=== PATIENT | female | born 1960 | race Caucasian/White ===

== ENCOUNTER → 2016-11-02 | Outpatient (CLI) | payer OTHER ==
--- NOTE | 2016-11-02 13:19 | Diagnostic Imaging Report ---
PROCEDURE: US Carotid Duplex Bilateral. TECHNIQUE: Multiple real-time grayscale images were obtained over the carotid arteries in various projections bilaterally. Additional duplex Doppler and color Doppler images were also obtained. INDICATION: Chest pain. FINDINGS: Grayscale images demonstrate calcified plaque along the carotid bifurcation bilaterally. Color-flow demonstrates patency of the common, internal, and external carotid arteries on both sides. There is antegrade flow demonstrated in the vertebral arteries on both sides. The peak systolic velocities in the right ICA are: 76, 99, and 104 cm/s from proximal to distal and on the left are: 72, 90, and 108 cm/s. The ICA/CCA ratios are up to 1.4 on the right and up to 1.7 on the left. IMPRESSION: Bilateral atherosclerotic plaque in the carotid bifurcation bilaterally with the estimated underlying stenosis in the range of 0-40% bilaterally. Dictated by: Dictated on workstation # [id number]
--- NOTE | 2016-11-04 08:26 | ECHOCARDIOGRAPHY REPORT ---
DATE OF SERVICE: 11/02/2016 A 2-D ECHOCARDIOGRAM REPORT MEASUREMENT: LVID end diastolic 3.4, IVS thickness 1.1, LVPW thickness 1.0, left atrial diameter 2.3, ejection fraction 60%. FINDINGS: 1. Technical quality is good. 2. The left ventricle is normal in size with mild hypertrophy noted at the base of the septum giving the septum a sigmoid shape. Systolic function appeared to be normal, estimated ejection fraction 60%. Diastolic dysfunction is suggested by Doppler. 3. The left atrium is normal in size. No clots or thrombus were seen within the left atrium. 4. The right atrium and right ventricle are normal in size. No clots or thrombus were seen within the right side. 5. Mitral valve is normal in morphology with mild mitral regurgitation noted by color Doppler flow. Doppler across the mitral valve showed equalization of E and A, which is suggestive of diastolic dysfunction. 6. Aortic valve leaflets were not well visualized. There is no significant aortic valve stenosis or regurgitation seen. 7. Tricuspid valve is normal in morphology with mild tricuspid regurgitation noted by color Doppler flow. Doppler across the tricuspid valve estimated pulmonary artery pressure of 29+ right atrial pressure. 8. Pulmonic valve is functioning normally. 9. No pericardial effusion. CONCLUSION: 1. Normal left ventricular size and systolic function, mild hypertrophy noted at the base of the septum giving the septum a sigmoid shape. Estimated ejection fraction 60%. Diastolic dysfunction is suggested by Doppler. 2. Mild mitral and tricuspid regurgitation. 3. Estimated pulmonary artery pressure of 35 mmHg. Job ID: [id number] DocumentID: [id number] Dictated Date: 11/02/2016 15:50:56 Meat Grader Date: 11/03/2016 06:51:25 Dictated By: MARITZA LARSEN MD
== END ==
LOC: RAD 10:43
PROVIDERS: ATTEND Internal Medicine Cardiovascular Disease
DX: R07.89 Other chest pain (principal)
CPT/HCPCS: 93880

== ENCOUNTER → 2016-12-21 | Outpatient (CLI) | payer OTHER ==
[~2016-12-21] MED LIST: CATHETER FLUSH 10 ML SYR IV PRN; REGADENOSON 0.4 MG/5 ML SYR (LEXISCAN) IV ONE
[2016-12-21 13:20] VITALS: BP 136/78
--- NOTE | 2016-12-21 17:16 | STRESS TEST ---
PROCEDURE PHYSICIAN: MARITZA LARSEN DATE OF PROCEDURE: 12/21/2016 LEXISCAN MYOVIEW STRESS TEST REPORT: BASELINE HEART RATE: 97 BASELINE BLOOD PRESSURE: 136/78 BASELINE EKG: Sinus rhythm with right bundle-branch block. IN SUMMARY: The patient received 10.08 mCi of technetium 99 Myoview and the resting images were obtained. Then the patient received 0.4 mg of Lexiscan followed by 31.4 mCi of technetium 99 Myoview. Throughout the test, there were no EKG changes. The resting and stress images were reviewed and compared in the short axis, horizontal long axis, and vertical long axis views. Review of the images showed good radiotracer uptake with no significant ischemia or infarction. SSS is 3, SDS 2, TID value 1.16. On the gated images, the left ventricle appeared to be normal size with normal contractility. Calculated ejection fraction 58%. IN CONCLUSION: 1. The patient tolerated Lexiscan well. 2. No significant ischemia or infarction on SPECT images. 3. Normal left ventricular size with normal contractility. Calculated ejection fraction of 58%. 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
== END ==
LOC: CARD 12:04
PROVIDERS: ATTEND Internal Medicine Cardiovascular Disease
DX: R07.89 Other chest pain (principal)
CPT/HCPCS: 78452; 93017

== ENCOUNTER → 2017-01-19 | Outpatient (CLI) | payer OTHER ==
--- NOTE | 2017-01-19 17:29 | Diagnostic Imaging Report ---
PROCEDURE: CT chest without contrast. TECHNIQUE: Multiple contiguous axial images were obtained through the chest without the use of intravenous contrast. INDICATION: Chest pain. FINDINGS: There is no significant consolidation, mass, or suspicious nodule seen. The heart size is normal. No pericardial or pleural effusion. No mediastinal mass. No significantly enlarged lymph nodes in the mediastinum or luis seen. Sternotomy wires are seen in place with osseous bridging in the mid sternum seen. Post-CABG changes are noted. The thoracic aorta is normal in caliber. Sections in the upper abdomen demonstrate a 1.7 cm left adrenal hypodense nodule. Its low density is suggestive of a lipid-rich adrenal adenoma. Mild degenerative changes in the thoracic spine seen. IMPRESSION: Post-CABG changes are seen. 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 Dictated by: Dictated on workstation # [id number]
== END ==
LOC: RAD 14:48
PROVIDERS: ATTEND Physician Assistant
DX: I25.10 Atherosclerotic heart disease of native coronary artery without angina pectoris (principal); R07.89 Other chest pain; I65.23 Occlusion and stenosis of bilateral carotid arteries; E78.2 Mixed hyperlipidemia; Z83.3 Family history of diabetes mellitus; Z82.49 Family history of ischemic heart disease and other diseases of the circulatory system
CPT/HCPCS: 71250

== ENCOUNTER → 2019-05-22 | Outpatient (CLI) | payer MEDICAID, OTHER ==
[~2019-05-22] MED LIST changes: -CATHETER FLUSH 10 ML SYR IV PRN; +GADOBUTROL 7.5 MMOL/7.5 ML (GADAVIST) VIAL IV ONE; -REGADENOSON 0.4 MG/5 ML SYR (LEXISCAN) IV ONE
[2019-05-22 09:19] LABS: BUN/CREATININE RATIO 12; CREATININE SERUM 0.74 MG/DL (0.60-1.30); GFR ESTIMATED > 60
--- NOTE | 2019-05-22 10:31 | Diagnostic Imaging Report ---
PROCEDURE: MR angiography neck with contrast. TECHNIQUE: Contrast-enhanced MR angiography of the neck was performed. Source data was reformatted into rotating MIP projection. INDICATION: Transient ischemic attack. COMPARISON: None FINDINGS: The MRA angiogram of the neck demonstrates patent origins of the great vessels arising from a 3 vessel aortic arch. The origins of the vertebral arteries appear widely patent. The vertebral arteries are codominant. No caliber change is demonstrated within the cervical carotids or vertebral arteries to suggest stenosis or dissection. Atherosclerotic plaque is noted in the bilateral carotid bulbs and proximal internal carotid arteries without flow-limiting stenosis. IMPRESSION: 1.Unremarkable MR angiogram of the neck. There is no evidence of significant stenosis or findings to suggest dissection. Dictated by: Dictated on workstation # [id number]
--- NOTE | 2019-05-22 10:33 | Diagnostic Imaging Report ---
PROCEDURE: MR angiography of the brain without the use of contrast. TECHNIQUE: 3D [id number] non contrast enhanced MR angiography of the head was performed. A source data was reformatted into rotating MIP projections. INDICATION: Transient ischemic attack. COMPARISON: None FINDINGS: The intracranial circulation appears intact. There is appropriate flow-related enhancement within the intracranial segments of the internal carotid arteries. The terminus is unremarkable. Appropriate flow related enhancement demonstrated within the middle cerebral artery branches. The anterior cerebral arteries and anterior communicating artery are unremarkable. Within the posterior circulation, the intracranial vertebral arteries are unremarkable. The basilar artery appears normal. There are patent bilateral posterior inferior cerebral arteries. Superior cerebellar and posterior cerebral arteries are patent. There is no evidence of intracranial aneurysm formation or MR angiographic findings to suggest a vascular malformation. IMPRESSION: Unremarkable MR angiogram of the head. There is no evidence of vessel occlusion or stenosis. There are no findings to suggest aneurysm or vascular malformation. Dictated by: Dictated on workstation # [id number]
== END ==
LOC: RAD 08:27
PROVIDERS: ATTEND Family Medicine
DX: G45.9 Transient cerebral ischemic attack, unspecified (principal); R53.1 Weakness
CPT/HCPCS: 36415; 70544; 70548; 82565; 84520

== ENCOUNTER 2021-01-26 09:28 | Inpatient (IN) | payer MEDICAID ==
[~2021-01-26] VITALS: Ht 152.4 cm; Wt 90.1 kg
[2021-01-26] MEDS ORDERED: BISACODYL 10 MG SUPP (DULCOLAX) PR PRN (11:30)
[2021-01-26] MEDS ORDERED: LACTULOSE SYRUP 10GM/15ML (ENULOSE) 30ML UDC PO PRN (11:30)
[2021-01-26] MEDS ORDERED: diphenhydrAMINE 25 MG TAB (BENADRYL) PO PRN (11:30)
[2021-01-26] MEDS ORDERED: CALCIUM CARBONATE 500 MG (TUMS) TAB.CHEW PO PRN ×2 (11:30→21:15)
[2021-01-26] MEDS ORDERED: NALOXONE 0.4 MG/ML 1 ML (NARCAN) VIAL IV PRN (11:30)
[2021-01-26] MEDS ORDERED: DOCUSATE SODIUM 100 MG (COLACE) CAP PO PRN (11:30)
[2021-01-26] MEDS ORDERED: FLEET ENEMA ADULT 1 EA BTL PR PRN (11:30)
[2021-01-26] MEDS ORDERED: guaiFENesin/CODEINE (ROBITUSSIN AC) 10ML UDC PO PRN (11:30)
[2021-01-26] MEDS ORDERED: ONDANSETRON 4 MG (ZOFRAN) ORAL DISSOLVE TAB PO PRN (11:30)
[2021-01-26] MEDS ORDERED: LOPERAMIDE 2 MG (IMODIUM) TABLET PO PRN (11:30)
--- NOTE | 2021-01-26 18:39 | Progress Note ---
Progress Note Shireen Park is a 60 y.o. female with PMH of CAD, [place] x 2 s/p CABG, T2DM, and COPD who presented to as a type 2 trauma transfer for right femur and humerus fracture from possible syncopal fall. She was transferred to based on decreased hemoglobin associated with her injuries, and was admitted to the SICU based on hyponatremia on admission labs. She was transferred out to the medical surgical unit on 01/15. Taken returned to OR on 01/15 for R femur ORIF and again on 01/20 for closed reduction of right proximal humerus fracture. During her hospital stay she struggled with hyponatremia. She is being treated with a free restriction and medication management. Physical therapy was initiated and patient was restarted on diabetic diet and any indicated home medications. They received oral pain medicine that was titrated to patient's needs. Labs were routinely followed and electrolytes were replaced as indicated. Prior to discharge patient was cleared by physical therapy, had adequate pain control, and had return of bowel function. Appropriate follow-up was scheduled. Active Problems * (Principal) Other fracture of right femur, initial encounter for closed fracture ([facility]) ABLA (acute blood loss anemia) Morbid obesity ([facility]) Hyponatremia Closed comminuted fracture of right humerus Syncope and collapse Impaired mobility and activities of daily living Acute traumatic pain Sleep disorder CAD (coronary artery disease) HTN (hypertension) COPD (chronic obstructive pulmonary disease) ([facility]) At risk for constipation DM (diabetes mellitus) ([facility]) Closed fracture of distal end of right femur ([facility]) Principal Problem: Other fracture of right femur, initial encounter for closed fracture ([facility]) Active Problems: ABLA (acute blood loss anemia) Morbid obesity ([facility]) Hyponatremia Closed comminuted fracture of right humerus Syncope and collapse Impaired mobility and activities of daily living Acute traumatic pain Sleep disorder CAD (coronary artery disease) HTN (hypertension) COPD (chronic obstructive pulmonary disease) ([facility]) At risk for constipation DM (diabetes mellitus) ([facility]) Closed fracture of distal end of right femur ([facility]) START taking these medications Details acetaminophen (TYLENOL) 325 mg tablet Take two tablets by mouth every 6 hours as needed for Pain. Refills: 0 PRESCRIPTION TYPE: No Print amLODIPine (NORVASC) 10 mg tablet Take one tablet by mouth daily. Qty: 90 tablet, Refills: 0 PRESCRIPTION TYPE: No Print calcium carbonate (TUMS) 500 mg (200 mg elemental calcium) chewable tablet Chew one tablet by mouth every 6 hours as needed. Refills: 0 PRESCRIPTION TYPE: No Print enoxaparin (LOVENOX) 40 mg injection syringe Inject 0.4 mL under the skin daily for 21 days. Qty: 21 each, Refills: 0 PRESCRIPTION TYPE: No Print melatonin 3 mg tab Take one tablet by mouth at bedtime daily. PRESCRIPTION TYPE: No Print methocarbamoL (ROBAXIN) 750 mg tablet Take one tablet by mouth four times daily for 21 days. Qty: 84 tablet, Refills: 0 PRESCRIPTION TYPE: No Print milk of magnesia (CONC) 2,400 mg/10 mL oral suspension Take 10 mL by mouth daily as needed for Heartburn. Qty: 360 mL PRESCRIPTION TYPE: No Print oxyCODONE (ROXICODONE) 5 mg tablet one tablet to three tablets by Per NG tube route every 3 hours as needed Qty: 30 tablet, Refills: 0 PRESCRIPTION TYPE: Print polyethylene glycol 3350 (MIRALAX) 17 g packet Take one packet by mouth daily. Qty: 12 each, Refills: 0 PRESCRIPTION TYPE: No Print senna/docusate (SENOKOT-S) 8.6/50 mg tablet Take two tablets by mouth twice daily. Qty: 90 tablet PRESCRIPTION TYPE: No Print sodium chloride 1 gram tablet Take one tablet by mouth daily. Qty: 30 tablet, Refills: 0 PRESCRIPTION TYPE: No Print CONTINUE these medications which have NOT CHANGED Details atorvastatin (LIPITOR) 80 mg tablet Take 1 tablet by mouth daily. PRESCRIPTION TYPE: Historical Med budesonide-formoterol HFA (SYMBICORT) 160-4.5 mcg/actuation inhalation Inhale 2 puffs by mouth into the lungs twice daily. PRESCRIPTION TYPE: Historical Med clopiDOGrel (PLAVIX) 75 mg tablet Take 1 tablet by mouth daily. PRESCRIPTION TYPE: Historical Med fludrocortisone (FLORINEF) 0.1 mg tablet Take 1 tablet by mouth three times daily. PRESCRIPTION TYPE: Historical Med gabapentin (NEURONTIN) 400 mg capsule Take 1 capsule by mouth three times daily. PRESCRIPTION TYPE: Historical Med insulin lispro(+) (HUMALOG) 100 unit/mL injection Inject 10 Units under the skin twice daily. PRESCRIPTION TYPE: Historical Med JANUVIA 100 mg tablet Take 1 tablet by mouth daily. PRESCRIPTION TYPE: Historical Med LEVEMIR U-100 INSULIN 100 unit/mL vial Inject 30 Units under the skin at bedtime daily. PRESCRIPTION TYPE: Historical Med metFORMIN-XR (GLUCOPHAGE XR) 500 mg extended release tablet Take 1 tablet by mouth twice daily. PRESCRIPTION TYPE: Historical Med The following medications were removed from your list. This list includes medications discontinued this stay and those removed from your prior med list in our system lisinopriL (ZESTRIL) 20 mg tablet No future appointments. ALCIDES RUIZ DO Jan 26, 2021 18:39
[2021-01-26 20:00] VITALS: BP 163/73
[2021-01-26] MEDS ORDERED: ACETAMINOPHEN 325 MG TABLET PO PRN (21:15)
[2021-01-26] MEDS ORDERED: METHOCARBAMOL 750 MG (ROBAXIN) TAB PO PRN (21:15)
[2021-01-26] MEDS: inSUlin ASPART (NovoLOG) 1 UNIT/0.01 ML (CHARGE PER UNIT) SC SCH (22:33)
[2021-01-26] MEDS ORDERED: inSUlin ASPART (NovoLOG) 1 UNIT/0.01 ML (CHARGE PER UNIT) ONE (23:00)
[2021-01-27] MEDS: DOCUSATE SODIUM 100 MG (COLACE) CAP PO SCH ×3 (00:11→21:20)
[2021-01-27] MEDS: polyethylene glycoL POWDER 17 GM (MIRALAX) PACK PO SCH ×3 (00:11→21:32)
[2021-01-27] MEDS: SENNA W/DOCUSATE (SENOKOT S) TABLET PO SCH ×3 (00:11→21:32)
[2021-01-27] MEDS: inSUlin ASPART (NovoLOG) 1 UNIT/0.01 ML (CHARGE PER UNIT) SC SCH ×6 (06:10→21:15)
--- NOTE | 2021-01-27 06:13 | PM&R Post Admission Assessment ---
PM&R HP Date of Visit: Jan 27, 2021 Time of Visit: 10:00 History of Present Illness Chief complaint: Right distal femur fracture with right humerus fracture HPI: This is a 60yoWF who presents from following a right distal femur fracture with right humerus fracture requiring surgery due to multiple fractures extending into the rest of the bone. Apparently she underwent a reconstruction surgery and is now in need of aggressive PT in order to return to independent living. At this current time, Pt reports pain but manageable with pain medication and no significant issues are currently acute. discharge summary Shireen Park is a 60 y.o. female with PMH of CAD, [place] x 2 s/p CABG, T2DM, and COPD who presented to as a type 2 trauma transfer for right femur and humerus fracture from possible syncopal fall. She was transferred to based on decreased hemoglobin associated with her injuries, and was admitted to the SICU based on hyponatremia on admission labs. She was transferred out to the medical surgical unit on 01/15. Taken returned to OR on 01/15 for R femur ORIF and again on 01/20 for closed reduction of right proximal humerus fracture. During her hospital stay she struggled with hyponatremia. She is being treated with a free restriction and medication management. Physical therapy was initiated and nima kapoor was restarted on diabetic diet and any indicated home medications. They received oral pain medicine that was titrated to patient's needs. Labs were routinely followed and electrolytes were replaced as indicated. Prior to discharge patient was cleared by physical therapy, had adequate pain control, and had return of bowel function. Appropriate follow-up was scheduled. Past Njdfjev-Epprpo-Dxagak Hx Past Med/Social Hx: Reviewed Nursing Past Med/Soc Hx, Reviewed and Corrections made Patient Social History Marrital Status: (42 years) Employed/Student: unemployed Alcohol Use: Denies Use Smoking Status: Current Everyday Smoker Past Medical History Surgeries: Orthopedic Respiratory: COPD, Sleep Apnea Cardiac: High Cholesterol, Hypertension Gastrointestinal: Gastroesophageal Reflux Musculoskeletal: Arthritis, Chronic Back Pain Endocrine: Diabetes, Insulin dep PM&R Allergy/Meds/Data Review Allergies Coded Allergies: venlafaxine (Verified Allergy, Unknown, 01/26/21) Current Medications Current Medications Reviewed Laboratory Data Laboratory Tests 01/26/21 22:21: Glucometer 190H 01/27/21 05:26: Glucometer 84 Review of Systems Constitutional: see HPI, malaise, weakness EENTM: no symptoms reported Respiratory: no symptoms reported Cardiovascular: no symptoms reported Gastrointestinal: constipation Genitourinary: no symptoms reported Musculoskeletal: joint pain, muscle stiffness, muscle weakness Skin: no symptoms reported Psychiatric/Neurological: Depressed All Other Systems Reviewed Negative Unless Noted: Yes Physical Exam Physical Exam Vital Signs Vital Signs - First Documented 01/26/21 01/26/21 20:00 21:10 Temp 36.8 Pulse 93 Resp 20 B/P (MAP) 163/73 (103) Pulse Ox 95 O2 Delivery Ambu Bag Capillary Refill : Height, Weight, BMI Height: '" Weight: lbs. oz. kg; 40.90 BMI Method: General Appearance: No Apparent Distress, WD/WN, Chronically ill Eyes: Bilateral Eye Normal Inspection, Bilateral Eye PERRL HEENT: PERRL/EOMI, Normal ENT Inspection, Pharynx Normal Neck: Full Range of Motion, Normal Inspection, Non Tender, Supple, Carotid Bruit Respiratory: Chest Non Tender, Lungs Clear, Normal Breath Sounds, No Accessory Muscle Use, No Respiratory Distress Cardiovascular: Regular Rate, Rhythm, No Edema, No Gallop, No JVD, No Murmur, Normal Peripheral Pulses Gastrointestinal: Normal Bowel Sounds, No Organomegaly, No Pulsatile Mass, Non Tender, Soft Back: Normal Inspection, No CVA Tenderness, No Vertebral Tenderness Extremity: Normal Capillary Refill, Normal Inspection, Normal Range of Motion (Except right arm and right leg), Non Tender, No Calf Tenderness, No Pedal Edema Neurologic/Psychiatric: Alert, Oriented x3, No Motor/Sensory Deficits, 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 II- XII Norm as Tested, Abnormal Gait, Depressed Affect, Motor Weakness (Right arm right leg) Skin: Normal Color, Warm/Dry Lymphatic: No Adenopathy PM&R Medical Assessment & Plan REHAB/MEDICAL ASSESSMENT AND PLAN: REHAB IMPAIRMENT GROUP: Right hip fracture right humerus fracture ETIOLOGIC DIAGNOSIS: Right hip fracture right humerus fracture The comorbidities that impact the patients function and/or functional outcome by: Obesity, right distal femur fracture, right humerus fracture, current smoker, COPD REHAB PLAN: The patient is being admitted to our comprehensive inpatient rehabilitation facility and can tolerate the intensity of service consisting of at least: 180 minutes of therapy a day, 5 out of 7 days a week Rehab treatment will consist of: PT and OT will focus on regaining enough function to recover independent living ability The patient/family has a good understanding of our discharge process and will benefit from an interdisciplinary inpatient rehabilitation program. The patient has potential to make improvement and is in need of at least two of the following multidisciplinary therapies including but not limited to physical, occupational, speech, and prosthetics and orthotics. Additionally the patient will need services from respiratory, nutritional services, wound care, psychology, etc. (Customize this to each patient). Given the patients complex condition and risk of further medical complications, rehabilitation services cannot be safely or effectively provided at a lower level of care such as a halfway facility. BARRIERS TO DISCHARGE: Obesity with right sided limb restriction ESTIMATED LOS: 14 days DISPOSITION: Home RELEVANT CHANGES SINCE PREADMISSION SCREENING: I have compared the patients medical and functional status at the time of the preadmission screening and there are: No changes PROGNOSIS: Good REHABILITATION GOALS: 1. PT and OT will focus on regaining ability to ambulate with assistive devices with weightbearing restrictions in addition to increasing ADLs in order to return to independent living All the above goals were reviewed with the patient and he/she is in agreement. By signing this document, I acknowledge that I have personally performed a full physical examination on this patient within 24 hours of admission to this inpatient rehabilitation facility and have determined the patient to be able to tolerate the above course of treatment at an intensive level for a reasonable period of time. I will be completing a detailed individualized Plan of Care for this patient by day #4 of the patients stay based upon the Preadmission Screen, the Post-Admission Evaluation, and the therapy evaluations. Admission Dx/Comorbidities: (1) Femur fracture ICD Codes: S72.90XA - Unspecified fracture of unspecified femur, initial encounter for closed fracture Assessment/Plan Assessment and Plan Assess & Plan/Chief Complaint Assessment: Distal fracture of right femur Closed comminuted fracture of right humerus ABLA (acute blood loss anemia) Morbid obesity ([facility]) Hyponatremia Syncope and collapse Impaired mobility and activities of daily living Acute traumatic pain Sleep disorder CAD (coronary artery disease HTN (hypertension) COPD (chronic obstructive pulmonary disease) ([facility]) At risk for constipation DM (diabetes mellitus) ([facility]) Plan: Aggressive therapy Pain control Supportive care ALCIDES RUIZ DO Jan 27, 2021 06:13
[2021-01-27 06:37] LABS: BASOPHILS % (AUTO) 0 % (0-10); EOSINOPHILS # (AUTO) 0.5 10^3/uL (0.0-0.3); EOSINOPHILS % (AUTO) 5 % (0-10); HEMATOCRIT 28 % (35-52); HEMOGLOBIN 8.5 g/dL (11.5-16.0); LYMPHOCYTES # (AUTO) 1.2 10^3/uL (1.0-4.0); LYMPHOCYTES % (AUTO) 11 % (12-44); MEAN CORPUSCULAR HEMOGLOBIN 23 pg (25-34); MEAN CORPUSCULAR HGB CONC 30 g/dL (32-36); MEAN CORPUSCULAR VOLUME 78 fL (80-99); MEAN PLATELET VOLUME 9.5 fL (9.0-12.2); MONOCYTES # (AUTO) 1.1 10^3/uL (0.0-1.0); MONOCYTES % (AUTO) 11 % (0-12); NEUTROPHILS # (AUTO) 7.5 10^3/uL (1.8-7.8); NEUTROPHILS % (AUTO) 72 % (42-75); PLATELET COUNT 566 10^3/uL (130-400); WHITE BLOOD COUNT 10.4 10^3/uL (4.3-11.0)
[2021-01-27 06:52] LABS: ALBUMIN 2.6 GM/DL (3.2-4.5); POTASSIUM 3.6 MMOL/L (3.6-5.0)
[2021-01-27 06:53] LABS: CALCIUM 8.6 MG/DL (8.5-10.1)
[2021-01-27 06:54] LABS: TOTAL PROTEIN 5.7 GM/DL (6.4-8.2)
[2021-01-27 06:56] LABS: BILIRUBIN,TOTAL 0.5 MG/DL (0.1-1.0)
[2021-01-27 06:58] LABS: CREATININE SERUM 0.73 MG/DL (0.60-1.30)
[2021-01-27] MEDS ORDERED: inSUlin ASPART (NovoLOG) 1 UNIT/0.01 ML (CHARGE PER UNIT) SC SCH (07:00)
[2021-01-27 07:41] VITALS: BP 169/72
[2021-01-27] MEDS: CLOPIDOGREL 75 MG (PLAVIX) TABLET PO SCH (08:38)
[2021-01-27] MEDS: GABAPENTIN 400 MG (NEURONTIN) CAP PO SCH ×3 (08:38→21:21)
[2021-01-27] MEDS: FLUDROCORTISONE 0.1 MG (FLORINEF) TAB PO SCH ×3 (08:38→21:21)
[2021-01-27] MEDS: metFORMIN XR 500 MG (GLUCOPHAGE XR) TAB PO SCH ×2 (08:38→21:21)
[2021-01-27] MEDS: amLODIPine 10 MG (NORVASC) TAB PO SCH (08:38)
[2021-01-27] MEDS: ENOXAPARIN 40 MG/0.4 ML (LOVENOX) SYR SC SCH ×2 (08:40→18:04)
[2021-01-27] MEDS ORDERED: SODIUM CHLORIDE 1 GM TABLET PO SCH (09:00)
--- NOTE | 2021-01-27 09:50 | Occupational Therapy Eval ---
OT Evaluation-General/PLF Medical Diagnosis Admission Date Jan 26, 2021 at 21:10 Medical Diagnosis: Right femur fx, right humerus fx Onset Date: Jan 15, 2021 Therapy Diagnosis Therapy Diagnosis: Decreased ADL skills, Decreased mobility Precautions Precautions/Isolations: Fall Prevention, Standard Precautions, Pressure Ulcer Weight Bear Status Pt. is NWB right UE, TTWB right LE Referral Physician: Dr. Horton Referral Reason: Activity Tolerance, Self Care, Evaluation/Treatment, Strengthening/ROM Medical History Pertinent Medical History: CABG, CAD, COPD, DM Additional Medical History ME Current History Pt. fell at home, sustaining right UE/LE femur and humerus fx. Pt. underwent ORIF humerus on 01-15-21, and closed reduction femur 01-20-21. Reviewed History: Yes Social History Home: Single Level Current Living Status: Spouse (Pt's son and daughter in law also live with them.) Entry Into Home: [facility] ADL-Prior Level of Function SCALE: Activities may be completed with or without assistive devices. 9-Twzpkvtnld-xzvgrfo completes the activity by him/herself with no assistance from a helper. 5-Set-up or Clean-up Assistance-helper sets up or cleans up; patient completes activity. [place] assists only prior to or following the activity. 4-Supervision or Touching Assistance-helper provides verbal cues and/or touching/steadying and/or contact guard assistance as patient completes activity. Assistance may be provided throughout the activity or intermittently. 3-Partial/Moderate Assistance-helper does LESS THAN HALF the effort. [place] lifts, holds or supports trunk or limbs, but provides less than half the effort. 2-Substantial/Maximal Assistance-helper does MORE THAN HALF the effort. [place] lifts or holds trunk or limbs and provides more than half the effort. 9-Gthrsiqdn-eanqas does ALL the effort. Patient does none of the effort to complete the activity. Or, the assistance of 2 or more helpers is required for the patient to complete the activity. If activity was not attempted, code reason: 7-Patient Refused. 9-Not Applicable-not attempted and the patient did not perform the activity before the current illness, exacerbation or injury. 10-Not Attempted due to Environmental Limitations-(lack of equipment, weather restraints, etc.). 88-Not Attempted due to Medical Conditions or Safety Concerns. ADL PLOF Comments Pt. states that she was taking care of her spouse who has cancer, but that her son and daughter in law can physically take care of him when she can't. The cook and clean and live with them. Pt. uses a walker or cane, and does not drive. She doesn't work. She is typically independent with her personal daily needs. Self Care: Independent Functional Cognition: Independent DME/Equipment: Bath Chair, Tub/Shower DME/Equipment Comments Pt. has walker, cane, wheelchair. Drive Self: No OT Current Status Subjective Pt. reports 9/10 pain in right UE/LE. Nursing gives pain medication. Appearance Pt. in bed. Motivated to get up. Mental Status/Objective Patient Orientation: Person, Place, Time, Situation Current Hand Dominance: Right Upper Extremity ROM Left- WFL Right- Not tested. Sling on but removed to rest in bed. ADL-Treatment Eating (QC): 4 (Set up and SBA at times with left UE.) Oral Hygiene (QC): 88 Shower/Bathe Self (QC): 1 (Max assist x 2 in bed due to need of positioning and rolling. ) Upper Body Dressing (QC): 2 (Max assist for removal of arm sling and donning of gown put on as shirt.) Lower Body Dressing (QC): 88 On/Off Footwear (QC): 2 Toileting Hygiene (QC): 1 (Pt. became incontinent of bowel in bed. Dependent assist of 2 to roll and cleanse carla area.) Other Treatments Pt. motivated. Requires heavy max assistance to transfer supine-sit. Pt. demonstrates poor sitting balance and core strength. Mod assist to maintain sitting balance EOB. Sat approximately 10 minutes, and transferred sit-supine with max x 2. Dependent assist x 2 for positioning and max x 2 for cleansing all parts, rolling in bed, and proper positioning in bed. OT provided gentle head cleanse with shampoo cap. Brushed knots out. Removed sling from right UE and positioned to comfort level on pillow. LE elevated for comfort. All needs met. Education OT Patient Education: Correct positioning, Exercise program, Modified ADL techniques, Progress toward Goal/Update tx plan, Purpose of tx/functional activities, Reviewed precautions, Rehab process, Transfer techniques Teaching Recipient: Patient Teaching Methods: Demonstration, Discussion Response to Teaching: Verbalize Understanding, Return Demonstration OT Short Term Goals Short Term Goals Time Frame: Feb 10, 2021 Eatin Oral hygiene: 4 Toileting hygiene: 3 Shower/bathe self: 3 Upper body dressin Lower body dressin Putting on/taking off footwear: 3 OT Mcfp Goals Mcfp Goals Time Frame: Feb 24, 2021 Eating (QC): 6 Oral Hygiene (QC): 6 Toileting Hygiene (QC): 6 Shower/Bathe Self (QC): 4 Upper Body Dressing (QC): 5 Lower Body Dressing (QC): 5 On/Off Footwear (QC): 5 Additional Goals: 1-Demonstrate ADL Tasks, 2-Verbalize Understanding, 3-ImproveStrength/Brian 1=Demonstrate adherence to instructed precautions during ADL tasks. 2=Patient will verbalize/demonstrate understanding of assistive devices/modifications for ADL. 3=Patient will improve strength/tolerance for activity to enable patient to perform ADL's. OT Education/Plan Problem List/Assessment Assessment: Decreased Activ Tolerance, Decreased UE Strength, Dependent Transfers, Impaired Bed Mobility, Impaired Funct Balance, Impaired I ADL's, Impaired Self-Care Skills, Restricted Funct UE ROM Discharge Recommendations Plan/Recommendations: Continue POC Therapy Discharge Recommendati: Post Acute OT Treatment Plan/Plan of Care Treatment,Training & Education: Yes Patient would benefit from OT for education, treatment and training to promote independence in ADL's, mobility, safety and/or upper extremity function for ADL's. Plan of Care: ADL Retraining, Functional Mobility, UE Funct Exercise/Act Treatment Duration: Feb 24, 2021 Frequency: At least 5 of 7 days/Wk (IRF) Estimated Hrs Per Day: 1.5 hours per day Agreement: Yes Rehab Potential: Good Time/GCodes Start Time: 08:15 Stop Time: 09:30 Total Time Billed (hr/min): 75 Billed Treatment Time 1, EVH x 15minutes, ADL x 60minutes TAL THOMAS OT Jan 27, 2021 09:50
--- NOTE | 2021-01-27 10:30 | ST Cognitive Linguistic Eval ---
Speech Evaluation-General Medical Diagnosis Right femur fx, right humerus fx Onset Date: Jan 15, 2021 Therapy Diagnosis Therapy Diagnosis: Cognitive-communication Precautions Precautions/Isolations: Fall Prevention, Standard Precautions Referral Referring Physician: Dr. Horton Medical History Pertinent Medical History: CABG, CAD, COPD, DM Reviewed History: Yes Social History Current Living Status: Spouse (Pt's son and daughter in law also live with them.) Speech PLF-Current Status Prior Level of Function Patient lives in her own home with her , son and daughter in law. Patient was independent for most of her daily needs. Subjective Patient was cooperative with the cognitive assessment. Language Eval: Auditory Comprehends Simple Yes/No Ques: Functional Indent/Objects Multiple Rivera: Functional Ident/Pics in Multiple Rivera: Functional Follows 1-Step Commands: Functional Follows Complex Directions: Functional Follows General Conversations: Functional Language Eval: Verbal Language Completes Spontaneous Greeting: Functional Produces Auto, Serial Info: Functional Imitates Simple Words/Phrases: Functional Word Finding: Functional Requests Basic Needs: Functional States Basic Personal Info: Functional Expresses Complex Ideas: Functional Objective Cognitive Domain Attention: WNL Memory: WNL Problem Solving: Functional Executive Functions: WNL Visuospatial Skills: WNL Composite Severity Rating: WNL Clock Drawing Severity Rating: WNL Objective Formal/Standardized Tests [facility] Mental Status ([facility]) Results 27/30, within normal range of function Oral Motor/Speech Production Within Normal Limits Impression Patient is a 60 y/o female who was admitted to the ARU s/p fall with broken leg and arm. Patient was given the SLUMS at bedside with a score of 27/30 obtained. The patient's score is within normal range of function and does not indicate further need for ST services. Speech Patient Assess Expression of Ideas/Wants: Expression (4) Understanding Verbal Content: Understands (4) Brief Interview-Mental Status: Yes Repetition of Three Words: Three (3) Temporal Orientation: Year: Correct (3) Temporal Orientation: Month: Accurate within 5 days(2) Temporal Orientation: Day: Correct (1) Recall : Wear to say "Sock": Yes, no cue required (2) Recall : Color: Yes, no cue required (2) Recall : Bed: Yes, no cue required (2) Memory/Recall Ability: Current season, Location of own room, That he or she is in a hsp/hsp unit Speech-Plan Patient/Family Goals Patient/Family Goals: Patient plans on returning to her home where she lives with her , son and daughter in law. Treatment Plan Speech Therapy Treatment Plan: Discontinue ST Treatment Duration: Jan 27, 2021 Frequency: 1 time per week Estimated Hrs Per Day: .5 hour per day Rehab Potential: Good Barriers to Learning: None identified at this time Pt/Family Agrees to Plan: Yes Safety Risks/Education Teaching Recipient: Patient, Significant Other Teaching Methods: Discussion Response to Teaching: Verbalize Understanding Education Topics Provided: Safety within her room, communication of wants/needs Time Speech Therapy Time In: 10:00 Speech Therapy Time Out: 10:30 Total Billed Time: 30 Billed Treatment Time 1, KATE KENDRICK [address] ST Jan 27, 2021 10:30
--- NOTE | 2021-01-27 11:34 | Physical Therapy Evaluation ---
PT Evaluation-General Medical Diagnosis Admission Date Jan 26, 2021 at 21:10 Medical Diagnosis: Right femur fx, right humerus fx Onset Date: Jan 15, 2021 Therapy Diagnosis Therapy Diagnosis: impaired mobility, strength, endurance Precautions Precautions/Isolations: Fall Prevention, Standard Precautions Weight Bear Status Right Lower Extremity: Right Touch Toe Bearing RUE NWB, recevied instructions to not use a noam lift after evaluation and tx have already been done Referral Physician: Nini Horton DO Reason for Referral: Evaluation/Treatment Medical History Pertinent Medical History: CABG, CAD, COPD, DM Reviewed History: Yes Social History Home: Single Level Current Living Status: Spouse (Pt's son and daughter in law also live with them.) Entry Into Home: Ramp Prior Prior Level of Function SCALE: Activities may be completed with or without assistive devices. 3-Bpfoctetqd-pvosswm completes the activity by him/herself with no assistance from a helper. 5-Set-up or Clean-up Assistance-helper sets up or cleans up; patient completes activity. [place] assists only prior to or following the activity. 4-Supervision or Touching Assistance-helper provides verbal cues and/or touching/steadying and/or contact guard assistance as patient completes activity. Assistance may be provided throughout the activity or intermittently. 3-Partial/Moderate Assistance-helper does LESS THAN HALF the effort. [place] lifts, holds or supports trunk or limbs, but provides less than half the effort. 2-Substantial/Maximal Assistance-helper does MORE THAN HALF the effort. [place] lifts or holds trunk or limbs and provides more than half the effort. 1-Evkqxvjjn-ziggxz does ALL the effort. Patient does none of the effort to complete the activity. Or, the assistance of 2 or more helpers is required for the patient to complete the activity. If activity was not attempted, code reason: 7-Patient Refused. 9-Not Applicable-not attempted and the patient did not perform the activity before the current illness, exacerbation or injury. 10-Not Attempted due to Environmental Limitations-(lack of equipment, weather restraints, etc.). 88-Not Attempted due to Medical Conditions or Safety Concerns. Bed Mobility: 6 Transfers (B,C,W/C): 6 Gait: 6 Stairs: 6 Indoor Mobility (Ambulation): Independent Stairs: Independent PT Evaluation-Current Subjective Patient in bed pre tx, agrees to PT, has 7/10 pain in right arm and right leg. Pt/Family Goals to be independent at home Objective Patient Orientation: Person, Place, Situation ROM/Strength ROM Lower Extremities LLE WNL, RLE not tested Strength Lower Extremities LLE (hip flexion 3/5, knee flexion 4/5, knee extension 4/5, dorsiflexion 4/5), RLE (hip flexion 3/5, knee extension 3/5, knee flexion 3/5, dorsiflexion 3/5) no pressure put on RLE for MMT Sensory Hearing: Functional Hand Dominance: Right Sensation Right Lower Extremit: Intact Sensation Left Lower Extremity: Intact Transfers Roll Left & Right (QC): 1 Sit to Lying (QC): 1 Lying to Sitting/Side of Bed(Q: 1 Sit to Stand (QC): 1 Chair/Nst-ty-Qicbc Xfer(QC): 1 Toilet Transfer (QC): 1 Car Transfer (QC): 1 Patient performs bed mobility with dependence, supine <-> sit dependent, she cannot stand at this time, dependent with transfers and car transfer. Patient used a noam to transfer to recliner, received an order to not use a noam later after patient had already been seen. Gait Does the Patient Walk?: No and Walking Goal NOT indicated Walk 10 feet (QC): 88 Walk 50 ft with 2 Turns(QC): 88 Walk 150 ft (QC): 88 Walking 10ft/uneven surface-QC: 88 Wheelchair Training Does the Pt Use a Wheelchair?: Yes Wheel 50 ft with 2 turns (QC): 1 Wheel 150 ft (QC): 1 Type of Wheelchair: Manual Stairs 1 Step (curb) (QC): 88 4 Steps (QC): 88 12 Steps (QC): 88 Balance Sitting Static: Poor Sitting Dynamic: Poor Standing Static: Poor Standing Dynamic: Poor Picking up an Object (QC): 88 Treatment BLE seated exercises x20 (AP, hip abd/add, LAQ, hip flexion), also performed QS and GS x20 in recliner with legs elevated. Assessment/Needs Patient has impaired mobility, strength, endurance. Patient in recliner post tx with nurse call, phone, tray, all needs met. Patient is dependent for mobility. Rehab Potential: Poor PT Short Term Goals Short Term Goals Time Frame: Feb 03, 2021 Roll Left & Right: 2 Sit to lyin Lying to sitting on side of be: 2 Sit to stand: 2 Chair/dhh-rl-vnqxl transfer: 2 PT Oakes Machine Operator Goals Oakes Machine Operator Goals PT Custodial Goals Time Frame: Feb 17, 2021 Roll Left & Right (QC): 3 Sit to Lying (QC): 3 Lying-Sitting on Side/Bed(QC): 3 Sit to Stand (QC): 3 Chair/Wgn-qd-Jbpxy Xfer(QC): 3 Toilet Transfer (QC): 3 Car Transfer (QC): 3 Does the Patient Walk: No and Walking Goal NOT indicated Walk 10 feet (QC): 88 Walk 50ft with 2 Turns (QC): 88 Walk 150 ft (QC): 88 Walking 10ft on Uneven Surface: 88 1 Step (curb) (QC): 88 4 Steps (QC): 88 12 Steps (QC): 88 Picking up an Object (QC): 88 Wheel 50 feet with 2 turns (QC: 5 Wheel 150 feet: 5 PT Plan Problem List Problem List: Activity Tolerance, Functional Strength, Safety, Balance, Gait, Transfer, Bed Mobility, ROM Treatment/Plan Treatment Plan: Continue Plan of Care Treatment Plan: Bed Mobility, Education, Functional Activity Brian, Functional Strength, Group Therapy, Gait, Safety, Therapeutic Exercise, Transfers Treatment Duration: Feb 17, 2021 Frequency: At least 5 of 7 days/Wk (IRF) Patient and/or Family Agrees t: Yes Safety Risks/Education Patient Education: Transfer Techniques, Reviewed Precautions, Correct Positioning, Safety Issues Teaching Recipient: Patient Teaching Methods: Demonstration, Discussion Response to Teaching: Reinforcement Needed Discharge Recommendations Plan Patient will perform bed mobility and transfer training, balance and endurance training, functional strengthening, and education, to improve functional mobi lity and independence at home. Therapy Discharge Recommendati: 24 Hour Supervision Time/GCodes Time In: 1030 Time Out: 1130 Total Billed Treatment Time: 60 Total Billed Treatment 1 visit EVM 30' EX 15' FA 15' PIETRO BHANDARI PT Jan 27, 2021 11:34
--- NOTE | 2021-01-27 12:22 | Individualized Plan of Care ---
Individualized Plan of Care Rehab Nursing IPOC Order Admission Date Jan 26, 2021 at 21:10 Current Orders Orders Admission Order(Inpt,Obs,Sdc) (01/26/21 11:20) Vital Signs: Per Unit Policy ( ,16,00 (01/26/21 11:20) Abdirahman Sauceda (01/26/21 11:20) Sequential Compression Device .admit (01/26/21 11:20) Consulting Marine Engineer-Inpt Rehab Con (01/26/21 11:20) Rehab Nursing Orders-Ipoc (01/26/21 11:20) Physical Therapy Rehab Orders (01/26/21 11:20) Occupational Therapy Rehab Ord (01/26/21 11:20) Speech Therapy Rehab Orders (01/26/21 11:20) Cbc With Automated Diff (01/27/21 06:00) Comprehensive Metabolic Panel (01/27/21 06:00) Precautions (Aru) (01/26/21 11:20) Rehab-Intensity Of Therapy (01/26/21 11:20) Initiate Admission Nursing Pro .admission (01/26/21 11:20) Alprazolam Tablet (Xanax Tablet) (01/26/21 11:30) Calcium Carbonate Chew Tablet (Antacid C (01/26/21 11:30) Diphenhydramine Tablet (Benadryl Tablet) (01/26/21 11:30) Docusate Sodium Capsule (Colace Capsule) (01/26/21 21:00) Docusate Sodium Capsule (Colace Capsule) (01/26/21 11:30) Bisacodyl Suppository (Dulcolax Supposit (01/26/21 11:30) Lactulose Oral Solution (Enulose Oral So (01/26/21 11:30) Na Phos/Na Biphos Enema (Fleet Enema Suleiman (01/26/21 11:30) Guaifenesin/Codeine Syrup (Robitussin Ac (01/26/21 11:30) Loperamide Tablet (Imodium Tablet) (01/26/21 11:30) Melatonin Tablet (Melatonin Tablet) (01/26/21 11:30) Polyethylene Glycol Powder Pkt (Miralax (01/26/21 21:00) Ondansetron Oral Dissolve Tab (Zofran (01/26/21 11:30) Senna S Tablet (Senokot S Tablet) (01/26/21 21:00) Therapeutic Activity Goals: .PRN (01/26/21 11:20) Nursing Communication (Order) (01/26/21 ) Naloxone Injection (Narcan Injection) (01/26/21 11:30) Initiate Admission Nursing Pro .admission (01/26/21 11:20) Amlodipine Tablet (Norvasc Tablet) (01/27/21 09:00) Calcium Carbonate Chew Tablet (Antacid C (01/26/21 21:15) Acetaminophen Tablet/Caplet (Tylenol T (01/26/21 21:15) Methocarbamol Tablet (Robaxin Tablet) (01/26/21 21:15) Oxycodone Immediate Rel Tablet (Oxyir Ta (01/26/21 21:15) Sodium Chloride Tablet (Sodium Chloride (01/27/21 09:00) Atorvastatin Tablet (Lipitor Tablet) (01/27/21 21:00) Clopidogrel Tablet (Plavix Tablet) (01/27/21 09:00) Fludrocortisone Tablet (Florinef Tablet) (01/27/21 09:00) Gabapentin Capsule/Tablet (Neurontin Cap (01/27/21 09:00) Insulin Determir (Per Unit) (Levemir (Pe (01/27/21 09:00) Accucheck Achs ACHS (01/26/21 21:01) Insulin Aspart (Novolog) (Novolog (Charg (01/27/21 06:00) Metformin Xr Tablet (Glucophage Xr Table (01/27/21 09:00) Insulin Aspart (Novolog) (Novolog (Charg (01/27/21 07:00) Oxycodone Immediate Rel Tablet (Oxyir Ta (01/26/21 21:26) Fluticasone/Salmeterol 113-14 (Airduo Re (01/27/21 08:00) Insulin Determir (Per Unit) (Levemir (Pe (01/26/21 22:58) Insulin Aspart (Novolog) (Novolog (Charg (01/26/21 23:00) Heart Healthy (01/27/21 Breakfast) Enoxaparin Injection (Lovenox Injection) (01/27/21 07:03) Insulin Determir (Per Unit) (Levemir (Pe (01/27/21 21:00) Nursing Communication (Order) (01/27/21 10:55) Nursing Communication (Order) (01/27/21 10:57) Patient Visit (01/27/21 ) Speech Sound Lang Comp (01/27/21 ) Treat. Speech/Lang/Voice (01/27/21 ) Insulin Aspart (Novolog) (Novolog (Charg (01/27/21 12:00) Insulin Determir (Per Unit) (Levemir (Pe (01/27/21 21:00) Patient Visit (01/27/21 ) Pt Eval Moderate Complexity (01/27/21 ) Functional Activities, Ea 15 (01/27/21 ) Exercise Therap, Ea 15 Min (01/27/21 ) Patient Visit (01/27/21 ) Functional Activities, Ea 15 (01/27/21 ) Rehab Nursing Orders: Ongoing Assess. of Cognitive Status, Ongoing Assess. of F unction Status, Bladder Management, Bladder Scan, Bladder Training, Bowel Management, Bowel Training, Disease Management & Educaiton, DVT Prophylaxis, Fall Prevention, Fluid/Electrolyte/Nutrition Mgmt, Infection Prevention, Medication Management & Education, Management of Risks & Complications, Nutrition Management, Pain Management, Patient/Family Support, Safety Management, Swallow Precautions Intensity of Therapy to be met Patient to be seen: Min.3h per day/5 of 7d PT IPOC Problem List: Activity Tolerance, Functional Strength, Safety, Balance, Gait, Transfer, Bed Mobility, ROM Treatment Plan: Continue Plan of Care Bed Mobility, Education, Functional Activity Brian, Functional Strength, Group Therapy, Gait, Safety, Therapeutic Exercise, Transfers Treatment Duration: Feb 17, 2021 Frequency: At least 5 of 7 days/Wk (IRF) Estimated Hrs Per Day: .25 hour per day OT IPOC Problems: Decreased Activ Tolerance, Decreased UE Strength, Dependent Transfers, Impaired Bed Mobility, Impaired Funct Balance, Impaired I ADL's, Impaired Self-Care Skills, Restricted Funct UE ROM OT Treatment, Training and Edu: Yes Plan of Care: ADL Retraining, Functional Mobility, UE Funct Exercise/Act Treatment Duration: Feb 24, 2021 Frequency: At least 5 of 7 days/Wk (IRF) Estimated Hrs Per Day: 1.[address] IPOC Speech Therapy Treatment Plan: Discontinue ST Treatment Duration: Jan 27, 2021 Frequency: 1 time per week Estimated Hrs Per Day: .5 hour per day Consulting Marine Engineer/Case Mgmt Consulting Marine Engineer/Case Managemen: Discharge Planning Dietitian/Accounts Receivable Processor Dietitian/Accounts Receivable Processor to monitor nutritional status and make changes and/or recommendations as needed and work with speech pathology on dietary upgrades as the occur. Physician IPOC Medical Issues being managed closely and that require the 24 hour availability of a physician: Recent stroke with severe comorbidities including sleep apnea and COPD will require close monitoring for any decompensation or recurrent in extension of stroke Medical Issues: Bowel/Bladder Function, DVT Prophylaxis, Falls Precautions, Fluid/Electrolyte/Nutrition Balance, Infection Protection, Pain Management Brief Synthesis of Preadmission Screen, Post-Admission Evaluation, and Therapy Evaluations: PT and OT will focus on regaining function with the use of assistive devices and increasing independent ADLs with intensive therapy Medical Prognosis: Good Anticipated Length of Stay: 14 days ALCIDES RUIZ DO Jan 27, 2021 12:22
--- NOTE | 2021-01-27 12:44 | Progress Note ---
SULEIMAN NOVOA MED STUDENT 01/27/21 1244: Progress Note This is Shireen is a 60 yo female in the rehab unit on day 2 of her hospital stay recovering from ORIF of the right distal femur. She has a PMH of CAD, MA x 2 s/p CABG, T2DM, and COPD. Pt was sitting up in bed watching TV when I entered the room. She was calm, cooperative and engaged during questioning. Pt complained of right shoulder pain in the location of a previous surgery that she put at a 7/10 on the pain scale. She stated that she just finished with PT/OT before entering the room. She was concerned with caring for her who has cancer and stated that she really needed to get home to him. She had bilateral LE pitting edema. She denied nausea, vomiting, SOB, chest pain, appetite, or issues using the restroom. NINI RUIZ DO 01/28/21 0519: Supervisory-Addendum Brief Verification & Attestation Participated in pt care: history, MDM, physical Personally performed: exam, history, MDM, supervision of care Care discussed with: Medical Student Procedures: n/a Results interpretation: Verified all documentation Verification and Attestation of Medical Student E/M Service A medical student performed and documented this service in my presence. I reviewed and verified all information documented by the medical student and made modifications to such information, when appropriate. I personally performed the physical exam and medical decision making. Nini Ruiz, Jan 28, 2021,05:19 SULEIMAN NOVOA MED STUDENT Jan 27, 2021 12:44 NINI RUIZ DO Jan 28, 2021 05:19
[2021-01-27] MEDS: RT--FLUTICASONE/SALMETEROL 113-14 (AIRDUO RespiCLICK) IH SCH ×2 (13:41→20:08)
--- NOTE | 2021-01-27 15:13 | Physical Therapy Daily Note ---
PT Daily Note-Current Subjective Patient asleep in the chair upon PT arrival, agreeable to treatment and transfer back to the bed. Patient currently rates pain at 0/10 at rest sans movement. Mental Status Attachments: Other-See Comments Transfers SCALE: Activities may be completed with or without assistive devices. 7-Ownexyoudk-yccdkwk completes the activity by him/herself with no assistance from a helper. 5-Set-up or Clean-up Assistance-helper sets up or cleans up; patient completes activity. [place] assists only prior to or following the activity. 4-Supervision or Touching Assistance-helper provides verbal cues and/or touching/steadying and/or contact guard assistance as patient completes activity. Assistance may be provided throughout the activity or intermittently. 3-Partial/Moderate Assistance-helper does LESS THAN HALF the effort. [place] lifts, holds or supports trunk or limbs, but provides less than half the effort. 2-Substantial/Maximal Assistance-helper does MORE THAN HALF the effort. [place] lifts or holds trunk or limbs and provides more than half the effort. 9-Esqjvgyvu-axrcvm does ALL the effort. Patient does none of the effort to compl ete the activity. Or, the assistance of 2 or more helpers is required for the patient to complete the activity. If activity was not attempted, code reason: 7-Patient Refused. 9-Not Applicable-not attempted and the patient did not perform the activity before the current illness, exacerbation or injury. 10-Not Attempted due to Environmental Limitations-(lack of equipment, weather restraints, etc.). 88-Not Attempted due to Medical Conditions or Safety Concerns. Roll Left & Right (QC): 1 Sit to Lying (QC): 1 Lying to Sitting/Side of Bed(Q: 1 Sit to Stand (QC): 1 Chair/Qyr-cf-Dmzfq Xfer(QC): 1 Weight Bearing Right Lower Extremity: Right Touch Toe Bearing RUE NWB, recevied instructions to not use a noam lift after evaluation and tx have already been done Gait Training Does the Patient Walk?: No and Walking Goal IS indicated Patient unable to ambulate at this time due to pain, strength deficit and TTWB right LE. Patient is able to tolerate SPT to the chair with max/total A. Wheelchair Training Does the Pt Use a Wheelchair?: No Treatments Patient was educated on and performed SPT to the chair with max/total A and verbal cues for performance and safety. Patient attempts to use her right UE, however with frequent verbal cues was able to perform transfer with Left UE only. Patient demonstrates fair overall tolerance to performing SPT with TTWB on right LE. Assessment Current Status: Fair Progress Patient sleeping in chair upon PT arrival, agreeable to treatment and requests to return to bed. Patient tolerated treatment well and demonstrates minimal improvement in tolerance to activity and ability to initiate mobility and tr ansfers. Patient able to tolerate sitting at Edge of bed x 1-2 minutes with CGA, however tolerance to pain limited overall balance and endurance. Patient requires total A for sit to supine, however was able to use her left LE to slide up in the bed with the HOB declined. Patient in bed post treatment with all needs met, nursing notified, call light in reach. PT Short Term Goals Short Term Goals Time Frame: Feb 03, 2021 Roll Left & Right: 2 Sit to lyin Lying to sitting on side of be: 2 Sit to stand: 2 Chair/mwo-xa-azxst transfer: 2 PT Detention Goals Detention Goals PT Detention Goals Time Frame: Feb 17, 2021 Roll Left & Right (QC): 3 Sit to Lying (QC): 3 Lying-Sitting on Side/Bed(QC): 3 Sit to Stand (QC): 3 Chair/Xeg-dv-Xdjuz Xfer(QC): 3 Toilet Transfer (QC): 3 Car Transfer (QC): 3 Does the Patient Walk: No and Walking Goal NOT indicated Walk 10 feet (QC): 88 Walk 50ft with 2 Turns (QC): 88 Walk 150 ft (QC): 88 Walking 10ft on Uneven Surface: 88 1 Step (curb) (QC): 88 4 Steps (QC): 88 12 Steps (QC): 88 Picking up an Object (QC): 88 Wheel 50 feet with 2 turns (QC: 5 Wheel 150 feet: 5 PT Plan Treatment/Plan Treatment Plan: Continue Plan of Care Treatment Plan: Bed Mobility, Education, Functional Activity Brian, Functional Strength, Group Therapy, Gait, Safety, Therapeutic Exercise, Transfers Treatment Duration: Feb 17, 2021 Frequency: At least 5 of 7 days/Wk (IRF) Patient and/or Family Agrees t: Yes Safety Risks/Education Patient Education: Transfer Techniques, Reviewed Precautions, Safety Issues Teaching Recipient: Patient Teaching Methods: Demonstration, Discussion Response to Teaching: Verbalize Understanding Time/GCodes Time In: 1440 Time Out: 1455 Total Billed Treatment Time: 15 Total Billed Treatment Visit, Functional activity DIALLO VALLES PT Jan 27, 2021 15:12
[2021-01-27 20:00] VITALS: BP 146/67
[2021-01-28] MEDS: inSUlin ASPART (NovoLOG) 1 UNIT/0.01 ML (CHARGE PER UNIT) SC SCH ×7 (05:43→20:56)
[2021-01-28] MEDS: ENOXAPARIN 40 MG/0.4 ML (LOVENOX) SYR SC SCH ×2 (06:38→18:43)
[2021-01-28] MEDS: RT--FLUTICASONE/SALMETEROL 113-14 (AIRDUO RespiCLICK) IH SCH ×2 (07:18→17:48)
[2021-01-28 07:38] VITALS: BP 169/75
[2021-01-28] MEDS: GABAPENTIN 400 MG (NEURONTIN) CAP PO SCH ×3 (07:49→20:54)
[2021-01-28] MEDS: amLODIPine 10 MG (NORVASC) TAB PO SCH (07:49)
[2021-01-28] MEDS: CLOPIDOGREL 75 MG (PLAVIX) TABLET PO SCH (07:50)
[2021-01-28] MEDS: FLUDROCORTISONE 0.1 MG (FLORINEF) TAB PO SCH ×3 (07:50→20:54)
[2021-01-28] MEDS: metFORMIN XR 500 MG (GLUCOPHAGE XR) TAB PO SCH ×2 (07:50→20:55)
[2021-01-28] MEDS: DOCUSATE SODIUM 100 MG (COLACE) CAP PO SCH ×2 (09:00→20:56)
--- NOTE | 2021-01-28 09:00 | Physical Therapy Daily Note ---
PT Daily Note-Current Subjective Patient in bed pre tx, agrees to PT, voices no complaints of pain at rest. Will be co-treating with OT due to poor patient mobility, strength, endurance, severe pain with activity, complicated weight bearing status on right arm and leg, coordinate UE and LE during activity, safety and reduce risk of falls. Patient takes out her own purewick and it has feces on it, patient needs to be cleaned. Appearance Patient in therapy gym post tx to continue to work with OT. Mental Status Patient Orientation: Person, Place, Situation Transfers SCALE: Activities may be completed with or without assistive devices. 6-Vmtzabluwm-ehjfhsp completes the activity by him/herself with no assistance from a helper. 5-Set-up or Clean-up Assistance-helper sets up or cleans up; patient completes activity. [place] assists only prior to or following the activity. 4-Supervision or Touching Assistance-helper provides verbal cues and/or touching/steadying and/or contact guard assistance as patient completes activity. Assistance may be provided throughout the activity or intermittently. 3-Partial/Moderate Assistance-helper does LESS THAN HALF the effort. [place] lifts, holds or supports trunk or limbs, but provides less than half the effort. 2-Substantial/Maximal Assistance-helper does MORE THAN HALF the effort. [place] lifts or holds trunk or limbs and provides more than half the effort. 4-Fajujdilu-ckdnxe does ALL the effort. Patient does none of the effort to complete the activity. Or, the assistance of 2 or more helpers is required for the patient to complete the activity. If activity was not attempted, code reason: 7-Patient Refused. 9-Not Applicable-not attempted and the patient did not perform the activity before the current illness, exacerbation or injury. 10-Not Attempted due to Environmental Limitations-(lack of equipment, weather restraints, etc.). 88-Not Attempted due to Medical Conditions or Safety Concerns. Roll Left & Right (QC): 2 Lying to Sitting/Side of Bed(Q: 1 Sit to Stand (QC): 1 Chair/Tef-ju-Gxrjp Xfer(QC): 1 Patient is rolled from side to side a couple of times for cleaning from BM, she can assist a little but is still max assist. Needs assist of 2 for supine to sit and performs a dependent stand pivot transfer to . Weight Bearing Right Lower Extremity: Right Touch Toe Bearing RUE NWB, recevied instructions to not use a noam lift after evaluation and tx have already been done Wheelchair Training Does the Pt Use a Wheelchair?: Yes Wheel 50 ft with 2 turns (QC): 3 Type of Wheelchair: Manual Patient propels manual WC 50' with min assist using her left foot and arm Exercises Patient stood twice in the parallel bars with assist of 2 for about 30 seconds each time. She was not able to keep weight off of her right leg very well. Standing to strengthen her left arm and leg may not be possible to do because of this. Treatments PT performed bed mobility, rolling, transfers, standing, WC mobility, OT performed cleaning from BM, ADL's, UE positioning and safety during activity. Assessment Current Status: Poor Progress Patient's pain in right leg was 10/10 at the end of PT PT Short Term Goals Short Term Goals Time Frame: Feb 03, 2021 Roll Left & Right: 2 Sit to lyin Lying to sitting on side of be: 2 Sit to stand: 2 Chair/yrf-io-bjzfe transfer: 2 PT Correction Goals Correction Goals PT Correction Goals Time Frame: Feb 17, 2021 Roll Left & Right (QC): 3 Sit to Lying (QC): 3 Lying-Sitting on Side/Bed(QC): 3 Sit to Stand (QC): 3 Chair/Spx-it-Oxpzd Xfer(QC): 3 Toilet Transfer (QC): 3 Car Transfer (QC): 3 Does the Patient Walk: No and Walking Goal NOT indicated Walk 10 feet (QC): 88 Walk 50ft with 2 Turns (QC): 88 Walk 150 ft (QC): 88 Walking 10ft on Uneven Surface: 88 1 Step (curb) (QC): 88 4 Steps (QC): 88 12 Steps (QC): 88 Picking up an Object (QC): 88 Wheel 50 feet with 2 turns (QC: 5 Wheel 150 feet: 5 PT Plan Problem List Problem List: Activity Tolerance, Functional Strength, Safety, Balance, Gait, Transfer, Bed Mobility, ROM Treatment/Plan Treatment Plan: Continue Plan of Care Treatment Plan: Bed Mobility, Education, Functional Activity Brian, Functional Strength, Group Therapy, Gait, Safety, Therapeutic Exercise, Transfers Treatment Duration: Feb 17, 2021 Frequency: At least 5 of 7 days/Wk (IRF) Estimated Hrs Per Day: .25 hour per day Patient and/or Family Agrees t: Yes Safety Risks/Education Patient Education: Transfer Techniques, Reviewed Precautions, Correct Positioning, W/C Management, Safety Issues Teaching Recipient: Patient Teaching Methods: Demonstration, Discussion Response to Teaching: Reinforcement Needed Time/GCodes Time In: 08 Time Out: 899 Total Billed Treatment Time: 60 Total Billed Treatment 1 visit FA 60' co-treated from [id number] PIETRO BHANDARI PT Jan 28, 2021 09:00
[2021-01-28] MEDS: SENNA W/DOCUSATE (SENOKOT S) TABLET PO SCH ×2 (09:01→20:56)
[2021-01-28] MEDS: polyethylene glycoL POWDER 17 GM (MIRALAX) PACK PO SCH ×2 (09:01→20:56)
--- NOTE | 2021-01-28 12:13 | Occupational Ther Daily Note ---
OT Current Status-Daily Note Subjective Pt. reports 9/10 pain in right UE/LE. Nursing gives pain medication. Appearance Pt. in bed. Agrees to treatment. Mental Status/Objective Patient Orientation: Person, Place, Time, Situation ADL-Treatment Therapy Code Descriptions/Definitions Functional [place] Measure: 0=Not Assessed/NA 4=Minimal Assistance 1=Total Assistance 5=Supervision or Setup 2=Maximal Assistance 6=Modified [place] 3=Moderate Assistance 7=Complete IndependenceSCALE: Activities may be completed with or without assistive devices. 0-Pqllsmkxmd-ydffvaz completes the activity by him/herself with no assistance from a helper. 5-Set-up or Clean-up Assistance-helper sets up or cleans up; patient completes activity. [place] assists only prior to or following the activity. 4-Supervision or Touching Assistance-helper provides verbal cues and/or touching/steadying and/or contact guard assistance as patient completes activi ty. Assistance may be provided throughout the activity or intermittently. 3-Partial/Moderate Assistance-helper does LESS THAN HALF the effort. [place] lifts, holds or supports trunk or limbs, but provides less than half the effort. 2-Substantial/Maximal Assistance-helper does MORE THAN HALF the effort. [place] lifts or holds trunk or limbs and provides more than half the effort. 7-Jixxxnckc-jidrsa does ALL the effort. Patient does none of the effort to complete the activity. Or, the assistance of 2 or more helpers is required for the patient to complete the activity. If activity was not attempted, code reason: 7-Patient Refused. 9-Not Applicable-not attempted and the patient did not perform the activity before the current illness, exacerbation or injury. 10-Not Attempted due to Environmental Limitations-(lack of equipment, weather restraints, etc.). 88-Not Attempted due to Medical Conditions or Safety Concerns. On/Off Footwear: 1 Toileting Hygiene (QC): 1 Other Treatment Pt. seen for partial co-treatment by OT/PT due to need of skilled assistance x 2 for poor strength/endurance and ADL skills/transfers. Pt. had soiled self in bed and had BM when therapy entered room. Pt. unaware that she was incontinent. PT worked on facilitated of pt. being able to roll. Pt. required max x 2 to roll in bed, and OT cleansed rear carla area. Pt. transferred supine-sit with max x 2. Transferred squat pivot to wheelchair with emphasis to not put weight through right LE. Transferred with one therapist in front with max support, and another in back with max support. Worked on wheelchair mobility in hallway with min assist needed. Once in therapy gym, pt. stood x 2 in parallel bars with max x 2. Therapy placed mat under right foot to encourage pt. to not place weight, (pt. TTWB.). At second transfer, pt. did place some weight and began to report pain. Pt. was sat down immediately. PT left session, and pt. agreed to work on left UE strengthening. Tolerated arm bike at min resistance with multiple rest breaks. Transferred back to bed with max x 2. Pt. positioned. Therapy reported to nursing and to medical student to let know regarding LE, if pain persists. All needs met at this time. Education OT Patient Education: Correct positioning, Exercise program, Modified ADL techniques, Progress toward Goal/Update tx plan, Purpose of tx/functional activities, Reviewed precautions, Rehab process, Transfer techniques Teaching Recipient: Patient Teaching Methods: Demonstration, Discussion Response to Teaching: Verbalize Understanding, Return Demonstration OT Short Term Goals Short Term Goals Time Frame: Feb 10, 2021 Eatin Oral hygiene: 4 Toileting hygiene: 3 Shower/bathe self: 3 Upper body dressin Lower body dressin Putting on/taking off footwear: 3 OT Golf Course Mechanic Goals Golf Course Mechanic Goals Time Frame: Feb 24, 2021 Eating (QC): 6 Oral Hygiene (QC): 6 Toileting Hygiene (QC): 6 Shower/Bathe Self (QC): 4 Upper Body Dressing (QC): 5 Lower Body Dressing (QC): 5 On/Off Footwear (QC): 5 Additional Goals: 1-Demonstrate ADL Tasks, 2-Verbalize Understanding, 3-ImproveStrength/Brian 1=Demonstrate adherence to instructed precautions during ADL tasks. 2=Patient will verbalize/demonstrate understanding of assistive devices/modifications for ADL. 3=Patient will improve strength/tolerance for activity to enable patient to perform ADL's. OT Education/Plan Problem List/Assessment Assessment: Decreased Activ Tolerance, Decreased UE Strength, Dependent Transfers, Impaired Bed Mobility, Impaired Funct Balance, Impaired I ADL's, Impaired Self-Care Skills, Restricted Funct UE ROM Discharge Recommendations Plan/Recommendations: Continue POC Therapy Discharge Recommendati: Post Acute OT Treatment Plan/Plan of Care Treatment,Training & Education: Yes Patient would benefit from OT for education, treatment and training to promote independence in ADL's, mobility, safety and/or upper extremity function for ADL's. Plan of Care: ADL Retraining, Functional Mobility, UE Funct Exercise/Act Treatment Duration: Feb 24, 2021 Frequency: At least 5 of 7 days/Wk (IRF) Estimated Hrs Per Day: 1.5 hours per day Agreement: Yes Rehab Potential: Fair Time/GCodes Start Time: 08:15 Stop Time: 09:45 Total Time Billed (hr/min): 90 Billed Treatment Time 1, ADL x 30minutes, FA x 45minutes, Ex x 15minutes [id number] Co-treatment with PT. Please see above note for designated roles. TAL THOMAS OT Jan 28, 2021 12:13
--- NOTE | 2021-01-28 12:22 | PM&R Progress Note ---
Subjective HPI/CC On Admission Date Seen by Provider: Jan 28, 2021 Time Seen by Provider: 12:30 Subjective/Events-last exam 01/28/2021: Pt doing pretty well but had a pop in her right leg when she barely had weight bearing to it X-rays ordered Purewick maintained Check meds and labs Bowels are moving Review of Systems Musculoskeletal: leg pain Objective Exam Vital Signs Vital Signs Date Time Temp Pulse Resp B/P (MAP) Pulse Ox O2 Delivery O2 Flow Rate FiO2 01/28/21 20:58 95 Room Air 01/28/21 20:00 36.8 96 18 155/67 (96) Capillary Refill : General Appearance: No Apparent Distress, WD/WN, Chronically ill HEENT: PERRL/EOMI, Normal ENT Inspection, Pharynx Normal Neck: Full Range of Motion, Normal Inspection, Non Tender, Supple, Carotid Bruit Respiratory: Chest Non Tender, Lungs Clear, Normal Breath Sounds, No Accessory Muscle Use, No Respiratory Distress Cardiovascular: Regular Rate, Rhythm, No Edema, No Gallop, No JVD, No Murmur, Normal Peripheral Pulses Gastrointestinal: Normal Bowel Sounds, No Organomegaly, No Pulsatile Mass, Non Tender, Soft Back: Normal Inspection, No CVA Tenderness, No Vertebral Tenderness Extremity: Normal Capillary Refill, Normal Inspection, Normal Range of Motion (Except right arm and right leg), Non Tender, No Calf Tenderness, No Pedal Edema Neurologic/Psychiatric: Alert, Oriented x3, No Motor/Sensory Deficits, flat spring assembler II- XII Norm as Tested, Abnormal Gait, Depressed Affect, Motor Weakness (Right arm right leg) Skin: Normal Color, Warm/Dry Lymphatic: No Adenopathy Results/Procedures Lab Patient resulted labs reviewed. FIM Transfers Therapy Code Descriptions/Definitions Functional [place] Measure: 0=Not Assessed/NA 4=Minimal Assistance 1=Total Assistance 5=Supervision or Setup 2=Maximal Assistance 6=Modified [place] 3=Moderate Assistance 7=Complete IndependenceSCALE: Activities may be completed with or without assistive devices. 3-Exitctgycw-vsczyuy completes the activity by him/herself with no assistance from a helper. 5-Set-up or Clean-up Assistance-helper sets up or cleans up; patient completes activity. [place] assists only prior to or following the activity. 4-Supervision or Touching Assistance-helper provides verbal cues and/or touching/steadying and/or contact guard assistance as patient completes activity. Assistance may be provided throughout the activity or intermittently. 3-Partial/Moderate Assistance-helper does LESS THAN HALF the effort. [place] lifts, holds or supports trunk or limbs, but provides less than half the effort. 2-Substantial/Maximal Assistance-helper does MORE THAN HALF the effort. [place] lifts or holds trunk or limbs and provides more than half the effort. 7-Ngplutnel-ksdkub does ALL the effort. Patient does none of the effort to complete the activity. Or, the assistance of 2 or more helpers is required for the patient to complete the activity. If activity was not attempted, code reason: 7-Patient Refused. 9-Not Applicable-not attempted and the patient did not perform the activity before the current illness, exacerbation or injury. 10-Not Attempted due to Environmental Limitations-(lack of equipment, weather restraints, etc.). 88-Not Attempted due to Medical Conditions or Safety Concerns. Roll Left to Right (QC): 2 Sit to Lying (QC): 1 Sit to Stand (QC): 1 Chair/Hsz-bp-Wdmha Xfer(QC): 1 Car Transfer (QC): 1 Gait Training Does the Patient Walk?: No and Walking Goal IS indicated Walk 10 feet (QC): 88 Walk 50 ft with 2 Turns(QC): 88 Walk 150 ft (QC): 88 Walking 10ft/uneven surface-QC: 88 Wheelchair Training Does the Pt Use a Wheelchair?: Yes Wheel 50 ft with 2 turns (QC): 3 Wheel 150 ft (QC): 1 Type of Wheelchair: Manual Stair Training 1 Step (curb) (QC): 88 4 Steps (QC): 88 12 Steps (QC): 88 Balance Picking up an Object (QC): 88 ADL-Treatment Eating (QC): 4 (Set up and SBA at times with left UE.) Oral Hygiene (QC): 88 Shower/Bathe Self (QC): 1 (Max assist x 2 in bed due to need of positioning and rolling. ) Upper Body Dressing (QC): 2 (Max assist for removal of arm sling and donning of gown put on as shirt.) Lower Body Dressing (QC): 88 On/Off Footwear (QC): 1 Toileting Hygiene (QC): 1 Assessment/Plan Assessment and Plan Assess & Plan/Chief Complaint Assessment: Distal fracture of right femur Closed comminuted fracture of right humerus ABLA (acute blood loss anemia) Morbid obesity (HCC) Hyponatremia Syncope and collapse Impaired mobility and activities of daily living Acute traumatic pain Sleep disorder CAD (coronary artery disease HTN (hypertension) COPD (chronic obstructive pulmonary disease) ([facility]) At risk for constipation DM (diabetes mellitus) ([facility]) Plan: Aggressive therapy Pain control Supportive care 01/28/2021: Supportive care to continue Check x-ray of leg Continue nonweightbearing status (1) Femur fracture ALCIDES RUIZ DO Jan 28, 2021 12:22
--- NOTE | 2021-01-28 13:07 | Progress Note ---
SULEIMAN NOVOA MED STUDENT 01/28/21 1307: Progress Note This is Shireen is a 60 yo female in the rehab unit on day 3 of her stay in the hospital recovering from ORIF of the right distal femur. She has a PMH of CAD, [place] x 2 s/p CABG, T2DM, and COPD. Pt was laying in bed speaking with PT when I entered the room. She was calm, cooperative and engaged during questioning but in obvious pain. Pt complained of right leg pain after PT 30 minutes prior. She stated that she was unable to keep weight off of the right leg and after leaning on it for a second heard a pop and has since had extreme pain at a 9/10 on the pain scale. The nurse and PT were in the room and confirmed this. She was getting pain medication during the exam. Nurse requested x-ray of the right leg. She has bilateral LE pitting edema. She denied nausea, vomiting, SOB, chest pain, or change in appetite. Pt stated that she has 3 BMs this AM. NINI RUIZ DO 01/29/21 0535: Supervisory-Addendum Brief Verification & Attestation Participated in pt care: history, MDM, physical Personally performed: exam, history, MDM, supervision of care Care discussed with: Medical Student Procedures: n/a Results interpretation: Verified all documentation Verification and Attestation of Medical Student E/M Service A medical student performed and documented this service in my presence. I reviewed and verified all information documented by the medical student and made modifications to such information, when appropriate. I personally performed the physical exam and medical decision making. Nini Ruiz, Jan 29, 2021,05:35 SULEIMAN NOVOA MED STUDENT Jan 28, 2021 13:07 NINI RUIZ DO Jan 29, 2021 05:35
--- NOTE | 2021-01-28 13:32 | Physical Therapy Daily Note ---
PT Daily Note-Current Subjective Patient in bed pre tx, agrees to PT, has 9/10 pain in right leg. Appearance Patient in bed post tx with nurse call, phone, tray, all needs met. Mental Status Patient Orientation: Person, Place, Situation Transfers SCALE: Activities may be completed with or without assistive devices. 8-Ojadfppetv-kjshdtb completes the activity by him/herself with no assistance from a helper. 5-Set-up or Clean-up Assistance-helper sets up or cleans up; patient completes activity. [place] assists only prior to or following the activity. 4-Supervision or Touching Assistance-helper provides verbal cues and/or touching/steadying and/or contact guard assistance as patient completes activity. Assistance may be provided throughout the activity or intermittently. 3-Partial/Moderate Assistance-helper does LESS THAN HALF the effort. [place] lifts, holds or supports trunk or limbs, but provides less than half the effort. 2-Substantial/Maximal Assistance-helper does MORE THAN HALF the effort. [place] lifts or holds trunk or limbs and provides more than half the effort. 1-Aaljjnrja-ehfoty does ALL the effort. Patient does none of the effort to complete the activity. Or, the assistance of 2 or more helpers is required for the patient to complete the activity. If activity was not attempted, code reason: 7-Patient Refused. 9-Not Applicable-not attempted and the patient did not perform the activity before the current illness, exacerbation or injury. 10-Not Attempted due to Environmental Limitations-(lack of equipment, weather restraints, etc.). 88-Not Attempted due to Medical Conditions or Safety Concerns. Roll Left & Right (QC): 2 During tx radiology came in to take xrays of her right leg. Assisted them with positioning and rolling, patient participated with cues for positioning, used it as a way to work on bed mobility. Weight Bearing Right Lower Extremity: Right Touch Toe Bearing RUE NWB, recevied instructions to not use a noam lift after evaluation and tx have already been done Exercises Supine Ex: Ankle pumps, Quad Set, Glut sets, Heel Slides (LLE only), Short Arc Quads (LLE only), Straight leg raise (LLE only), Hip abd/add (LLE only) Treatments bed mobility and LE strengthening Assessment Current Status: Poor Progress severe pain PT Short Term Goals Short Term Goals Time Frame: Feb 03, 2021 Roll Left & Right: 2 Sit to lyin Lying to sitting on side of be: 2 Sit to stand: 2 Chair/alc-bh-zelct transfer: 2 PT Molecular Pathologist Goals Long-Term Goals PT Long-Term Goals Time Frame: Feb 17, 2021 Roll Left & Right (QC): 3 Sit to Lying (QC): 3 Lying-Sitting on Side/Bed(QC): 3 Sit to Stand (QC): 3 Chair/Clg-yj-Odpzh Xfer(QC): 3 Toilet Transfer (QC): 3 Car Transfer (QC): 3 Does the Patient Walk: No and Walking Goal NOT indicated Walk 10 feet (QC): 88 Walk 50ft with 2 Turns (QC): 88 Walk 150 ft (QC): 88 Walking 10ft on Uneven Surface: 88 1 Step (curb) (QC): 88 4 Steps (QC): 88 12 Steps (QC): 88 Picking up an Object (QC): 88 Wheel 50 feet with 2 turns (QC: 5 Wheel 150 feet: 5 PT Plan Problem List Problem List: Activity Tolerance, Functional Strength, Safety, Balance, Gait, Transfer, Bed Mobility, ROM Treatment/Plan Treatment Plan: Continue Plan of Care Treatment Plan: Bed Mobility, Education, Functional Activity Brian, Functional Strength, Group Therapy, Gait, Safety, Therapeutic Exercise, Transfers Treatment Duration: Feb 17, 2021 Frequency: At least 5 of 7 days/Wk (IRF) Estimated Hrs Per Day: .25 hour per day Patient and/or Family Agrees t: Yes Safety Risks/Education Patient Education: Correct Positioning, Safety Issues Teaching Recipient: Patient Teaching Methods: Demonstration, Discussion Response to Teaching: Reinforcement Needed Time/GCodes Time In: 1300 Time Out: 1330 Total Billed Treatment Time: 30 Total Billed Treatment 1 visit EX 15' FA 15' PIETRO BHANDARI PT Jan 28, 2021 13:32
--- NOTE | 2021-01-28 14:04 | Diagnostic Imaging Report ---
HISTORY: History of fracture in the right femur. [place] a pop during therapy. Pain to the right hip TECHNIQUE: Two views of the right hip. COMPARISON: None. FINDINGS: No acute fracture or dislocation is seen in the right hip. There are mild degenerative changes in the right hip joint. An intramedullary sylvia is noted in the proximal femoral shaft. There is mild soft tissue edema about the right thigh. IMPRESSION: 1. Intramedullary sylvia in the right femur with mild degenerative change in the right hip, but no acute fracture is seen. Dictated by: Dictated on workstation # [id number]
--- NOTE | 2021-01-28 14:11 | Diagnostic Imaging Report ---
HISTORY: [place] a pop in the right leg during therapy. History of right femur fracture COMPARISON: None TECHNIQUE: 2 views of the right femur FINDINGS: There is a comminuted intra-articular fracture of the distal right femur, transfixed with an intramedullary sylvia and a lateral plate with multiple screws. Alignment appears adequate, although no comparison is available. No hardware loosening or hardware fracture is seen. There is diffuse soft tissue edema about the thigh. IMPRESSION: 1. Internal fixation of the comminuted right femur fracture with no hardware complication seen. Dictated by: Dictated on workstation # [id number]
[2021-01-28 20:00] VITALS: BP 155/67
[2021-01-29] MEDS: inSUlin ASPART (NovoLOG) 1 UNIT/0.01 ML (CHARGE PER UNIT) SC SCH ×7 (06:00→21:10)
[2021-01-29] MEDS: ENOXAPARIN 40 MG/0.4 ML (LOVENOX) SYR SC SCH ×2 (06:28→18:14)
[2021-01-29] MEDS: RT--FLUTICASONE/SALMETEROL 113-14 (AIRDUO RespiCLICK) IH SCH ×2 (06:56→20:35)
[2021-01-29 07:19] VITALS: BP 169/60
[2021-01-29] MEDS: GABAPENTIN 400 MG (NEURONTIN) CAP PO SCH ×3 (08:06→21:11)
[2021-01-29] MEDS: CLOPIDOGREL 75 MG (PLAVIX) TABLET PO SCH (08:06)
[2021-01-29] MEDS: DOCUSATE SODIUM 100 MG (COLACE) CAP PO SCH ×2 (08:06→21:00)
[2021-01-29] MEDS: amLODIPine 10 MG (NORVASC) TAB PO SCH (08:06)
[2021-01-29] MEDS: metFORMIN XR 500 MG (GLUCOPHAGE XR) TAB PO SCH ×2 (08:06→21:11)
[2021-01-29] MEDS: polyethylene glycoL POWDER 17 GM (MIRALAX) PACK PO SCH ×2 (08:07→21:10)
[2021-01-29] MEDS: SENNA W/DOCUSATE (SENOKOT S) TABLET PO SCH ×2 (08:07→21:10)
[2021-01-29] MEDS: FLUDROCORTISONE 0.1 MG (FLORINEF) TAB PO SCH ×3 (08:07→21:11)
--- NOTE | 2021-01-29 10:17 | Physical Therapy Daily Note ---
PT Daily Note-Current Subjective Patient in bed pre tx, agrees to PT, voices no complaints of pain at rest but has pain in right leg and arm with activity or movement. Will be co-treating with OT due to poor patient mobility, strength, endurance, severe pain with activity, complicated weight bearing status, coordinate UE and LE with activity, safety and reduce risk of falls. Appearance Patient in bed post tx with nurse call, phone, tray, all needs met. Mental Status Patient Orientation: Person, Place, Situation Transfers SCALE: Activities may be completed with or without assistive devices. 6-Hbasdirhvd-gvrduke completes the activity by him/herself with no assistance from a helper. 5-Set-up or Clean-up Assistance-helper sets up or cleans up; patient completes activity. [place] assists only prior to or following the activity. 4-Supervision or Touching Assistance-helper provides verbal cues and/or touching/steadying and/or contact guard assistance as patient completes activity. Assistance may be provided throughout the activity or intermittently. 3-Partial/Moderate Assistance-helper does LESS THAN HALF the effort. [place] lifts, holds or supports trunk or limbs, but provides less than half the effort. 2-Substantial/Maximal Assistance-helper does MORE THAN HALF the effort. [place] lifts or holds trunk or limbs and provides more than half the effort. 5-[place]-p[place] does ALL the effort. Patient does none of the effort to complete the activity. Or, the assistance of 2 or more helpers is required for the patient to complete the activity. If activity was not attempted, code reason: 7-Patient Refused. 9-Not Applicable-not attempted and the patient did not perform the activity before the current illness, exacerbation or injury. 10-Not Attempted due to Environmental Limitations-(lack of equipment, weather restraints, etc.). 88-Not Attempted due to Medical Conditions or Safety Concerns. Roll Left & Right (QC): 3 Sit to Lying (QC): 2 Lying to Sitting/Side of Bed(Q: 2 Sit to Stand (QC): 2 Chair/Whb-zs-Oxesd Xfer(QC): 2 After sitting on the side of the bed a small step is placed under her let foot to help with transfer because she is very short and has a hard time reaching the floor with her feet even when the bed is all the way down and this also allows her right leg to dangle during the transfer to keep weight off of it. Same going back to bed. Patient is transferred to shower chair and taken into showe r. Weight Bearing Right Lower Extremity: Right Touch Toe Bearing RUE NWB Treatments PT worked on bed mobility and transfers, positioning and safety during shower and dressing, OT worked on shower, dressing, UE positioning and safety during activity. Assessment Current Status: Fair Progress improved supine to sit and transfer but still max assist. PT Short Term Goals Short Term Goals Time Frame: Feb 03, 2021 Roll Left & Right: 2 Sit to lyin Lying to sitting on side of be: 2 Sit to stand: 2 Chair/ydb-er-hpgrm transfer: 2 PT Scientist Propagator Goals Intermediate Goals PT Intermediate Goals Time Frame: Feb 17, 2021 Roll Left & Right (QC): 3 Sit to Lying (QC): 3 Lying-Sitting on Side/Bed(QC): 3 Sit to Stand (QC): 3 Chair/Tdg-bp-Fniei Xfer(QC): 3 Toilet Transfer (QC): 3 Car Transfer (QC): 3 Does the Patient Walk: No and Walking Goal NOT indicated Walk 10 feet (QC): 88 Walk 50ft with 2 Turns (QC): 88 Walk 150 ft (QC): 88 Walking 10ft on Uneven Surface: 88 1 Step (curb) (QC): 88 4 Steps (QC): 88 12 Steps (QC): 88 Picking up an Object (QC): 88 Wheel 50 feet with 2 turns (QC: 5 Wheel 150 feet: 5 PT Plan Problem List Problem List: Activity Tolerance, Functional Strength, Safety, Balance, Gait, Transfer, Bed Mobility, ROM Treatment/Plan Treatment Plan: Continue Plan of Care Treatment Plan: Bed Mobility, Education, Functional Activity Brian, Functional Strength, Group Therapy, Gait, Safety, Therapeutic Exercise, Transfers Treatment Duration: Feb 17, 2021 Frequency: At least 5 of 7 days/Wk (IRF) Estimated Hrs Per Day: .25 hour per day Patient and/or Family Agrees t: Yes Safety Risks/Education Patient Education: Transfer Techniques, Reviewed Precautions, Correct Positioning, Safety Issues Teaching Recipient: Patient Teaching Methods: Demonstration, Discussion Response to Teaching: Reinforcement Needed Time/GCodes Time In: 0900 Time Out: 1000 Total Billed Treatment Time: 60 Total Billed Treatment 1 visit FA 60' co-treated with OT for 60' PIETRO BHANDARI PT Jan 29, 2021 10:17
--- NOTE | 2021-01-29 10:33 | Occupational Ther Daily Note ---
OT Current Status-Daily Note Subjective No pain reported. Pt. does state that she is tired during treatment. Mental Status/Objective Patient Orientation: Person, Place ADL-Treatment Therapy Code Descriptions/Definitions Functional [place] Measure: 0=Not Assessed/NA 4=Minimal Assistance 1=Total Assistance 5=Supervision or Setup 2=Maximal Assistance 6=Modified [place] 3=Moderate Assistance 7=Complete IndependenceSCALE: Activities may be completed with or without assistive devices. 3-Ysimezqrpk-hxubxqr completes the activity by him/herself with no assistance from a helper. 5-Set-up or Clean-up Assistance-helper sets up or cleans up; patient completes activity. [place] assists only prior to or following the activity. 4-Supervision or Touching Assistance-helper provides verbal cues and/or touching/steadying and/or contact guard assistance as patient completes activity. Assistance may be provided throughout the activity or intermittently. 3-Partial/Moderate Assistance-helper does LESS THAN HALF the effort. [place] lifts, holds or supports trunk or limbs, but provides less than half the effort. 2-Substantial/Maximal Assistance-helper does MORE THAN HALF the effort. [place] lifts or holds trunk or limbs and provides more than half the effort. 0-Sosvtmyfp-twehmk does ALL the effort. Patient does none of the effort to complete the activity. Or, the assistance of 2 or more helpers is required for the patient to complete the activity. If activity was not attempted, code reason: 7-Patient Refused. 9-Not Applicable-not attempted and the patient did not perform the activity before the current illness, exacerbation or injury. 10-Not Attempted due to Environmental Limitations-(lack of equipment, weather restraints, etc.). 88-Not Attempted due to Medical Conditions or Safety Concerns. Shower/Bathe Self (QC): 3 (Mod assist overall to shower. Pt. washes UE to best of her ability, front carla area, and upper thighs. OT washes feet and left UE, rear carla area in shower.) Upper Body Dressing (QC): 88 (No street clothing available. Pt. encouraged again to have family bring in.) Lower Body Dressing (QC): 88 On/Off Footwear: 2 Toileting Hygiene (QC): 1 Other Treatment Pt. seen this date for partial co-treatment with PT due to need of skilled assessment x 2 for decreased endurance, mobility, strength, and ADL skills. PT focuses on transfers, bed mobility, and LE assessment. OT focuses on UE mobility/positioning and ADL skills training. Pt. requires encouragement to participate, as she is on phone call. Transfers supine-sit with max x 2. Max x 2 to scoot to EOB. Therapy addressed right LE prior to transfer and removed MARILEE wrap after chart review. Noted that bandages underneath covered in Op-site and are water proof. Pt. transferred squat pivot to shower chair. PT stood in front to facilitate lean forward and OT in back to manuever hips around. Limbs guided/positioned during transfer to shower. Pt. assisted in shower and encouraged to do as much for self as possible. She states that the shower feels really nice, as it has been awhile. Pt. assisted to dry off and don fresh gown, slipper sock. Transferred back to bed with max x 2. Sit-supine with min x 2. PT left treatment and OT worked on right UE retrograde massage from fingers to elbow, as well as provided gentle PROM to elbow in flexion. Pt. encouraged to complete therapy sponge squeezes on her own and movement of right UE from elbow down. Pt. positioned to comfort level. All needs met. Education OT Patient Education: Correct positioning, Exercise program, Modified ADL techniques, Progress toward Goal/Update tx plan, Purpose of tx/functional activities, Reviewed precautions, Rehab process, Transfer techniques Teaching Recipient: Patient Teaching Methods: Demonstration, Discussion Response to Teaching: Verbalize Understanding, Return Demonstration OT Short Term Goals Short Term Goals Time Frame: Feb 10, 2021 Eatin Oral hygiene: 4 Toileting hygiene: 3 Shower/bathe self: 3 Upper body dressin Lower body dressin Putting on/taking off footwear: 3 OT Residential Goals Residential Goals Time Frame: Feb 24, 2021 Eating (QC): 6 Oral Hygiene (QC): 6 Toileting Hygiene (QC): 6 Shower/Bathe Self (QC): 4 Upper Body Dressing (QC): 5 Lower Body Dressing (QC): 5 On/Off Footwear (QC): 5 Additional Goals: 1-Demonstrate ADL Tasks, 2-Verbalize Understanding, 3-ImproveStrength/Brian 1=Demonstrate adherence to instructed precautions during ADL tasks. 2=Patient will verbalize/demonstrate understanding of assistive devices/modifications for ADL. 3=Patient will improve strength/tolerance for activity to enable patient to perform ADL's. OT Education/Plan Problem List/Assessment Assessment: Decreased Activ Tolerance, Decreased UE Strength, Dependent Transfers, Impaired Bed Mobility, Impaired Funct Balance, Impaired I ADL's, Impaired Self-Care Skills, Restricted Funct UE ROM Discharge Recommendations Plan/Recommendations: Continue POC Therapy Discharge Recommendati: Post Acute OT Treatment Plan/Plan of Care Treatment,Training & Education: Yes Patient would benefit from OT for education, treatment and training to promote independence in ADL's, mobility, safety and/or upper extremity function for ADL's. Plan of Care: ADL Retraining, Functional Mobility, UE Funct Exercise/Act Treatment Duration: Feb 24, 2021 Frequency: At least 5 of 7 days/Wk (IRF) Estimated Hrs Per Day: 1.5 hours per day Agreement: Yes Rehab Potential: Fair Time/GCodes Start Time: 09:00 Stop Time: 10:30 Total Time Billed (hr/min): 90 Billed Treatment Time 1, ADL x 60minutes, Ex x 30minutes TAL THOMAS OT Jan 29, 2021 10:33
--- NOTE | 2021-01-29 12:11 | Physical Therapy Daily Note ---
PT Daily Note-Current Subjective Patient in bed pre tx, agrees to PT, has no complaints of pain at rest. Appearance Patient in bed post tx with nurse call, phone, tray, all needs met. Mental Status Patient Orientation: Person, Place, Situation Attachments: [place] Catheter Transfers SCALE: Activities may be completed with or without assistive devices. 9-Mmemudpwmo-ywnwbmy completes the activity by him/herself with no assistance from a helper. 5-Set-up or Clean-up Assistance-helper sets up or cleans up; patient completes activity. [place] assists only prior to or following the activity. 4-Supervision or Touching Assistance-helper provides verbal cues and/or touching/steadying and/or contact guard assistance as patient completes activity. Assistance may be provided throughout the activity or intermittently. 3-Partial/Moderate Assistance-helper does LESS THAN HALF the effort. [place] lifts, holds or supports trunk or limbs, but provides less than half the effort. 2-Substantial/Maximal Assistance-helper does MORE THAN HALF the effort. [place] lifts or holds trunk or limbs and provides more than half the effort. 1-Cyccjuark-wrkdvr does ALL the effort. Patient does none of the effort to complete the activity. Or, the assistance of 2 or more helpers is required for the patient to complete the activity. If activity was not attempted, code reason: 7-Patient Refused. 9-Not Applicable-not attempted and the patient did not perform the activity before the current illness, exacerbation or injury. 10-Not Attempted due to Environmental Limitations-(lack of equipment, weather restraints, etc.). 88-Not Attempted due to Medical Conditions or Safety Concerns. Weight Bearing Right Lower Extremity: Right Touch Toe Bearing RUE NWB Exercises Supine Ex: Ankle pumps, Quad Set, Glut sets, Heel Slides (LLE only), Short Arc Quads (LLE only), Straight leg raise (LLE only), Hip abd/add (LLE only) manual right gastroc stretching Treatments LE strengthening Assessment Current Status: Fair Progress Patient needs many rest breaks due to fatigue and pain PT Short Term Goals Short Term Goals Time Frame: Feb 03, 2021 Roll Left & Right: 2 Sit to lyin Lying to sitting on side of be: 2 Sit to stand: 2 Chair/onh-jl-xqasb transfer: 2 PT Long-Term Goals Long-Term Goals PT Long-Term Goals Time Frame: Feb 17, 2021 Roll Left & Right (QC): 3 Sit to Lying (QC): 3 Lying-Sitting on Side/Bed(QC): 3 Sit to Stand (QC): 3 Chair/Npz-ux-Ulmgw Xfer(QC): 3 Toilet Transfer (QC): 3 Car Transfer (QC): 3 Does the Patient Walk: No and Walking Goal NOT indicated Walk 10 feet (QC): 88 Walk 50ft with 2 Turns (QC): 88 Walk 150 ft (QC): 88 Walking 10ft on Uneven Surface: 88 1 Step (curb) (QC): 88 4 Steps (QC): 88 12 Steps (QC): 88 Picking up an Object (QC): 88 Wheel 50 feet with 2 turns (QC: 5 Wheel 150 feet: 5 PT Plan Problem List Problem List: Activity Tolerance, Functional Strength, Safety, Balance, Gait, Transfer, Bed Mobility, ROM Treatment/Plan Treatment Plan: Continue Plan of Care Treatment Plan: Bed Mobility, Education, Functional Activity Brian, Functional Strength, Group Therapy, Gait, Safety, Therapeutic Exercise, Transfers Treatment Duration: Feb 17, 2021 Frequency: At least 5 of 7 days/Wk (IRF) Estimated Hrs Per Day: .25 hour per day Patient and/or Family Agrees t: Yes Safety Risks/Education Patient Education: Correct Positioning, Safety Issues Teaching Recipient: Patient Teaching Methods: Demonstration, Discussion Response to Teaching: Reinforcement Needed Time/GCodes Time In: 1115 Time Out: 1145 Total Billed Treatment Time: 30 Total Billed Treatment 1 visit EX 15' PIETRO BHANDARI PT Jan 29, 2021 12:11
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
--- NOTE | 2021-01-29 12:32 | PM&R Progress Note ---
Subjective HPI/CC On Admission Date Seen by Provider: Jan 29, 2021 Time Seen by Provider: 12:00 Subjective/Events-last exam 01/29/2021: Pt doing pretty well Denies any significant new issues Participating in therapy Checked meds and labs Denies any pain 01/28/2021: Pt doing pretty well but had a pop in her right leg when she barely had weight bearing to it X-rays ordered Purewick maintained Check meds and labs Bowels are moving Review of Systems General: Fatigue Pulmonary: Dyspnea Musculoskeletal: leg pain Objective Exam Vital Signs Vital Signs Date Time Temp Pulse Resp B/P (MAP) Pulse Ox O2 Delivery O2 Flow Rate FiO2 01/29/21 20:35 97 Room Air 01/29/21 19:49 36.4 93 18 139/80 (99) Capillary Refill : General Appearance: No Apparent Distress, WD/WN, Chronically ill HEENT: PERRL/EOMI, Normal ENT Inspection, Pharynx Normal Neck: Full Range of Motion, Normal Inspection, Non Tender, Supple, Carotid Bruit Respiratory: Chest Non Tender, Lungs Clear, Normal Breath Sounds, No Accessory Muscle Use, No Respiratory Distress Cardiovascular: Regular Rate, Rhythm, No Edema, No Gallop, No JVD, No Murmur, Normal Peripheral Pulses Gastrointestinal: Normal Bowel Sounds, No Organomegaly, No Pulsatile Mass, Non Tender, Soft Back: Normal Inspection, No CVA Tenderness, No Vertebral Tenderness Extremity: Normal Capillary Refill, Normal Inspection, Normal Range of Motion (Except right arm and right leg), Non Tender, No Calf Tenderness, No Pedal Edema Neurologic/Psychiatric: Alert, Oriented x3, No Motor/Sensory Deficits, mesh 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 FIM Transfers Therapy Code Descriptions/Definitions Functional [place] Measure: 0=Not Assessed/NA 4=Minimal Assistance 1=Total Assistance 5=Supervision or Setup 2=Maximal Assistance 6=Modified [place] 3=Moderate Assistance 7=Complete IndependenceSCALE: Activities may be completed with or without assistive devices. 2-Bihugormiq-zkfsyny completes the activity by him/herself with no assistance from a helper. 5-Set-up or Clean-up Assistance-helper sets up or cleans up; patient completes activity. [place] assists only prior to or following the activity. 4-Supervision or Touching Assistance-helper provides verbal cues and/or touching/steadying and/or contact guard assistance as patient completes activity. Assistance may be provided throughout the activity or intermittently. 3-Partial/Moderate Assistance-helper does LESS THAN HALF the effort. [place] lifts, holds or supports trunk or limbs, but provides less than half the effort. 2-Substantial/Maximal Assistance-helper does MORE THAN HALF the effort. [place] lifts or holds trunk or limbs and provides more than half the effort. 1-Jgxbancbc-jmqwxn does ALL the effort. Patient does none of the effort to complete the activity. Or, the assistance of 2 or more helpers is required for the patient to complete the activity. If activity was not attempted, code reason: 7-Patient Refused. 9-Not Applicable-not attempted and the patient did not perform the activity before the current illness, exacerbation or injury. 10-Not Attempted due to Environmental Limitations-(lack of equipment, weather restraints, etc.). 88-Not Attempted due to Medical Conditions or Safety Concerns. Roll Left to Right (QC): 3 Sit to Lying (QC): 2 Sit to Stand (QC): 2 Chair/Ncp-zr-Gypcn Xfer(QC): 2 Car Transfer (QC): 1 Gait Training Does the Patient Walk?: No and Walking Goal IS indicated Walk 10 feet (QC): 88 Walk 50 ft with 2 Turns(QC): 88 Walk 150 ft (QC): 88 Walking 10ft/uneven surface-QC: 88 Wheelchair Training Does the Pt Use a Wheelchair?: Yes Wheel 50 ft with 2 turns (QC): 3 Wheel 150 ft (QC): 1 Type of Wheelchair: Manual Stair Training 1 Step (curb) (QC): 88 4 Steps (QC): 88 12 Steps (QC): 88 Balance Picking up an Object (QC): 88 ADL-Treatment Eating (QC): 4 (Set up and SBA at times with left UE.) Oral Hygiene (QC): 88 Shower/Bathe Self (QC): 3 (Mod assist overall to shower. Pt. washes UE to best of her ability, front carla area, and upper thighs. OT washes feet and left UE, rear carla area in shower.) Upper Body Dressing (QC): 88 (No street clothing available. Pt. encouraged again to have family bring in.) Lower Body Dressing (QC): 88 On/Off Footwear (QC): 2 Toileting Hygiene (QC): 1 Assessment/Plan Assessment and Plan Assess & Plan/Chief Complaint Assessment: Distal fracture of right femur Closed comminuted fracture of right humerus ABLA (acute blood loss anemia) Morbid obesity ([facility]) Hyponatremia Syncope and collapse Impaired mobility and activities of daily living Acute traumatic pain Sleep disorder CAD (coronary artery disease HTN (hypertension) COPD (chronic obstructive pulmonary disease) ([facility]) At risk for constipation DM (diabetes mellitus) ([facility]) Plan: Aggressive therapy Pain control Supportive care 01/28/2021: Supportive care to continue Check x-ray of leg Continue nonweightbearing status 01/29/2021: Supportive care Monitor bowel function Pain control (1) Femur fracture ALCIDES RUIZ DO Jan 29, 2021 12:32
[2021-01-29 19:49] VITALS: BP 139/80
[2021-01-30] MEDS: inSUlin ASPART (NovoLOG) 1 UNIT/0.01 ML (CHARGE PER UNIT) SC SCH ×7 (06:30→21:16)
[2021-01-30 07:03] VITALS: BP 144/66
[2021-01-30] MEDS: RT--FLUTICASONE/SALMETEROL 113-14 (AIRDUO RespiCLICK) IH SCH ×2 (07:09→20:32)
[2021-01-30] MEDS: ENOXAPARIN 40 MG/0.4 ML (LOVENOX) SYR SC SCH ×2 (07:16→18:05)
[2021-01-30] MEDS: CLOPIDOGREL 75 MG (PLAVIX) TABLET PO SCH (07:42)
[2021-01-30] MEDS: GABAPENTIN 400 MG (NEURONTIN) CAP PO SCH ×3 (07:42→21:33)
[2021-01-30] MEDS: amLODIPine 10 MG (NORVASC) TAB PO SCH (07:42)
[2021-01-30] MEDS: metFORMIN XR 500 MG (GLUCOPHAGE XR) TAB PO SCH ×2 (07:42→21:33)
[2021-01-30] MEDS: DOCUSATE SODIUM 100 MG (COLACE) CAP PO SCH ×2 (07:42→21:30)
[2021-01-30] MEDS: SENNA W/DOCUSATE (SENOKOT S) TABLET PO SCH ×2 (07:43→21:30)
[2021-01-30] MEDS: FLUDROCORTISONE 0.1 MG (FLORINEF) TAB PO SCH ×3 (07:43→21:33)
[2021-01-30] MEDS: polyethylene glycoL POWDER 17 GM (MIRALAX) PACK PO SCH ×2 (07:43→21:30)
--- NOTE | 2021-01-30 09:27 | Physical Therapy Daily Note ---
PT Daily Note-Current Subjective Patient in bed pre tx, agrees to PT, agrees to PT, has 9/10 pain in right leg and arm, will be co-treating with OT due to poor patient mobility, strength, endurance, severe pain with activity, complexity due to weight bearing status, coordinate UE and LE during activity, safety and reduce risk of falls. Appearance Patient in bed post tx with nurse call, phone, tray, all needs met. Mental Status Patient Orientation: Person, Place, Situation Transfers SCALE: Activities may be completed with or without assistive devices. 9-Wwgvnrnkre-vdblams completes the activity by him/herself with no assistance from a helper. 5-Set-up or Clean-up Assistance-helper sets up or cleans up; patient completes activity. [place] assists only prior to or following the activity. 4-Supervision or Touching Assistance-helper provides verbal cues and/or touching/steadying and/or contact guard assistance as patient completes activity. Assistance may be provided throughout the activity or intermittently. 3-Partial/Moderate Assistance-helper does LESS THAN HALF the effort. [place] lifts, holds or supports trunk or limbs, but provides less than half the effort. 2-Substantial/Maximal Assistance-helper does MORE THAN HALF the effort. [place] lifts or holds trunk or limbs and provides more than half the effort. 7-Rupkadeuu-jlqscg does ALL the effort. Patient does none of the effort to complete the activity. Or, the assistance of 2 or more helpers is required for the patient to complete the activity. If activity was not attempted, code reason: 7-Patient Refused. 9-Not Applicable-not attempted and the patient did not perform the activity before the current illness, exacerbation or injury. 10-Not Attempted due to Environmental Limitations-(lack of equipment, weather restraints, etc.). 88-Not Attempted due to Medical Conditions or Safety Concerns. Roll Left & Right (QC): 2 Sit to Lying (QC): 1 Lying to Sitting/Side of Bed(Q: 1 Sit to Stand (QC): 1 Chair/Kyg-tl-Qgahb Xfer(QC): 1 Patient has been incontinent of bowel in bed, has to roll several times for cleaning. Then supine to sit with assist of 2 and stand pivot transfer with assist of 2 to WC. Used a small step under left leg for transfer so right leg can dangle (patient cannot keep weight off right leg otherwise) Weight Bearing Right Lower Extremity: Right Touch Toe Bearing RUE NWB Wheelchair Training Does the Pt Use a Wheelchair?: Yes Wheel 50 ft with 2 turns (QC): 3 Wheel 150 ft (QC): 3 Type of Wheelchair: Manual 150'x2 Exercises Seated Therapy Exercises: Ankle pumps, Long arc quads Seated Reps: 20 seated trunk exercises flex/ext x10 Treatments PT performed bed mobility and transfers, WC mobility, exercises, OT performed UE exercises, UE positioning and safety during activity, assist with transfers and cleaning. Assessment Current Status: Poor Progress no progress with mobility PT Short Term Goals Short Term Goals Time Frame: Feb 03, 2021 Roll Left & Right: 2 Sit to lyin Lying to sitting on side of be: 2 Sit to stand: 2 Chair/jdn-bt-bwokp transfer: 2 PT Usp Goals Licensed Retail Supervisor Goals PT Usp Goals Time Frame: Feb 17, 2021 Roll Left & Right (QC): 3 Sit to Lying (QC): 3 Lying-Sitting on Side/Bed(QC): 3 Sit to Stand (QC): 3 Chair/Loi-zc-Zylhb Xfer(QC): 3 Toilet Transfer (QC): 3 Car Transfer (QC): 3 Does the Patient Walk: No and Walking Goal NOT indicated Walk 10 feet (QC): 88 Walk 50ft with 2 Turns (QC): 88 Walk 150 ft (QC): 88 Walking 10ft on Uneven Surface: 88 1 Step (curb) (QC): 88 4 Steps (QC): 88 12 Steps (QC): 88 Picking up an Object (QC): 88 Wheel 50 feet with 2 turns (QC: 5 Wheel 150 feet: 5 PT Plan Problem List Problem List: Activity Tolerance, Functional Strength, Safety, Balance, Gait, Transfer, Bed Mobility, ROM Treatment/Plan Treatment Plan: Continue Plan of Care Treatment Plan: Bed Mobility, Education, Functional Activity Brian, Functional Strength, Group Therapy, Gait, Safety, Therapeutic Exercise, Transfers Treatment Duration: Feb 17, 2021 Frequency: At least 5 of 7 days/Wk (IRF) Estimated Hrs Per Day: .25 hour per day Patient and/or Family Agrees t: Yes Safety Risks/Education Patient Education: Transfer Techniques, Reviewed Precautions, Correct Positioning, W/C Management, Safety Issues Teaching Recipient: Patient Teaching Methods: Demonstration, Discussion Response to Teaching: Reinforcement Needed Time/GCodes Time In: 0800 Time Out: 929 Total Billed Treatment Time: 90 Total Billed Treatment 1 visit EX 15' FA 75' co-treated for 90 min PIETRO BHANDARI PT Jan 30, 2021 09:27
--- NOTE | 2021-01-30 09:50 | Occupational Ther Daily Note ---
OT Current Status-Daily Note Subjective Pt. reports pain in right UE/LE but does not report pain level. Pt. has had pain medication. Mental Status/Objective Patient Orientation: Person, Place, Time, Situation ADL-Treatment Therapy Code Descriptions/Definitions Functional [place] Measure: 0=Not Assessed/NA 4=Minimal Assistance 1=Total Assistance 5=Supervision or Setup 2=Maximal Assistance 6=Modified [place] 3=Moderate Assistance 7=Complete IndependenceSCALE: Activities may be completed with or without assistive devices. 1-Visixuxiuc-slknydk completes the activity by him/herself with no assistance from a helper. 5-Set-up or Clean-up Assistance-helper sets up or cleans up; patient completes activity. [place] assists only prior to or following the activity. 4-Supervision or Touching Assistance-helper provides verbal cues and/or touching/steadying and/or contact guard assistance as patient completes activity. Assistance may be provided throughout the activity or intermittently. 3-Partial/Moderate Assistance-helper does LESS THAN HALF the effort. [place] lifts, holds or supports trunk or limbs, but provides less than half the effort. 2-Substantial/Maximal Assistance-helper does MORE THAN HALF the effort. [place] lifts or holds trunk or limbs and provides more than half the effort. 5-Wwoeoibpr-fjduke does ALL the effort. Patient does none of the effort to complete the activity. Or, the assistance of 2 or more helpers is required for the patient to complete the activity. If activity was not attempted, code reason: 7-Patient Refused. 9-Not Applicable-not attempted and the patient did not perform the activity before the current illness, exacerbation or injury. 10-Not Attempted due to Environmental Limitations-(lack of equipment, weather restraints, etc.). 88-Not Attempted due to Medical Conditions or Safety Concerns. On/Off Footwear: 1 Toileting Hygiene (QC): 1 Toilet Transfer (QC): 1 (Bedpan) Other Treatment Pt. seen this date for co-treatment by OT/PT due to need of skilled clinicians x 2. Pt. demonstrates poor endurance, overall weakness, decreased ADL skills, and decreased mobility. PT focused on mobility, transfers, LE movement and strength while OT assessed UE movement/strength, ADL skills, and endurance. Pt. in bed. Agreeable to work with therapy. Therapy began to transfer pt. but noted that she had been incontinent of bowel. Pt. unaware that she was. Pt. required max x 2 for rolling, side to side in bed, and dependent assistance to cleanse carla area after incontinence. Began to start transfer again and pt. states that she feels the need to urinate. Pt. has had Carla wick in, and so OT assures her this is good sign that she can feel the urge. Pt. able to hold while OT gets bed michaels. Pt. rolls again max assist and bed michaels is placed. Pt. unable to go, and so she transfers, supine-sit max x 2, and then squat pivot to wheelchair max x 2. Therapy encourages pt. to practice wheelchair mobility with left UE/LE. Pt. has difficulty reaching floor with left foot. Encouraged to have family bring in shoe. Pt. requires several rest breaks. Becomes incontinent of urine in hallway. Pt. again unaware of this. Pt. admits to OT that she was incontinent of bowel and bladder previous to her injury, as she had said she was not before. Will let physician know. Pt. taken to therapy gym. Removed arm sling and pt. completed AROM with right UE in elbow flexion, wrist extension, and finger flexion, x 10 reps each, x 2 sets. PT completed intermittent exercises with LE. Both disciplines also worked on core strengthening with education for scooting to EOB, trunk flexion/extension, and posture exercises. Pt. taken back to bed. Transferred with max x2. All needs met. Education OT Patient Education: Correct positioning, Exercise program, Modified ADL techniques, Progress toward Goal/Update tx plan, Purpose of tx/functional activities, Reviewed precautions, Rehab process, Transfer techniques Teaching Recipient: Patient Teaching Methods: Demonstration, Discussion Response to Teaching: Verbalize Understanding, Return Demonstration OT Short Term Goals Short Term Goals Time Frame: Feb 10, 2021 Eatin Oral hygiene: 4 Toileting hygiene: 3 Shower/bathe self: 3 Upper body dressin Lower body dressin Putting on/taking off footwear: 3 OT Prison Goals Prison Goals Time Frame: Feb 24, 2021 Eating (QC): 6 Oral Hygiene (QC): 6 Toileting Hygiene (QC): 6 Shower/Bathe Self (QC): 4 Upper Body Dressing (QC): 5 Lower Body Dressing (QC): 5 On/Off Footwear (QC): 5 Additional Goals: 1-Demonstrate ADL Tasks, 2-Verbalize Understanding, 3- ImproveStrength/Brian 1=Demonstrate adherence to instructed precautions during ADL tasks. 2=Patient will verbalize/demonstrate understanding of assistive devices/modifications for ADL. 3=Patient will improve strength/tolerance for activity to enable patient to perform ADL's. OT Education/Plan Problem List/Assessment Assessment: Decreased Activ Tolerance, Decreased UE Strength, Dependent Transfers, Impaired Bed Mobility, Impaired Funct Balance, Impaired I ADL's, Impaired Self-Care Skills, Restricted Funct UE ROM Discharge Recommendations Plan/Recommendations: Continue POC Therapy Discharge Recommendati: Post Acute OT Treatment Plan/Plan of Care Treatment,Training & Education: Yes Patient would benefit from OT for education, treatment and training to promote independence in ADL's, mobility, safety and/or upper extremity function for ADL 's. Plan of Care: ADL Retraining, Functional Mobility, UE Funct Exercise/Act Treatment Duration: Feb 24, 2021 Frequency: At least 5 of 7 days/Wk (IRF) Estimated Hrs Per Day: 1.5 hours per day Agreement: Yes Rehab Potential: Fair Time/GCodes Start Time: 08:00 Stop Time: 09:30 Total Time Billed (hr/min): 90 Billed Treatment Time 1, ADL x 30minutes, FA x 30minutes, Ex x 30minutes TAL THOMAS OT Jan 30, 2021 09:50
--- NOTE | 2021-01-30 10:52 | PM&R Progress Note ---
Subjective HPI/CC On Admission Date Seen by Provider: Jan 30, 2021 Time Seen by Provider: 11:00 Subjective/Events-last exam 01/30/2021: Patient doing pretty well today Pain is well controlled Using pure wick Bowels moved yesterday Working out with therapy 01/29/2021: Pt doing pretty well Denies any significant new issues Participating in therapy Checked meds and labs Denies any pain 01/28/2021: Pt doing pretty well but had a pop in her right leg when she barely had weight bearing to it X-rays ordered Purewick maintained Check meds and labs Bowels are moving Review of Systems General: Fatigue, Malaise Musculoskeletal: leg pain Objective Exam Vital Signs Vital Signs Date Time Temp Pulse Resp B/P (MAP) Pulse Ox O2 Delivery O2 Flow Rate FiO2 01/30/21 09:00 Room Air 01/30/21 07:09 95 01/30/21 07:03 36.6 89 20 144/66 (92) Capillary Refill : General Appearance: No Apparent Distress, WD/WN, Chronically ill HEENT: PERRL/EOMI, Normal ENT Inspection, Pharynx Normal Neck: Full Range of Motion, Normal Inspection, Non Tender, Supple, Carotid Bruit Respiratory: Chest Non Tender, Lungs Clear, Normal Breath Sounds, No Accessory Muscle Use, No Respiratory Distress Cardiovascular: Regular Rate, Rhythm, No Edema, No Gallop, No JVD, No Murmur, Normal Peripheral Pulses Gastrointestinal: Normal Bowel Sounds, No Organomegaly, No Pulsatile Mass, Non Tender, Soft Back: Normal Inspection, No CVA Tenderness, No Vertebral Tenderness Extremity: Normal Capillary Refill, Normal Inspection, Normal Range of Motion (Except right arm and right leg), Non Tender, No Calf Tenderness, No Pedal Edema Neurologic/Psychiatric: Alert, Oriented x3, No Motor/Sensory Deficits, 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 FIM Transfers Therapy Code Descriptions/Definitions Functional [place] Measure: 0=Not Assessed/NA 4=Minimal Assistance 1=Total Assistance 5=Supervision or Setup 2=Maximal Assistance 6=Modified [place] 3=Moderate Assistance 7=Complete IndependenceSCALE: Activities may be completed with or without assistive devices. 1-Putopstymh-rjcgbgy completes the activity by him/herself with no assistance from a helper. 5-Set-up or Clean-up Assistance-helper sets up or cleans up; patient completes activity. [place] assists only prior to or following the activity. 4-Supervision or Touching Assistance-helper provides verbal cues and/or touching/steadying and/or contact guard assistance as patient completes activity. Assistance may be provided throughout the activity or intermittently. 3-Partial/Moderate Assistance-helper does LESS THAN HALF the effort. [place] lifts, holds or supports trunk or limbs, but provides less than half the effort. 2-Substantial/Maximal Assistance-helper does MORE THAN HALF the effort. [place] lifts or holds trunk or limbs and provides more than half the effort. 8-Diibugmep-mfvitd does ALL the effort. Patient does none of the effort to complete the activity. Or, the assistance of 2 or more helpers is required for the patient to complete the activity. If activity was not attempted, code reason: 7-Patient Refused. 9-Not Applicable-not attempted and the patient did not perform the activity before the current illness, exacerbation or injury. 10-Not Attempted due to Environmental Limitations-(lack of equipment, weather restraints, etc.). 88-Not Attempted due to Medical Conditions or Safety Concerns. Roll Left to Right (QC): 2 Sit to Lying (QC): 1 Sit to Stand (QC): 1 Chair/Ndn-hq-Ofire Xfer(QC): 1 Car Transfer (QC): 1 Gait Training Does the Patient Walk?: No and Walking Goal IS indicated Walk 10 feet (QC): 88 Walk 50 ft with 2 Turns(QC): 88 Walk 150 ft (QC): 88 Walking 10ft/uneven surface-QC: 88 Wheelchair Training Does the Pt Use a Wheelchair?: Yes Wheel 50 ft with 2 turns (QC): 3 Wheel 150 ft (QC): 3 Type of Wheelchair: Manual Stair Training 1 Step (curb) (QC): 88 4 Steps (QC): 88 12 Steps (QC): 88 Balance Picking up an Object (QC): 88 ADL-Treatment Eating (QC): 4 (Set up and SBA at times with left UE.) Oral Hygiene (QC): 88 Shower/Bathe Self (QC): 3 (Mod assist overall to shower. Pt. washes UE to best of her ability, front carla area, and upper thighs. OT washes feet and left UE, rear carla area in shower.) Upper Body Dressing (QC): 88 (No street clothing available. Pt. encouraged again to have family bring in.) Lower Body Dressing (QC): 88 On/Off Footwear (QC): 1 Toileting Hygiene (QC): 1 Toilet Transfer (QC): 1 (Bedpan) Assessment/Plan Assessment and Plan Assess & Plan/Chief Complaint Assessment: Distal fracture of right femur Closed comminuted fracture of right humerus ABLA (acute blood loss anemia) Morbid obesity ([facility]) Hyponatremia Syncope and collapse Impaired mobility and activities of daily living Acute traumatic pain Sleep disorder CAD (coronary artery disease HTN (hypertension) COPD (chronic obstructive pulmonary disease) ([facility]) At risk for constipation DM (diabetes mellitus) ([facility]) Plan: Aggressive therapy Pain control Supportive care 01/28/2021: Supportive care to continue Check x-ray of leg Continue nonweightbearing status 01/29/2021: Supportive care Monitor bowel function Pain control 01/30/2021: Supportive care Pain control Bowel regimen (1) Femur fracture ALCIDES RUIZ DO Jan 30, 2021 10:52
[2021-01-30 20:00] VITALS: BP 137/62
--- NOTE | 2021-01-31 06:37 | PM&R Progress Note ---
Subjective HPI/CC On Admission Date Seen by Provider: Jan 31, 2021 Time Seen by Provider: 12:30 Subjective/Events-last exam 01/31/2021: Patient doing really well today Pain is well controlled Change pure wick a couple of times Glucose 220 this morning Bowels moved today 01/30/2021: Patient doing pretty well today Pain is well controlled Using pure wick Bowels moved yesterday Working out with therapy 01/29/2021: Pt doing pretty well Denies any significant new issues Participating in therapy Checked meds and labs Denies any pain 01/28/2021: Pt doing pretty well but had a pop in her right leg when she barely had weight bearing to it X-rays ordered Purewick maintained Check meds and labs Bowels are moving Review of Systems General: Fatigue, Malaise Musculoskeletal: arm pain, leg pain Objective Exam Vital Signs Vital Signs Date Time Temp Pulse Resp B/P (MAP) Pulse Ox O2 Delivery O2 Flow Rate FiO2 01/31/21 20:24 97 Room Air 01/31/21 20:00 37.1 91 20 148/68 (94) Capillary Refill : General Appearance: No Apparent Distress, WD/WN, Chronically ill HEENT: PERRL/EOMI, Normal ENT Inspection, Pharynx Normal Neck: Full Range of Motion, Normal Inspection, Non Tender, Supple, Carotid Bruit Respiratory: Chest Non Tender, Lungs Clear, Normal Breath Sounds, No Accessory Muscle Use, No Respiratory Distress Cardiovascular: Regular Rate, Rhythm, No Edema, No Gallop, No JVD, No Murmur, Normal Peripheral Pulses Gastrointestinal: Normal Bowel Sounds, No Organomegaly, No Pulsatile Mass, Non Tender, Soft Back: Normal Inspection, No CVA Tenderness, No Vertebral Tenderness Extremity: Normal Capillary Refill, Normal Inspection, Normal Range of Motion (Except right arm and right leg), Non Tender, No Calf Tenderness, No Pedal Edema Neurologic/Psychiatric: Alert, Oriented x3, No Motor/Sensory Deficits, pricing lead II- XII Norm as Tested, Abnormal Gait, Depressed Affect, Motor Weakness (Right arm right leg) Skin: Normal Color, Warm/Dry Lymphatic: No Adenopathy Results/Procedures Lab Patient resulted labs reviewed. FIM Transfers Therapy Code Descriptions/Definitions Functional [place] Measure: 0=Not Assessed/NA 4=Minimal Assistance 1=Total Assistance 5=Supervision or Setup 2=Maximal Assistance 6=Modified [place] 3=Moderate Assistance 7=Complete IndependenceSCALE: Activities may be completed with or without assistive devices. 4-Lgdyaycnad-kpgsamg completes the activity by him/herself with no assistance from a helper. 5-Set-up or Clean-up Assistance-helper sets up or cleans up; patient completes activity. [place] assists only prior to or following the activity. 4-Supervision or Touching Assistance-helper provides verbal cues and/or touching/steadying and/or contact guard assistance as patient completes activity. Assistance may be provided throughout the activity or intermittently. 3-Partial/Moderate Assistance-helper does LESS THAN HALF the effort. [place] lifts, holds or supports trunk or limbs, but provides less than half the effort. 2-Substantial/Maximal Assistance-helper does MORE THAN HALF the effort. [place] lifts or holds trunk or limbs and provides more than half the effort. 8-Gmrmlgrnf-jdokhc does ALL the effort. Patient does none of the effort to complete the activity. Or, the assistance of 2 or more helpers is required for the patient to complete the activity. If activity was not attempted, code reason: 7-Patient Refused. 9-Not Applicable-not attempted and the patient did not perform the activity before the current illness, exacerbation or injury. 10-Not Attempted due to Environmental Limitations-(lack of equipment, weather restraints, etc.). 88-Not Attempted due to Medical Conditions or Safety Concerns. Roll Left to Right (QC): 2 Sit to Lying (QC): 1 Sit to Stand (QC): 1 Chair/Gol-gg-Zxwov Xfer(QC): 1 Car Transfer (QC): 1 Gait Training Does the Patient Walk?: No and Walking Goal IS indicated Walk 10 feet (QC): 88 Walk 50 ft with 2 Turns(QC): 88 Walk 150 ft (QC): 88 Walking 10ft/uneven surface-QC: 88 Wheelchair Training Does the Pt Use a Wheelchair?: Yes Wheel 50 ft with 2 turns (QC): 3 Wheel 150 ft (QC): 3 Type of Wheelchair: Manual Stair Training 1 Step (curb) (QC): 88 4 Steps (QC): 88 12 Steps (QC): 88 Balance Picking up an Object (QC): 88 ADL-Treatment Eating (QC): 4 (Set up and SBA at times with left UE.) Oral Hygiene (QC): 88 Shower/Bathe Self (QC): 3 (Mod assist overall to shower. Pt. washes UE to best of her ability, front carla area, and upper thighs. OT washes feet and left UE, rear carla area in shower.) Upper Body Dressing (QC): 88 (No street clothing available. Pt. encouraged again to have family bring in.) Lower Body Dressing (QC): 88 On/Off Footwear (QC): 1 Toileting Hygiene (QC): 1 Toilet Transfer (QC): 1 (Bedpan) Assessment/Plan Assessment and Plan Assess & Plan/Chief Complaint Assessment: Distal fracture of right femur Closed comminuted fracture of right humerus ABLA (acute blood loss anemia) Morbid obesity (HCC) Hyponatremia Syncope and collapse Impaired mobility and activities of daily living Acute traumatic pain Sleep disorder CAD (coronary artery disease HTN (hypertension) COPD (chronic obstructive pulmonary disease) (HCC) At risk for constipation DM (diabetes mellitus) ([facility]) Plan: Aggressive therapy Pain control Supportive care 01/28/2021: Supportive care to continue Check x-ray of leg Continue nonweightbearing status 01/29/2021: Supportive care Monitor bowel function Pain control 01/30/2021: Supportive care Pain control Bowel regimen 01/31/2021: Aggressive therapy Supportive care (1) Femur fracture ALCIDES RUIZ DO Jan 31, 2021 06:37
[2021-01-31] MEDS: inSUlin ASPART (NovoLOG) 1 UNIT/0.01 ML (CHARGE PER UNIT) SC SCH ×7 (06:38→21:25)
[2021-01-31] MEDS: RT--FLUTICASONE/SALMETEROL 113-14 (AIRDUO RespiCLICK) IH SCH ×2 (06:45→20:24)
[2021-01-31] MEDS: ENOXAPARIN 40 MG/0.4 ML (LOVENOX) SYR SC SCH ×2 (07:18→18:13)
[2021-01-31 09:00] VITALS: BP 152/68
[2021-01-31] MEDS: GABAPENTIN 400 MG (NEURONTIN) CAP PO SCH ×3 (09:30→21:25)
[2021-01-31] MEDS: metFORMIN XR 500 MG (GLUCOPHAGE XR) TAB PO SCH ×2 (09:30→21:25)
[2021-01-31] MEDS: amLODIPine 10 MG (NORVASC) TAB PO SCH (09:30)
[2021-01-31] MEDS: FLUDROCORTISONE 0.1 MG (FLORINEF) TAB PO SCH ×3 (09:30→21:25)
[2021-01-31] MEDS: CLOPIDOGREL 75 MG (PLAVIX) TABLET PO SCH (09:30)
[2021-01-31] MEDS: SENNA W/DOCUSATE (SENOKOT S) TABLET PO SCH ×2 (09:50→21:25)
[2021-01-31] MEDS: DOCUSATE SODIUM 100 MG (COLACE) CAP PO SCH ×2 (09:50→21:25)
[2021-01-31] MEDS: polyethylene glycoL POWDER 17 GM (MIRALAX) PACK PO SCH ×2 (09:50→21:25)
[2021-01-31 18:46] VITALS: BP 122/64
[2021-01-31 20:00] VITALS: BP 148/68
[2021-01-31] MEDS: ALPRAZolam 0.25 MG (XANAX) TAB PO PRN (21:25)
[2021-02-01] MEDS: inSUlin ASPART (NovoLOG) 1 UNIT/0.01 ML (CHARGE PER UNIT) SC SCH ×7 (05:39→20:37)
[2021-02-01 06:39] LABS: BASOPHILS # (AUTO) 0.1 10^3/uL (0.0-0.1); BASOPHILS % (AUTO) 1 % (0-10); EOSINOPHILS # (AUTO) 0.7 10^3/uL (0.0-0.3); EOSINOPHILS % (AUTO) 10 % (0-10); HEMATOCRIT 27 % (35-52); HEMOGLOBIN 8.2 g/dL (11.5-16.0); LYMPHOCYTES # (AUTO) 1.1 10^3/uL (1.0-4.0); LYMPHOCYTES % (AUTO) 16 % (12-44); MEAN CORPUSCULAR HEMOGLOBIN 24 pg (25-34); MEAN CORPUSCULAR HGB CONC 30 g/dL (32-36); MEAN CORPUSCULAR VOLUME 78 fL (80-99); MEAN PLATELET VOLUME 9.6 fL (9.0-12.2); MONOCYTES # (AUTO) 0.8 10^3/uL (0.0-1.0); MONOCYTES % (AUTO) 12 % (0-12); NEUTROPHILS # (AUTO) 4.2 10^3/uL (1.8-7.8); NEUTROPHILS % (AUTO) 61 % (42-75); PLATELET COUNT 502 10^3/uL (130-400); WHITE BLOOD COUNT 6.9 10^3/uL (4.3-11.0)
[2021-02-01 06:57] LABS: ALBUMIN 2.6 GM/DL (3.2-4.5); BILIRUBIN,TOTAL 0.4 MG/DL (0.1-1.0); CALCIUM 8.6 MG/DL (8.5-10.1); CREATININE SERUM 0.81 MG/DL (0.60-1.30); POTASSIUM 4.1 MMOL/L (3.6-5.0); TOTAL PROTEIN 5.6 GM/DL (6.4-8.2)
[2021-02-01] MEDS: ENOXAPARIN 40 MG/0.4 ML (LOVENOX) SYR SC SCH ×2 (07:01→18:21)
[2021-02-01 07:29] VITALS: BP 161/72
[2021-02-01] MEDS: amLODIPine 10 MG (NORVASC) TAB PO SCH (08:07)
[2021-02-01] MEDS: CLOPIDOGREL 75 MG (PLAVIX) TABLET PO SCH (08:07)
[2021-02-01] MEDS: GABAPENTIN 400 MG (NEURONTIN) CAP PO SCH ×3 (08:07→20:35)
[2021-02-01] MEDS: metFORMIN XR 500 MG (GLUCOPHAGE XR) TAB PO SCH ×2 (08:07→20:35)
[2021-02-01] MEDS: FLUDROCORTISONE 0.1 MG (FLORINEF) TAB PO SCH ×3 (08:07→20:36)
[2021-02-01] MEDS: polyethylene glycoL POWDER 17 GM (MIRALAX) PACK PO SCH ×2 (09:00→20:40)
[2021-02-01] MEDS: DOCUSATE SODIUM 100 MG (COLACE) CAP PO SCH ×2 (09:00→20:40)
[2021-02-01] MEDS: SENNA W/DOCUSATE (SENOKOT S) TABLET PO SCH ×2 (09:00→20:41)
[2021-02-01] MEDS: RT--FLUTICASONE/SALMETEROL 113-14 (AIRDUO RespiCLICK) IH SCH ×2 (09:04→18:43)
--- NOTE | 2021-02-01 09:49 | PM&R Progress Note ---
Subjective HPI/CC On Admission Date Seen by Provider: Feb 01, 2021 Time Seen by Provider: 10:00 Subjective/Events-last exam 02/01/2021: Pt doing pretty well Complaining of right shoulder pain due to surgery Holding laxatives due to loose stools Hgb 8.2 Purewick maintained Unable to do sit to stand may need noam 01/31/2021: Patient doing really well today Pain is well controlled Change pure wick a couple of times Glucose 220 this morning Bowels moved today 01/30/2021: Patient doing pretty well today Pain is well controlled Using pure wick Bowels moved yesterday Working out with therapy 01/29/2021: Pt doing pretty well Denies any significant new issues Participating in therapy Checked meds and labs Denies any pain 01/28/2021: Pt doing pretty well but had a pop in her right leg when she barely had weight bearing to it X-rays ordered Purewick maintained Check meds and labs Bowels are moving Review of Systems General: Fatigue, Malaise Musculoskeletal: arm pain, leg pain Objective Exam Vital Signs Vital Signs Date Time Temp Pulse Resp B/P (MAP) Pulse Ox O2 Delivery O2 Flow Rate FiO2 02/01/21 20:40 98 Room Air 02/01/21 20:00 36.4 85 16 152/72 (98) Capillary Refill : General Appearance: No Apparent Distress, WD/WN, Chronically ill HEENT: PERRL/EOMI, Normal ENT Inspection, Pharynx Normal Neck: Full Range of Motion, Normal Inspection, Non Tender, Supple, Carotid Bruit Respiratory: Chest Non Tender, Lungs Clear, Normal Breath Sounds, No Accessory Muscle Use, No Respiratory Distress Cardiovascular: Regular Rate, Rhythm, No Edema, No Gallop, No JVD, No Murmur, Normal Peripheral Pulses Gastrointestinal: Normal Bowel Sounds, No Organomegaly, No Pulsatile Mass, Non Tender, Soft Back: Normal Inspection, No CVA Tenderness, No Vertebral Tenderness Extremity: Normal Capillary Refill, Normal Inspection, Normal Range of Motion (Except right arm and right leg), Non Tender, No Calf Tenderness, No Pedal Edema Neurologic/Psychiatric: Alert, Oriented x3, No Motor/Sensory Deficits, tent finisher II- XII Norm as Tested, Abnormal Gait, Depressed Affect, Motor Weakness (Right arm right leg) Skin: Normal Color, Warm/Dry Lymphatic: No Adenopathy Results/Procedures Lab Laboratory Tests 02/01/21 06:28 Patient resulted labs reviewed. FIM Transfers Therapy Code Descriptions/Definitions Functional [place] Measure: 0=Not Assessed/NA 4=Minimal Assistance 1=Total Assistance 5=Supervision or Setup 2=Maximal Assistance 6=Modified [place] 3=Moderate Assistance 7=Complete IndependenceSCALE: Activities may be completed with or without assistive devices. 7-Mbdafeilwo-rjlgnfk completes the activity by him/herself with no assistance from a helper. 5-Set-up or Clean-up Assistance-helper sets up or cleans up; patient completes activity. [place] assists only prior to or following the activity. 4-Supervision or Touching Assistance-helper provides verbal cues and/or touch ing/steadying and/or contact guard assistance as patient completes activity. Assistance may be provided throughout the activity or intermittently. 3-Partial/Moderate Assistance-helper does LESS THAN HALF the effort. [place] lifts, holds or supports trunk or limbs, but provides less than half the effort. 2-Substantial/Maximal Assistance-helper does MORE THAN HALF the effort. [place] lifts or holds trunk or limbs and provides more than half the effort. 3-Enqxrulob-pzuwgw does ALL the effort. Patient does none of the effort to complete the activity. Or, the assistance of 2 or more helpers is required for the patient to complete the activity. If activity was not attempted, code reason: 7-Patient Refused. 9-Not Applicable-not attempted and the patient did not perform the activity bef ore the current illness, exacerbation or injury. 10-Not Attempted due to Environmental Limitations-(lack of equipment, weather restraints, etc.). 88-Not Attempted due to Medical Conditions or Safety Concerns. Roll Left to Right (QC): 2 Sit to Lying (QC): 1 Sit to Stand (QC): 1 Chair/Czh-td-Wsaaa Xfer(QC): 1 Car Transfer (QC): 1 Gait Training Does the Patient Walk?: No and Walking Goal IS indicated Walk 10 feet (QC): 88 Walk 50 ft with 2 Turns(QC): 88 Walk 150 ft (QC): 88 Walking 10ft/uneven surface-QC: 88 Wheelchair Training Does the Pt Use a Wheelchair?: Yes Wheel 50 ft with 2 turns (QC): 3 Wheel 150 ft (QC): 3 Type of Wheelchair: Manual Stair Training 1 Step (curb) (QC): 88 4 Steps (QC): 88 12 Steps (QC): 88 Balance Picking up an Object (QC): 88 ADL-Treatment Eating (QC): 4 (Set up and SBA at times with left UE.) Oral Hygiene (QC): 88 Shower/Bathe Self (QC): 3 (Mod assist overall to shower. Pt. washes UE to best of her ability, front carla area, and upper thighs. OT washes feet and left UE, rear carla area in shower.) Upper Body Dressing (QC): 88 (No street clothing available. Pt. encouraged again to have family bring in.) Lower Body Dressing (QC): 88 On/Off Footwear (QC): 1 Toileting Hygiene (QC): 1 Toilet Transfer (QC): 1 (Bedpan) Assessment/Plan Assessment and Plan Assess & Plan/Chief Complaint Assessment: Distal fracture of right femur Closed comminuted fracture of right humerus ABLA (acute blood loss anemia) Morbid obesity ([facility]) Hyponatremia Syncope and collapse Impaired mobility and activities of daily living Acute traumatic pain Sleep disorder CAD (coronary artery disease HTN (hypertension) COPD (chronic obstructive pulmonary disease) ([facility]) At risk for constipation DM (diabetes mellitus) ([facility]) Plan: Aggressive therapy Pain control Supportive care 01/28/2021: Supportive care to continue Check x-ray of leg Continue nonweightbearing status 01/29/2021: Supportive care Monitor bowel function Pain control 01/30/2021: Supportive care Pain control Bowel regimen 01/31/2021: Aggressive therapy Supportive care 02/01/2021: Pain control Pure wick Monitor glucose (1) Femur fracture ALCIDES RUIZ DO Feb 01, 2021 09:49
--- NOTE | 2021-02-01 09:59 | Physical Therapy Daily Note ---
PT Daily Note-Current Subjective Patient in bed pre tx, agrees to PT, has unrated but patient states severe pain in right shoulder this morning. Will be co-treating with OT due to poor patient mobility, strength, endurance, complicated weight bearing status, coordinate UE and LE during activity, safety and reduce risk of falls. Appearance Patient in WC poist tx, will continue with OT for a bit. Mental Status Patient Orientation: Person, Place, Situation Transfers SCALE: Activities may be completed with or without assistive devices. 5-Urxddkagpo-alhhnfz completes the activity by him/herself with no assistance from a helper. 5-Set-up or Clean-up Assistance-helper sets up or cleans up; patient completes activity. [place] assists only prior to or following the activity. 4-Supervision or Touching Assistance-helper provides verbal cues and/or touching/steadying and/or contact guard assistance as patient completes activity. Assistance may be provided throughout the activity or intermittently. 3-Partial/Moderate Assistance-helper does LESS THAN HALF the effort. [place] lifts, holds or supports trunk or limbs, but provides less than half the effort. 2-Substantial/Maximal Assistance-helper does MORE THAN HALF the effort. [place] lifts or holds trunk or limbs and provides more than half the effort. 0-Jzeiwklxq-vyxqua does ALL the effort. Patient does none of the effort to complete the activity. Or, the assistance of 2 or more helpers is required for the patient to complete the activity. If activity was not attempted, code reason: 7-Patient Refused. 9-Not Applicable-not attempted and the patient did not perform the activity before the current illness, exacerbation or injury. 10-Not Attempted due to Environmental Limitations-(lack of equipment, weather restraints, etc.). 88-Not Attempted due to Medical Conditions or Safety Concerns. Roll Left & Right (QC): 1 Lying to Sitting/Side of Bed(Q: 1 Sit to Stand (QC): 1 Chair/Ugr-tw-Pleai Xfer(QC): 1 Patient has soiled the bed, needs to roll from side to side to clean and change sheets and get brief on. Patient requires assist of 2 for rolling and supine to sit. She has increased pain and isn't able to help much with sit to stand and transfer to . Weight Bearing Right Lower Extremity: Right Touch Toe Bearing RUE NWB Wheelchair Training Does the Pt Use a Wheelchair?: Yes Wheel 50 ft with 2 turns (QC): 3 Wheel 150 ft (QC): 3 Type of Wheelchair: Manual mod assist, 150'x2 Exercises patient rolled up the the parallel bar and used left leg and arm to practice beginning to stand , she was not able to get her back side off of the WC, she did this x30 Treatments PT worked on bed mobility and transfers, WC mobility, standing prep, OT worked on cleaning, dressing, UE positioning and safety during activity Assessment Current Status: Poor Progress no change in mobility, increased pain PT Short Term Goals Short Term Goals Time Frame: Feb 03, 2021 Roll Left & Right: 2 Sit to lyin Lying to sitting on side of be: 2 Sit to stand: 2 Chair/bds-ke-aqgew transfer: 2 PT Human Relations Teacher Goals Human Relations Teacher Goals PT [facility] Goals Time Frame: Feb 17, 2021 Roll Left & Right (QC): 3 Sit to Lying (QC): 3 Lying-Sitting on Side/Bed(QC): 3 Sit to Stand (QC): 3 Chair/Bel-ny-Ykmyv Xfer(QC): 3 Toilet Transfer (QC): 3 Car Transfer (QC): 3 Does the Patient Walk: No and Walking Goal NOT indicated Walk 10 feet (QC): 88 Walk 50ft with 2 Turns (QC): 88 Walk 150 ft (QC): 88 Walking 10ft on Uneven Surface: 88 1 Step (curb) (QC): 88 4 Steps (QC): 88 12 Steps (QC): 88 Picking up an Object (QC): 88 Wheel 50 feet with 2 turns (QC: 5 Wheel 150 feet: 5 PT Plan Problem List Problem List: Activity Tolerance, Functional Strength, Safety, Balance, Gait, Transfer, Bed Mobility, ROM Treatment/Plan Treatment Plan: Continue Plan of Care Treatment Plan: Bed Mobility, Education, Functional Activity Brian, Functional Strength, Group Therapy, Gait, Safety, Therapeutic Exercise, Transfers Treatment Duration: Feb 17, 2021 Frequency: At least 5 of 7 days/Wk (IRF) Estimated Hrs Per Day: .25 hour per day Patient and/or Family Agrees t: Yes Safety Risks/Education Patient Education: Transfer Techniques, Reviewed Precautions, Correct Positioning, W/C Management, Safety Issues Teaching Recipient: Patient Teaching Methods: Demonstration, Discussion Response to Teaching: Reinforcement Needed Time/GCodes Time In: 0900 Time Out: 1000 Total Billed Treatment Time: 60 Total Billed Treatment 1 visit FA 60' co-treated for 60' PIETRO BHANDARI PT Feb 01, 2021 09:59
--- NOTE | 2021-02-01 11:20 | Occupational Ther Daily Note ---
OT Current Status-Daily Note Subjective Pt. report pain in right UE with movement. Pt. has had pain medication. Mental Status/Objective Patient Orientation: Person, Place ADL-Treatment Therapy Code Descriptions/Definitions Functional [place] Measure: 0=Not Assessed/NA 4=Minimal Assistance 1=Total Assistance 5=Supervision or Setup 2=Maximal Assistance 6=Modified [place] 3=Moderate Assistance 7=Complete IndependenceSCALE: Activities may be completed with or without assistive devices. 1-Dsxfpldibq-lmfsguf completes the activity by him/herself with no assistance from a helper. 5-Set-up or Clean-up Assistance-helper sets up or cleans up; patient completes activity. [place] assists only prior to or following the activity. 4-Supervision or Touching Assistance-helper provides verbal cues and/or touching/steadying and/or contact guard assistance as patient completes activity. Assistance may be provided throughout the activity or intermittently. 3-Partial/Moderate Assistance-helper does LESS THAN HALF the effort. [place] lifts, holds or supports trunk or limbs, but provides less than half the effort. 2-Substantial/Maximal Assistance-helper does MORE THAN HALF the effort. [place] lifts or holds trunk or limbs and provides more than half the effort. 7-Oseuierop-tjzrqp does ALL the effort. Patient does none of the effort to com plete the activity. Or, the assistance of 2 or more helpers is required for the patient to complete the activity. If activity was not attempted, code reason: 7-Patient Refused. 9-Not Applicable-not attempted and the patient did not perform the activity before the current illness, exacerbation or injury. 10-Not Attempted due to Environmental Limitations-(lack of equipment, weather restraints, etc.). 88-Not Attempted due to Medical Conditions or Safety Concerns. Oral Hygiene (QC): 5 (Set up seated at sink in wheelchair.) Shower/Bathe Self (QC): 7 (Pt. declines showering stating that she does not feel like it.) Upper Body Dressing (QC): 2 (Max assist to don over head dress.) On/Off Footwear: 2 (Max assist to don diabetic shoe and slipper sock.) Toileting Hygiene (QC): 2 (Pt. incontinent of urine in bed. Soaked through sheets. Pt. would like therapy to cleanse self but mentions she will have to as sist at home. OT encourages pt. to assist here. Pt. does attempt to cleanse carla area at bed level with wipe. Requires max assist x 2 to roll, and remove soiled linens, don brief.) Other Treatment Pt. in bed. Seen for partial co-treatment with PT/OT due to need of skilled assessment x 2 for low endurance and weakness. Pt. declines showering stating that she doesn't "feel like it." Pt. encouraged to transfer supine-sit. Noted she is incontinent. OT engaged pt. to cleanse self and PT assisted with rolling. Pt. transferred supine-sit with max x 2. Scooted EOB with max x 2. OT facilitated posture and balance sitting while PT focused on weight bearing status through right LE and further scooting. Transferred to chair with max x 2 . Worked on wheelchair mobility with min/mod assistance. Pt. requires cues to do for self and continue tasks. Went to therapy gym and worked on attempted pull up at bar with left UE and left LE. Assessed hand control and made sure pt. not putting weight through right LE. Pt. unable to clear seat. PT left session and OT took pt. to room. Pt. brushed teeth at sink with set up and cues using left UE. OT brushed hair and put into ponytail. Encouraged pt. to do for self. She states that her daughter in law will do this for her. OT removed sling and worked on gentle PROM to elbow, wrist, fingers. Pt. able to complete these as well. Attempted [place] but pt. has difficulty due to her positioning in wheelchair. Pt. would like to stay up in wheelchair. Nursing notified. Therapy will assist back when ready. Education OT Patient Education: Correct positioning, Exercise program, Modified ADL techniques, Progress toward Goal/Update tx plan, Purpose of tx/functional activi ties, Reviewed precautions, Rehab process, Transfer techniques Teaching Recipient: Patient Teaching Methods: Demonstration, Discussion Response to Teaching: Verbalize Understanding, Return Demonstration OT Short Term Goals Short Term Goals Time Frame: Feb 10, 2021 Eatin Oral hygiene: 4 Toileting hygiene: 3 Shower/bathe self: 3 Upper body dressin Lower body dressin Putting on/taking off footwear: 3 OT Senior Living Goals Steel Estimator Goals Time Frame: Feb 24, 2021 Eating (QC): 6 Oral Hygiene (QC): 6 Toileting Hygiene (QC): 6 Shower/Bathe Self (QC): 4 Upper Body Dressing (QC): 5 Lower Body Dressing (QC): 5 On/Off Footwear (QC): 5 Additional Goals: 1-Demonstrate ADL Tasks, 2-Verbalize Understanding, 3- ImproveStrength/Brian 1=Demonstrate adherence to instructed precautions during ADL tasks. 2=Patient will verbalize/demonstrate understanding of assistive devices/modifications for ADL. 3=Patient will improve strength/tolerance for activity to enable patient to perform ADL's. OT Education/Plan Problem List/Assessment Assessment: Decreased Activ Tolerance, Decreased UE Strength, Dependent Transfers, Impaired Bed Mobility, Impaired Coordination, Impaired Funct Balance, Impaired I ADL's, Impaired Self-Care Skills, Restricted Funct UE ROM Discharge Recommendations Plan/Recommendations: Continue POC Therapy Discharge Recommendati: Post Acute OT Treatment Plan/Plan of Care Treatment,Training & Education: Yes Patient would benefit from OT for education, treatment and training to promote independence in ADL's, mobility, safety and/or upper extremity function for ADL's. Plan of Care: ADL Retraining, Functional Mobility, UE Funct Exercise/Act Treatment Duration: Feb 24, 2021 Frequency: At least 5 of 7 days/Wk (IRF) Estimated Hrs Per Day: 1.5 hours per day Agreement: Yes Rehab Potential: Fair Time/GCodes Start Time: 09:00 Stop Time: 10:30 Total Time Billed (hr/min): 90 Billed Treatment Time [id number] 1, ADL x 15minutes, FA x 45minutes- Co-treatment with PT [id number] Ex x 15minutes, ADL x 15minutes TAL THOMAS OT Feb 01, 2021 11:20
--- NOTE | 2021-02-01 11:25 | Progress Note ---
[address] 02/01/21 1125: Progress Note 60yo WF with PMH of CAD, PR x 2 s/p CABG, T2DM, and COPD on 5th day in rehab unit recovering from possible syncopal fall causing ORIF of right distal femur and right humerus. Pt now complains of right shoulder pain radiating down her arm and R LE pain only when moved. Pt also reports excessive diarrhea and requests to be off laxatives. Denies any chest pain, fever, nausea, vomiting, or SOB. Bilateral LE edema more on L. Continued PT/OT. Estimated rehab time remainin weeks due to poor PT progress being barely able to get up and continued shoulder pain. NINI RUIZ DO 02/02/21 0557: Supervisory-Addendum Brief Verification & Attestation Participated in pt care: history, MDM, physical Personally performed: exam, history, MDM, supervision of care Care discussed with: Medical Student Procedures: n/a Results interpretation: Verified all documentation Verification and Attestation of Medical Student E/M Service A medical student performed and documented this service in my presence. I reviewed and verified all information documented by the medical student and made modifications to such information, when appropriate. I personally performed the physical exam and medical decision making. Nini Ruiz Feb 02, 2021,05:[address] Feb 01, 2021 11:25 NINI RUIZ DO Feb 02, 2021 05:57
--- NOTE | 2021-02-01 13:23 | Physical Therapy Daily Note ---
PT Daily Note-Current Subjective Patient in WC at bedside pre tx, agrees to PT, voices no complaints of pain. Patient has a large puddle of urine under her WC, her gown and brief are completely soaked. She has a purewick but apparently it is not working very well. PT tech assists with cleaning. Appearance Patient in bed post tx with nurse call, phone, tray, all needs met. Mental Status Patient Orientation: Person, Place, Situation Transfers SCALE: Activities may be completed with or without assistive devices. 3-Ojgrqaixzm-ohhosja completes the activity by him/herself with no assistance from a helper. 5-Set-up or Clean-up Assistance-helper sets up or cleans up; patient completes activity. [place] assists only prior to or following the activity. 4-Supervision or Touching Assistance-helper provides verbal cues and/or touching/steadying and/or contact guard assistance as patient completes activity. Assistance may be provided throughout the activity or intermittently. 3-Partial/Moderate Assistance-helper does LESS THAN HALF the effort. [place] lifts, holds or supports trunk or limbs, but provides less than half the effort. 2-Substantial/Maximal Assistance-helper does MORE THAN HALF the effort. [place] lifts or holds trunk or limbs and provides more than half the effort. 9-Sxqqpcwql-zjrdwd does ALL the effort. Patient does none of the effort to complete the activity. Or, the assistance of 2 or more helpers is required for the patient to complete the activity. If activity was not attempted, code reason: 7-Patient Refused. 9-Not Applicable-not attempted and the patient did not perform the activity before the current illness, exacerbation or injury. 10-Not Attempted due to Environmental Limitations-(lack of equipment, weather restraints, etc.). 88-Not Attempted due to Medical Conditions or Safety Concerns. Roll Left & Right (QC): 2 Sit to Lying (QC): 1 Sit to Stand (QC): 1 Chair/Bsi-vu-Fzjjo Xfer(QC): 1 Stand pivot transfer from to bed then undress and put on hospital gown, then 2 person assist to lay down, patient rolls from side to side with max assist for cleaning and changing pad. The stand pivot transfer is performed with a small step under patient's left foot so right foot can dangle during the transfer and no weight is put on right leg. Weight Bearing Right Lower Extremity: Right Touch Toe Bearing RUE NWB Exercises Supine Ex: Ankle pumps, Quad Set, Glut sets Supine Reps: 20 Treatments bed mobility and transfers, LE strengthening Assessment Current Status: Poor Progress patient seems to be completely incontinent PT Short Term Goals Short Term Goals Time Frame: Feb 03, 2021 Roll Left & Right: 2 Sit to lyin Lying to sitting on side of be: 2 Sit to stand: 2 Chair/tzm-bn-ailpo transfer: 2 PT Fpc Goals Fpc Goals PT Fpc Goals Time Frame: Feb 17, 2021 Roll Left & Right (QC): 3 Sit to Lying (QC): 3 Lying-Sitting on Side/Bed(QC): 3 Sit to Stand (QC): 3 Chair/Xlb-le-Wmmal Xfer(QC): 3 Toilet Transfer (QC): 3 Car Transfer (QC): 3 Does the Patient Walk: No and Walking Goal NOT indicated Walk 10 feet (QC): 88 Walk 50ft with 2 Turns (QC): 88 Walk 150 ft (QC): 88 Walking 10ft on Uneven Surface: 88 1 Step (curb) (QC): 88 4 Steps (QC): 88 12 Steps (QC): 88 Picking up an Object (QC): 88 Wheel 50 feet with 2 turns (QC: 5 Wheel 150 feet: 5 PT Plan Problem List Problem List: Activity Tolerance, Functional Strength, Safety, Balance, Gait, Transfer, Bed Mobility, ROM Treatment/Plan Treatment Plan: Continue Plan of Care Treatment Plan: Bed Mobility, Education, Functional Activity Brian, Functional Strength, Group Therapy, Gait, Safety, Therapeutic Exercise, Transfers Treatment Duration: Feb 17, 2021 Frequency: At least 5 of 7 days/Wk (IRF) Estimated Hrs Per Day: .25 hour per day Patient and/or Family Agrees t: Yes Safety Risks/Education Patient Education: Correct Positioning, Safety Issues Teaching Recipient: Patient Teaching Methods: Demonstration, Discussion Response to Teaching: Reinforcement Needed Time/GCodes Time In: 1300 Time Out: 1330 Total Billed Treatment Time: 30 Total Billed Treatment 1 visit EX 10' FA 20' PIETRO BHANDARI PT Feb 01, 2021 13:23
[2021-02-01 20:00] VITALS: BP 152/72
[2021-02-02] MEDS: inSUlin ASPART (NovoLOG) 1 UNIT/0.01 ML (CHARGE PER UNIT) SC SCH ×7 (05:56→20:46)
[2021-02-02] MEDS: ENOXAPARIN 40 MG/0.4 ML (LOVENOX) SYR SC SCH ×2 (06:32→18:56)
[2021-02-02] MEDS: RT--FLUTICASONE/SALMETEROL 113-14 (AIRDUO RespiCLICK) IH SCH ×2 (07:12→20:53)
[2021-02-02 08:00] VITALS: BP 171/74
[2021-02-02] MEDS: amLODIPine 10 MG (NORVASC) TAB PO SCH (08:06)
[2021-02-02] MEDS: metFORMIN XR 500 MG (GLUCOPHAGE XR) TAB PO SCH ×2 (08:06→20:43)
[2021-02-02] MEDS: GABAPENTIN 400 MG (NEURONTIN) CAP PO SCH ×3 (08:06→20:43)
[2021-02-02] MEDS: FLUDROCORTISONE 0.1 MG (FLORINEF) TAB PO SCH ×3 (08:06→20:43)
[2021-02-02] MEDS: CLOPIDOGREL 75 MG (PLAVIX) TABLET PO SCH (08:06)
[2021-02-02] MEDS: SENNA W/DOCUSATE (SENOKOT S) TABLET PO SCH ×2 (09:42→20:46)
[2021-02-02] MEDS: DOCUSATE SODIUM 100 MG (COLACE) CAP PO SCH ×2 (09:42→20:46)
[2021-02-02] MEDS: polyethylene glycoL POWDER 17 GM (MIRALAX) PACK PO SCH ×2 (09:42→20:46)
--- NOTE | 2021-02-02 09:53 | PM&R Progress Note ---
Subjective HPI/CC On Admission Date Seen by Provider: Feb 02, 2021 Time Seen by Provider: 10:00 Subjective/Events-last exam 02/02/2021: Pt doing really well Glucose is 114 Will need a Cheri lift residential placement likely will be required Right shoulder pain noted She is thirsty all the time Pure-wic maintained 02/01/2021: Pt doing pretty well Complaining of right shoulder pain due to surgery Holding laxatives due to loose stools Hgb 8.2 Purewick maintained Unable to do sit to stand may need cheri 01/31/2021: Patient doing really well today Pain is well controlled Change pure wick a couple of times Glucose 220 this morning Bowels moved today 01/30/2021: Patient doing pretty well today Pain is well controlled Using pure wick Bowels moved yesterday Working out with therapy 01/29/2021: Pt doing pretty well Denies any significant new issues Participating in therapy Checked meds and labs Denies any pain 01/28/2021: Pt doing pretty well but had a pop in her right leg when she barely had weight bearing to it X-rays ordered Purewick maintained Check meds and labs Bowels are moving Review of Systems General: Fatigue Musculoskeletal: arm pain, leg pain Objective Exam Vital Signs Vital Signs Date Time Temp Pulse Resp B/P (MAP) Pulse Ox O2 Delivery O2 Flow Rate FiO2 02/02/21 20:48 97 Room Air 02/02/21 20:00 37.0 95 20 135/78 (97) Capillary Refill : General Appearance: No Apparent Distress, WD/WN, Chronically ill HEENT: PERRL/EOMI, Normal ENT Inspection, Pharynx Normal Neck: Full Range of Motion, Normal Inspection, Non Tender, Supple, Carotid Bruit Respiratory: Chest Non Tender, Lungs Clear, Normal Breath Sounds, No Accessory Muscle Use, No Respiratory Distress Cardiovascular: Regular Rate, Rhythm, No Edema, No Gallop, No JVD, No Murmur, Normal Peripheral Pulses Gastrointestinal: Normal Bowel Sounds, No Organomegaly, No Pulsatile Mass, Non Tender, Soft Back: Normal Inspection, No CVA Tenderness, No Vertebral Tenderness Extremity: Normal Capillary Refill, Normal Inspection, Normal Range of Motion (Except right arm and right leg), Non Tender, No Calf Tenderness, No Pedal Edema Neurologic/Psychiatric: Alert, Oriented x3, No Motor/Sensory Deficits, 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 FIM Transfers Therapy Code Descriptions/Definitions Functional [place] Measure: 0=Not Assessed/NA 4=Minimal Assistance 1=Total Assistance 5=Supervision or Setup 2=Maximal Assistance 6=Modified [place] 3=Moderate Assistance 7=Complete IndependenceSCALE: Activities may be completed with or without assistive devices. 9-Dhrbtxseyi-flemdql completes the activity by him/herself with no assistance from a helper. 5-Set-up or Clean-up Assistance-helper sets up or cleans up; patient completes activity. [place] assists only prior to or following the activity. 4-Supervision or Touching Assistance-helper provides verbal cues and/or touching/steadying and/or contact guard assistance as patient completes activity. Assistance may be provided throughout the activity or intermittently. 3-Partial/Moderate Assistance-helper does LESS THAN HALF the effort. [place] lifts, holds or supports trunk or limbs, but provides less than half the effort. 2-Substantial/Maximal Assistance-helper does MORE THAN HALF the effort. [place] lifts or holds trunk or limbs and provides more than half the effort. 1-Rtqftqkqk-jxbzyt does ALL the effort. Patient does none of the effort to complete the activity. Or, the assistance of 2 or more helpers is required for the patient to complete the activity. If activity was not attempted, code reason: 7-Patient Refused. 9-Not Applicable-not attempted and the patient did not perform the activity before the current illness, exacerbation or injury. 10-Not Attempted due to Environmental Limitations-(lack of equipment, weather restraints, etc.). 88-Not Attempted due to Medical Conditions or Safety Concerns. Roll Left to Right (QC): 2 Sit to Lying (QC): 1 Sit to Stand (QC): 1 Chair/Dlf-wm-Rjqgv Xfer(QC): 1 Car Transfer (QC): 1 Gait Training Does the Patient Walk?: No and Walking Goal IS indicated Walk 10 feet (QC): 88 Walk 50 ft with 2 Turns(QC): 88 Walk 150 ft (QC): 88 Walking 10ft/uneven surface-QC: 88 Wheelchair Training Does the Pt Use a Wheelchair?: Yes Wheel 50 ft with 2 turns (QC): 3 Wheel 150 ft (QC): 3 Type of Wheelchair: Manual Stair Training 1 Step (curb) (QC): 88 4 Steps (QC): 88 12 Steps (QC): 88 Balance Picking up an Object (QC): 88 ADL-Treatment Eating (QC): 4 (Set up and SBA at times with left UE.) Oral Hygiene (QC): 5 (Set up seated at sink in wheelchair.) Shower/Bathe Self (QC): 7 (Pt. declines showering stating that she does not feel like it.) Upper Body Dressing (QC): 2 (Max assist to don over head dress.) Lower Body Dressing (QC): 88 On/Off Footwear (QC): 2 (Max assist to don diabetic shoe and slipper sock.) Toileting Hygiene (QC): 2 (Pt. incontinent of urine in bed. Soaked through sheets. Pt. would like therapy to cleanse self but mentions she will have to assist at home. OT encourages pt. to assist here. Pt. does attempt to cleanse carla area at bed level with wipe. Requires max assist x 2 to roll, and remove soiled linens, don brief.) Toilet Transfer (QC): 1 (Bedpan) Assessment/Plan Assessment and Plan Assess & Plan/Chief Complaint Assessment: Distal fracture of right femur Closed comminuted fracture of right humerus ABLA (acute blood loss anemia) Morbid obesity ([facility]) Hyponatremia Syncope and collapse Impaired mobility and activities of daily living Acute traumatic pain Sleep disorder CAD (coronary artery disease HTN (hypertension) COPD (chronic obstructive pulmonary disease) ([facility]) At risk for constipation DM (diabetes mellitus) ([facility]) Plan: Aggressive therapy Pain control Supportive care 01/28/2021: Supportive care to continue Check x-ray of leg Continue nonweightbearing status 01/29/2021: Supportive care Monitor bowel function Pain control 01/30/2021: Supportive care Pain control Bowel regimen 01/31/2021: Aggressive therapy Supportive care 02/01/2021: Pain control Pure wick Monitor glucose 02/02/2021: Supportive care Needs mcc due to complete dependence (1) Femur fracture ALCIDES RUIZ DO Feb 02, 2021 09:53
--- NOTE | 2021-02-02 10:05 | Physical Therapy Daily Note ---
PT Daily Note-Current Subjective Pt laying Supine in bed on bed michaels upon arrival. Pt agrees to PT/OT co-treat. Mental Status Patient Orientation: Person, Place Transfers SCALE: Activities may be completed with or without assistive devices. 7-Afvjxoshfz-hqlycxw completes the activity by him/herself with no assistance from a helper. 5-Set-up or Clean-up Assistance-helper sets up or cleans up; patient completes activity. [place] assists only prior to or following the activity. 4-Supervision or Touching Assistance-helper provides verbal cues and/or touching/steadying and/or contact guard assistance as patient completes activity. Assistance may be provided throughout the activity or intermittently. 3-Partial/Moderate Assistance-helper does LESS THAN HALF the effort. [place]iku lif ts, holds or supports trunk or limbs, but provides less than half the effort. 2-Substantial/Maximal Assistance-helper does MORE THAN HALF the effort. [place] lifts or holds trunk or limbs and provides more than half the effort. 8-Hrvzkftho-jozgnq does ALL the effort. Patient does none of the effort to complete the activity. Or, the assistance of 2 or more helpers is required for the patient to complete the activity. If activity was not attempted, code reason: 7-Patient Refused. 9-Not Applicable-not attempted and the patient did not perform the activity before the current illness, exacerbation or injury. 10-Not Attempted due to Environmental Limitations-(lack of equipment, weather restraints, etc.). 88-Not Attempted due to Medical Conditions or Safety Concerns. Sit to Lying (QC): 2 Lying to Sitting/Side of Bed(Q: 2 Sit to Stand (QC): 2 Toilet Transfer (QC): 2 Weight Bearing Right Lower Extremity: Right Touch Toe Bearing RUE NWB Exercises Supine Ex: Ankle pumps, Quad Set, Glut sets, Heel Slides, Hip abd/add (L side only) Supine Reps: 15 Treatments 900-1000: Pt. seen for co-treatment with PT/OT due to need of skilled assistance x 2 for low endurance/mobility/ADL skills. PT focused on transfers, mobility, LE assessment and positioning while OT focused on UE positioning and ADL skills. Max x 2 for supine-sit. Pt. has difficulty balancing self on EOB. Pt. states, that she is having increased difficulty today. Max x 2 to transfer to shower chair. Pt able to do more for self in shower this date with encouragement to do so. Pt. often holds her affected arm and sits, without initiating the task. After shower, pt. reporting that her right knee was throbbing from sitting in chair. Does not report pain level but will let nursing know. Transferred back to bed with max x 2. Careful not to allow affected leg to touch floor, as she is unable to keep weight off of it. Pt. positioned to comfort level with all needs met. [id number]: Pt completes Supine Ex in bed with instruction from [employer]. Pt resting at end of tx, all needs met & call light in hand. Assessment Current Status: Fair Progress Pt needs encouragement to try for self and be more self-reliant. Pt fatigues easily. PT Short Term Goals Short Term Goals Time Frame: Feb 03, 2021 Roll Left & Right: 2 Sit to lyin Lying to sitting on side of be: 2 Sit to stand: 2 Chair/rkp-cw-teknx transfer: 2 PT New Account Interviewer Goals Prison Goals PT Prison Goals Time Frame: Feb 17, 2021 Roll Left & Right (QC): 3 Sit to Lying (QC): 3 Lying-Sitting on Side/Bed(QC): 3 Sit to Stand (QC): 3 Chair/Alf-qq-Kpgmm Xfer(QC): 3 Toilet Transfer (QC): 3 Car Transfer (QC): 3 Does the Patient Walk: No and Walking Goal NOT indicated Walk 10 feet (QC): 88 Walk 50ft with 2 Turns (QC): 88 Walk 150 ft (QC): 88 Walking 10ft on Uneven Surface: 88 1 Step (curb) (QC): 88 4 Steps (QC): 88 12 Steps (QC): 88 Picking up an Object (QC): 88 Wheel 50 feet with 2 turns (QC: 5 Wheel 150 feet: 5 PT Plan Problem List Problem List: Activity Tolerance, Functional Strength, Safety, Balance, Transfer, Bed Mobility Treatment/Plan Treatment Plan: Continue Plan of Care Treatment Plan: Bed Mobility, Education, Functional Activity Brian, Functional Strength, Group Therapy, Gait, Safety, Therapeutic Exercise, Transfers Treatment Duration: Feb 17, 2021 Frequency: At least 5 of 7 days/Wk (IRF) Estimated Hrs Per Day: .25 hour per day Patient and/or Family Agrees t: Yes Safety Risks/Education Patient Education: Transfer Techniques, Correct Positioning, Safety Issues Teaching Recipient: Patient Teaching Methods: Discussion Response to Teaching: Verbalize Understanding Time/GCodes Time In: 900 Time Out: 1000 Total Billed Treatment Time: 60 Total Billed Treatment Co-treat w/OT for 60m (900-1000) 1, FA x4 (60m) [id number]: 1, EX x2 (30m) EHSAN STEINER [employer] Feb 02, 2021 10:05
--- NOTE | 2021-02-02 10:31 | Occupational Ther Daily Note ---
OT Current Status-Daily Note Subjective Pt. reports pain in right knee after sitting in shower chair for period of time. Does not state pain number. Pt. is put back to bed. Mental Status/Objective Patient Orientation: Person, Place ADL-Treatment Therapy Code Descriptions/Definitions Functional [place] Measure: 0=Not Assessed/NA 4=Minimal Assistance 1=Total Assistance 5=Supervision or Setup 2=Maximal Assistance 6=Modified [place] 3=Moderate Assistance 7=Complete IndependenceSCALE: Activities may be completed with or without assistive devices. 8-Awgfnwxnxo-rfalmaa completes the activity by him/herself with no assistance from a helper. 5-Set-up or Clean-up Assistance-helper sets up or cleans up; patient completes activity. [place] assists only prior to or following the activity. 4-Supervision or Touching Assistance-helper provides verbal cues and/or touching/steadying and/or contact guard assistance as patient completes activity. Assistance may be provided throughout the activity or intermittently. 3-Partial/Moderate Assistance-helper does LESS THAN HALF the effort. [place] lifts, holds or supports trunk or limbs, but provides less than half the effort. 2-Substantial/Maximal Assistance-helper does MORE THAN HALF the effort. [place] lifts or holds trunk or limbs and provides more than half the effort. 1-Vqnxneuev-cxrjwa does ALL the effort. Patient does none of the effort to complete the activity. Or, the assistance of 2 or more helpers is required for the patient to complete the activity. If activity was not attempted, code reason: 7-Patient Refused. 9-Not Applicable-not attempted and the patient did not perform the activity before the current illness, exacerbation or injury. 10-Not Attempted due to Environmental Limitations-(lack of equipment, weather restraints, etc.). 88-Not Attempted due to Medical Conditions or Safety Concerns. Shower/Bathe Self (QC): 3 (Mod assist in shower chair. Pt. encouraged to do more for self this date.) On/Off Footwear: 2 Toileting Hygiene (QC): 1 (Pt. using Purewick at beginning of treatment. This was removed and then pt. stated that she needed to urinate. Pt. able to hold until bedpan placed. Max assist to place, max x 2 to remove. Max assist to cleanse. pt. had BM on shower chair over toilet, with max assist to cleanse.) Toilet Transfer (QC): 1 (Pt. on shower chair, and shower chair rolled over toilet.) Other Treatment Pt. seen for co-treatment with PT/OT due to need of skilled assistance x 2 for low endurance/mobility/ADL skills. PT focused on transfers, mobility, LE assessment and positioning while OT focused on UE positioning and ADL skills. Max x 2 for supine-sit. Pt. has difficulty balancing self on EOB. Pt. states, that she is having increased difficulty today. Max x 2 to transfer to shower chair. Pt able to do more for self in shower this date with encouragement to do so. Pt. often holds her affected arm and sits, without initiating the task. After shower, pt. reporting that her right knee was throbbing from sitting in chair. Does not report pain level but will let nursing know. Transferred back to bed with max x 2. Careful not to allow affected leg to touch floor, as she is unable to keep weight off of it. Pt. positioned to comfort level with all needs met. OT educated pt. that she would like pt to attempt not using Purewick today, as to get bladder stronger. Pt. tells OT that someone needs to "come as soon as I tell them then." OT educates her that we will try, but again, it is about her bladder becoming stronger to hold her urine if she wants to not be incontinent later. Pt. agrees and this is reported to nursing. All needs met. Education OT Patient Education: Correct positioning, Modified ADL techniques, Progress rosaline montano Goal/Update tx plan, Purpose of tx/functional activities, Reviewed precautions, Rehab process, Transfer techniques Teaching Recipient: Patient Teaching Methods: Demonstration, Discussion Response to Teaching: Verbalize Understanding, Return Demonstration, Reinforcement Needed OT Short Term Goals Short Term Goals Time Frame: Feb 10, 2021 Eatin Oral hygiene: 4 Toileting hygiene: 3 Shower/bathe self: 3 Upper body dressin Lower body dressin Putting on/taking off footwear: 3 OT Jail Goals Jail Goals Time Frame: Feb 24, 2021 Eating (QC): 6 Oral Hygiene (QC): 6 Toileting Hygiene (QC): 6 Shower/Bathe Self (QC): 4 Upper Body Dressing (QC): 5 Lower Body Dressing (QC): 5 On/Off Footwear (QC): 5 Additional Goals: 1-Demonstrate ADL Tasks, 2-Verbalize Understanding, 3- ImproveStrength/Brian 1=Demonstrate adherence to instructed precautions during ADL tasks. 2=Patient will verbalize/demonstrate understanding of assistive devices/modifications for ADL. 3=Patient will improve strength/tolerance for activity to enable patient to perform ADL's. OT Education/Plan Problem List/Assessment Assessment: Decreased Activ Tolerance, Decreased UE Strength, Dependent Transfers, Impaired Bed Mobility, Impaired Funct Balance, Impaired I ADL's, Impaired Self-Care Skills, Restricted Funct UE ROM Discharge Recommendations Plan/Recommendations: Continue POC Therapy Discharge Recommendati: 24 Hour Supervision, Post Acute OT Treatment Plan/Plan of Care Treatment,Training & Education: Yes Patient would benefit from OT for education, treatment and training to promote independence in ADL's, mobility, safety and/or upper extremity function for ADL's. Plan of Care: ADL Retraining, Functional Mobility, UE Funct Exercise/Act Treatment Duration: Feb 24, 2021 Frequency: At least 5 of 7 days/Wk (IRF) Estimated Hrs Per Day: 1.5 hours per day Agreement: Yes Rehab Potential: Fair Time/GCodes Start Time: 08:30 Stop Time: 10:00 Total Time Billed (hr/min): 90 Billed Treatment Time 1, ADL x 90minutes [id number]- co-treatment with PT- Please see above notes for designated roles. TAL THOMAS OT Feb 02, 2021 10:31
[2021-02-02 20:00] VITALS: BP 135/78
[2021-02-03] MEDS: inSUlin ASPART (NovoLOG) 1 UNIT/0.01 ML (CHARGE PER UNIT) SC SCH ×7 (06:00→20:34)
[2021-02-03] MEDS: ENOXAPARIN 40 MG/0.4 ML (LOVENOX) SYR SC SCH ×2 (06:09→17:56)
[2021-02-03] MEDS: RT--FLUTICASONE/SALMETEROL 113-14 (AIRDUO RespiCLICK) IH SCH ×2 (07:46→20:19)
[2021-02-03] MEDS: CLOPIDOGREL 75 MG (PLAVIX) TABLET PO SCH (07:50)
[2021-02-03] MEDS: amLODIPine 10 MG (NORVASC) TAB PO SCH (07:50)
[2021-02-03] MEDS: metFORMIN XR 500 MG (GLUCOPHAGE XR) TAB PO SCH ×2 (07:50→20:56)
[2021-02-03] MEDS: GABAPENTIN 400 MG (NEURONTIN) CAP PO SCH ×3 (07:50→20:56)
[2021-02-03] MEDS: FLUDROCORTISONE 0.1 MG (FLORINEF) TAB PO SCH ×3 (07:50→20:55)
[2021-02-03] MEDS: polyethylene glycoL POWDER 17 GM (MIRALAX) PACK PO SCH ×2 (07:52→20:34)
[2021-02-03] MEDS: DOCUSATE SODIUM 100 MG (COLACE) CAP PO SCH ×2 (07:52→20:20)
[2021-02-03] MEDS: SENNA W/DOCUSATE (SENOKOT S) TABLET PO SCH ×2 (07:52→20:21)
[2021-02-03 08:00] VITALS: BP 145/66
--- NOTE | 2021-02-03 09:24 | Physical Therapy Daily Note ---
PT Daily Note-Current Subjective Patient in bed pre tx, agrees to PT, has no complaints of pain at rest. Appearance Patient in WC post tx with nurse call, phone, tray, family in room. Mental Status Patient Orientation: Person, Place, Situation Transfers SCALE: Activities may be completed with or without assistive devices. 2-Ujymypmktd-bbxqqgw completes the activity by him/herself with no assistance from a helper. 5-Set-up or Clean-up Assistance-helper sets up or cleans up; patient completes activity. [place] assists only prior to or following the activity. 4-Supervision or Touching Assistance-helper provides verbal cues and/or touch ing/steadying and/or contact guard assistance as patient completes activity. Assistance may be provided throughout the activity or intermittently. 3-Partial/Moderate Assistance-helper does LESS THAN HALF the effort. [place] lifts, holds or supports trunk or limbs, but provides less than half the effort. 2-Substantial/Maximal Assistance-helper does MORE THAN HALF the effort. [place] lifts or holds trunk or limbs and provides more than half the effort. 3-Ragssaife-skxxgw does ALL the effort. Patient does none of the effort to complete the activity. Or, the assistance of 2 or more helpers is required for the patient to complete the activity. If activity was not attempted, code reason: 7-Patient Refused. 9-Not Applicable-not attempted and the patient did not perform the activity before the current illness, exacerbation or injury. 10-Not Attempted due to Environmental Limitations-(lack of equipment, weather restraints, etc.). 88-Not Attempted due to Medical Conditions or Safety Concerns. Roll Left & Right (QC): 2 Lying to Sitting/Side of Bed(Q: 2 Sit to Stand (QC): 1 Chair/Bcl-mk-Wrhgd Xfer(QC): 1 Improved supine to sit, max assist instead of dependent with 2 assist. Patient was able to assist a little with sit to stand and transfer but still assist of 2. Used small step under left foot for transfer so right foot can dangle with no weight bearing. Weight Bearing Right Lower Extremity: Right Touch Toe Bearing RUE NWB Wheelchair Training Does the Pt Use a Wheelchair?: Yes Wheel 50 ft with 2 turns (QC): 3 Wheel 150 ft (QC): 3 Type of Wheelchair: Manual 800', practiced turning, pushing forward, ramps, sidewalks. Patient is able to use her left arm and leg. Mod assist. Treatments bed mobility and transfers, WC mobility training Assessment Current Status: Fair Progress patient fatigues easily, needs frequent rest breaks PT Short Term Goals Short Term Goals Time Frame: Feb 03, 2021 Roll Left & Right: 2 Sit to lyin Lying to sitting on side of be: 2 Sit to stand: 2 Chair/ion-nu-hhwgx transfer: 2 PT Correction Goals Tubing Machine Tender Goals PT Correction Goals Time Frame: Feb 17, 2021 Roll Left & Right (QC): 3 Sit to Lying (QC): 3 Lying-Sitting on Side/Bed(QC): 3 Sit to Stand (QC): 3 Chair/Pcb-gx-Qntax Xfer(QC): 3 Toilet Transfer (QC): 3 Car Transfer (QC): 3 Does the Patient Walk: No and Walking Goal NOT indicated Walk 10 feet (QC): 88 Walk 50ft with 2 Turns (QC): 88 Walk 150 ft (QC): 88 Walking 10ft on Uneven Surface: 88 1 Step (curb) (QC): 88 4 Steps (QC): 88 12 Steps (QC): 88 Picking up an Object (QC): 88 Wheel 50 feet with 2 turns (QC: 5 Wheel 150 feet: 5 PT Plan Problem List Problem List: Activity Tolerance, Functional Strength, Safety, Balance, Gait, Transfer, Bed Mobility, ROM Treatment/Plan Treatment Plan: Continue Plan of Care Treatment Plan: Bed Mobility, Education, Functional Activity Brian, Functional Strength, Group Therapy, Gait, Safety, Therapeutic Exercise, Transfers Treatment Duration: Feb 17, 2021 Frequency: At least 5 of 7 days/Wk (IRF) Estimated Hrs Per Day: .25 hour per day Patient and/or Family Agrees t: Yes Safety Risks/Education Patient Education: Transfer Techniques, Reviewed Precautions, Correct Positioning, W/C Management, Safety Issues Teaching Recipient: Patient Teaching Methods: Demonstration, Discussion Response to Teaching: Reinforcement Needed Time/GCodes Time In: 829 Time Out: 929 Total Billed Treatment Time: 60 Total Billed Treatment 1 visit FA 60' PIETRO BHANDARI PT Feb 03, 2021 09:24
--- NOTE | 2021-02-03 11:52 | Physical Therapy Daily Note ---
PT Daily Note-Current Subjective Patient in bed pre tx, agrees to PT, has unrated pain in right leg Appearance Patient in bed post tx with nurse call, phone, tray, all needs met, pillow under right leg to promote a decrease in swelling. Mental Status Patient Orientation: Person, Place, Situation Transfers SCALE: Activities may be completed with or without assistive devices. 7-Duikotobhy-enyberi completes the activity by him/herself with no assistance from a helper. 5-Set-up or Clean-up Assistance-helper sets up or cleans up; patient completes activity. [place] assists only prior to or following the activity. 4-Supervision or Touching Assistance-helper provides verbal cues and/or touching/steadying and/or contact guard assistance as patient completes activity . Assistance may be provided throughout the activity or intermittently. 3-Partial/Moderate Assistance-helper does LESS THAN HALF the effort. [place] lifts, holds or supports trunk or limbs, but provides less than half the effort. 2-Substantial/Maximal Assistance-helper does MORE THAN HALF the effort. [place] lifts or holds trunk or limbs and provides more than half the effort. 5-Kucpnlkvg-imkfoo does ALL the effort. Patient does none of the effort to complete the activity. Or, the assistance of 2 or more helpers is required for the patient to complete the activity. If activity was not attempted, code reason: 7-Patient Refused. 9-Not Applicable-not attempted and the patient did not perform the activity before the current illness, exacerbation or injury. 10-Not Attempted due to Environmental Limitations-(lack of equipment, weather restraints, etc.). 88-Not Attempted due to Medical Conditions or Safety Concerns. Weight Bearing Right Lower Extremity: Right Touch Toe Bearing RUE NWB Exercises Supine Ex: Ankle pumps, Quad Set, Glut sets, Heel Slides (LLE only), Short Arc Quads (LLE only), Straight leg raise (AAROM on the right side), Hip abd/add (AAROM on the right side) Treatments LE strengthening and ROM Assessment Current Status: Fair Progress slightly improved AROM on the RLE, patient afraid of moving right leg due to pain PT Short Term Goals Short Term Goals Time Frame: Feb 03, 2021 Roll Left & Right: 2 Sit to lyin Lying to sitting on side of be: 2 Sit to stand: 2 Chair/imc-mx-bhtzp transfer: 2 PT Overcoiler Goals Halfway Goals PT Overcoiler Goals Time Frame: Feb 17, 2021 Roll Left & Right (QC): 3 Sit to Lying (QC): 3 Lying-Sitting on Side/Bed(QC): 3 Sit to Stand (QC): 3 Chair/Yvh-oj-Ursuj Xfer(QC): 3 Toilet Transfer (QC): 3 Car Transfer (QC): 3 Does the Patient Walk: No and Walking Goal NOT indicated Walk 10 feet (QC): 88 Walk 50ft with 2 Turns (QC): 88 Walk 150 ft (QC): 88 Walking 10ft on Uneven Surface: 88 1 Step (curb) (QC): 88 4 Steps (QC): 88 12 Steps (QC): 88 Picking up an Object (QC): 88 Wheel 50 feet with 2 turns (QC: 5 Wheel 150 feet: 5 PT Plan Problem List Problem List: Activity Tolerance, Functional Strength, Safety, Balance, Gait, Transfer, Bed Mobility, ROM Treatment/Plan Treatment Plan: Continue Plan of Care Treatment Plan: Bed Mobility, Education, Functional Activity Brian, Functional Strength, Group Therapy, Gait, Safety, Therapeutic Exercise, Transfers Treatment Duration: Feb 17, 2021 Frequency: At least 5 of 7 days/Wk (IRF) Estimated Hrs Per Day: .25 hour per day Patient and/or Family Agrees t: Yes Safety Risks/Education Patient Education: Correct Positioning, Safety Issues Teaching Recipient: Patient Teaching Methods: Demonstration, Discussion Response to Teaching: Reinforcement Needed Time/GCodes Time In: 1130 Time Out: 1200 Total Billed Treatment Time: 30 Total Billed Treatment 1 visit EX 30' PIETRO BHANDARI PT Feb 03, 2021 11:51
--- NOTE | 2021-02-03 12:14 | Occupational Ther Daily Note ---
OT Current Status-Daily Note Subjective Pt. reports pain in UE, 02/26. Nursing administers pain medication. Appearance Pt. in bed. She has had PT earlier in a.m. Agrees to bed level OT only. Mental Status/Objective Patient Orientation: Person, Place ADL-Treatment Therapy Code Descriptions/Definitions Functional [place] Measure: 0=Not Assessed/NA 4=Minimal Assistance 1=Total Assistance 5=Supervision or Setup 2=Maximal Assistance 6=Modified [place] 3=Moderate Assistance 7=Complete IndependenceSCALE: Activities may be completed with or without assistive devices. 4-Lapuieocgu-jeckhvc completes the activity by him/herself with no assistance from a helper. 5-Set-up or Clean-up Assistance-helper sets up or cleans up; patient completes activity. [place] assists only prior to or following the activity. 4-Supervision or Touching Assistance-helper provides verbal cues and/or touching/steadying and/or contact guard assistance as patient completes activity. Assistance may be provided throughout the activity or intermittently. 3-Partial/Moderate Assistance-helper does LESS THAN HALF the effort. [place] lifts, holds or supports trunk or limbs, but provides less than half the effort. 2-Substantial/Maximal Assistance-helper does MORE THAN HALF the effort. [place] lifts or holds trunk or limbs and provides more than half the effort. 6-Omneyofzp-cqfvwl does ALL the effort. Patient does none of the effort to complete the activity. Or, the assistance of 2 or more helpers is required for the patient to complete the activity. If activity was not attempted, code reason: 7-Patient Refused. 9-Not Applicable-not attempted and the patient did not perform the activity before the current illness, exacerbation or injury. 10-Not Attempted due to Environmental Limitations-(lack of equipment, weather restraints, etc.). 88-Not Attempted due to Medical Conditions or Safety Concerns. Oral Hygiene (QC): 5 (Set up to brush teeth at bed level.) On/Off Footwear: 1 (OT encouraged pt. to bring left LE up to her to attempt doffing slipper sock with left hand. Pt. does not attempt moving and states that she can't do this.) Toileting Hygiene (QC): 1 (Pt. on bedpan when OT enters room. Max x 2 to roll in bed. Dependent x 2 for carla cleanse after BM.) Other Treatment Pt. states that she was just up with PT and that she is tired and in pain. Nursing to give pt. pain medication. She declines further OOB activity at this time. Pt. bed put into chair position. Bedside table placed in front and pt. b rushed teeth after set up. Pillow removed and pt. encouraged to lean forward, working on trunk control/strength, and to brush her own hair with left UE. Pt. did do this and OT placed back in ponytail. OT completed gentle PROM to right UE at elbow level. Pt. tolerates and completes AAROM as well. Pt. also completes hand squeezes with red therapy sponge. Pt. encouraged to attempt doffing left sock by bringing foot up to her, and she is unable to do so by bending her unaffected leg. She is unsure why this is. She states that she had no difficulty prior. Pt. continues to be encouraged to increase overall strength and independence with daily tasks by participating more and doing more for self. All needs met and pt. reports being comfortable in bed position. Education OT Patient Education: Correct positioning, Exercise program, Modified ADL techn iques, Progress toward Goal/Update tx plan, Purpose of tx/functional activities, Reviewed precautions, Rehab process, Transfer techniques Teaching Recipient: Patient Teaching Methods: Demonstration, Discussion Response to Teaching: Verbalize Understanding, Return Demonstration, Reinforcement Needed OT Short Term Goals Short Term Goals Time Frame: Feb 10, 2021 Eatin Oral hygiene: 4 Toileting hygiene: 3 Shower/bathe self: 3 Upper body dressin Lower body dressin Putting on/taking off footwear: 3 OT Paperboard Machine Operator Goals Detention Goals Time Frame: Feb 24, 2021 Eating (QC): 6 Oral Hygiene (QC): 6 Toileting Hygiene (QC): 6 Shower/Bathe Self (QC): 4 Upper Body Dressing (QC): 5 Lower Body Dressing (QC): 5 On/Off Footwear (QC): 5 Additional Goals: 1-Demonstrate ADL Tasks, 2-Verbalize Understanding, 3- ImproveStrength/Brian 1=Demonstrate adherence to instructed precautions during ADL tasks. 2=Patient will verbalize/demonstrate understanding of assistive devices/modifications for ADL. 3=Patient will improve strength/tolerance for activity to enable patient to perform ADL's. OT Education/Plan Problem List/Assessment Assessment: Decreased Activ Tolerance, Decreased UE Strength, Dependent Transfers, Impaired Bed Mobility, Impaired I ADL's, Impaired Self-Care Skills, Restricted Funct UE ROM Discharge Recommendations Plan/Recommendations: Continue POC Therapy Discharge Recommendati: 24 Hour Supervision, Post Acute OT Treatment Plan/Plan of Care Treatment,Training & Education: Yes Patient would benefit from OT for education, treatment and training to promote independence in ADL's, mobility, safety and/or upper extremity function for ADL's. Plan of Care: ADL Retraining, Functional Mobility, UE Funct Exercise/Act Treatment Duration: Feb 24, 2021 Frequency: At least 5 of 7 days/Wk (IRF) Estimated Hrs Per Day: 1.5 hours per day Agreement: Yes Rehab Potential: Fair Time/GCodes Start Time: 10:00 Stop Time: 11:00 Total Time Billed (hr/min): 60 Billed Treatment Time 1, ADL x 30minutes, Ex x 15minutes, FA x 15minutes TAL THOMAS OT Feb 03, 2021 12:14
--- NOTE | 2021-02-03 13:44 | Occupational Ther Daily Note ---
OT Current Status-Daily Note Subjective No pain reported. Mental Status/Objective Patient Orientation: Person, Place, Time, Situation ADL-Treatment Therapy Code Descriptions/Definitions Functional [place] Measure: 0=Not Assessed/NA 4=Minimal Assistance 1=Total Assistance 5=Supervision or Setup 2=Maximal Assistance 6=Modified [place] 3=Moderate Assistance 7=Complete IndependenceSCALE: Activities may be completed with or without assistive devices. 5-Csmrepcdhc-yxgipwe completes the activity by him/herself with no assistance from a helper. 5-Set-up or Clean-up Assistance-helper sets up or cleans up; patient completes activity. [place] assists only prior to or following the activity. 4-Supervision or Touching Assistance-helper provides verbal cues and/or touching/steadying and/or contact guard assistance as patient completes activity. Assistance may be provided throughout the activity or intermittently. 3-Partial/Moderate Assistance-helper does LESS THAN HALF the effort. [place] lifts, holds or supports trunk or limbs, but provides less than half the effort. 2-Substantial/Maximal Assistance-helper does MORE THAN HALF the effort. [place] lifts or holds trunk or limbs and provides more than half the effort. 0-Cierzpoxh-htfquk does ALL the effort. Patient does none of the effort to complete the activity. Or, the assistance of 2 or more helpers is required for the patient to complete the activity. If activity was not attempted, code reason: 7-Patient Refused. 9-Not Applicable-not attempted and the patient did not perform the activity before the current illness, exacerbation or injury. 10-Not Attempted due to Environmental Limitations-(lack of equipment, weather restraints, etc.). 88-Not Attempted due to Medical Conditions or Safety Concerns. Eating (QC): 5 Toileting Hygiene (QC): 1 Other Treatment Pt. had just been incontinent of urine. Nursing cleansed pt. and then OT and nursing worked on pt. rolling in bed to place clean pad underneath. Max x 2 for roll and pad placement. Lunch tray came. Pt. HOB elevated for better eating. Pt. requests for OT to open packages but OT encourages pt. to see what she can do to facilitate more independent feeding. Pt. is able to hold sour cream, butter, and other items in right hand and open with left, no difficulty. She is able to place appropriate condiments where they go, and feed self. Pt's only difficulty was fully getting potato skin off. OT assisted with this. Pt. and OT talked about incontinence issues while pt. ate. Pt. verbalizes again that she is unsure why she is incontinent of bowel and bladder. OT encourages her to follow up with her PCP when she is discharged. She verbalizes understanding. All needs met at bed level. Education OT Patient Education: Correct positioning, Exercise program, Modified ADL techniques, Progress toward Goal/Update tx plan, Purpose of tx/functional activities, Reviewed precautions, Rehab process Teaching Recipient: Patient Teaching Methods: Demonstration, Discussion Response to Teaching: Verbalize Understanding, Return Demonstration, Reinforcement Needed OT Short Term Goals Short Term Goals Time Frame: Feb 10, 2021 Eatin Oral hygiene: 4 Toileting hygiene: 3 Shower/bathe self: 3 Upper body dressin Lower body dressin Putting on/taking off footwear: 3 OT Food Preparer Goals Food Preparer Goals Time Frame: Feb 24, 2021 Eating (QC): 6 Oral Hygiene (QC): 6 Toileting Hygiene (QC): 6 Shower/Bathe Self (QC): 4 Upper Body Dressing (QC): 5 Lower Body Dressing (QC): 5 On/Off Footwear (QC): 5 Additional Goals: 1-Demonstrate ADL Tasks, 2-Verbalize Understanding, 3- ImproveStrength/Brian 1=Demonstrate adherence to instructed precautions during ADL tasks. 2=Patient will verbalize/demonstrate understanding of assistive devices/modifications for ADL. 3=Patient will improve strength/tolerance for activity to enable patient to perform ADL's. OT Education/Plan Problem List/Assessment Assessment: Decreased Activ Tolerance, Decreased UE Strength, Dependent Transfers, Impaired Bed Mobility, Impaired Funct Balance, Impaired I ADL's, Impaired Self-Care Skills, Restricted Funct UE ROM Discharge Recommendations Plan/Recommendations: Continue POC Therapy Discharge Recommendati: 24 Hour Supervision, Post Acute OT Treatment Plan/Plan of Care Treatment,Training & Education: Yes Patient would benefit from OT for education, treatment and training to promote independence in ADL's, mobility, safety and/or upper extremity function for ADL's. Plan of Care: ADL Retraining, Functional Mobility, UE Funct Exercise/Act Treatment Duration: Feb 24, 2021 Frequency: At least 5 of 7 days/Wk (IRF) Estimated Hrs Per Day: 1.5 hours per day Agreement: Yes Rehab Potential: Fair Time/GCodes Start Time: 12:30 Stop Time: 13:00 Total Time Billed (hr/min): 30 Billed Treatment Time 1, ADL x 2 TAL THOMAS OT Feb 03, 2021 13:44
[2021-02-03] MEDS ORDERED: GABA-490 PO (15:07)
[2021-02-03] MEDS ORDERED: SITA100T12 PO (15:07)
[2021-02-03] MEDS ORDERED: VENL150C98 PO (15:07)
[2021-02-03] MEDS ORDERED: INSU100I48 SC (15:07)
[2021-02-03] MEDS ORDERED: LISI20TA26 PO (15:07)
[2021-02-03] MEDS ORDERED: BUDE10.26 INH (15:07)
[2021-02-03] MEDS ORDERED: CLOP75TA28 PO (15:07)
[2021-02-03] MEDS ORDERED: ATOR80TA76 PO (15:07)
[2021-02-03] MEDS ORDERED: METF-865 PO (15:07)
[2021-02-03] MEDS ORDERED: FLDR.1T PO (15:07)
[2021-02-03] MEDS ORDERED: INSU100V5 SC (15:07)
[2021-02-03] MEDS ORDERED: RT-ALBUINH IH (15:07)
[2021-02-03 20:08] VITALS: BP 144/87
[2021-02-03] MEDS: ALPRAZolam 0.25 MG (XANAX) TAB PO PRN (20:55)
[2021-02-03] MEDS: MELATONIN 3 MG TABLET PO PRN (20:55)
--- NOTE | 2021-02-03 21:14 | PM&R Progress Note ---
Subjective HPI/CC On Admission Date Seen by Provider: Feb 03, 2021 Time Seen by Provider: 10:00 Subjective/Events-last exam 02/03/2021: Patient doing pretty well Ice to right shoulder is helping Lower extremity edema nonpitting type Blood sugar is good at 123 155 Pain management successful Bowels are moving pretty well We will need to go to a detention Cheri lift cannot be used due to risk of too much pressure on the hardware in her leg 02/02/2021: Pt doing really well Glucose is 114 Will need a Cheri lift [facility] placement likely will be required Right shoulder pain noted She is thirsty all the time Pure-wic maintained 02/01/2021: Pt doing pretty well Complaining of right shoulder pain due to surgery Holding laxatives due to loose stools Hgb 8.2 Purewick maintained Unable to do sit to stand may need cheri 01/31/2021: Patient doing really well today Pain is well controlled Change pure wick a couple of times Glucose 220 this morning Bowels moved today 01/30/2021: Patient doing pretty well today Pain is well controlled Using pure wick Bowels moved yesterday Working out with therapy 01/29/2021: Pt doing pretty well Denies any significant new issues Participating in therapy Checked meds and labs Denies any pain 01/28/2021: Pt doing pretty well but had a pop in her right leg when she barely had weight bearing to it X-rays ordered Purewick maintained Check meds and labs Bowels are moving Review of Systems General: Fatigue Musculoskeletal: arm pain, leg pain Objective Exam Vital Signs Vital Signs Date Time Temp Pulse Resp B/P (MAP) Pulse Ox O2 Delivery O2 Flow Rate FiO2 02/03/21 21:00 Room Air 02/03/21 20:19 95 02/03/21 20:08 36.4 86 20 144/87 (106) Capillary Refill : General Appearance: No Apparent Distress, WD/WN, Chronically ill HEENT: PERRL/EOMI, Normal ENT Inspection, Pharynx Normal Neck: Full Range of Motion, Normal Inspection, Non Tender, Supple, Carotid Bruit Respiratory: Chest Non Tender, Lungs Clear, Normal Breath Sounds, No Accessory Muscle Use, No Respiratory Distress Cardiovascular: Regular Rate, Rhythm, No Edema, No Gallop, No JVD, No Murmur, Normal Peripheral Pulses Gastrointestinal: Normal Bowel Sounds, No Organomegaly, No Pulsatile Mass, Non Tender, Soft Back: Normal Inspection, No CVA Tenderness, No Vertebral Tenderness Extremity: Normal Capillary Refill, Normal Inspection, Normal Range of Motion (Except right arm and right leg), Non Tender, No Calf Tenderness, No Pedal Edema Neurologic/Psychiatric: Alert, Oriented x3, No Motor/Sensory Deficits, 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 FIM Transfers Therapy Code Descriptions/Definitions Functional [place] Measure: 0=Not Assessed/NA 4=Minimal Assistance 1=Total Assistance 5=Supervision or Setup 2=Maximal Assistance 6=Modified [place] 3=Moderate Assistance 7=Complete IndependenceSCALE: Activities may be completed with or without assistive devices. 0-Xgggydvjsv-gkcduhx completes the activity by him/herself with no assistance from a helper. 5-Set-up or Clean-up Assistance-helper sets up or cleans up; patient completes activity. [place] assists only prior to or following the activity. 4-Supervision or Touching Assistance-helper provides verbal cues and/or touching/steadying and/or contact guard assistance as patient completes activity. Assistance may be provided throughout the activity or intermittently. 3-Partial/Moderate Assistance-helper does LESS THAN HALF the effort. [place] lifts, holds or supports trunk or limbs, but provides less than half the effort. 2-Substantial/Maximal Assistance-helper does MORE THAN HALF the effort. [place] lifts or holds trunk or limbs and provides more than half the effort. 6-Nemmtkmop-txmbkj does ALL the effort. Patient does none of the effort to complete the activity. Or, the assistance of 2 or more helpers is required for the patient to complete the activity. If activity was not attempted, code reason: 7-Patient Refused. 9-Not Applicable-not attempted and the patient did not perform the activity before the current illness, exacerbation or injury. 10-Not Attempted due to Environmental Limitations-(lack of equipment, weather restraints, etc.). 88-Not Attempted due to Medical Conditions or Safety Concerns. Roll Left to Right (QC): 2 Sit to Lying (QC): 2 Sit to Stand (QC): 1 Chair/You-pg-Tvqki Xfer(QC): 1 Car Transfer (QC): 1 Gait Training Does the Patient Walk?: No and Walking Goal IS indicated Walk 10 feet (QC): 88 Walk 50 ft with 2 Turns(QC): 88 Walk 150 ft (QC): 88 Walking 10ft/uneven surface-QC: 88 Wheelchair Training Does the Pt Use a Wheelchair?: Yes Wheel 50 ft with 2 turns (QC): 3 Wheel 150 ft (QC): 3 Type of Wheelchair: Manual Stair Training 1 Step (curb) (QC): 88 4 Steps (QC): 88 12 Steps (QC): 88 Balance Picking up an Object (QC): 88 ADL-Treatment Eating (QC): 5 Oral Hygiene (QC): 5 (Set up to brush teeth at bed level.) Shower/Bathe Self (QC): 3 (Mod assist in shower chair. Pt. encouraged to do more for self this date.) Upper Body Dressing (QC): 2 (Max assist to don over head dress.) Lower Body Dressing (QC): 88 On/Off Footwear (QC): 1 (OT encouraged pt. to bring left LE up to her to attempt doffing slipper sock with left hand. Pt. does not attempt moving and states that she can't do this.) Toileting Hygiene (QC): 1 Toilet Transfer (QC): 1 (Pt. on shower chair, and shower chair rolled over toilet.) Assessment/Plan Assessment and Plan Assess & Plan/Chief Complaint Assessment: Distal fracture of right femur Closed comminuted fracture of right humerus ABLA (acute blood loss anemia) Morbid obesity ([facility]) Hyponatremia Syncope and collapse Impaired mobility and activities of daily living Acute traumatic pain Sleep disorder CAD (coronary artery disease HTN (hypertension) COPD (chronic obstructive pulmonary disease) ([facility]) At risk for constipation DM (diabetes mellitus) ([facility]) Plan: Aggressive therapy Pain control Supportive care 01/28/2021: Supportive care to continue Check x-ray of leg Continue nonweightbearing status 01/29/2021: Supportive care Monitor bowel function Pain control 01/30/2021: Supportive care Pain control Bowel regimen 01/31/2021: Aggressive therapy Supportive care 02/01/2021: Pain control Pure wick Monitor glucose 02/02/2021: Supportive care Needs detention due to complete dependence 02/03/2021: Supportive care Needs detention Ice to shoulder Pain management (1) Femur fracture ALCIDES RUIZ DO Feb 03, 2021 21:14
[2021-02-04] MEDS: inSUlin ASPART (NovoLOG) 1 UNIT/0.01 ML (CHARGE PER UNIT) SC SCH ×7 (05:49→21:08)
[2021-02-04] MEDS: ENOXAPARIN 40 MG/0.4 ML (LOVENOX) SYR SC SCH ×2 (06:23→17:52)
[2021-02-04] MEDS: polyethylene glycoL POWDER 17 GM (MIRALAX) PACK PO SCH ×2 (07:51→21:04)
[2021-02-04] MEDS: CLOPIDOGREL 75 MG (PLAVIX) TABLET PO SCH (07:51)
[2021-02-04] MEDS: SENNA W/DOCUSATE (SENOKOT S) TABLET PO SCH ×2 (07:51→21:04)
[2021-02-04] MEDS: GABAPENTIN 400 MG (NEURONTIN) CAP PO SCH ×3 (07:51→21:01)
[2021-02-04] MEDS: metFORMIN XR 500 MG (GLUCOPHAGE XR) TAB PO SCH ×2 (07:51→21:01)
[2021-02-04] MEDS: FLUDROCORTISONE 0.1 MG (FLORINEF) TAB PO SCH ×3 (07:51→21:01)
[2021-02-04] MEDS: amLODIPine 10 MG (NORVASC) TAB PO SCH (07:51)
[2021-02-04] MEDS: DOCUSATE SODIUM 100 MG (COLACE) CAP PO SCH ×2 (07:52→21:03)
[2021-02-04 08:00] VITALS: BP 152/66
[2021-02-04] MEDS: RT--FLUTICASONE/SALMETEROL 113-14 (AIRDUO RespiCLICK) IH SCH ×2 (08:08→21:57)
--- NOTE | 2021-02-04 10:41 | PM&R Progress Note ---
Subjective HPI/CC On Admission Date Seen by Provider: Feb 04, 2021 Time Seen by Provider: 10:45 Subjective/Events-last exam 02/04/2021: Pt doing pretty well Bowels are moving Pain is pretty well controlled Denies any other significant new problems No falls Moving around a little bit better Needs mcc for slow recovery 02/03/2021: Patient doing pretty well Ice to right shoulder is helping Lower extremity edema nonpitting type Blood sugar is good at 123 155 Pain management successful Bowels are moving pretty well We will need to go to a mcc Cheri lift cannot be used due to risk of too much pressure on the hardware in her leg 02/02/2021: Pt doing really well Glucose is 114 Will need a Cheri lift [facility] placement likely will be required Right shoulder pain noted She is thirsty all the time Pure-wic maintained 02/01/2021: Pt doing pretty well Complaining of right shoulder pain due to surgery Holding laxatives due to loose stools Hgb 8.2 Purewick maintained Unable to do sit to stand may need cheri 01/31/2021: Patient doing really well today Pain is well controlled Change pure wick a couple of times Glucose 220 this morning Bowels moved today 01/30/2021: Patient doing pretty well today Pain is well controlled Using pure wick Bowels moved yesterday Working out with therapy 01/29/2021: Pt doing pretty well Denies any significant new issues Participating in therapy Checked meds and labs Denies any pain 01/28/2021: Pt doing pretty well but had a pop in her right leg when she barely had weight bearing to it X-rays ordered Purewick maintained Check meds and labs Bowels are moving Review of Systems General: Fatigue, Malaise Musculoskeletal: arm pain, leg pain Neurological: Weakness Objective Exam Vital Signs Vital Signs Date Time Temp Pulse Resp B/P (MAP) Pulse Ox O2 Delivery O2 Flow Rate FiO2 02/04/21 10:04 Room Air 02/04/21 08:09 96 02/04/21 08:00 36.6 86 18 152/66 (94) Capillary Refill : General Appearance: No Apparent Distress, WD/WN, Chronically ill HEENT: PERRL/EOMI, Normal ENT Inspection, Pharynx Normal Neck: Full Range of Motion, Normal Inspection, Non Tender, Supple, Carotid Bruit Respiratory: Chest Non Tender, Lungs Clear, Normal Breath Sounds, No Accessory Muscle Use, No Respiratory Distress Cardiovascular: Regular Rate, Rhythm, No Edema, No Gallop, No JVD, No Murmur, Normal Peripheral Pulses Gastrointestinal: Normal Bowel Sounds, No Organomegaly, No Pulsatile Mass, Non Tender, Soft Back: Normal Inspection, No CVA Tenderness, No Vertebral Tenderness Extremity: Normal Capillary Refill, Normal Inspection, Normal Range of Motion (Except right arm and right leg), Non Tender, No Calf Tenderness, No Pedal Edema Neurologic/Psychiatric: Alert, Oriented x3, No Motor/Sensory Deficits, 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 FIM Transfers Therapy Code Descriptions/Definitions Functional [place] Measure: 0=Not Assessed/NA 4=Minimal Assistance 1=Total Assistance 5=Supervision or Setup 2=Maximal Assistance 6=Modified [place] 3=Moderate Assistance 7=Complete IndependenceSCALE: Activities may be completed with or without assistive devices. 8-Tzcusrjiig-hujdxau completes the activity by him/herself with no assistance from a helper. 5-Set-up or Clean-up Assistance-helper sets up or cleans up; patient completes activity. [place] assists only prior to or following the activity. 4-Supervision or Touching Assistance-helper provides verbal cues and/or touching/steadying and/or contact guard assistance as patient completes activity. Assistance may be provided throughout the activity or intermittently. 3-Partial/Moderate Assistance-helper does LESS THAN HALF the effort. [place] lifts, holds or supports trunk or limbs, but provides less than half the effort. 2-Substantial/Maximal Assistance-helper does MORE THAN HALF the effort. [place] lifts or holds trunk or limbs and provides more than half the effort. 8-Kszjxyzfg-tpgwfd does ALL the effort. Patient does none of the effort to complete the activity. Or, the assistance of 2 or more helpers is required for the patient to complete the activity. If activity was not attempted, code reason: 7-Patient Refused. 9-Not Applicable-not attempted and the patient did not perform the activity before the current illness, exacerbation or injury. 10-Not Attempted due to Environmental Limitations-(lack of equipment, weather restraints, etc.). 88-Not Attempted due to Medical Conditions or Safety Concerns. Roll Left to Right (QC): 2 Sit to Lying (QC): 2 Sit to Stand (QC): 1 Chair/Rur-vz-Iyezr Xfer(QC): 1 Car Transfer (QC): 1 Gait Training Does the Patient Walk?: No and Walking Goal IS indicated Walk 10 feet (QC): 88 Walk 50 ft with 2 Turns(QC): 88 Walk 150 ft (QC): 88 Walking 10ft/uneven surface-QC: 88 Wheelchair Training Does the Pt Use a Wheelchair?: Yes Wheel 50 ft with 2 turns (QC): 3 Wheel 150 ft (QC): 3 Type of Wheelchair: Manual Stair Training 1 Step (curb) (QC): 88 4 Steps (QC): 88 12 Steps (QC): 88 Balance Picking up an Object (QC): 88 ADL-Treatment Eating (QC): 5 Oral Hygiene (QC): 5 (Set up to brush teeth at bed level.) Shower/Bathe Self (QC): 3 (Mod assist in shower chair. Pt. encouraged to do more for self this date.) Upper Body Dressing (QC): 2 (Max assist to don over head dress.) Lower Body Dressing (QC): 88 On/Off Footwear (QC): 1 (OT encouraged pt. to bring left LE up to her to attempt doffing slipper sock with left hand. Pt. does not attempt moving and states that she can't do this.) Toileting Hygiene (QC): 1 Toilet Transfer (QC): 1 (Pt. on shower chair, and shower chair rolled over toilet.) Assessment/Plan Assessment and Plan Assess & Plan/Chief Complaint Assessment: Distal fracture of right femur Closed comminuted fracture of right humerus ABLA (acute blood loss anemia) Morbid obesity ([facility]) Hyponatremia Syncope and collapse Impaired mobility and activities of daily living Acute traumatic pain Sleep disorder CAD (coronary artery disease HTN (hypertension) COPD (chronic obstructive pulmonary disease) ([facility]) At risk for constipation DM (diabetes mellitus) ([facility]) Plan: Aggressive therapy Pain control Supportive care 01/28/2021: Supportive care to continue Check x-ray of leg Continue nonweightbearing status 01/29/2021: Supportive care Monitor bowel function Pain control 01/30/2021: Supportive care Pain control Bowel regimen 01/31/2021: Aggressive therapy Supportive care 02/01/2021: Pain control Pure wick Monitor glucose 02/02/2021: Supportive care Needs mcc due to complete dependence 02/03/2021: Supportive care Needs mcc Ice to shoulder Pain management 02/04/2021: Pain control Improve transfers Monitor closely (1) Femur fracture ALCIDES RUIZ DO Feb 04, 2021 10:41
--- NOTE | 2021-02-04 11:00 | Physical Therapy Daily Note ---
PT Daily Note-Current Subjective Patient in bed pre tx, agrees to PT, has 8/10 pain in right shoulder, will be co-treating with OT due to poor patient mobility, strength, endurance, severe pain with activity, coordinate UE and LE with activity, safety and reduce risk of falls. Appearance Patient in bed post tx with nurse call, phone, tray, all needs met, on bedpan. Mental Status Patient Orientation: Person, Place, Situation Transfers SCALE: Activities may be completed with or without assistive devices. 4-Akjvnsholc-czvmgbu completes the activity by him/herself with no assistance from a helper. 5-Set-up or Clean-up Assistance-helper sets up or cleans up; patient completes activity. [place] assists only prior to or following the activity. 4-Supervision or Touching Assistance-helper provides verbal cues and/or touching/steadying and/or contact guard assistance as patient completes activ ity. Assistance may be provided throughout the activity or intermittently. 3-Partial/Moderate Assistance-helper does LESS THAN HALF the effort. [place] lifts, holds or supports trunk or limbs, but provides less than half the effort. 2-Substantial/Maximal Assistance-helper does MORE THAN HALF the effort. [place] lifts or holds trunk or limbs and provides more than half the effort. 8-Ohpggivma-iqdbgt does ALL the effort. Patient does none of the effort to complete the activity. Or, the assistance of 2 or more helpers is required for the patient to complete the activity. If activity was not attempted, code reason: 7-Patient Refused. 9-Not Applicable-not attempted and the patient did not perform the activity before the current illness, exacerbation or injury. 10-Not Attempted due to Environmental Limitations-(lack of equipment, weather restraints, etc.). 88-Not Attempted due to Medical Conditions or Safety Concerns. Roll Left & Right (QC): 2 Sit to Lying (QC): 1 Lying to Sitting/Side of Bed(Q: 1 Sit to Stand (QC): 1 Chair/Lzl-bu-Hrwck Xfer(QC): 1 Patient has soiled the bed and needs to be cleaned and gown changed. Patient rolls from side to side with max assist for cleaning and changing pad and dressing. Supine to sit with assist of 2, dependent stand pivot transfer with small step under left foot in order to leg right foot dangle. This is done because patient cannot keep weight off of right leg during a regular stand pivot transfer. Weight Bearing Right Lower Extremity: Right Touch Toe Bearing RUE NWB Wheelchair Training Does the Pt Use a Wheelchair?: Yes Wheel 50 ft with 2 turns (QC): 3 Wheel 150 ft (QC): 3 Type of Wheelchair: Manual Mod assist 500', patient practiced ramps, sidewalks, level surfaces. Patient can use her left arm and leg to propel. Treatments PT performed bed mobility and transfers, WC mobility, rolling, OT performed cleaning, dressing, UE positioning and safety during activity, assisted with transfers Assessment Current Status: Poor Progress no change in mobility PT Short Term Goals Short Term Goals Time Frame: Feb 03, 2021 Roll Left & Right: 2 Sit to lyin Lying to sitting on side of be: 2 Sit to stand: 2 Chair/ksc-mt-dolbh transfer: 2 PT Correction Goals Correction Goals PT Correction Goals Time Frame: Feb 17, 2021 Roll Left & Right (QC): 3 Sit to Lying (QC): 3 Lying-Sitting on Side/Bed(QC): 3 Sit to Stand (QC): 3 Chair/Vug-qi-Jrdiv Xfer(QC): 3 Toilet Transfer (QC): 3 Car Transfer (QC): 3 Does the Patient Walk: No and Walking Goal NOT indicated Walk 10 feet (QC): 88 Walk 50ft with 2 Turns (QC): 88 Walk 150 ft (QC): 88 Walking 10ft on Uneven Surface: 88 1 Step (curb) (QC): 88 4 Steps (QC): 88 12 Steps (QC): 88 Picking up an Object (QC): 88 Wheel 50 feet with 2 turns (QC: 5 Wheel 150 feet: 5 PT Plan Problem List Problem List: Activity Tolerance, Functional Strength, Safety, Balance, Gait, Transfer, Bed Mobility, ROM Treatment/Plan Treatment Plan: Continue Plan of Care Treatment Plan: Bed Mobility, Education, Functional Activity Brian, Functional Strength, Group Therapy, Gait, Safety, Therapeutic Exercise, Transfers Treatment Duration: Feb 17, 2021 Frequency: At least 5 of 7 days/Wk (IRF) Estimated Hrs Per Day: .25 hour per day Patient and/or Family Agrees t: Yes Safety Risks/Education Patient Education: Transfer Techniques, Reviewed Precautions, Correct Positioning, W/C Management, Safety Issues Teaching Recipient: Patient Teaching Methods: Demonstration, Discussion Response to Teaching: Reinforcement Needed Time/GCodes Time In: 1000 Time Out: 1100 Total Billed Treatment Time: 30 Total Billed Treatment 1 visit FA 60' co-treated for 60' PIETRO BHANDARI PT Feb 04, 2021 11:00
--- NOTE | 2021-02-04 13:25 | Physical Therapy Daily Note ---
PT Daily Note-Current Subjective Patient in bed pre tx, agrees to PT, has unrated pain in right leg. Appearance Patient in bed post tx with nurse call, phone, tray, all needs met. Mental Status Patient Orientation: Person, Place, Situation Transfers SCALE: Activities may be completed with or without assistive devices. 9-Tkcmmazigl-yukqrep completes the activity by him/herself with no assistance from a helper. 5-Set-up or Clean-up Assistance-helper sets up or cleans up; patient completes activity. [place] assists only prior to or following the activity. 4-Supervision or Touching Assistance-helper provides verbal cues and/or touching/steadying and/or contact guard assistance as patient completes activity. Assistance may be provided throughout the activity or intermittently. 3-Partial/Moderate Assistance-helper does LESS THAN HALF the effort. [place] lifts, holds or supports trunk or limbs, but provides less than half the effort. 2-Substantial/Maximal Assistance-helper does MORE THAN HALF the effort. [place] lifts or holds trunk or limbs and provides more than half the effort. 3-Zndvpisdx-fkjiea does ALL the effort. Patient does none of the effort to complete the activity. Or, the assistance of 2 or more helpers is required for the patient to complete the activity. If activity was not attempted, code reason: 7-Patient Refused. 9-Not Applicable-not attempted and the patient did not perform the activity before the current illness, exacerbation or injury. 10-Not Attempted due to Environmental Limitations-(lack of equipment, weather restraints, etc.). 88-Not Attempted due to Medical Conditions or Safety Concerns. Weight Bearing Right Lower Extremity: Right Touch Toe Bearing RUE NWB Exercises Supine Ex: Ankle pumps, Quad Set, Glut sets, Heel Slides, Short Arc Quads (LLE only), Straight leg raise (AAROM on the right side), Hip abd/add (AAROM on the right side) Treatments LE strengthening Assessment Current Status: Fair Progress slightly improved AROM on the right LE PT Short Term Goals Short Term Goals Time Frame: Feb 03, 2021 Roll Left & Right: 2 Sit to lyin Lying to sitting on side of be: 2 Sit to stand: 2 Chair/bxm-ad-zthod transfer: 2 PT Supply Aide Goals Supply Aide Goals PT Shelter Goals Time Frame: Feb 17, 2021 Roll Left & Right (QC): 3 Sit to Lying (QC): 3 Lying-Sitting on Side/Bed(QC): 3 Sit to Stand (QC): 3 Chair/Asn-jg-Hjusb Xfer(QC): 3 Toilet Transfer (QC): 3 Car Transfer (QC): 3 Does the Patient Walk: No and Walking Goal NOT indicated Walk 10 feet (QC): 88 Walk 50ft with 2 Turns (QC): 88 Walk 150 ft (QC): 88 Walking 10ft on Uneven Surface: 88 1 Step (curb) (QC): 88 4 Steps (QC): 88 12 Steps (QC): 88 Picking up an Object (QC): 88 Wheel 50 feet with 2 turns (QC: 5 Wheel 150 feet: 5 PT Plan Problem List Problem List: Activity Tolerance, Functional Strength, Safety, Balance, Gait, Transfer, Bed Mobility, ROM Treatment/Plan Treatment Plan: Continue Plan of Care Treatment Plan: Bed Mobility, Education, Functional Activity Brian, Functional Strength, Group Therapy, Gait, Safety, Therapeutic Exercise, Transfers Treatment Duration: Feb 17, 2021 Frequency: At least 5 of 7 days/Wk (IRF) Estimated Hrs Per Day: .25 hour per day Patient and/or Family Agrees t: Yes Safety Risks/Education Patient Education: Correct Positioning, Safety Issues Teaching Recipient: Patient Teaching Methods: Demonstration, Discussion Response to Teaching: Reinforcement Needed Time/GCodes Time In: 1300 Time Out: 1330 Total Billed Treatment Time: 30 Total Billed Treatment 1 visit EX 30' PIETRO BHANDARI PT Feb 04, 2021 13:25
--- NOTE | 2021-02-04 15:40 | Occupational Ther Daily Note ---
OT Current Status-Daily Note Subjective Pt. reports pain in right UE/LE with movement. Does not report pain number. Pt. has had pain pill. Mental Status/Objective Patient Orientation: Person, Place ADL-Treatment Therapy Code Descriptions/Definitions Functional [place] Measure: 0=Not Assessed/NA 4=Minimal Assistance 1=Total Assistance 5=Supervision or Setup 2=Maximal Assistance 6=Modified [place] 3=Moderate Assistance 7=Complete IndependenceSCALE: Activities may be completed with or without assistive devices. 6-Jplrzcjenf-xyglhms completes the activity by him/herself with no assistance from a helper. 5-Set-up or Clean-up Assistance-helper sets up or cleans up; patient completes activity. [place] assists only prior to or following the activity. 4-Supervision or Touching Assistance-helper provides verbal cues and/or mamta juliette/steadying and/or contact guard assistance as patient completes activity. Assistance may be provided throughout the activity or intermittently. 3-Partial/Moderate Assistance-helper does LESS THAN HALF the effort. [place] lifts, holds or supports trunk or limbs, but provides less than half the effort. 2-Substantial/Maximal Assistance-helper does MORE THAN HALF the effort. [place] lifts or holds trunk or limbs and provides more than half the effort. 7-Aushwkfee-mjkric does ALL the effort. Patient does none of the effort to complete the activity. Or, the assistance of 2 or more helpers is required for the patient to complete the activity. If activity was not attempted, code reason: 7-Patient Refused. 9-Not Applicable-not attempted and the patient did not perform the activity before the current illness, exacerbation or injury. 10-Not Attempted due to Environmental Limitations-(lack of equipment, weather restraints, etc.). 88-Not Attempted due to Medical Conditions or Safety Concerns. On/Off Footwear: 2 Toileting Hygiene (QC): 1 Toilet Transfer (QC): 1 (Max x 2 to roll side to side to place bedpan.) Other Treatment Pt. seen this date for co-treatment with PT/OT due to need of skilled assistance x 2. Pt. requires 2 therapists due to poor endurance, increased fatigue, and max level of assistance x 2 for transfers. Pt. in bed upon entering room. Pt. incontinent of bowel and bladder. Required max x2 to roll side to side and for carla care. PT facilitated and encouraged pt to assist herself to roll, and OT facilitated carla cleanse. Transferred supine-sit with max x 2. OT donned slipper sock and shoe. Encouraged pt. to assist herself to don her own arm sling. She is unable to assist but is able to position her right UE with left. Transferred squat pivot to wheelchair with max x 2, with step under non-affected leg to heighten pt., so that she does not put weight through affected LE. Pt. self propelled wheelchair throughout hospital with assistance to push. Went outside for fresh air and to lift spirit. Practiced going around grounds and over wooden bridge area/ramp. Pt. fearful to assist herself. Sat outside and rested before coming back in. Practiced self propelling again inside hospital, with assistance from therapy staff. Went to room and transferred back to bed with max x 2, with same set up as before. All needs met and pt. positioned to comfort level. Education OT Patient Education: Correct positioning, Exercise program, Modified ADL techniques, Progress toward Goal/Update tx plan, Purpose of tx/functional activities, Reviewed precautions, Rehab process, Transfer techniques, W/C management Teaching Recipient: Patient Teaching Methods: Demonstration, Discussion Response to Teaching: Verbalize Understanding, Return Demonstration OT Short Term Goals Short Term Goals Time Frame: Feb 10, 2021 Eatin Oral hygiene: 4 Toileting hygiene: 3 Shower/bathe self: 3 Upper body dressin Lower body dressin Putting on/taking off footwear: 3 OT Mcc Goals Master Scheduler Goals Time Frame: Feb 24, 2021 Eating (QC): 6 Oral Hygiene (QC): 6 Toileting Hygiene (QC): 6 Shower/Bathe Self (QC): 4 Upper Body Dressing (QC): 5 Lower Body Dressing (QC): 5 On/Off Footwear (QC): 5 Additional Goals: 1-Demonstrate ADL Tasks, 2-Verbalize Understanding, 3- ImproveStrength/Brian 1=Demonstrate adherence to instructed precautions during ADL tasks. 2=Patient will verbalize/demonstrate understanding of assistive devices/modifications for ADL. 3=Patient will improve strength/tolerance for activity to enable patient to perform ADL's. OT Education/Plan Problem List/Assessment Assessment: Decreased Activ Tolerance, Decreased UE Strength, Dependent Transfers, Impaired Bed Mobility, Impaired Funct Balance, Impaired I ADL's, Impaired Self-Care Skills, Restricted Funct UE ROM Discharge Recommendations Plan/Recommendations: Continue POC Therapy Discharge Recommendati: 24 Hour Supervision, Post Acute OT Treatment Plan/Plan of Care Treatment,Training & Education: Yes Patient would benefit from OT for education, treatment and training to promote independence in ADL's, mobility, safety and/or upper extremity function for ADL's. Plan of Care: ADL Retraining, Functional Mobility, UE Funct Exercise/Act Treatment Duration: Feb 24, 2021 Frequency: At least 5 of 7 days/Wk (IRF) Estimated Hrs Per Day: 1.5 hours per day Agreement: Yes Rehab Potential: Fair Time/GCodes Start Time: 10:00 Stop Time: 11:00 Total Time Billed (hr/min): 60 Billed Treatment Time 1, ADL x 15minutes, FA x 45minutes TAL THOMAS OT Feb 04, 2021 15:40
--- NOTE | 2021-02-04 15:49 | Occupational Ther Daily Note ---
OT Current Status-Daily Note Subjective No pain reported. Mental Status/Objective Patient Orientation: Person, Place ADL-Treatment Therapy Code Descriptions/Definitions Functional [place] Measure: 0=Not Assessed/NA 4=Minimal Assistance 1=Total Assistance 5=Supervision or Setup 2=Maximal Assistance 6=Modified [place] 3=Moderate Assistance 7=Complete IndependenceSCALE: Activities may be completed with or without assistive devices. 5-Fqldbqkplj-bqvyffy completes the activity by him/herself with no assistance from a helper. 5-Set-up or Clean-up Assistance-helper sets up or cleans up; patient completes activity. [place] assists only prior to or following the activity. 4-Supervision or Touching Assistance-helper provides verbal cues and/or touching/steadying and/or contact guard assistance as patient completes activity. Assistance may be provided throughout the activity or intermittently. 3-Partial/Moderate Assistance-helper does LESS THAN HALF the effort. [place] lifts, holds or supports trunk or limbs, but provides less than half the effort. 2-Substantial/Maximal Assistance-helper does MORE THAN HALF the effort. [place] lifts or holds trunk or limbs and provides more than half the effort. 2-Cwhlpaxau-gjsbjz does ALL the effort. Patient does none of the effort to complete the activity. Or, the assistance of 2 or more helpers is required for the patient to complete the activity. If activity was not attempted, code reason: 7-Patient Refused. 9-Not Applicable-not attempted and the patient did not perform the activity before the current illness, exacerbation or injury. 10-Not Attempted due to Environmental Limitations-(lack of equipment, weather restraints, etc.). 88-Not Attempted due to Medical Conditions or Safety Concerns. Other Treatment Pt. in bed. Had just completed PT earlier. Declines OOB activity. Requests to use bed michaels. Max x 2 to roll in bed to place bed michaels. Pt. able to urinate and then required max x 2 for removal/carla cleanse. Pt. completed UE exercises with 2 lb. dumbbell, x 4 exercises x 15 reps with left UE only in all planes. Pt. rested in between each exercise. All needs met in bed. Education OT Patient Education: Correct positioning, Exercise program, Modified ADL techniques, Progress toward Goal/Update tx plan, Purpose of tx/functional ac tivities, Reviewed precautions, Rehab process, Transfer techniques Teaching Recipient: Patient Teaching Methods: Demonstration, Discussion Response to Teaching: Verbalize Understanding, Return Demonstration OT Short Term Goals Short Term Goals Time Frame: Feb 10, 2021 Eatin Oral hygiene: 4 Toileting hygiene: 3 Shower/bathe self: 3 Upper body dressin Lower body dressin Putting on/taking off footwear: 3 OT Snf Goals Snf Goals Time Frame: Feb 24, 2021 Eating (QC): 6 Oral Hygiene (QC): 6 Toileting Hygiene (QC): 6 Shower/Bathe Self (QC): 4 Upper Body Dressing (QC): 5 Lower Body Dressing (QC): 5 On/Off Footwear (QC): 5 Additional Goals: 1-Demonstrate ADL Tasks, 2-Verbalize Understanding, 3- ImproveStrength/Brian 1=Demonstrate adherence to instructed precautions during ADL tasks. 2=Patient will verbalize/demonstrate understanding of assistive devices/modifications for ADL. 3=Patient will improve strength/tolerance for activity to enable patient to perform ADL's. OT Education/Plan Problem List/Assessment Assessment: Decreased Activ Tolerance, Impaired I ADL's, Impaired Self-Care Skills Discharge Recommendations Plan/Recommendations: Continue POC Therapy Discharge Recommendati: 24 Hour Supervision, Post Acute OT Treatment Plan/Plan of Care Treatment,Training & Education: Yes Patient would benefit from OT for education, treatment and training to promote independence in ADL's, mobility, safety and/or upper extremity function for ADL's. Plan of Care: ADL Retraining, Functional Mobility, UE Funct Exercise/Act Treatment Duration: Feb 24, 2021 Frequency: At least 5 of 7 days/Wk (IRF) Estimated Hrs Per Day: 1.5 hours per day Agreement: Yes Rehab Potential: Fair Time/GCodes Start Time: 13:30 Stop Time: 14:00 Total Time Billed (hr/min): 30 Billed Treatment Time 1, Ex x 15minutes, ADL x 15minutes TAL THOMAS OT Feb 04, 2021 15:49
[2021-02-04 20:00] VITALS: BP 156/69
[2021-02-04] MEDS: MELATONIN 3 MG TABLET PO PRN (21:01)
--- NOTE | 2021-02-05 05:45 | PM&R Progress Note ---
Subjective HPI/CC On Admission Date Seen by Provider: Feb 05, 2021 Time Seen by Provider: 06:00 Subjective/Events-last exam 02/05/2021: No significant concerns per nurses Patient feels pretty good Ready to work with therapy today Awaiting nursing facility to accept 02/04/2021: Pt doing pretty well Bowels are moving Pain is pretty well controlled Denies any other significant new problems No falls Moving around a little bit better Needs jail for slow recovery 02/03/2021: Patient doing pretty well Ice to right shoulder is helping Lower extremity edema nonpitting type Blood sugar is good at 123 155 Pain management successful Bowels are moving pretty well We will need to go to a jail Cheri lift cannot be used due to risk of too much pressure on the hardware in her leg 02/02/2021: Pt doing really well Glucose is 114 Will need a Cheri lift snf placement likely will be required Right shoulder pain noted She is thirsty all the time Pure-wic maintained 02/01/2021: Pt doing pretty well Complaining of right shoulder pain due to surgery Holding laxatives due to loose stools Hgb 8.2 Purewick maintained Unable to do sit to stand may need cheri 01/31/2021: Patient doing really well today Pain is well controlled Change pure wick a couple of times Glucose 220 this morning Bowels moved today 01/30/2021: Patient doing pretty well today Pain is well controlled Using pure wick Bowels moved yesterday Working out with therapy 01/29/2021: Pt doing pretty well Denies any significant new issues Participating in therapy Checked meds and labs Denies any pain 01/28/2021: Pt doing pretty well but had a pop in her right leg when she barely had weight bearing to it X-rays ordered Purewick maintained Check meds and labs Bowels are moving Review of Systems General: Fatigue Neurological: Weakness, Incoordination Objective Exam Vital Signs Vital Signs Date Time Temp Pulse Resp B/P (MAP) Pulse Ox O2 Delivery O2 Flow Rate FiO2 02/05/21 19:19 92 Room Air 02/05/21 07:32 36.4 81 24 152/67 (95) Capillary Refill : General Appearance: No Apparent Distress, WD/WN, Chronically ill HEENT: PERRL/EOMI, Normal ENT Inspection, Pharynx Normal Neck: Full Range of Motion, Normal Inspection, Non Tender, Supple, Carotid Bruit Respiratory: Chest Non Tender, Lungs Clear, Normal Breath Sounds, No Accessory Muscle Use, No Respiratory Distress Cardiovascular: Regular Rate, Rhythm, No Edema, No Gallop, No JVD, No Murmur, Normal Peripheral Pulses Gastrointestinal: Normal Bowel Sounds, No Organomegaly, No Pulsatile Mass, Non Tender, Soft Back: Normal Inspection, No CVA Tenderness, No Vertebral Tenderness Extremity: Normal Capillary Refill, Normal Inspection, Normal Range of Motion (Except right arm and right leg), Non Tender, No Calf Tenderness, No Pedal Edema Neurologic/Psychiatric: Alert, Oriented x3, No Motor/Sensory Deficits, center medical specialist II- XII Norm as Tested, Abnormal Gait, Depressed Affect, Motor Weakness (Right arm right leg) Skin: Normal Color, Warm/Dry Lymphatic: No Adenopathy Results/Procedures Lab Patient resulted labs reviewed. FIM Transfers Therapy Code Descriptions/Definitions Functional [place] Measure: 0=Not Assessed/NA 4=Minimal Assistance 1=Total Assistance 5=Supervision or Setup 2=Maximal Assistance 6=Modified [place] 3=Moderate Assistance 7=Complete IndependenceSCALE: Activities may be completed with or without assistive devices. 5-Rvivsiuvcl-gkfsbeg completes the activity by him/herself with no assistance from a helper. 5-Set-up or Clean-up Assistance-helper sets up or cleans up; patient completes activity. [place] assists only prior to or following the activity. 4-Supervision or Touching Assistance-helper provides verbal cues and/or touching/steadying and/or contact guard assistance as patient completes activity. Assistance may be provided throughout the activity or intermittently. 3-Partial/Moderate Assistance-helper does LESS THAN HALF the effort. [place] lifts, holds or supports trunk or limbs, but provides less than half the effort. 2-Substantial/Maximal Assistance-helper does MORE THAN HALF the effort. [place] lifts or holds trunk or limbs and provides more than half the effort. 4-Bubpserxy-odngwi does ALL the effort. Patient does none of the effort to complete the activity. Or, the assistance of 2 or more helpers is required for the patient to complete the activity. If activity was not attempted, code reason: 7-Patient Refused. 9-Not Applicable-not attempted and the patient did not perform the activity before the current illness, exacerbation or injury. 10-Not Attempted due to Environmental Limitations-(lack of equipment, weather restraints, etc.). 88-Not Attempted due to Medical Conditions or Safety Concerns. Roll Left to Right (QC): 2 Sit to Lying (QC): 1 Sit to Stand (QC): 1 Chair/Nvh-xt-Tjwrl Xfer(QC): 1 Car Transfer (QC): 1 Gait Training Does the Patient Walk?: No and Walking Goal IS indicated Walk 10 feet (QC): 88 Walk 50 ft with 2 Turns(QC): 88 Walk 150 ft (QC): 88 Walking 10ft/uneven surface-QC: 88 Wheelchair Training Does the Pt Use a Wheelchair?: Yes Wheel 50 ft with 2 turns (QC): 3 Wheel 150 ft (QC): 3 Type of Wheelchair: Manual Stair Training 1 Step (curb) (QC): 88 4 Steps (QC): 88 12 Steps (QC): 88 Balance Picking up an Object (QC): 88 ADL-Treatment Eating (QC): 5 Oral Hygiene (QC): 5 (Set up to brush teeth at bed level.) Shower/Bathe Self (QC): 3 (Mod assist in shower chair. Pt. encouraged to do more for self this date.) Upper Body Dressing (QC): 2 (Max assist to don over head dress.) Lower Body Dressing (QC): 88 On/Off Footwear (QC): 2 Toileting Hygiene (QC): 1 Toilet Transfer (QC): 1 (Max x 2 to roll side to side to place bedpan.) Assessment/Plan Assessment and Plan Assess & Plan/Chief Complaint Assessment: Distal fracture of right femur Closed comminuted fracture of right humerus ABLA (acute blood loss anemia) Morbid obesity ([facility]) Hyponatremia Syncope and collapse Impaired mobility and activities of daily living Acute traumatic pain Sleep disorder CAD (coronary artery disease HTN (hypertension) COPD (chronic obstructive pulmonary disease) ([facility]) At risk for constipation DM (diabetes mellitus) ([facility]) Plan: Aggressive therapy Pain control Supportive care 01/28/2021: Supportive care to continue Check x-ray of leg Continue nonweightbearing status 01/29/2021: Supportive care Monitor bowel function Pain control 01/30/2021: Supportive care Pain control Bowel regimen 01/31/2021: Aggressive therapy Supportive care 02/01/2021: Pain control Pure wick Monitor glucose 02/02/2021: Supportive care Needs jail due to complete dependence 02/03/2021: Supportive care Needs jail Ice to shoulder Pain management 02/04/2021: Pain control Improve transfers Monitor closely 02/05/2021: Bowel regimen Pain control Monitor closely (1) Femur fracture ALCIDES RUIZ DO Feb 05, 2021 05:45
[2021-02-05] MEDS: inSUlin ASPART (NovoLOG) 1 UNIT/0.01 ML (CHARGE PER UNIT) SC SCH ×7 (05:55→20:41)
[2021-02-05] MEDS: ENOXAPARIN 40 MG/0.4 ML (LOVENOX) SYR SC SCH ×2 (06:03→18:00)
[2021-02-05] MEDS: RT--FLUTICASONE/SALMETEROL 113-14 (AIRDUO RespiCLICK) IH SCH ×2 (07:28→19:19)
[2021-02-05 07:32] VITALS: BP 152/67
[2021-02-05] MEDS: GABAPENTIN 400 MG (NEURONTIN) CAP PO SCH ×3 (08:02→21:24)
[2021-02-05] MEDS: amLODIPine 10 MG (NORVASC) TAB PO SCH (08:02)
[2021-02-05] MEDS: metFORMIN XR 500 MG (GLUCOPHAGE XR) TAB PO SCH ×2 (08:02→21:24)
[2021-02-05] MEDS: CLOPIDOGREL 75 MG (PLAVIX) TABLET PO SCH (08:02)
[2021-02-05] MEDS: FLUDROCORTISONE 0.1 MG (FLORINEF) TAB PO SCH ×3 (08:02→21:24)
[2021-02-05] MEDS: DOCUSATE SODIUM 100 MG (COLACE) CAP PO SCH ×2 (08:03→21:20)
[2021-02-05] MEDS: polyethylene glycoL POWDER 17 GM (MIRALAX) PACK PO SCH ×2 (08:04→21:20)
[2021-02-05] MEDS: SENNA W/DOCUSATE (SENOKOT S) TABLET PO SCH ×2 (08:04→21:20)
--- NOTE | 2021-02-05 10:16 | Physical Therapy Daily Note ---
PT Daily Note-Current Subjective Patient in bed pre tx, has 9/10 pain in right leg and shoulder. Will be co- treating with OT for part of tx due to poor patient mobility, strength, endurance, severe pain with activity, complicated weight bearing status, coordinate UE and LE during activity, safety and reduce risk of falls. Appearance Patient in bed post tx, will continue for a bit with OT. Mental Status Patient Orientation: Person, Place, Situation Transfers SCALE: Activities may be completed with or without assistive devices. 5-Czimbysbnm-ihampig completes the activity by him/herself with no assistance from a helper. 5-Set-up or Clean-up Assistance-helper sets up or cleans up; patient completes activity. [place] assists only prior to or following the activity. 4-Supervision or Touching Assistance-helper provides verbal cues and/or touching/steadying and/or contact guard assistance as patient completes activity. Assistance may be provided throughout the activity or intermittently. 3-Partial/Moderate Assistance-helper does LESS THAN HALF the effort. [place] lifts, holds or supports trunk or limbs, but provides less than half the effort. 2-Substantial/Maximal Assistance-helper does MORE THAN HALF the effort. [place] lifts or holds trunk or limbs and provides more than half the effort. 7-Zgklukiev-httnsr does ALL the effort. Patient does none of the effort to complete the activity. Or, the assistance of 2 or more helpers is required for the patient to complete the activity. If activity was not attempted, code reason: 7-Patient Refused. 9-Not Applicable-not attempted and the patient did not perform the activity before the current illness, exacerbation or injury. 10-Not Attempted due to Environmental Limitations-(lack of equipment, weather restraints, etc.). 88-Not Attempted due to Medical Conditions or Safety Concerns. Roll Left & Right (QC): 1 Sit to Lying (QC): 1 Lying to Sitting/Side of Bed(Q: 1 Patient needs bathed but doesn't want to use shower chair due to pain. Patient has soiled the bed, she has to roll from side to side with assist of 2 for cleaning and changing bed and pad. She sits on the side of the bed with assist of 2, undresses and bathes, PT assists with sitting balance and positioning. Patient lays back down and has to use the bedpan, rolls again with assist of 2, when done she has soiled the bed again and has to roll from side to side with assist of 2 to change pad and get cleaned again. Weight Bearing Right Lower Extremity: Right Touch Toe Bearing RUE NWB Treatments PT performed bed mobility and sitting balance and positioning, rolling, OT performed cleaning, dressing, bathing Assessment Current Status: Poor Progress no change in mobility PT Short Term Goals Short Term Goals Time Frame: Feb 03, 2021 Roll Left & Right: 2 Sit to lyin Lying to sitting on side of be: 2 Sit to stand: 2 Chair/jts-dm-lkmnn transfer: 2 PT Utility Porter Goals Utility Porter Goals PT Utility Porter Goals Time Frame: Feb 17, 2021 Roll Left & Right (QC): 3 Sit to Lying (QC): 3 Lying-Sitting on Side/Bed(QC): 3 Sit to Stand (QC): 3 Chair/Kyh-jb-Duojd Xfer(QC): 3 Toilet Transfer (QC): 3 Car Transfer (QC): 3 Does the Patient Walk: No and Walking Goal NOT indicated Walk 10 feet (QC): 88 Walk 50ft with 2 Turns (QC): 88 Walk 150 ft (QC): 88 Walking 10ft on Uneven Surface: 88 1 Step (curb) (QC): 88 4 Steps (QC): 88 12 Steps (QC): 88 Picking up an Object (QC): 88 Wheel 50 feet with 2 turns (QC: 5 Wheel 150 feet: 5 PT Plan Problem List Problem List: Activity Tolerance, Functional Strength, Safety, Balance, Gait, Transfer, Bed Mobility, ROM Treatment/Plan Treatment Plan: Continue Plan of Care Treatment Plan: Bed Mobility, Education, Functional Activity Brian, Functional Strength, Group Therapy, Gait, Safety, Therapeutic Exercise, Transfers Treatment Duration: Feb 17, 2021 Frequency: At least 5 of 7 days/Wk (IRF) Estimated Hrs Per Day: .25 hour per day Patient and/or Family Agrees t: Yes Safety Risks/Education Patient Education: Reviewed Precautions, Correct Positioning, Safety Issues Teaching Recipient: Patient Teaching Methods: Demonstration, Discussion Response to Teaching: Reinforcement Needed Time/GCodes Time In: 0900 Time Out: 1000 Total Billed Treatment Time: 60 Total Billed Treatment 1 visit FA 60' PIETRO BHANDARI PT Feb 05, 2021 10:16
--- NOTE | 2021-02-05 10:24 | Occupational Ther Daily Note ---
OT Current Status-Daily Note Subjective Pt. reports pain in right UE/LE but does not state pain level. It is not time for new pain med at beginning of treatment. However, pt. does request pain pill at end, and nursing notified. Mental Status/Objective Patient Orientation: Person, Place ADL-Treatment Therapy Code Descriptions/Definitions Functional [place] Measure: 0=Not Assessed/NA 4=Minimal Assistance 1=Total Assistance 5=Supervision or Setup 2=Maximal Assistance 6=Modified [place] 3=Moderate Assistance 7=Complete IndependenceSCALE: Activities may be completed with or without assistive devices. 6-Qlacaudcew-axtzxpa completes the activity by him/herself with no assistance from a helper. 5-Set-up or Clean-up Assistance-helper sets up or cleans up; patient completes activity. [place] assists only prior to or following the activity. 4-Supervision or Touching Assistance-helper provides verbal cues and/or touching/steadying and/or contact guard assistance as patient completes activity. Assistance may be provided throughout the activity or intermittently. 3-Partial/Moderate Assistance-helper does LESS THAN HALF the effort. [place] lifts, holds or supports trunk or limbs, but provides less than half the effort. 2-Substantial/Maximal Assistance-helper does MORE THAN HALF the effort. [place] lifts or holds trunk or limbs and provides more than half the effort. 6-Ngpyxnptn-frheyj does ALL the effort. Patient does none of the effort to complete the activity. Or, the assistance of 2 or more helpers is required for the patient to complete the activity. If activity was not attempted, code reason: 7-Patient Refused. 9-Not Applicable-not attempted and the patient did not perform the activity before the current illness, exacerbation or injury. 10-Not Attempted due to Environmental Limitations-(lack of equipment, weather restraints, etc.). 88-Not Attempted due to Medical Conditions or Safety Concerns. Oral Hygiene (QC): 5 (Set up at bed level to brush teeth.) Shower/Bathe Self (QC): 2 (Overall, max assist. Pt. able to wash chest sitting on EOB. She is able to lean forward and wash under right arm. She is able to wash upper thighs. OT washes left UE, under left breast, bilateral feet, and then in supine, carla area.) On/Off Footwear: 1 Toileting Hygiene (QC): 1 (Pt. incontinent of bowel and bladder in bed. Max x 2 to roll and cleanse self.) Toilet Transfer (QC): 1 (Bed michaels) Other Treatment Pt. seen for co-treatment with PT/OT due to need of skilled assistance x 2. PT focused on mobility, transfers, and positioning while EOB. OT focused on ADL skills. Pt. was encouraged to shower, but states that she is in too much pain. She does agree to sit on EOB with assist. Max x 2 for supine-sit and PT assists with posture, static and dynamic sitting balance, while OT addresses ADL skills. Pt. receives several phone calls during treatment and demonstrates poor attention with rest of ADL skills. Unaware of being in middle of therapy session. Max assist to roll to get on bed michaels. Pt. is able to urinate in bed michaels. Max assist for cleansing while another person holds her on her side. PT left session and OT assisted pt. with brushing teeth in bed. OT also encouraged pt. to brush her own hair, and OT placed in ponytail. All needs met and pt. positioned. Notified nursing that pt. would like pain medication. Education OT Patient Education: Correct positioning, Modified ADL techniques, Progress toward Goal/Update tx plan, Purpose of tx/functional activities, Reviewed precautions, Rehab process, Transfer techniques Teaching Recipient: Patient Teaching Methods: Demonstration, Discussion Response to Teaching: Verbalize Understanding, Return Demonstration OT Short Term Goals Short Term Goals Time Frame: Feb 10, 2021 Eatin Oral hygiene: 4 Toileting hygiene: 3 Shower/bathe self: 3 Upper body dressin Lower body dressin Putting on/taking off footwear: 3 OT Marine Engineering Teacher Goals Retirement Goals Time Frame: Feb 24, 2021 Eating (QC): 6 Oral Hygiene (QC): 6 Toileting Hygiene (QC): 6 Shower/Bathe Self (QC): 4 Upper Body Dressing (QC): 5 Lower Body Dressing (QC): 5 On/Off Footwear (QC): 5 Additional Goals: 1-Demonstrate ADL Tasks, 2-Verbalize Understanding, 3- ImproveStrength/Brian 1=Demonstrate adherence to instructed precautions during ADL tasks. 2=Patient will verbalize/demonstrate understanding of assistive devices/modifications for ADL. 3=Patient will improve strength/tolerance for activity to enable patient to perform ADL's. OT Education/Plan Problem List/Assessment Assessment: Decreased Activ Tolerance, Dependent Transfers, Impaired Bed Mobility, Impaired Funct Balance, Impaired I ADL's, Impaired Self-Care Skills, Restricted Funct UE ROM Discharge Recommendations Plan/Recommendations: Continue POC Therapy Discharge Recommendati: 24 Hour Supervision, Post Acute OT Treatment Plan/Plan of Care Treatment,Training & Education: Yes Patient would benefit from OT for education, treatment and training to promote independence in ADL's, mobility, safety and/or upper extremity function for ADL's. Plan of Care: ADL Retraining, Functional Mobility, UE Funct Exercise/Act Treatment Duration: Feb 24, 2021 Frequency: At least 5 of 7 days/Wk (IRF) Estimated Hrs Per Day: 1.5 hours per day Agreement: Yes Rehab Potential: Fair Time/GCodes Start Time: 09:15 Stop Time: 10:15 Total Time Billed (hr/min): 60 Billed Treatment Time [id number] 1, ADL x 45minutes- Co-treat with PT [id number] ADL x 15minutes TAL THOMAS OT Feb 05, 2021 10:24
--- NOTE | 2021-02-05 12:18 | Occupational Ther Daily Note ---
OT Current Status-Daily Note Subjective Pt. alert in bed. Nursing had just changed and laid down dry pad to protect skin against wet spot until able to locate help to change bed. Pt. c/o of pain but had received medicine. Pt. agreed to therapy. Mental Status/Objective Patient Orientation: Person, Place, Time, Situation ADL-Treatment Pt. roll in bed to L side, required assistance holding position. Pt. roll to R side required assistance to roll due to injury of arm and leg. Therapy Code Descriptions/Definitions Functional [place] Measure: 0=Not Assessed/NA 4=Minimal Assistance 1=Total Assistance 5=Supervision or Setup 2=Maximal Assistance 6=Modified [place] 3=Moderate Assistance 7=Complete IndependenceSCALE: Activities may be completed with or without assistive devices. 7-Wzgduuxopj-hnyctec completes the activity by him/herself with no assistance from a helper. 5-Set-up or Clean-up Assistance-helper sets up or cleans up; patient completes activity. [place] assists only prior to or following the activity. 4-Supervision or Touching Assistance-helper provides verbal cues and/or touching/steadying and/or contact guard assistance as patient completes activity. Assistance may be provided throughout the activity or intermittently. 3-Partial/Moderate Assistance-helper does LESS THAN HALF the effort. [place] lifts, holds or supports trunk or limbs, but provides less than half the effort. 2-Substantial/Maximal Assistance-helper does MORE THAN HALF the effort. [place] lifts or holds trunk or limbs and provides more than half the effort. 2-Nhqpzymsw-uebvmo does ALL the effort. Patient does none of the effort to complete the activity. Or, the assistance of 2 or more helpers is required for the patient to complete the activity. If activity was not attempted, code reason: 7-Patient Refused. 9-Not Applicable-not attempted and the patient did not perform the activity before the current illness, exacerbation or injury. 10-Not Attempted due to Environmental Limitations-(lack of equipment, weather restraints, etc.). 88-Not Attempted due to Medical Conditions or Safety Concerns. Other Treatment Once Pt. adjusted and comfortable, Pt. participated in shoulder flex/exten batting a balloon back/forth using L UE for ~ 10 min with MOURA to increase strength and activity tolerance for daily functional. Pt. completed isometrics exercises to strengthen tricep. Pt. requested ice for shoulder due to pain, ice applied. Pt. was left with phone/call light in reach. All needs met in room. OT Short Term Goals Short Term Goals Time Frame: Feb 10, 2021 Eatin Oral hygiene: 4 Toileting hygiene: 3 Shower/bathe self: 3 Upper body dressin Lower body dressin Putting on/taking off footwear: 3 OT Sprinkling System Irrigator Goals Sprinkling System Irrigator Goals Time Frame: Feb 24, 2021 Eating (QC): 6 Oral Hygiene (QC): 6 Toileting Hygiene (QC): 6 Shower/Bathe Self (QC): 4 Upper Body Dressing (QC): 5 Lower Body Dressing (QC): 5 On/Off Footwear (QC): 5 Additional Goals: 1-Demonstrate ADL Tasks, 2-Verbalize Understanding, 3- ImproveStrength/Brian 1=Demonstrate adherence to instructed precautions during ADL tasks. 2=Patient will verbalize/demonstrate understanding of assistive devices/modifications for ADL. 3=Patient will improve strength/tolerance for activity to enable patient to perform ADL's. OT Education/Plan Problem List/Assessment Assessment: Decreased Activ Tolerance, Decreased UE Strength, Edema, Impaired Bed Mobility, Restricted Funct UE ROM Discharge Recommendations Plan/Recommendations: Continue POC Treatment Plan/Plan of Care Patient would benefit from OT for education, treatment and training to promote independence in ADL's, mobility, safety and/or upper extremity function for ADL's. Plan of Care: ADL Retraining, Functional Mobility, UE Funct Exercise/Act Treatment Duration: Feb 24, 2021 Frequency: At least 5 of 7 days/Wk (IRF) Estimated Hrs Per Day: 1.5 hours per day Agreement: Yes Rehab Potential: Fair Time/GCodes Start Time: 11:30 Stop Time: 12:00 Total Time Billed (hr/min): 30 Billed Treatment Time 1 visit-FA 1 (15 min) EX 1 (15 min) EUGENIE WILLAMS Feb 05, 2021 12:17
--- NOTE | 2021-02-05 13:43 | Physical Therapy Daily Note ---
PT Daily Note-Current Subjective Patient in bed pre tx, agrees to PT, has 9/10 pain in right shoulder and leg. Appearance Patient in bed post tx with nurse call, phone, tray, all needs met. Mental Status Patient Orientation: Person, Place, Situation Transfers SCALE: Activities may be completed with or without assistive devices. 0-Ghkkxwmxpl-zmpnbxr completes the activity by him/herself with no assistance from a helper. 5-Set-up or Clean-up Assistance-helper sets up or cleans up; patient completes activity. [place] assists only prior to or following the activity. 4-Supervision or Touching Assistance-helper provides verbal cues and/or touching/steadying and/or contact guard assistance as patient completes activity. Assistance may be provided throughout the activity or intermittently. 3-Partial/Moderate Assistance-helper does LESS THAN HALF the effort. [place] lifts, holds or supports trunk or limbs, but provides less than half the effort. 2-Substantial/Maximal Assistance-helper does MORE THAN HALF the effort. [place] lifts or holds trunk or limbs and provides more than half the effort. 9-Hupsxaowk-dnwllg does ALL the effort. Patient does none of the effort to complete the activity. Or, the assistance of 2 or more helpers is required for the patient to complete the activity. If activity was not attempted, code reason: 7-Patient Refused. 9-Not Applicable-not attempted and the patient did not perform the activity before the current illness, exacerbation or injury. 10-Not Attempted due to Environmental Limitations-(lack of equipment, weather restraints, etc.). 88-Not Attempted due to Medical Conditions or Safety Concerns. Weight Bearing Right Lower Extremity: Right Touch Toe Bearing RUE NWB Exercises Supine Ex: Ankle pumps, Quad Set, Glut sets, Heel Slides (patient performs small ones on the right side (only about 20 degrees)), Short Arc Quads (LLE only), Straight leg raise (AAROM on the right side), Hip abd/add (AAROM on the right side) Treatments LE strengthening and ROM Assessment Current Status: Poor Progress more difficulty on right side due to pain PT Short Term Goals Short Term Goals Time Frame: Feb 03, 2021 Roll Left & Right: 2 Sit to lyin Lying to sitting on side of be: 2 Sit to stand: 2 Chair/hfq-kp-lvhpl transfer: 2 PT Oxygraph Operator Goals Oxygraph Operator Goals PT Oxygraph Operator Goals Time Frame: Feb 17, 2021 Roll Left & Right (QC): 3 Sit to Lying (QC): 3 Lying-Sitting on Side/Bed(QC): 3 Sit to Stand (QC): 3 Chair/Gib-nj-Xgoku Xfer(QC): 3 Toilet Transfer (QC): 3 Car Transfer (QC): 3 Does the Patient Walk: No and Walking Goal NOT indicated Walk 10 feet (QC): 88 Walk 50ft with 2 Turns (QC): 88 Walk 150 ft (QC): 88 Walking 10ft on Uneven Surface: 88 1 Step (curb) (QC): 88 4 Steps (QC): 88 12 Steps (QC): 88 Picking up an Object (QC): 88 Wheel 50 feet with 2 turns (QC: 5 Wheel 150 feet: 5 PT Plan Problem List Problem List: Activity Tolerance, Functional Strength, Safety, Balance, Gait, Transfer, Bed Mobility, ROM Treatment/Plan Treatment Plan: Continue Plan of Care Treatment Plan: Bed Mobility, Education, Functional Activity Brian, Functional Strength, Group Therapy, Gait, Safety, Therapeutic Exercise, Transfers Treatment Duration: Feb 17, 2021 Frequency: At least 5 of 7 days/Wk (IRF) Estimated Hrs Per Day: .25 hour per day Patient and/or Family Agrees t: Yes Safety Risks/Education Patient Education: Correct Positioning, Safety Issues Teaching Recipient: Patient Teaching Methods: Demonstration, Discussion Response to Teaching: Reinforcement Needed Time/GCodes Time In: 1315 Time Out: 1345 Total Billed Treatment Time: 30 Total Billed Treatment 1 visit EX 30' PIETRO BHANDARI PT Feb 05, 2021 13:43
[2021-02-05 20:00] VITALS: BP 152/76
[2021-02-05] MEDS: MELATONIN 3 MG TABLET PO PRN (21:24)
[2021-02-06] MEDS: inSUlin ASPART (NovoLOG) 1 UNIT/0.01 ML (CHARGE PER UNIT) SC SCH ×7 (05:09→20:11)
--- NOTE | 2021-02-06 06:20 | PM&R Progress Note ---
Subjective HPI/CC On Admission Date Seen by Provider: Feb 06, 2021 Time Seen by Provider: 06:20 Subjective/Events-last exam 02/06/21: Patient doing well Sleeping currently No falls Pain controlled Checked meds and labs 02/05/2021: No significant concerns per nurses Patient feels pretty good Ready to work with therapy today Awaiting nursing facility to accept 02/04/2021: Pt doing pretty well Bowels are moving Pain is pretty well controlled Denies any other significant new problems No falls Moving around a little bit better Needs halfway for slow recovery 02/03/2021: Patient doing pretty well Ice to right shoulder is helping Lower extremity edema nonpitting type Blood sugar is good at 123 155 Pain management successful Bowels are moving pretty well We will need to go to a halfway Cheri lift cannot be used due to risk of too much pressure on the hardware in her leg 02/02/2021: Pt doing really well Glucose is 114 Will need a Cheri lift shelter placement likely will be required Right shoulder pain noted She is thirsty all the time Pure-wic maintained 02/01/2021: Pt doing pretty well Complaining of right shoulder pain due to surgery Holding laxatives due to loose stools Hgb 8.2 Purewick maintained Unable to do sit to stand may need cheri 01/31/2021: Patient doing really well today Pain is well controlled Change pure wick a couple of times Glucose 220 this morning Bowels moved today 01/30/2021: Patient doing pretty well today Pain is well controlled Using pure wick Bowels moved yesterday Working out with therapy 01/29/2021: Pt doing pretty well Denies any significant new issues Participating in therapy Checked meds and labs Denies any pain 01/28/2021: Pt doing pretty well but had a pop in her right leg when she barely had weight bearing to it X-rays ordered Purewick maintained Check meds and labs Bowels are moving Review of Systems General: Fatigue, Malaise Musculoskeletal: arm pain, leg pain Neurological: Weakness Objective Exam Vital Signs Vital Signs Date Time Temp Pulse Resp B/P (MAP) Pulse Ox O2 Delivery O2 Flow Rate FiO2 02/06/21 09:28 Room Air 02/06/21 07:25 93 0.00 02/06/21 07:16 36.6 86 22 177/74 (108) Capillary Refill : General Appearance: No Apparent Distress, WD/WN, Chronically ill HEENT: PERRL/EOMI, Normal ENT Inspection, Pharynx Normal Neck: Full Range of Motion, Normal Inspection, Non Tender, Supple, Carotid Bruit Respiratory: Chest Non Tender, Lungs Clear, Normal Breath Sounds, No Accessory Muscle Use, No Respiratory Distress Cardiovascular: Regular Rate, Rhythm, No Edema, No Gallop, No JVD, No Murmur, Normal Peripheral Pulses Gastrointestinal: Normal Bowel Sounds, No Organomegaly, No Pulsatile Mass, Non Tender, Soft Back: Normal Inspection, No CVA Tenderness, No Vertebral Tenderness Extremity: Normal Capillary Refill, Normal Inspection, Normal Range of Motion (Except right arm and right leg), Non Tender, No Calf Tenderness, No Pedal Edema Neurologic/Psychiatric: Alert, Oriented x3, No Motor/Sensory Deficits, sagger soak II- XII Norm as Tested, Abnormal Gait, Depressed Affect, Motor Weakness (Right arm right leg) Skin: Normal Color, Warm/Dry Lymphatic: No Adenopathy Results/Procedures Lab Patient resulted labs reviewed. FIM Transfers Therapy Code Descriptions/Definitions Functional [place] Measure: 0=Not Assessed/NA 4=Minimal Assistance 1=Total Assistance 5=Supervision or Setup 2=Maximal Assistance 6=Modified [place] 3=Moderate Assistance 7=Complete IndependenceSCALE: Activities may be completed with or without assistive devices. 9-Nyaaggoqqq-fucqvwk completes the activity by him/herself with no assistance from a helper. 5-Set-up or Clean-up Assistance-helper sets up or cleans up; patient completes activity. [place] assists only prior to or following the activity. 4-Supervision or Touching Assistance-helper provides verbal cues and/or touching/steadying and/or contact guard assistance as patient completes activity. Assistance may be provided throughout the activity or intermittently. 3-Partial/Moderate Assistance-helper does LESS THAN HALF the effort. [place] lifts, holds or supports trunk or limbs, but provides less than half the effort. 2-Substantial/Maximal Assistance-helper does MORE THAN HALF the effort. [place] lifts or holds trunk or limbs and provides more than half the effort. 2-Rotrxprtt-qwjdxw does ALL the effort. Patient does none of the effort to complete the activity. Or, the assistance of 2 or more helpers is required for the patient to complete the activity. If activity was not attempted, code reason: 7-Patient Refused. 9-Not Applicable-not attempted and the patient did not perform the activity before the current illness, exacerbation or injury. 10-Not Attempted due to Environmental Limitations-(lack of equipment, weather restraints, etc.). 88-Not Attempted due to Medical Conditions or Safety Concerns. Roll Left to Right (QC): 1 Sit to Lying (QC): 1 Sit to Stand (QC): 1 Chair/Qyi-qv-Xrjhe Xfer(QC): 1 Car Transfer (QC): 1 Gait Training Does the Patient Walk?: No and Walking Goal IS indicated Walk 10 feet (QC): 88 Walk 50 ft with 2 Turns(QC): 88 Walk 150 ft (QC): 88 Walking 10ft/uneven surface-QC: 88 Wheelchair Training Does the Pt Use a Wheelchair?: Yes Wheel 50 ft with 2 turns (QC): 3 Wheel 150 ft (QC): 3 Type of Wheelchair: Manual Stair Training 1 Step (curb) (QC): 88 4 Steps (QC): 88 12 Steps (QC): 88 Balance Picking up an Object (QC): 88 ADL-Treatment Eating (QC): 5 Oral Hygiene (QC): 5 (Set up at bed level to brush teeth.) Shower/Bathe Self (QC): 2 (Overall, max assist. Pt. able to wash chest sitting on EOB. She is able to lean forward and wash under right arm. She is able to wash upper thighs. OT washes left UE, under left breast, bilateral feet, and then in supine, carla area.) Upper Body Dressing (QC): 2 (Max assist to don over head dress.) Lower Body Dressing (QC): 88 On/Off Footwear (QC): 1 Toileting Hygiene (QC): 1 (Pt. incontinent of bowel and bladder in bed. Max x 2 to roll and cleanse self.) Toilet Transfer (QC): 1 (Bed michaels) Assessment/Plan Assessment and Plan Assess & Plan/Chief Complaint Assessment: Distal fracture of right femur Closed comminuted fracture of right humerus ABLA (acute blood loss anemia) Morbid obesity (HCC) Hyponatremia Syncope and collapse Impaired mobility and activities of daily living Acute traumatic pain Sleep disorder CAD (coronary artery disease HTN (hypertension) COPD (chronic obstructive pulmonary disease) ([facility]) At risk for constipation DM (diabetes mellitus) ([facility]) Plan: Aggressive therapy Pain control Supportive care 01/28/2021: Supportive care to continue Check x-ray of leg Continue nonweightbearing status 01/29/2021: Supportive care Monitor bowel function Pain control 01/30/2021: Supportive care Pain control Bowel regimen 01/31/2021: Aggressive therapy Supportive care 02/01/2021: Pain control Pure wick Monitor glucose 02/02/2021: Supportive care Needs halfway due to complete dependence 02/03/2021: Supportive care Needs halfway Ice to shoulder Pain management 02/04/2021: Pain control Improve transfers Monitor closely 02/05/2021: Bowel regimen Pain control Monitor closely 02/06/21: Monitor pain Fall risk (1) Femur fracture ALCIDES RUIZ DO Feb 06, 2021 06:20
[2021-02-06] MEDS: ENOXAPARIN 40 MG/0.4 ML (LOVENOX) SYR SC SCH ×2 (06:42→18:43)
[2021-02-06 07:16] VITALS: BP 177/74
[2021-02-06] MEDS: RT--FLUTICASONE/SALMETEROL 113-14 (AIRDUO RespiCLICK) IH SCH ×2 (07:25→20:40)
[2021-02-06] MEDS: metFORMIN XR 500 MG (GLUCOPHAGE XR) TAB PO SCH ×2 (08:33→20:58)
[2021-02-06] MEDS: CLOPIDOGREL 75 MG (PLAVIX) TABLET PO SCH (08:33)
[2021-02-06] MEDS: FLUDROCORTISONE 0.1 MG (FLORINEF) TAB PO SCH ×3 (08:33→20:57)
[2021-02-06] MEDS: amLODIPine 10 MG (NORVASC) TAB PO SCH (08:33)
[2021-02-06] MEDS: GABAPENTIN 400 MG (NEURONTIN) CAP PO SCH ×3 (08:33→20:58)
[2021-02-06] MEDS: DOCUSATE SODIUM 100 MG (COLACE) CAP PO SCH ×2 (09:26→19:51)
[2021-02-06] MEDS: SENNA W/DOCUSATE (SENOKOT S) TABLET PO SCH ×2 (09:26→19:51)
[2021-02-06] MEDS: polyethylene glycoL POWDER 17 GM (MIRALAX) PACK PO SCH ×2 (09:26→19:51)
--- NOTE | 2021-02-06 10:11 | Physical Therapy Daily Note ---
PT Daily Note-Current Subjective Patient lying supine in bed upon PT arrival, agreeable to treatment. Patient reports 0/10 pain at rest. Mental Status Patient Orientation: Person, Place, Time, Situation Transfers SCALE: Activities may be completed with or without assistive devices. 8-Latdhpqafu-uvbldzy completes the activity by him/herself with no assistance from a helper. 5-Set-up or Clean-up Assistance-helper sets up or cleans up; patient completes activity. [place] assists only prior to or following the activity. 4-Supervision or Touching Assistance-helper provides verbal cues and/or touching/steadying and/or contact guard assistance as patient completes activity. Assistance may be provided throughout the activity or intermittently. 3-Partial/Moderate Assistance-helper does LESS THAN HALF the effort. [place] lifts, holds or supports trunk or limbs, but provides less than half the effort. 2-Substantial/Maximal Assistance-helper does MORE THAN HALF the effort. [place] lifts or holds trunk or limbs and provides more than half the effort. 1-Dowqjnzjh-kaokeg does ALL the effort. Patient does none of the effort to complete the activity. Or, the assistance of 2 or more helpers is required for the patient to complete the activity. If activity was not attempted, code reason: 7-Patient Refused. 9-Not Applicable-not attempted and the patient did not perform the activity before the current illness, exacerbation or injury. 10-Not Attempted due to Environmental Limitations-(lack of equipment, weather restraints, etc.). 88-Not Attempted due to Medical Conditions or Safety Concerns. Roll Left & Right (QC): 2 Sit to Lying (QC): 2 Lying to Sitting/Side of Bed(Q: 2 Sit to Stand (QC): 1 Chair/Dha-nc-Qwdij Xfer(QC): 1 Weight Bearing Right Lower Extremity: Right Touch Toe Bearing RUE NWB Gait Training Does the Patient Walk?: No and Walking Goal IS indicated Exercises Supine Ex: Ankle pumps, Quad Set, Glut sets Supine Reps: 20 Seated Therapy Exercises: Long arc quads, Hip flexion, Hamstring Curls, Hip abd/add Seated Reps: 20 Treatments Therapeutic exercise for increased LE strength to assist with improved bed mobility and transfers; FA to improved function, bed mobility and transfers. Assessment Current Status: Fair Progress Patient lying supine in bed upon PT arrival, agreeable to treatment. Patient performs bed mobility with max A and attempts to push herself. Able to move LE's to the edge of the bed and over with min/mod A, however at that point she is unable to progress without max A. Requires Max A for supine to sit and total for stand pivot to chair. Patient performs LE therapeutic exercise in supine before transfers and in sitting post transfer. Patient in chair post treatment with all needs met, nursing notified, call light in reach. PT Short Term Goals Short Term Goals Time Frame: Feb 03, 2021 Roll Left & Right: 2 Sit to lyin Lying to sitting on side of be: 2 Sit to stand: 2 Chair/dkj-dl-pcqvs transfer: 2 PT Grading Clerk Goals [facility] Living Goals PT Grading Clerk Goals Time Frame: Feb 17, 2021 Roll Left & Right (QC): 3 Sit to Lying (QC): 3 Lying-Sitting on Side/Bed(QC): 3 Sit to Stand (QC): 3 Chair/Mqw-gf-Xbdpf Xfer(QC): 3 Toilet Transfer (QC): 3 Car Transfer (QC): 3 Does the Patient Walk: No and Walking Goal NOT indicated Walk 10 feet (QC): 88 Walk 50ft with 2 Turns (QC): 88 Walk 150 ft (QC): 88 Walking 10ft on Uneven Surface: 88 1 Step (curb) (QC): 88 4 Steps (QC): 88 12 Steps (QC): 88 Picking up an Object (QC): 88 Wheel 50 feet with 2 turns (QC: 5 Wheel 150 feet: 5 PT Plan Treatment/Plan Treatment Plan: Continue Plan of Care Treatment Plan: Bed Mobility, Education, Functional Activity Brian, Functional Strength, Group Therapy, Gait, Safety, Therapeutic Exercise, Transfers Treatment Duration: Feb 17, 2021 Frequency: At least 5 of 7 days/Wk (IRF) Estimated Hrs Per Day: .25 hour per day Patient and/or Family Agrees t: Yes Safety Risks/Education Patient Education: Transfer Techniques, Reviewed Precautions, Safety Issues Teaching Recipient: Patient Teaching Methods: Demonstration, Discussion Response to Teaching: Verbalize Understanding Time/GCodes Time In: 820 Time Out: 845 Total Billed Treatment Time: 25 Total Billed Treatment Visit, Herbert BROWN JOHN A PT Feb 06, 2021 10:10
[2021-02-06 20:00] VITALS: BP 153/70
[2021-02-06] MEDS: MELATONIN 3 MG TABLET PO PRN (20:57)
[2021-02-07] MEDS: inSUlin ASPART (NovoLOG) 1 UNIT/0.01 ML (CHARGE PER UNIT) SC SCH ×7 (05:24→21:13)
--- NOTE | 2021-02-07 05:40 | PM&R Progress Note ---
Subjective HPI/CC On Admission Date Seen by Provider: Feb 07, 2021 Time Seen by Provider: 05:45 Subjective/Events-last exam 02/07/21: Patient having depression issues Behavioral health consult is requested No pain other than chronic issues with fractures No issues otherwise Talked about her with [place] and 44 years and other details 02/06/21: Patient doing well Sleeping currently No falls Pain controlled Checked meds and labs 02/05/2021: No significant concerns per nurses Patient feels pretty good Ready to work with therapy today Awaiting nursing facility to accept 02/04/2021: Pt doing pretty well Bowels are moving Pain is pretty well controlled Denies any other significant new problems No falls Moving around a little bit better Needs half-way for slow recovery 02/03/2021: Patient doing pretty well Ice to right shoulder is helping Lower extremity edema nonpitting type Blood sugar is good at 123 155 Pain management successful Bowels are moving pretty well We will need to go to a half-way Cheri lift cannot be used due to risk of too much pressure on the hardware in her leg 02/02/2021: Pt doing really well Glucose is 114 Will need a Cheri lift long-term placement likely will be required Right shoulder pain noted She is thirsty all the time Pure-wic maintained 02/01/2021: Pt doing pretty well Complaining of right shoulder pain due to surgery Holding laxatives due to loose stools Hgb 8.2 Purewick maintained Unable to do sit to stand may need cheri 01/31/2021: Patient doing really well today Pain is well controlled Change pure wick a couple of times Glucose 220 this morning Bowels moved today 01/30/2021: Patient doing pretty well today Pain is well controlled Using pure wick Bowels moved yesterday Working out with therapy 01/29/2021: Pt doing pretty well Denies any significant new issues Participating in therapy Checked meds and labs Denies any pain 01/28/2021: Pt doing pretty well but had a pop in her right leg when she barely had weight bearing to it X-rays ordered Purewick maintained Check meds and labs Bowels are moving Review of Systems General: Fatigue, Malaise Musculoskeletal: arm pain, leg pain Objective Exam Vital Signs Vital Signs Date Time Temp Pulse Resp B/P (MAP) Pulse Ox O2 Delivery O2 Flow Rate FiO2 02/07/21 09:00 Room Air 02/07/21 07:53 93 0.00 02/07/21 07:05 36.7 87 18 191/77 (115) Capillary Refill : General Appearance: No Apparent Distress, WD/WN, Chronically ill HEENT: PERRL/EOMI, Normal ENT Inspection, Pharynx Normal Neck: Full Range of Motion, Normal Inspection, Non Tender, Supple, Carotid Bruit Respiratory: Chest Non Tender, Lungs Clear, Normal Breath Sounds, No Accessory Muscle Use, No Respiratory Distress Cardiovascular: Regular Rate, Rhythm, No Edema, No Gallop, No JVD, No Murmur, Normal Peripheral Pulses Gastrointestinal: Normal Bowel Sounds, No Organomegaly, No Pulsatile Mass, Non Tender, Soft Back: Normal Inspection, No CVA Tenderness, No Vertebral Tenderness Extremity: Normal Capillary Refill, Normal Inspection, Normal Range of Motion (Except right arm and right leg), Non Tender, No Calf Tenderness, No Pedal Edema Neurologic/Psychiatric: Alert, Oriented x3, No Motor/Sensory Deficits, 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 FIM Transfers Therapy Code Descriptions/Definitions Functional [place] Measure: 0=Not Assessed/NA 4=Minimal Assistance 1=Total Assistance 5=Supervision or Setup 2=Maximal Assistance 6=Modified [place] 3=Moderate Assistance 7=Complete IndependenceSCALE: Activities may be completed with or without assistive devices. 5-Wsdgyjvwhd-jsfrfpw completes the activity by him/herself with no assistance from a helper. 5-Set-up or Clean-up Assistance-helper sets up or cleans up; patient completes activity. [place] assists only prior to or following the activity. 4-Supervision or Touching Assistance-helper provides verbal cues and/or touching/steadying and/or contact guard assistance as patient completes activity. Assistance may be provided throughout the activity or intermittently. 3-Partial/Moderate Assistance-helper does LESS THAN HALF the effort. [place] lifts, holds or supports trunk or limbs, but provides less than half the effort. 2-Substantial/Maximal Assistance-helper does MORE THAN HALF the effort. [place] lifts or holds trunk or limbs and provides more than half the effort. 7-Dogdzptix-ejwmdt does ALL the effort. Patient does none of the effort to complete the activity. Or, the assistance of 2 or more helpers is required for the patient to complete the activity. If activity was not attempted, code reason: 7-Patient Refused. 9-Not Applicable-not attempted and the patient did not perform the activity before the current illness, exacerbation or injury. 10-Not Attempted due to Environmental Limitations-(lack of equipment, weather restraints, etc.). 88-Not Attempted due to Medical Conditions or Safety Concerns. Roll Left to Right (QC): 2 Sit to Lying (QC): 2 Sit to Stand (QC): 1 Chair/Ayb-oh-Tzxal Xfer(QC): 1 Car Transfer (QC): 1 Gait Training Does the Patient Walk?: No and Walking Goal IS indicated Walk 10 feet (QC): 88 Walk 50 ft with 2 Turns(QC): 88 Walk 150 ft (QC): 88 Walking 10ft/uneven surface-QC: 88 Wheelchair Training Does the Pt Use a Wheelchair?: Yes Wheel 50 ft with 2 turns (QC): 3 Wheel 150 ft (QC): 3 Type of Wheelchair: Manual Stair Training 1 Step (curb) (QC): 88 4 Steps (QC): 88 12 Steps (QC): 88 Balance Picking up an Object (QC): 88 ADL-Treatment Eating (QC): 5 Oral Hygiene (QC): 5 (Set up at bed level to brush teeth.) Shower/Bathe Self (QC): 2 (Overall, max assist. Pt. able to wash chest sitting on EOB. She is able to lean forward and wash under right arm. She is able to wash upper thighs. OT washes left UE, under left breast, bilateral feet, and then in supine, carla area.) Upper Body Dressing (QC): 2 (Max assist to don over head dress.) Lower Body Dressing (QC): 88 On/Off Footwear (QC): 1 Toileting Hygiene (QC): 1 (Pt. incontinent of bowel and bladder in bed. Max x 2 to roll and cleanse self.) Toilet Transfer (QC): 1 (Bed michaels) Assessment/Plan Assessment and Plan Assess & Plan/Chief Complaint Assessment: Distal fracture of right femur Closed comminuted fracture of right humerus ABLA (acute blood loss anemia) Morbid obesity (HCC) Hyponatremia Syncope and collapse Impaired mobility and activities of daily living Acute traumatic pain Sleep disorder CAD (coronary artery disease HTN (hypertension) COPD (chronic obstructive pulmonary disease) ([facility]) At risk for constipation DM (diabetes mellitus) ([facility]) Plan: Aggressive therapy Pain control Supportive care 01/28/2021: Supportive care to continue Check x-ray of leg Continue nonweightbearing status 01/29/2021: Supportive care Monitor bowel function Pain control 01/30/2021: Supportive care Pain control Bowel regimen 01/31/2021: Aggressive therapy Supportive care 02/01/2021: Pain control Pure wick Monitor glucose 02/02/2021: Supportive care Needs half-way due to complete dependence 02/03/2021: Supportive care Needs half-way Ice to shoulder Pain management 02/04/2021: Pain control Improve transfers Monitor closely 02/05/2021: Bowel regimen Pain control Monitor closely 02/06/21: Monitor pain Fall risk 02/07/21: Behavioral health consult Monitor closely (1) Femur fracture ALCIDES RUIZ DO Feb 07, 2021 05:40
[2021-02-07] MEDS: ENOXAPARIN 40 MG/0.4 ML (LOVENOX) SYR SC SCH ×2 (06:43→18:33)
[2021-02-07 07:05] VITALS: BP 191/77
[2021-02-07] MEDS: RT--FLUTICASONE/SALMETEROL 113-14 (AIRDUO RespiCLICK) IH SCH ×2 (07:53→20:52)
[2021-02-07] MEDS: amLODIPine 10 MG (NORVASC) TAB PO SCH (08:08)
[2021-02-07] MEDS: CLOPIDOGREL 75 MG (PLAVIX) TABLET PO SCH (08:08)
[2021-02-07] MEDS: ALPRAZolam 0.25 MG (XANAX) TAB PO PRN (08:09)
[2021-02-07] MEDS: metFORMIN XR 500 MG (GLUCOPHAGE XR) TAB PO SCH ×2 (08:09→21:12)
[2021-02-07] MEDS: GABAPENTIN 400 MG (NEURONTIN) CAP PO SCH ×3 (08:09→21:12)
[2021-02-07] MEDS: SENNA W/DOCUSATE (SENOKOT S) TABLET PO SCH ×2 (09:00→21:10)
[2021-02-07] MEDS: polyethylene glycoL POWDER 17 GM (MIRALAX) PACK PO SCH ×2 (09:00→21:10)
[2021-02-07] MEDS: DOCUSATE SODIUM 100 MG (COLACE) CAP PO SCH ×2 (09:00→21:10)
[2021-02-07 20:07] VITALS: BP 138/61
[2021-02-07] MEDS: MELATONIN 3 MG TABLET PO PRN (21:13)
[2021-02-08 00:54] VITALS: BP 138/61
[2021-02-08] MEDS ORDERED: RT-ALBUTEROL/IPRATROPIUM 3 ML (DUONEB) VIAL INH PRN (01:15)
[2021-02-08 05:48] LABS: BASOPHILS % (AUTO) 1 % (0-10); EOSINOPHILS # (AUTO) 0.7 10^3/uL (0.0-0.3); EOSINOPHILS % (AUTO) 11 % (0-10); HEMATOCRIT 28 % (35-52); HEMOGLOBIN 8.3 g/dL (11.5-16.0); LYMPHOCYTES # (AUTO) 1.3 10^3/uL (1.0-4.0); LYMPHOCYTES % (AUTO) 21 % (12-44); MEAN CORPUSCULAR HEMOGLOBIN 24 pg (25-34); MEAN CORPUSCULAR HGB CONC 30 g/dL (32-36); MEAN CORPUSCULAR VOLUME 80 fL (80-99); MONOCYTES # (AUTO) 0.8 10^3/uL (0.0-1.0); MONOCYTES % (AUTO) 13 % (0-12); NEUTROPHILS # (AUTO) 3.3 10^3/uL (1.8-7.8); NEUTROPHILS % (AUTO) 54 % (42-75); PLATELET COUNT 350 10^3/uL (130-400); WHITE BLOOD COUNT 6.2 10^3/uL (4.3-11.0)
[2021-02-08 05:58] LABS: ALBUMIN 2.6 GM/DL (3.2-4.5); POTASSIUM 3.5 MMOL/L (3.6-5.0)
[2021-02-08 05:59] LABS: CALCIUM 8.2 MG/DL (8.5-10.1)
[2021-02-08 06:01] LABS: TOTAL PROTEIN 5.5 GM/DL (6.4-8.2)
[2021-02-08 06:03] LABS: BILIRUBIN,TOTAL 0.3 MG/DL (0.1-1.0)
[2021-02-08] MEDS: ENOXAPARIN 40 MG/0.4 ML (LOVENOX) SYR SC SCH ×2 (06:03→17:58)
[2021-02-08 06:04] LABS: CREATININE SERUM 0.74 MG/DL (0.60-1.30)
[2021-02-08] MEDS: inSUlin ASPART (NovoLOG) 1 UNIT/0.01 ML (CHARGE PER UNIT) SC SCH ×7 (06:06→20:34)
--- NOTE | 2021-02-08 06:57 | PM&R Progress Note ---
Subjective HPI/CC On Admission Date Seen by Provider: Feb 08, 2021 Time Seen by Provider: 09:00 Subjective/Events-last exam 02/08/2021: Pt doing okay Oxycodone taken with good results Orthopedics will be reached to decide on suture removal Bed michaels is being used and doing pretty well Psych eval ordered Appears to have some struggle with motivation 02/07/21: Patient having depression issues Behavioral health consult is requested No pain other than chronic issues with fractures No issues otherwise Talked about her with [place] and 44 years and other details 02/06/21: Patient doing well Sleeping currently No falls Pain controlled Checked meds and labs 02/05/2021: No significant concerns per nurses Patient feels pretty good Ready to work with therapy today Awaiting nursing facility to accept 02/04/2021: Pt doing pretty well Bowels are moving Pain is pretty well controlled Denies any other significant new problems No falls Moving around a little bit better Needs snf for slow recovery 02/03/2021: Patient doing pretty well Ice to right shoulder is helping Lower extremity edema nonpitting type Blood sugar is good at 123 155 Pain management successful Bowels are moving pretty well We will need to go to a snf Cheri lift cannot be used due to risk of too much pressure on the hardware in her leg 02/02/2021: Pt doing really well Glucose is 114 Will need a Cheri lift group home placement likely will be required Right shoulder pain noted She is thirsty all the time Pure-wic maintained 02/01/2021: Pt doing pretty well Complaining of right shoulder pain due to surgery Holding laxatives due to loose stools Hgb 8.2 Purewick maintained Unable to do sit to stand may need cheri 01/31/2021: Patient doing really well today Pain is well controlled Change pure wick a couple of times Glucose 220 this morning Bowels moved today 01/30/2021: Patient doing pretty well today Pain is well controlled Using pure wick Bowels moved yesterday Working out with therapy 01/29/2021: Pt doing pretty well Denies any significant new issues Participating in therapy Checked meds and labs Denies any pain 01/28/2021: Pt doing pretty well but had a pop in her right leg when she barely had weight bearing to it X-rays ordered Purewick maintained Check meds and labs Bowels are moving Review of Systems General: Fatigue, Malaise Musculoskeletal: arm pain, leg pain Objective Exam Vital Signs Vital Signs Date Time Temp Pulse Resp B/P (MAP) Pulse Ox O2 Delivery O2 Flow Rate FiO2 02/08/21 20:52 95 Room Air 02/08/21 20:00 0.00 02/08/21 19:17 36.4 79 20 165/67 (99) 02/08/21 00:54 21 Capillary Refill : General Appearance: No Apparent Distress, WD/WN, Chronically ill HEENT: PERRL/EOMI, Normal ENT Inspection, Pharynx Normal Neck: Full Range of Motion, Normal Inspection, Non Tender, Supple, Carotid Bruit Respiratory: Chest Non Tender, Lungs Clear, Normal Breath Sounds, No Accessory Muscle Use, No Respiratory Distress Cardiovascular: Regular Rate, Rhythm, No Edema, No Gallop, No JVD, No Murmur, Normal Peripheral Pulses Gastrointestinal: Normal Bowel Sounds, No Organomegaly, No Pulsatile Mass, Non Tender, Soft Back: Normal Inspection, No CVA Tenderness, No Vertebral Tenderness Extremity: Normal Capillary Refill, Normal Inspection, Normal Range of Motion (Except right arm and right leg), Non Tender, No Calf Tenderness, No Pedal Edema Neurologic/Psychiatric: Alert, Oriented x3, No Motor/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 FIM Transfers Therapy Code Descriptions/Definitions Functional [place] Measure: 0=Not Assessed/NA 4=Minimal Assistance 1=Total Assistance 5=Supervision or Setup 2=Maximal Assistance 6=Modified [place] 3=Moderate Assistance 7=Complete IndependenceSCALE: Activities may be completed with or without assistive devices. 1-Hhjxvpudef-xpymyjf completes the activity by him/herself with no assistance from a helper. 5-Set-up or Clean-up Assistance-helper sets up or cleans up; patient completes activity. [place] assists only prior to or following the activity. 4-Supervision or Touching Assistance-helper provides verbal cues and/or touching/steadying and/or contact guard assistance as patient completes activity. Assistance may be provided throughout the activity or intermittently. 3-Partial/Moderate Assistance-helper does LESS THAN HALF the effort. [place] lifts, holds or supports trunk or limbs, but provides less than half the effort. 2-Substantial/Maximal Assistance-helper does MORE THAN HALF the effort. [place] lifts or holds trunk or limbs and provides more than half the effort. 8-Syxdbslht-eeoetz does ALL the effort. Patient does none of the effort to complete the activity. Or, the assistance of 2 or more helpers is required for the patient to complete the activity. If activity was not attempted, code reason: 7-Patient Refused. 9-Not Applicable-not attempted and the patient did not perform the activity before the current illness, exacerbation or injury. 10-Not Attempted due to Environmental Limitations-(lack of equipment, weather restraints, etc.). 88-Not Attempted due to Medical Conditions or Safety Concerns. Roll Left to Right (QC): 2 Sit to Lying (QC): 2 Sit to Stand (QC): 1 Chair/Cwq-pp-Eyxyx Xfer(QC): 1 Car Transfer (QC): 1 Gait Training Does the Patient Walk?: No and Walking Goal IS indicated Walk 10 feet (QC): 88 Walk 50 ft with 2 Turns(QC): 88 Walk 150 ft (QC): 88 Walking 10ft/uneven surface-QC: 88 Wheelchair Training Does the Pt Use a Wheelchair?: Yes Wheel 50 ft with 2 turns (QC): 3 Wheel 150 ft (QC): 3 Type of Wheelchair: Manual Stair Training 1 Step (curb) (QC): 88 4 Steps (QC): 88 12 Steps (QC): 88 Balance Picking up an Object (QC): 88 ADL-Treatment Eating (QC): 5 Oral Hygiene (QC): 5 (Set up at bed level to brush teeth.) Shower/Bathe Self (QC): 2 (Overall, max assist. Pt. able to wash chest sitting on EOB. She is able to lean forward and wash under right arm. She is able to wash upper thighs. OT washes left UE, under left breast, bilateral feet, and then in supine, carla area.) Upper Body Dressing (QC): 2 (Max assist to don over head dress.) Lower Body Dressing (QC): 88 On/Off Footwear (QC): 1 Toileting Hygiene (QC): 1 (Pt. incontinent of bowel and bladder in bed. Max x 2 to roll and cleanse self.) Toilet Transfer (QC): 1 (Bed michaels) Assessment/Plan Assessment and Plan Assess & Plan/Chief Complaint Assessment: Distal fracture of right femur Closed comminuted fracture of right humerus ABLA (acute blood loss anemia) Morbid obesity ([facility]) Hyponatremia Syncope and collapse Impaired mobility and activities of daily living Acute traumatic pain Sleep disorder CAD (coronary artery disease HTN (hypertension) COPD (chronic obstructive pulmonary disease) ([facility]) At risk for constipation DM (diabetes mellitus) ([facility]) Plan: Aggressive therapy Pain control Supportive care 01/28/2021: Supportive care to continue Check x-ray of leg Continue nonweightbearing status 01/29/2021: Supportive care Monitor bowel function Pain control 01/30/2021: Supportive care Pain control Bowel regimen 01/31/2021: Aggressive therapy Supportive care 02/01/2021: Pain control Pure wick Monitor glucose 02/02/2021: Supportive care Needs snf due to complete dependence 02/03/2021: Supportive care Needs snf Ice to shoulder Pain management 02/04/2021: Pain control Improve transfers Monitor closely 02/05/2021: Bowel regimen Pain control Monitor closely 02/06/21: Monitor pain Fall risk 02/07/21: Behavioral health consult Monitor closely 02/08/2021: Behavioral health consult Celexa added Monitor closely (1) Femur fracture ALCIDES RUIZ DO Feb 08, 2021 06:57
[2021-02-08 07:45] VITALS: BP 154/68
[2021-02-08] MEDS: RT--FLUTICASONE/SALMETEROL 113-14 (AIRDUO RespiCLICK) IH SCH ×2 (08:04→20:51)
[2021-02-08] MEDS: polyethylene glycoL POWDER 17 GM (MIRALAX) PACK PO SCH ×2 (08:08→20:45)
[2021-02-08] MEDS: SENNA W/DOCUSATE (SENOKOT S) TABLET PO SCH ×2 (08:08→20:45)
[2021-02-08] MEDS: CLOPIDOGREL 75 MG (PLAVIX) TABLET PO SCH (08:08)
[2021-02-08] MEDS: DOCUSATE SODIUM 100 MG (COLACE) CAP PO SCH ×2 (08:08→20:45)
[2021-02-08] MEDS: GABAPENTIN 400 MG (NEURONTIN) CAP PO SCH ×3 (08:08→20:46)
[2021-02-08] MEDS: amLODIPine 10 MG (NORVASC) TAB PO SCH (08:08)
[2021-02-08] MEDS: metFORMIN XR 500 MG (GLUCOPHAGE XR) TAB PO SCH ×2 (08:08→20:46)
--- NOTE | 2021-02-08 09:57 | Physical Therapy Daily Note ---
PT Daily Note-Current Subjective Patient in bed pre tx, agrees to PT, has minor pain in right shoulder per patient. Will be co-treating with OT due to poor patient mobility, strength, endurance, complicated weight bearing status, coordinate UE and LE during activity, safety and reduce risk of falls. Appearance Patient in bed post tx, will continue for a bit with OT. Mental Status Patient Orientation: Person, Place, Situation Transfers SCALE: Activities may be completed with or without assistive devices. 8-Cvrdqfnvyw-grijrbf completes the activity by him/herself with no assistance from a helper. 5-Set-up or Clean-up Assistance-helper sets up or cleans up; patient completes activity. [place] assists only prior to or following the activity. 4-Supervision or Touching Assistance-helper provides verbal cues and/or touching/steadying and/or contact guard assistance as patient completes act ivity. Assistance may be provided throughout the activity or intermittently. 3-Partial/Moderate Assistance-helper does LESS THAN HALF the effort. [place] lifts, holds or supports trunk or limbs, but provides less than half the effort. 2-Substantial/Maximal Assistance-helper does MORE THAN HALF the effort. [place] lifts or holds trunk or limbs and provides more than half the effort. 0-Tebfeewkq-qghztn does ALL the effort. Patient does none of the effort to complete the activity. Or, the assistance of 2 or more helpers is required for the patient to complete the activity. If activity was not attempted, code reason: 7-Patient Refused. 9-Not Applicable-not attempted and the patient did not perform the activity before the current illness, exacerbation or injury. 10-Not Attempted due to Environmental Limitations-(lack of equipment, weather restraints, etc.). 88-Not Attempted due to Medical Conditions or Safety Concerns. Roll Left & Right (QC): 3 Sit to Lying (QC): 1 Lying to Sitting/Side of Bed(Q: 2 Sit to Stand (QC): 1 Chair/Yts-qd-Ruegf Xfer(QC): 1 Patient performed supine to sit with less assistance but still max assist, she was able to move her legs much better toward the edge of the bed. Patient still uses the small step under her left foot for transfers to let her right leg dangle so she doesn't put weight through it. Weight Bearing Right Lower Extremity: Right Touch Toe Bearing RUE NWB Wheelchair Training Does the Pt Use a Wheelchair?: Yes Wheel 50 ft with 2 turns (QC): 2 Wheel 150 ft (QC): 2 Type of Wheelchair: Manual 300', max assist, patient propels for calvo using her left arm and foot but she can propel the WC backwards using her left foot and just min assist, which she did for the last little portion. Exercises Seated Therapy Exercises: Ankle pumps, Long arc quads Seated Reps: 20 Patient stood in the parallel bars x2 with assist of 2, she was never able to fully extend her left leg (foot on small step) and because of that her right foot was fully on the floor with suspected too much weight bearing. Tried this a couple of times and she was never able to fully extend her left knee so this activity had to be stopped to protect her right leg. 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 PT [facility] Goals Time Frame: Feb 17, 2021 Roll Left & Right (QC): 3 Sit to Lying (QC): 3 Lying-Sitting on Side/Bed(QC): 3 Sit to Stand (QC): 3 Chair/Kqy-hz-Jzrhu Xfer(QC): 3 Toilet Transfer (QC): 3 Car Transfer (QC): 3 Does the Patient Walk: No and Walking Goal NOT indicated Walk 10 feet (QC): 88 Walk 50ft with 2 Turns (QC): 88 Walk 150 ft (QC): 88 Walking 10ft on Uneven Surface: 88 1 Step (curb) (QC): 88 4 Steps (QC): 88 12 Steps (QC): 88 Picking up an Object (QC): 88 Wheel 50 feet with 2 turns (QC: 5 Wheel 150 feet: 5 PT Plan Problem List Problem List: Activity Tolerance, Functional Strength, Safety, Balance, Gait, Transfer, Bed Mobility, ROM Treatment/Plan Treatment Plan: Continue Plan of Care Treatment Plan: Bed Mobility, Education, Functional Activity Brian, Functional Strength, Group Therapy, Gait, Safety, Therapeutic Exercise, Transfers Treatment Duration: Feb 17, 2021 Frequency: At least 5 of 7 days/Wk (IRF) Estimated Hrs Per Day: .25 hour per day Patient and/or Family Agrees t: Yes Safety Risks/Education Patient Education: Transfer Techniques, Reviewed Precautions, Correct Positioning, W/C Management, Safety Issues Teaching Recipient: Patient Teaching Methods: Demonstration, Discussion Response to Teaching: Reinforcement Needed Time/GCodes Time In: 0900 Time Out: 1000 Total Billed Treatment Time: 60 Total Billed Treatment 1 visit FA 45' EX 15' co-treated for 60' PIETRO BHANDARI PT Feb 08, 2021 09:57
--- NOTE | 2021-02-08 10:41 | Occupational Ther Daily Note ---
OT Current Status-Daily Note Subjective Pt. reports pain in right shoulder that is light at end of session. OT gives ice pack. Pt. has had pain med. Pt. did not rate. Mental Status/Objective Patient Orientation: Person, Place, Time ADL-Treatment Therapy Code Descriptions/Definitions Functional [place] Measure: 0=Not Assessed/NA 4=Minimal Assistance 1=Total Assistance 5=Supervision or Setup 2=Maximal Assistance 6=Modified [place] 3=Moderate Assistance 7=Complete IndependenceSCALE: Activities may be completed with or without assistive devices. 5-Iqwqdjdkcu-kvrzzez completes the activity by him/herself with no assistance from a helper. 5-Set-up or Clean-up Assistance-helper sets up or cleans up; patient completes activity. [place] assists only prior to or following the activity. 4-Supervision or Touching Assistance-helper provides verbal cues and/or touching/steadying and/or contact guard assistance as patient completes activity. Assistance may be provided throughout the activity or intermittently. 3-Partial/Moderate Assistance-helper does LESS THAN HALF the effort. [place] lifts, holds or supports trunk or limbs, but provides less than half the effort. 2-Substantial/Maximal Assistance-helper does MORE THAN HALF the effort. [place] lifts or holds trunk or limbs and provides more than half the effort. 7-Scpzcuxya-ovbtjw does ALL the effort. Patient does none of the effort to complete the activity. Or, the assistance of 2 or more helpers is required for the patient to complete the activity. If activity was not attempted, code reason: 7-Patient Refused. 9-Not Applicable-not attempted and the patient did not perform the activity before the current illness, exacerbation or injury. 10-Not Attempted due to Environmental Limitations-(lack of equipment, weather restraints, etc.). 88-Not Attempted due to Medical Conditions or Safety Concerns. Oral Hygiene (QC): 5 (Set up at bed level to brush teeth.) On/Off Footwear: 2 Toileting Hygiene (QC): 1 Other Treatment Pt. seen by OT/PT for co-treatment due to need of skilled clinicians x 2. Pt. fatigues easily and demonstrates poor endurance/ strength with mobility and ADL skills. PT focused on transfers, LE movement, and sit-stands while OT attempted to facilitate ADL skills and UE exercises/transfer assist. Pt. up in chair with PT when OT began assisting. Worked on best method for pt. to self propel wheelchair for increased overall independence. Pt. had difficulty with forward motion, and so attempted propelling backward. This was much easier for her. She did require cues for safety. Went to parallel bars and stood x 2 with max x 2. Unable to achieve full sit-stand, and required max cues to keep weight off right LE. Went to room and transferred back to bed with max x 2 for squat pivot to bed, and then max x 2 for sit-supine and bed mobility. Pt. encouraged to brush teeth, and able to do so with set up. Pt. able to brush hair with min assist, and OT replaced ponytail. Pt. able to complete AROM to right wrist/fingers with good motion, and OT prompted elbow flexion. Pt. assisted with this. All needs met. Education OT Patient Education: Correct positioning, Exercise program, Modified ADL techniques, Progress toward Goal/Update tx plan, Purpose of tx/functional activities, Reviewed precautions, Rehab process, Transfer techniques, W/C management Teaching Recipient: Patient Teaching Methods: Demonstration, Discussion Response to Teaching: Verbalize Understanding, Return Demonstration OT Short Term Goals Short Term Goals Time Frame: Feb 10, 2021 Eatin Oral hygiene: 4 Toileting hygiene: 3 Shower/bathe self: 3 Upper body dressin Lower body dressin Putting on/taking off footwear: 3 OT Senior Care Goals Orthodontic Lab Technician Goals Time Frame: Feb 24, 2021 Eating (QC): 6 Oral Hygiene (QC): 6 Toileting Hygiene (QC): 6 Shower/Bathe Self (QC): 4 Upper Body Dressing (QC): 5 Lower Body Dressing (QC): 5 On/Off Footwear (QC): 5 Additional Goals: 1-Demonstrate ADL Tasks, 2-Verbalize Understanding, 3- ImproveStrength/Brian 1=Demonstrate adherence to instructed precautions during ADL tasks. 2=Patient will verbalize/demonstrate understanding of assistive devices/modifications for ADL. 3=Patient will improve strength/tolerance for activity to enable patient to perform ADL's. OT Education/Plan Problem List/Assessment Assessment: Decreased Activ Tolerance, Decreased UE Strength, Dependent Transfers, Impaired Bed Mobility, Impaired Funct Balance, Impaired I ADL's, Impaired Self-Care Skills, Restricted Funct UE ROM Discharge Recommendations Plan/Recommendations: Continue POC Therapy Discharge Recommendati: 24 Hour Supervision, Post Acute OT Treatment Plan/Plan of Care Treatment,Training & Education: Yes Patient would benefit from OT for education, treatment and training to promote independence in ADL's, mobility, safety and/or upper extremity function for ADL's. Plan of Care: ADL Retraining, Functional Mobility, UE Funct Exercise/Act Treatment Duration: Feb 24, 2021 Frequency: At least 5 of 7 days/Wk (IRF) Estimated Hrs Per Day: 1.5 hours per day Agreement: Yes Rehab Potential: Fair Time/GCodes Start Time: 09:15 Stop Time: 10:15 Total Time Billed (hr/min): 60 Billed Treatment Time , FA x 45minutes- Co-treat with PT. Please see above note for designated roles. [id number] ADL x 15minutes TAL THOMAS OT Feb 08, 2021 10:41
--- NOTE | 2021-02-08 11:50 | Physical Therapy Daily Note ---
PT Daily Note-Current Subjective Patient in bed pre tx, agrees to PT, voices no complaints of pain Appearance Patient in bed post tx with nurse call, phone, tray, all needs met. Mental Status Patient Orientation: Person, Place, Situation Transfers SCALE: Activities may be completed with or without assistive devices. 7-Zsdexmkujq-aomhpuw completes the activity by him/herself with no assistance from a helper. 5-Set-up or Clean-up Assistance-helper sets up or cleans up; patient completes activity. [place] assists only prior to or following the activity. 4-Supervision or Touching Assistance-helper provides verbal cues and/or touching/steadying and/or contact guard assistance as patient completes activity. Assistance may be provided throughout the activity or intermittently. 3-Partial/Moderate Assistance-helper does LESS THAN HALF the effort. [place] lifts, holds or supports trunk or limbs, but provides less than half the effort. 2-Substantial/Maximal Assistance-helper does MORE THAN HALF the effort. [place] lifts or holds trunk or limbs and provides more than half the effort. 3-Otwuwaljb-dephff does ALL the effort. Patient does none of the effort to complete the activity. Or, the assistance of 2 or more helpers is required for the patient to complete the activity. If activity was not attempted, code reason: 7-Patient Refused. 9-Not Applicable-not attempted and the patient did not perform the activity before the current illness, exacerbation or injury. 10-Not Attempted due to Environmental Limitations-(lack of equipment, weather restraints, etc.). 88-Not Attempted due to Medical Conditions or Safety Concerns. Roll Left & Right (QC): 2 After LE exercise, patient informs therapist that she is on a bedpan and she is done, nurse assists and patient has to roll with max assist to take out bedpan and for cleaning and placing new brief, she then rolls to the other side with max assist for adjusting her brief. Weight Bearing Right Lower Extremity: Right Touch Toe Bearing RUE NWB Exercises Supine Ex: Ankle pumps, Quad Set, Glut sets, Heel Slides (AAROM on the right, small ROM of about 20 degrees), Short Arc Quads (LLE only), Straight leg raise (AAROM on the right side), Hip abd/add (AAROM on the right side) Treatments rolling, LE exercise Assessment Current Status: Fair Progress slightly improved RLE AROM PT Short Term Goals Short Term Goals Time Frame: Feb 03, 2021 Roll Left & Right: 2 Sit to lyin Lying to sitting on side of be: 2 Sit to stand: 2 Chair/bjz-dt-zebcd transfer: 2 PT Senior Care Goals Senior Care Goals PT Downstream Biomanufacturing Technician Goals Time Frame: Feb 17, 2021 Roll Left & Right (QC): 3 Sit to Lying (QC): 3 Lying-Sitting on Side/Bed(QC): 3 Sit to Stand (QC): 3 Chair/Min-yw-Kuhco Xfer(QC): 3 Toilet Transfer (QC): 3 Car Transfer (QC): 3 Does the Patient Walk: No and Walking Goal NOT indicated Walk 10 feet (QC): 88 Walk 50ft with 2 Turns (QC): 88 Walk 150 ft (QC): 88 Walking 10ft on Uneven Surface: 88 1 Step (curb) (QC): 88 4 Steps (QC): 88 12 Steps (QC): 88 Picking up an Object (QC): 88 Wheel 50 feet with 2 turns (QC: 5 Wheel 150 feet: 5 PT Plan Problem List Problem List: Activity Tolerance, Functional Strength, Safety, Balance, Gait, Transfer, Bed Mobility, ROM Treatment/Plan Treatment Plan: Continue Plan of Care Treatment Plan: Bed Mobility, Education, Functional Activity Brian, Functional Strength, Group Therapy, Gait, Safety, Therapeutic Exercise, Transfers Treatment Duration: Feb 17, 2021 Frequency: At least 5 of 7 days/Wk (IRF) Estimated Hrs Per Day: .25 hour per day Patient and/or Family Agrees t: Yes Safety Risks/Education Patient Education: Correct Positioning, Safety Issues Teaching Recipient: Patient Teaching Methods: Demonstration, Discussion Response to Teaching: Reinforcement Needed Time/GCodes Time In: 1115 Time Out: 1145 Total Billed Treatment Time: 30 Total Billed Treatment 1 visit EX 30' PIETRO BHANDARI PT Feb 08, 2021 11:50
[2021-02-08] MEDS ORDERED: KCL 10 MEQ TAB (MICRO K) PO ONE (12:15)
--- NOTE | 2021-02-08 15:15 | Occupational Ther Daily Note ---
OT Current Status-Daily Note Subjective No pain reported. Mental Status/Objective Patient Orientation: Person, Place, Time, Situation ADL-Treatment Therapy Code Descriptions/Definitions Functional [place] Measure: 0=Not Assessed/NA 4=Minimal Assistance 1=Total Assistance 5=Supervision or Setup 2=Maximal Assistance 6=Modified [place] 3=Moderate Assistance 7=Complete IndependenceSCALE: Activities may be completed with or without assistive devices. 0-Rpqaiueszv-onnrcnk completes the activity by him/herself with no assistance from a helper. 5-Set-up or Clean-up Assistance-helper sets up or cleans up; patient completes activity. [place] assists only prior to or following the activity. 4-Supervision or Touching Assistance-helper provides verbal cues and/or touching/steadying and/or contact guard assistance as patient completes activity. Assistance may be provided throughout the activity or intermittently. 3-Partial/Moderate Assistance-helper does LESS THAN HALF the effort. [place] lifts, holds or supports trunk or limbs, but provides less than half the effort. 2-Substantial/Maximal Assistance-helper does MORE THAN HALF the effort. [place] lifts or holds trunk or limbs and provides more than half the effort. 0-Rtkxyxjvu-qodrlu does ALL the effort. Patient does none of the effort to complete the activity. Or, the assistance of 2 or more helpers is required for the patient to complete the activity. If activity was not attempted, code reason: 7-Patient Refused. 9-Not Applicable-not attempted and the patient did not perform the activity before the current illness, exacerbation or injury. 10-Not Attempted due to Environmental Limitations-(lack of equipment, weather restraints, etc.). 88-Not Attempted due to Medical Conditions or Safety Concerns. Toileting Hygiene (QC): 1 Toilet Transfer (QC): 1 (Max x 2 to roll side to side to get off bed michaels.) Other Treatment Pt. on bedpan. Required max x 2 to roll for bedpan removal, and for carla cleanse. OT then initiated right UE AROM exercises with pt. at elbow, wrist and finger level. Pt. also completed therapy sponge squeezes x 15 reps. Completed red theraband exercises on left UE x 10 reps x 2 exercises x 2 sets. All needs met at end of session. OT Short Term Goals Short Term Goals Time Frame: Feb 10, 2021 Eatin Oral hygiene: 4 Toileting hygiene: 3 Shower/bathe self: 3 Upper body dressin Lower body dressin Putting on/taking off footwear: 3 OT Mcc Goals Mcc Goals Time Frame: Feb 24, 2021 Eating (QC): 6 Oral Hygiene (QC): 6 Toileting Hygiene (QC): 6 Shower/Bathe Self (QC): 4 Upper Body Dressing (QC): 5 Lower Body Dressing (QC): 5 On/Off Footwear (QC): 5 Additional Goals: 1-Demonstrate ADL Tasks, 2-Verbalize Understanding, 3- ImproveStrength/Brian 1=Demonstrate adherence to instructed precautions during ADL tasks. 2=Patient will verbalize/demonstrate understanding of assistive devices/m odifications for ADL. 3=Patient will improve strength/tolerance for activity to enable patient to perform ADL's. OT Education/Plan Discharge Recommendations Plan/Recommendations: Continue POC Treatment Plan/Plan of Care Patient would benefit from OT for education, treatment and training to promote independence in ADL's, mobility, safety and/or upper extremity function for ADL's. Plan of Care: ADL Retraining, Functional Mobility, UE Funct Exercise/Act Treatment Duration: Feb 24, 2021 Frequency: At least 5 of 7 days/Wk (IRF) Estimated Hrs Per Day: 1.5 hours per day Agreement: Yes Rehab Potential: Fair Time/GCodes Start Time: 14:40 Stop Time: 15:10 Total Time Billed (hr/min): 30 Billed Treatment Time 1, ADL x 10minutes, Ex x 20minutes TAL THOMAS OT Feb 08, 2021 15:15
[2021-02-08 19:17] VITALS: BP 165/67
[2021-02-08] MEDS: MELATONIN 3 MG TABLET PO PRN (20:46)
[2021-02-09] MEDS: inSUlin ASPART (NovoLOG) 1 UNIT/0.01 ML (CHARGE PER UNIT) SC SCH ×7 (05:18→21:05)
[2021-02-09] MEDS: KCL 10 MEQ TAB (MICRO K) PO SCH (06:19)
[2021-02-09] MEDS: ENOXAPARIN 40 MG/0.4 ML (LOVENOX) SYR SC SCH ×2 (06:19→18:03)
[2021-02-09] MEDS: RT--FLUTICASONE/SALMETEROL 113-14 (AIRDUO RespiCLICK) IH SCH ×2 (07:44→21:01)
[2021-02-09 08:02] VITALS: BP 166/70
[2021-02-09] MEDS: metFORMIN XR 500 MG (GLUCOPHAGE XR) TAB PO SCH ×2 (08:08→21:03)
[2021-02-09] MEDS: CLOPIDOGREL 75 MG (PLAVIX) TABLET PO SCH (08:08)
[2021-02-09] MEDS: GABAPENTIN 400 MG (NEURONTIN) CAP PO SCH ×3 (08:08→21:04)
[2021-02-09] MEDS: amLODIPine 10 MG (NORVASC) TAB PO SCH (08:08)
[2021-02-09] MEDS: SENNA W/DOCUSATE (SENOKOT S) TABLET PO SCH ×2 (08:13→21:05)
[2021-02-09] MEDS: DOCUSATE SODIUM 100 MG (COLACE) CAP PO SCH ×2 (08:13→21:05)
[2021-02-09] MEDS: polyethylene glycoL POWDER 17 GM (MIRALAX) PACK PO SCH ×2 (08:13→21:05)
--- NOTE | 2021-02-09 08:36 | PM&R Progress Note ---
Subjective HPI/CC On Admission Date Seen by Provider: Feb 09, 2021 Time Seen by Provider: 08:45 Subjective/Events-last exam 02/09/2021: Pt still awaiting placement Psych yinka Harrington very helpful yesterday Using bed michaels Bowels are moving Pain meds are helpful 02/08/2021: Pt doing okay Oxycodone taken with good results Orthopedics will be reached to decide on suture removal Bed michaels is being used and doing pretty well Psych evjin ordered Appears to have some struggle with motivation 02/07/21: Patient having depression issues Behavioral health consult is requested No pain other than chronic issues with fractures No issues otherwise Talked about her with [place] and 44 years and other details 02/06/21: Patient doing well Sleeping currently No falls Pain controlled Checked meds and labs 02/05/2021: No significant concerns per nurses Patient feels pretty good Ready to work with therapy today Awaiting nursing facility to accept 02/04/2021: Pt doing pretty well Bowels are moving Pain is pretty well controlled Denies any other significant new problems No falls Moving around a little bit better Needs mcfp for slow recovery 02/03/2021: Patient doing pretty well Ice to right shoulder is helping Lower extremity edema nonpitting type Blood sugar is good at 123 155 Pain management successful Bowels are moving pretty well We will need to go to a mcfp Cheri lift cannot be used due to risk of too much pressure on the hardware in her leg 02/02/2021: Pt doing really well Glucose is 114 Will need a Cheri lift jail placement likely will be required Right shoulder pain noted She is thirsty all the time Pure-wic maintained 02/01/2021: Pt doing pretty well Complaining of right shoulder pain due to surgery Holding laxatives due to loose stools Hgb 8.2 Purewick maintained Unable to do sit to stand may need cheri 01/31/2021: Patient doing really well today Pain is well controlled Change pure wick a couple of times Glucose 220 this morning Bowels moved today 01/30/2021: Patient doing pretty well today Pain is well controlled Using pure wick Bowels moved yesterday Working out with therapy 01/29/2021: Pt doing pretty well Denies any significant new issues Participating in therapy Checked meds and labs Denies any pain 01/28/2021: Pt doing pretty well but had a pop in her right leg when she barely had weight bearing to it X-rays ordered Purewick maintained Check meds and labs Bowels are moving Review of Systems General: Fatigue, Malaise Musculoskeletal: arm pain, leg pain Neurological: Weakness Objective Exam Vital Signs Vital Signs Date Time Temp Pulse Resp B/P (MAP) Pulse Ox O2 Delivery O2 Flow Rate FiO2 02/09/21 21:02 97 Room Air 02/09/21 21:00 0.00 02/09/21 20:00 36.8 83 18 127/62 (83) 02/08/21 00:54 21 Capillary Refill : General Appearance: No Apparent Distress, WD/WN, Chronically ill HEENT: PERRL/EOMI, Normal ENT Inspection, Pharynx Normal Neck: Full Range of Motion, Normal Inspection, Non Tender, Supple, Carotid Bruit Respiratory: Chest Non Tender, Lungs Clear, Normal Breath Sounds, No Accessory Muscle Use, No Respiratory Distress Cardiovascular: Regular Rate, Rhythm, No Edema, No Gallop, No JVD, No Murmur, Normal Peripheral Pulses Gastrointestinal: Normal Bowel Sounds, No Organomegaly, No Pulsatile Mass, Non Tender, Soft Back: Normal Inspection, No CVA Tenderness, No Vertebral Tenderness Extremity: Normal Capillary Refill, Normal Inspection, Normal Range of Motion (Except right arm and right leg), Non Tender, No Calf Tenderness, No Pedal Edema Neurologic/Psychiatric: Alert, Oriented x3, No Motor/Sensory Deficits, field organizer II- XII Norm as Tested, Abnormal Gait, Depressed Affect, Motor Weakness (Right arm right leg) Skin: Normal Color, Warm/Dry Lymphatic: No Adenopathy Results/Procedures Lab Patient resulted labs reviewed. FIM Transfers Therapy Code Descriptions/Definitions Functional [place] Measure: 0=Not Assessed/NA 4=Minimal Assistance 1=Total Assistance 5=Supervision or Setup 2=Maximal Assistance 6=Modified [place] 3=Moderate Assistance 7=Complete IndependenceSCALE: Activities may be completed with or without assistive devices. 3-Lsnootxtey-tovouvp completes the activity by him/herself with no assistance from a helper. 5-Set-up or Clean-up Assistance-helper sets up or cleans up; patient completes activity. [place] assists only prior to or following the activity. 4-Supervision or Touching Assistance-helper provides verbal cues and/or touching/steadying and/or contact guard assistance as patient completes activity. Assistance may be provided throughout the activity or intermittently. 3-Partial/Moderate Assistance-helper does LESS THAN HALF the effort. [place] lifts, holds or supports trunk or limbs, but provides less than half the effort. 2-Substantial/Maximal Assistance-helper does MORE THAN HALF the effort. [place] lifts or holds trunk or limbs and provides more than half the effort. 9-Wfvgyxlay-wadaeu does ALL the effort. Patient does none of the effort to complete the activity. Or, the assistance of 2 or more helpers is required for the patient to complete the activity. If activity was not attempted, code reason: 7-Patient Refused. 9-Not Applicable-not attempted and the patient did not perform the activity before the current illness, exacerbation or injury. 10-Not Attempted due to Environmental Limitations-(lack of equipment, weather restraints, etc.). 88-Not Attempted due to Medical Conditions or Safety Concerns. Roll Left to Right (QC): 2 Sit to Lying (QC): 1 Sit to Stand (QC): 1 Chair/Xnr-td-Bzpbj Xfer(QC): 1 Car Transfer (QC): 1 Gait Training Does the Patient Walk?: No and Walking Goal IS indicated Walk 10 feet (QC): 88 Walk 50 ft with 2 Turns(QC): 88 Walk 150 ft (QC): 88 Walking 10ft/uneven surface-QC: 88 Wheelchair Training Does the Pt Use a Wheelchair?: Yes Wheel 50 ft with 2 turns (QC): 2 Wheel 150 ft (QC): 2 Type of Wheelchair: Manual Stair Training 1 Step (curb) (QC): 88 4 Steps (QC): 88 12 Steps (QC): 88 Balance Picking up an Object (QC): 88 ADL-Treatment Eating (QC): 5 Oral Hygiene (QC): 5 (Set up at bed level to brush teeth.) Shower/Bathe Self (QC): 2 (Overall, max assist. Pt. able to wash chest sitting on EOB. She is able to lean forward and wash under right arm. She is able to wash upper thighs. OT washes left UE, under left breast, bilateral feet, and then in supine, carla area.) Upper Body Dressing (QC): 2 (Max assist to don over head dress.) Lower Body Dressing (QC): 88 On/Off Footwear (QC): 2 Toileting Hygiene (QC): 1 Toilet Transfer (QC): 1 (Max x 2 to roll side to side to get off bed michaels.) Assessment/Plan Assessment and Plan Assess & Plan/Chief Complaint Assessment: Distal fracture of right femur Closed comminuted fracture of right humerus ABLA (acute blood loss anemia) Morbid obesity ([facility]) Hyponatremia Syncope and collapse Impaired mobility and activities of daily living Acute traumatic pain Sleep disorder CAD (coronary artery disease HTN (hypertension) COPD (chronic obstructive pulmonary disease) ([facility]) At risk for constipation DM (diabetes mellitus) ([facility]) Plan: Aggressive therapy Pain control Supportive care 01/28/2021: Supportive care to continue Check x-ray of leg Continue nonweightbearing status 01/29/2021: Supportive care Monitor bowel function Pain control 01/30/2021: Supportive care Pain control Bowel regimen 01/31/2021: Aggressive therapy Supportive care 02/01/2021: Pain control Pure wick Monitor glucose 02/02/2021: Supportive care Needs mcfp due to complete dependence 02/03/2021: Supportive care Needs mcfp Ice to shoulder Pain management 02/04/2021: Pain control Improve transfers Monitor closely 02/05/2021: Bowel regimen Pain control Monitor closely 02/06/21: Monitor pain Fall risk 02/07/21: Behavioral health consult Monitor closely 02/08/2021: Behavioral health consult Celexa added Monitor closely 02/09/2021: Supportive care Needs mcfp since fully dependent (1) Femur fracture ALCIDES RUIZ DO Feb 09, 2021 08:36
--- NOTE | 2021-02-09 09:59 | Physical Therapy Daily Note ---
PT Daily Note-Current Subjective Patient in bed pre tx, agrees to PT, voices no complaints of pain at rest. Will be co-treating with OT due to poor patient mobility, strength, endurance, severe pain with activity, coordinate UE and LE with activity, safety and reduce risk of falls. Appearance Patient in bed post tx with nurse call, phone, tray, all needs met. Mental Status Patient Orientation: Person, Place, Situation Transfers SCALE: Activities may be completed with or without assistive devices. 8-Tnfjnbbtqf-bkfbetr completes the activity by him/herself with no assistance from a helper. 5-Set-up or Clean-up Assistance-helper sets up or cleans up; patient completes activity. [place] assists only prior to or following the activity. 4-Supervision or Touching Assistance-helper provides verbal cues and/or touching/steadying and/or contact guard assistance as patient completes activity. Assistance may be provided throughout the activity or intermittently. 3-Partial/Moderate Assistance-helper does LESS THAN HALF the effort. [place] lifts, holds or supports trunk or limbs, but provides less than half the effort. 2-Substantial/Maximal Assistance-helper does MORE THAN HALF the effort. [place] lifts or holds trunk or limbs and provides more than half the effort. 4-Eijhiqote-qmtztm does ALL the effort. Patient does none of the effort to complete the activity. Or, the assistance of 2 or more helpers is required for the patient to complete the activity. If activity was not attempted, code reason: 7-Patient Refused. 9-Not Applicable-not attempted and the patient did not perform the activity before the current illness, exacerbation or injury. 10-Not Attempted due to Environmental Limitations-(lack of equipment, weather restraints, etc.). 88-Not Attempted due to Medical Conditions or Safety Concerns. Roll Left & Right (QC): 2 Sit to Lying (QC): 1 Lying to Sitting/Side of Bed(Q: 2 Sit to Stand (QC): 1 Chair/Knz-hq-Cvazt Xfer(QC): 1 Patient max assist for supine to sit and then max assist stand pivot transfer to shower chair, prep for shower and dress incisions and then shower (PT performed positioning and safety during shower), when done dry off and dress with PT performing positioning and safety, then stand pivot back to bed and lay down. Patient then has to roll from side to side to get on brief. A small step is used during transfers under her left leg in order for the right leg to dangle and not bear weight. Weight Bearing Right Lower Extremity: Right Touch Toe Bearing RUE NWB Exercises Supine Ex: Ankle pumps, Quad Set, Glut sets Supine Reps: 20 Treatments PT performed bed mobility and transfers, positioning and safety during bathing and dressing, OT performed bathing and dressing, assist with transfers, UE positioning and safety during activity Assessment Current Status: Poor Progress no change in mobility PT Short Term Goals Short Term Goals Time Frame: Feb 03, 2021 Roll Left & Right: 2 Sit to lyin Lying to sitting on side of be: 2 Sit to stand: 2 Chair/dnp-tq-rufih transfer: 2 PT Digital Sales Representative Goals Detention Goals PT Detention Goals Time Frame: Feb 17, 2021 Roll Left & Right (QC): 3 Sit to Lying (QC): 3 Lying-Sitting on Side/Bed(QC): 3 Sit to Stand (QC): 3 Chair/Lsu-kr-Kfwzx Xfer(QC): 3 Toilet Transfer (QC): 3 Car Transfer (QC): 3 Does the Patient Walk: No and Walking Goal NOT indicated Walk 10 feet (QC): 88 Walk 50ft with 2 Turns (QC): 88 Walk 150 ft (QC): 88 Walking 10ft on Uneven Surface: 88 1 Step (curb) (QC): 88 4 Steps (QC): 88 12 Steps (QC): 88 Picking up an Object (QC): 88 Wheel 50 feet with 2 turns (QC: 5 Wheel 150 feet: 5 PT Plan Problem List Problem List: Activity Tolerance, Functional Strength, Safety, Balance, Gait, Transfer, Bed Mobility, ROM Treatment/Plan Treatment Plan: Continue Plan of Care Treatment Plan: Bed Mobility, Education, Functional Activity Brian, Functional Strength, Group Therapy, Gait, Safety, Therapeutic Exercise, Transfers Treatment Duration: Feb 17, 2021 Frequency: At least 5 of 7 days/Wk (IRF) Estimated Hrs Per Day: .25 hour per day Patient and/or Family Agrees t: Yes Safety Risks/Education Patient Education: Transfer Techniques, Reviewed Precautions, Correct Positioning, Safety Issues Teaching Recipient: Patient Teaching Methods: Demonstration, Discussion Response to Teaching: Reinforcement Needed Time/GCodes Time In: 0800 Time Out: 0900 Total Billed Treatment Time: 60 Total Billed Treatment 1 visit FA 60' co-treated for 60' PIETRO BHANDARI PT Feb 09, 2021 09:59
--- NOTE | 2021-02-09 11:06 | Occupational Ther Daily Note ---
OT Current Status-Daily Note Subjective No pain reported. Mental Status/Objective Patient Orientation: Person, Place ADL-Treatment Therapy Code Descriptions/Definitions Functional [place] Measure: 0=Not Assessed/NA 4=Minimal Assistance 1=Total Assistance 5=Supervision or Setup 2=Maximal Assistance 6=Modified [place] 3=Moderate Assistance 7=Complete IndependenceSCALE: Activities may be completed with or without assistive devices. 8-Sdknfaqofx-nuftpwe completes the activity by him/herself with no assistance from a helper. 5-Set-up or Clean-up Assistance-helper sets up or cleans up; patient completes activity. [place] assists only prior to or following the activity. 4-Supervision or Touching Assistance-helper provides verbal cues and/or touching/steadying and/or contact guard assistance as patient completes activity. Assistance may be provided throughout the activity or intermittently. 3-Partial/Moderate Assistance-helper does LESS THAN HALF the effort. [place] lifts, holds or supports trunk or limbs, but provides less than half the effort. 2-Substantial/Maximal Assistance-helper does MORE THAN HALF the effort. [place] lifts or holds trunk or limbs and provides more than half the effort. 4-Subvvyoye-osooux does ALL the effort. Patient does none of the effort to complete the activity. Or, the assistance of 2 or more helpers is required for the patient to complete the activity. If activity was not attempted, code reason: 7-Patient Refused. 9-Not Applicable-not attempted and the patient did not perform the activity before the current illness, exacerbation or injury. 10-Not Attempted due to Environmental Limitations-(lack of equipment, weather restraints, etc.). 88-Not Attempted due to Medical Conditions or Safety Concerns. Oral Hygiene (QC): 5 (Set up at bed level to brush teeth.) Shower/Bathe Self (QC): 2 (Max assist overall in shower. However, pt. is able to wash different parts with cues and immediate SBA. For example, she is able to wash chest and right forearm. She is able to lean forward and attempts to wash under right arm. She attempts to wash under p[place] with cues. OT washes more thoroughly, and washes all other parts.) On/Off Footwear: 1 Toileting Hygiene (QC): 1 Toilet Transfer (QC): 1 (Bucket placed under shower chair once pt. on shower chair. Pt. had BM. Dependent for carla cleanse. Pt. also uses bed michaels with max x 2 for positioning and cleanse several times during treatment.) Other Treatment Pt. seen for partial co-treatment with PT due to need of skilled intervention x 2. Pt. exhibits need for two clinicians due to weakness, fatigue, low endur ance, and poor overall strength with ADL skills. PT facilitates transfers and mobility as well as LE exercises while OT facilitates UE exercises, ADL skills and encouragement to do for self. Pt. transferred supine-sit with max x 2. Transferred to shower chair with max x 2. Required encouragement in shower to attempt tasks for self. After shower, OT dons fresh gown and slipper socks. Transfers back to bed with max x 2. Dependent x 2 for positioning. Pt. requests bed michaels several more times during treatment. Max x 2 for rolling side to side and carla care. HOB raised and pt. encouraged to brush her own hair. Pt. becomes easily distracted and OT has to finish brushing hair and put into ponytail. Pt. able to complete right UE AROM exercises at elbow level. Pt. brushes teeth at set up level. All needs met. Education OT Patient Education: Correct positioning, Exercise program, Modified ADL techniques, Progress toward Goal/Update tx plan, Purpose of tx/functional activities, Reviewed precautions, Rehab process, Transfer techniques Teaching Recipient: Patient Teaching Methods: Demonstration, Discussion Response to Teaching: Verbalize Understanding, Return Demonstration OT Short Term Goals Short Term Goals Time Frame: Feb 10, 2021 Eatin Oral hygiene: 4 Toileting hygiene: 3 Shower/bathe self: 3 Upper body dressin Lower body dressin Putting on/taking off footwear: 3 OT Ocular Care Technician Goals Correction Goals Time Frame: Feb 24, 2021 Eating (QC): 6 Oral Hygiene (QC): 6 Toileting Hygiene (QC): 6 Shower/Bathe Self (QC): 4 Upper Body Dressing (QC): 5 Lower Body Dressing (QC): 5 On/Off Footwear (QC): 5 Additional Goals: 1-Demonstrate ADL Tasks, 2-Verbalize Understanding, 3- ImproveStrength/Brian 1=Demonstrate adherence to instructed precautions during ADL tasks. 2=Patient will verbalize/demonstrate understanding of assistive devices/modifications for ADL. 3=Patient will improve strength/tolerance for activity to enable patient to perform ADL's. OT Education/Plan Problem List/Assessment Assessment: Decreased Activ Tolerance, Decreased UE Strength, Dependent Transfers, Impaired Bed Mobility, Impaired Funct Balance, Impaired I ADL's, Impaired Self-Care Skills, Restricted Funct UE ROM Discharge Recommendations Plan/Recommendations: Continue POC Therapy Discharge Recommendati: 24 Hour Supervision, Post Acute OT Treatment Plan/Plan of Care Treatment,Training & Education: Yes Patient would benefit from OT for education, treatment and training to promote independence in ADL's, mobility, safety and/or upper extremity function for ADL's. Plan of Care: ADL Retraining, Functional Mobility, UE Funct Exercise/Act Treatment Duration: Feb 24, 2021 Frequency: At least 5 of 7 days/Wk (IRF) Estimated Hrs Per Day: 1.5 hours per day Agreement: Yes Rehab Potential: Guarded Time/GCodes Start Time: 09:00 Stop Time: 10:30 Total Time Billed (hr/min): 90 Billed Treatment Time [id number] 1, ADL x 4- PT co-treat [id number] ADL x 2 OT only TAL THOMAS OT Feb 09, 2021 11:06
--- NOTE | 2021-02-09 11:29 | Physical Therapy Daily Note ---
PT Daily Note-Current Subjective Patient in bed pre tx, agrees to PT, has no complaints of pain at rest. Appearance Patient in bed post tx with nurse call, phone, tray, all needs met. Mental Status Patient Orientation: Person, Place, Situation Transfers SCALE: Activities may be completed with or without assistive devices. 9-Tixsdbuywy-hadpghf completes the activity by him/herself with no assistance from a helper. 5-Set-up or Clean-up Assistance-helper sets up or cleans up; patient completes activity. [place] assists only prior to or following the activity. 4-Supervision or Touching Assistance-helper provides verbal cues and/or touch ing/steadying and/or contact guard assistance as patient completes activity. Assistance may be provided throughout the activity or intermittently. 3-Partial/Moderate Assistance-helper does LESS THAN HALF the effort. [place] lifts, holds or supports trunk or limbs, but provides less than half the effort. 2-Substantial/Maximal Assistance-helper does MORE THAN HALF the effort. [place] lifts or holds trunk or limbs and provides more than half the effort. 0-Wxyqsbxuj-bdarsb does ALL the effort. Patient does none of the effort to complete the activity. Or, the assistance of 2 or more helpers is required for the patient to complete the activity. If activity was not attempted, code reason: 7-Patient Refused. 9-Not Applicable-not attempted and the patient did not perform the activity before the current illness, exacerbation or injury. 10-Not Attempted due to Environmental Limitations-(lack of equipment, weather restraints, etc.). 88-Not Attempted due to Medical Conditions or Safety Concerns. Weight Bearing Right Lower Extremity: Right Touch Toe Bearing RUE NWB Exercises Supine Ex: Ankle pumps, Quad Set, Glut sets, Heel Slides (only about 20 degrees on the right side), Short Arc Quads (LLE only), Straight leg raise (with good support on RLE, AAROM), Hip abd/add (RLE AAROM) right side manual dorsiflexion stretch Treatments LE ROM and stretching Assessment Current Status: Fair Progress slightly improved RLE strength PT Short Term Goals Short Term Goals Time Frame: Feb 03, 2021 Roll Left & Right: 2 Sit to lyin Lying to sitting on side of be: 2 Sit to stand: 2 Chair/ngx-vg-yteta transfer: 2 PT Penitentiary Goals Mechanism Inspector Goals PT Penitentiary Goals Time Frame: Feb 17, 2021 Roll Left & Right (QC): 3 Sit to Lying (QC): 3 Lying-Sitting on Side/Bed(QC): 3 Sit to Stand (QC): 3 Chair/Qci-uh-Mhhys Xfer(QC): 3 Toilet Transfer (QC): 3 Car Transfer (QC): 3 Does the Patient Walk: No and Walking Goal NOT indicated Walk 10 feet (QC): 88 Walk 50ft with 2 Turns (QC): 88 Walk 150 ft (QC): 88 Walking 10ft on Uneven Surface: 88 1 Step (curb) (QC): 88 4 Steps (QC): 88 12 Steps (QC): 88 Picking up an Object (QC): 88 Wheel 50 feet with 2 turns (QC: 5 Wheel 150 feet: 5 PT Plan Problem List Problem List: Activity Tolerance, Functional Strength, Safety, Balance, Gait, Transfer, Bed Mobility, ROM Treatment/Plan Treatment Plan: Continue Plan of Care Treatment Plan: Bed Mobility, Education, Functional Activity Brian, Functional Strength, Group Therapy, Gait, Safety, Therapeutic Exercise, Transfers Treatment Duration: Feb 17, 2021 Frequency: At least 5 of 7 days/Wk (IRF) Estimated Hrs Per Day: .25 hour per day Patient and/or Family Agrees t: Yes Safety Risks/Education Patient Education: Correct Positioning, Safety Issues Teaching Recipient: Patient Teaching Methods: Demonstration, Discussion Response to Teaching: Reinforcement Needed Time/GCodes Time In: 1100 Time Out: 1130 Total Billed Treatment Time: 30 Total Billed Treatment 1 visit EX 30PIETRO JOY PT Feb 09, 2021 11:29
--- NOTE | 2021-02-09 12:49 | Behavioral Health Consult ---
Consult- Consult Date Seen by Provider: Feb 08, 2021 Time Seen by Provider: 13:15 [facility] PSYCHOLOGICAL CONSULTATION PATIENT: Shireen Park DATE: 1960 DATE OF EVALUATION: 02/08/21 (13:15-14:20) DATE OF REPORT: 02/09/21 REFERRAL QUESTION: Shireen Park is a 60 year-old female who was admitted to the hospital for rehabilitation following a broken leg and arm. Dr. Horton asked for a psychological consultation for depression. TEST ADMINISTERED: Clinical Interview with Patient PRESENTING PROBLEMS: Shireen Park is currently on the rehabilitation unit to gain strength after falling at home and breaking her leg. She talked about how the past month has been rough as she feels helpless in the hospital. She talked about how she wants to be at home for her of 44 years as he is dealing with prostate cancer. She states that he is supposed to get results from scans tomorrow to see how successful the surgery was. She reports wanting to get better physically and going home but is struggling sometimes with her mood and energy. She reports taking Effexor for fifteen years and does not know if it is enough currently. She also reports stress at home with her son and his fiance being there without her being there to help them. CURRENT/PREVIOUS MENTAL HEALTH TREATMENT: Shireen did not report any previous therapy or counseling. She reports taking Effexor for the past fifteen years. MEDICAL HISTORY: See medical chart for detailed history. She denies breaking a bone before last month when she fell going to the bathroom in the middle of the night and broke her leg. She reports also breaking her arm and requiring surgery on both. She reports having multiple surgeries in the past though including open heart surgery, having half her thyroid removed and lower back surgery. RECREATIONAL DRUG USAGE: This area was not assessed. VOCATIONAL/EDUCATIONAL HISTORIES: Shireen reports that she graduated from high school and got to her . Work history was not mentioned or assessed. FAMILY AND SOCIAL HISTORIES/SOCIAL SUPPORT: Shireen reports that she lives with her Kirk. She states that they got after high school and after knowing each other for only three weeks. She states that they have been for 44 years and have one son. She states that her son and his fiance moved in with them this year as they lost their place in [place]. BEHAVIORAL OBSERVATIONS/MENTAL STATUS: The patient was seen in her hospital room as she was sitting up in her bed and covered in a blanket. She was alert and engaged well with this development writer. She was open and answered all the questions that were asked. She made fair eye contact and was cooperative. Her mood was irritable as she seems generally upset about her current condition and being away from her . She states that she wants to get better but is not allowed by report to put weight on her right leg yet. She states that she really misses her and wishes she could be there with him as he is battl ing prostate cancer. SUMMARY: Mrs. Shireen Park is currently at the hospital for rehabilitation following breaking her leg and arm. She states that she had surgery on both of them. Mrs. Park reports taking Effexor for fifteen years and states that she is not sure that it helps anymore. She is likely to benefit from either an increase in Effexor (if possible given her current dosage) or taking something else to augment her treatment. She is encouraged to follow-up with this development writer if desired as she is currently suffering from depression. DIAGNOSTIC IMPRESSIONS: F33.1 Major Depressive Disorder, Recurrent Thank you for the opportunity to consult on this patient. Copy Copies To 1: ALCIDES HORTON JEFFREY M JOSÉ MIGUEL Feb 09, 2021 12:49
[2021-02-09 20:00] VITALS: BP 127/62
[2021-02-10] MEDS: inSUlin ASPART (NovoLOG) 1 UNIT/0.01 ML (CHARGE PER UNIT) SC SCH ×7 (05:23→20:25)
[2021-02-10] MEDS: KCL 10 MEQ TAB (MICRO K) PO SCH (06:45)
[2021-02-10] MEDS: ENOXAPARIN 40 MG/0.4 ML (LOVENOX) SYR SC SCH ×2 (06:45→18:32)
[2021-02-10] MEDS: RT--FLUTICASONE/SALMETEROL 113-14 (AIRDUO RespiCLICK) IH SCH ×2 (06:49→20:02)
[2021-02-10] MEDS: metFORMIN XR 500 MG (GLUCOPHAGE XR) TAB PO SCH ×2 (07:55→20:59)
[2021-02-10] MEDS: GABAPENTIN 400 MG (NEURONTIN) CAP PO SCH ×3 (07:55→20:59)
[2021-02-10] MEDS: amLODIPine 10 MG (NORVASC) TAB PO SCH (07:55)
[2021-02-10] MEDS: CLOPIDOGREL 75 MG (PLAVIX) TABLET PO SCH (07:55)
[2021-02-10 08:00] VITALS: BP 152/63
[2021-02-10] MEDS: polyethylene glycoL POWDER 17 GM (MIRALAX) PACK PO SCH ×2 (09:08→19:27)
[2021-02-10] MEDS: DOCUSATE SODIUM 100 MG (COLACE) CAP PO SCH ×2 (09:08→19:27)
[2021-02-10] MEDS: SENNA W/DOCUSATE (SENOKOT S) TABLET PO SCH ×2 (09:08→19:27)
--- NOTE | 2021-02-10 10:27 | Physical Therapy Daily Note ---
PT Daily Note-Current Subjective Patient in bed pre tx, agrees to PT, has unrated pain in right leg and arm, will be co-treating with OT due to poor patient mobility, strength, endurance, complicated weight bearing status, coordinate UE and LE during activity, safety and reduce risk of falls. Appearance Patient in bed post tx with nurse call, phone, tray, all needs met. Mental Status Patient Orientation: Person, Place, Situation Transfers SCALE: Activities may be completed with or without assistive devices. 2-Xvxplqhbgy-sabnrdk completes the activity by him/herself with no assistance from a helper. 5-Set-up or Clean-up Assistance-helper sets up or cleans up; patient completes activity. [place] assists only prior to or following the activity. 4-Supervision or Touching Assistance-helper provides verbal cues and/or touching/steadying and/or contact guard assistance as patient completes activity. Assistance may be provided throughout the activity or intermittently. 3-Partial/Moderate Assistance-helper does LESS THAN HALF the effort. [place] lifts, holds or supports trunk or limbs, but provides less than half the effort. 2-Substantial/Maximal Assistance-helper does MORE THAN HALF the effort. [place] lifts or holds trunk or limbs and provides more than half the effort. 1-Lnabjzwex-waxzxy does ALL the effort. Patient does none of the effort to complete the activity. Or, the assistance of 2 or more helpers is required for the patient to complete the activity. If activity was not attempted, code reason: 7-Patient Refused. 9-Not Applicable-not attempted and the patient did not perform the activity before the current illness, exacerbation or injury. 10-Not Attempted due to Environmental Limitations-(lack of equipment, weather restraints, etc.). 88-Not Attempted due to Medical Conditions or Safety Concerns. Roll Left & Right (QC): 2 Sit to Lying (QC): 1 Lying to Sitting/Side of Bed(Q: 1 Sit to Stand (QC): 1 Chair/Gdi-nk-Flgxs Xfer(QC): 1 Patient performed 2 stand pivot transfers and 2 sliding board transfers. A small step was using during the stand pivot transfers under her left leg so the right leg can dangle and not bear weight. All the transfers were dependent. Assist of 2 required for all of them. In bed patient has to roll from side to side several times to use bedpan and change bedding and get her shorts on. Weight Bearing Right Lower Extremity: Right Touch Toe Bearing RUE NWB Wheelchair Training Does the Pt Use a Wheelchair?: Yes Wheel 50 ft with 2 turns (QC): 3 Wheel 150 ft (QC): 3 Type of Wheelchair: Manual 300', patient can roll backward using her left foot with just min assist to help correct her direction Exercises Seated reaching and limits of stability training forward/back and side to side, also LAQ x20 on the left side and seated pre-standing training from the therapy table. Treatments PT performed bed mobility and transfers, WC mobility, balance and core strengthening, LE strengthening, OT performed cleaning, dressing, UE positioning and safety, balance training, transfers Assessment Current Status: Poor Progress no change in mobility PT Short Term Goals Short Term Goals Time Frame: Feb 03, 2021 Roll Left & Right: 2 Sit to lyin Lying to sitting on side of be: 2 Sit to stand: 2 Chair/flh-mv-rfhtq transfer: 2 PT Fdc Goals Manager [employer]oles[employer] Goals PT Manager [employer]olesale Goals Time Frame: Feb 17, 2021 Roll Left & Right (QC): 3 Sit to Lying (QC): 3 Lying-Sitting on Side/Bed(QC): 3 Sit to Stand (QC): 3 Chair/Net-pq-Glpih Xfer(QC): 3 Toilet Transfer (QC): 3 Car Transfer (QC): 3 Does the Patient Walk: No and Walking Goal NOT indicated Walk 10 feet (QC): 88 Walk 50ft with 2 Turns (QC): 88 Walk 150 ft (QC): 88 Walking 10ft on Uneven Surface: 88 1 Step (curb) (QC): 88 4 Steps (QC): 88 12 Steps (QC): 88 Picking up an Object (QC): 88 Wheel 50 feet with 2 turns (QC: 5 Wheel 150 feet: 5 PT Plan Problem List Problem List: Activity Tolerance, Functional Strength, Safety, Balance, Gait, Transfer, Bed Mobility, ROM Treatment/Plan Treatment Plan: Continue Plan of Care Treatment Plan: Bed Mobility, Education, Functional Activity Brian, Functional Strength, Group Therapy, Gait, Safety, Therapeutic Exercise, Transfers Treatment Duration: Feb 17, 2021 Frequency: At least 5 of 7 days/Wk (IRF) Estimated Hrs Per Day: .25 hour per day Patient and/or Family Agrees t: Yes Safety Risks/Education Patient Education: Transfer Techniques, Reviewed Precautions, Correct Positioning, W/C Management, Safety Issues Teaching Recipient: Patient Teaching Methods: Demonstration, Discussion Response to Teaching: Reinforcement Needed Time/GCodes Time In: 0900 Time Out: 1030 Total Billed Treatment Time: 90 Total Billed Treatment 1 visit EX 30' FA 60' co-treated for 90' PIETRO BHANDARI PT Feb 10, 2021 10:27
--- NOTE | 2021-02-10 12:02 | Occupational Ther Daily Note ---
OT Current Status-Daily Note Subjective No pain reported. Appearance Pt. in bed. Agrees to work with therapy. Mental Status/Objective Patient Orientation: Person, Place, Time, Situation ADL-Treatment Therapy Code Descriptions/Definitions Functional [place] Measure: 0=Not Assessed/NA 4=Minimal Assistance 1=Total Assistance 5=Supervision or Setup 2=Maximal Assistance 6=Modified [place] 3=Moderate Assistance 7=Complete IndependenceSCALE: Activities may be completed with or without assistive devices. 3-Lopopmvgnd-zorwult completes the activity by him/herself with no assistance from a helper. 5-Set-up or Clean-up Assistance-helper sets up or cleans up; patient completes activity. [place] assists only prior to or following the activity. 4-Supervision or Touching Assistance-helper provides verbal cues and/or touching/steadying and/or contact guard assistance as patient completes activity. Assistance may be provided throughout the activity or intermittently. 3-Partial/Moderate Assistance-helper does LESS THAN HALF the effort. [place] lifts, holds or supports trunk or limbs, but provides less than half the effort. 2-Substantial/Maximal Assistance-helper does MORE THAN HALF the effort. [place] lifts or holds trunk or limbs and provides more than half the effort. 9-Smoqdwogk-tdfwxg does ALL the effort. Patient does none of the effort to complete the activity. Or, the assistance of 2 or more helpers is required for the patient to complete the activity. If activity was not attempted, code reason: 7-Patient Refused. 9-Not Applicable-not attempted and the patient did not perform the activity before the current illness, exacerbation or injury. 10-Not Attempted due to Environmental Limitations-(lack of equipment, weather restraints, etc.). 88-Not Attempted due to Medical Conditions or Safety Concerns. Lower Body Dressing (QC): 2 (Max assist to don shorts at bed level.) On/Off Footwear: 2 Toileting Hygiene (QC): 1 (Max assist of one person to roll pt. and max assist of another to complete carla care.) Other Treatment Pt. seen this date for co-treatment with PT/OT due to need of skilled assist x 2. Pt. requires 2 clinical therapists due to complicated medical history that requires 2 clinicians for transfers, mobility, and problem solving with ADL skills. PT facilitated mobility and transfers while OT initiated ADL skills. Pt. rolled side-side with max assist, and then max x 2 at times for bed michaels placement, carla care, and then donning of shorts. Transferred supine-sit with max x 2 and scooted EOB max x 2. OT donned right UE sling. Transferred squat pivot to wheelchair with step under unaffected LE so that pt. can keep weight off affected LE. Max x 2 for transfer. Pt. practiced self propelling. First in forward motion with mod assist, and then in backward motion with min assist. Pt. taken to therapy gym and transferred to mat with slide board, max x 2. Worked on on core strengthening, leaning forward, backward at pelvis, side to side. Pt. also practiced side lying onto left forearm, and reaching forward with left UE to grasp for item. Tolerated well with rest breaks. Transferred back to wheelchair with max x 2 using slide board. Max x 2 squat pivot to bed and sit-supine. All needs met. Education OT Patient Education: Correct positioning, Exercise program, Modified ADL techniques, Progress toward Goal/Update tx plan, Purpose of tx/functional activities, Reviewed precautions, Rehab process, Transfer techniques Teaching Recipient: Patient Teaching Methods: Demonstration, Discussion Response to Teaching: Verbalize Understanding, Return Demonstration, Reinforcement Needed OT Short Term Goals Short Term Goals Time Frame: Feb 10, 2021 Eatin Oral hygiene: 4 Toileting hygiene: 3 Shower/bathe self: 3 Upper body dressin Lower body dressin Putting on/taking off footwear: 3 OT Explosive Specialist Goals Senior Living Goals Time Frame: Feb 24, 2021 Eating (QC): 6 Oral Hygiene (QC): 6 Toileting Hygiene (QC): 6 Shower/Bathe Self (QC): 4 Upper Body Dressing (QC): 5 Lower Body Dressing (QC): 5 On/Off Footwear (QC): 5 Additional Goals: 1-Demonstrate ADL Tasks, 2-Verbalize Understanding, 3-ImproveStrength/Brian 1=Demonstrate adherence to instructed precautions during ADL tasks. 2=Patient will verbalize/demonstrate understanding of assistive devices/modifications for ADL. 3=Patient will improve strength/tolerance for activity to enable patient to perform ADL's. OT Education/Plan Problem List/Assessment Assessment: Decreased Activ Tolerance, Decreased UE Strength, Dependent Transfers, Impaired Bed Mobility, Impaired Funct Balance, Impaired I ADL's, Impaired Self-Care Skills, Restricted Funct UE ROM Discharge Recommendations Plan/Recommendations: Continue POC Therapy Discharge Recommendati: 24 Hour Supervision, Post Acute OT Treatment Plan/Plan of Care Treatment,Training & Education: Yes Patient would benefit from OT for education, treatment and training to promote independence in ADL's, mobility, safety and/or upper extremity function for ADL's. Plan of Care: ADL Retraining, Functional Mobility, UE Funct Exercise/Act Treatment Duration: Feb 24, 2021 Frequency: At least 5 of 7 days/Wk (IRF) Estimated Hrs Per Day: 1.5 hours per day Agreement: Yes Rehab Potential: Guarded Time/GCodes Start Time: 09:00 Stop Time: 10:30 Total Time Billed (hr/min): 90 Billed Treatment Time 1, FA x 6- Co-treatment with TAL VALENZUELA OT Feb 10, 2021 12:02
--- NOTE | 2021-02-10 12:24 | PM&R Progress Note ---
Subjective HPI/CC On Admission Date Seen by Provider: Feb 10, 2021 Time Seen by Provider: 10:00 Subjective/Events-last exam 02/10/2021: Pt down pretty well custodial has been approved by insurance [facility] trying to get approval Max total assist with therapy 02/09/2021: Pt still awaiting placement Psych eval Dr. Harrington very helpful yesterday Using bed michaels Bowels are moving Pain meds are helpful 02/08/2021: Pt doing okay Oxycodone taken with good results Orthopedics will be reached to decide on suture removal Bed michaels is being used and doing pretty well Psych eval ordered Appears to have some struggle with motivation 02/07/21: Patient having depression issues Behavioral health consult is requested No pain other than chronic issues with fractures No issues otherwise Talked about her with [place] and 44 years and other details 02/06/21: Patient doing well Sleeping currently No falls Pain controlled Checked meds and labs 02/05/2021: No significant concerns per nurses Patient feels pretty good Ready to work with therapy today Awaiting nursing facility to accept 02/04/2021: Pt doing pretty well Bowels are moving Pain is pretty well controlled Denies any other significant new problems No falls Moving around a little bit better [place]eds [place] [facility] recovery 02/03/2021: Patient doing pretty well Ice to right shoulder is helping Lower extremity edema nonpitting type Blood sugar is good at 123 155 Pain management successful Bowels are moving pretty well We will need to go [place] a [place] [facility] Cheri lift cannot be used due to risk of too much pressure on the hardware in her leg 02/02/2021: Pt doing really well Glucose is 114 Will need a Cheri lift custodial placement likely will be required Right shoulder pain noted She is thirsty all the time Pure-wic maintained 02/01/2021: Pt doing pretty well Complaining of right shoulder pain due to surgery Holding laxatives due to loose stools Hgb 8.2 Purewick maintained Unable to do sit to stand may need cheri 01/31/2021: Patient doing really well today Pain is well controlled Change pure wick a couple of times Glucose 220 this morning Bowels moved today 01/30/2021: Patient doing pretty well today Pain is well controlled Using pure wick Bowels moved yesterday Working out with therapy 01/29/2021: Pt doing pretty well Denies any significant new issues Participating in therapy Checked meds and labs Denies any pain 01/28/2021: Pt doing pretty well but had a pop in her right leg when she barely had weight bearing to it X-rays ordered Purewick maintained Check meds and labs Bowels are moving Review of Systems Musculoskeletal: arm pain, leg pain Objective Exam Vital Signs Vital Signs Date Time Temp Pulse Resp B/P (MAP) Pulse Ox O2 Delivery O2 Flow Rate FiO2 02/11/21 01:35 36.7 83 96 21 02/10/21 21:48 18 127/62 (83) Room Air 02/10/21 21:00 0.00 Capillary Refill : General Appearance: No Apparent Distress, WD/WN, Chronically ill HEENT: PERRL/EOMI, Normal ENT Inspection, Pharynx Normal Neck: Full Range of Motion, Normal Inspection, Non Tender, Supple, Carotid Bruit Respiratory: Chest Non Tender, Lungs Clear, Normal Breath Sounds, No Accessory Muscle Use, No Respiratory Distress Cardiovascular: Regular Rate, Rhythm, No Edema, No Gallop, No JVD, No Murmur, Normal Peripheral Pulses Gastrointestinal: Normal Bowel Sounds, No Organomegaly, No Pulsatile Mass, Non Tender, Soft Back: Normal Inspection, No CVA Tenderness, No Vertebral Tenderness Extremity: Normal Capillary Refill, Normal Inspection, Normal Range of Motion (Except right arm and right leg), Non Tender, No Calf Tenderness, No Pedal Edema Neurologic/Psychiatric: Alert, Oriented x3, No Motor/Sensory Deficits, admiralty lawyer II- XII Norm as Tested, Abnormal Gait, Depressed Affect, Motor Weakness (Right arm right leg) Skin: Normal Color, Warm/Dry Lymphatic: No Adenopathy Results/Procedures Lab Patient resulted labs reviewed. FIM Transfers Therapy Code Descriptions/Definitions Functional [place] Measure: 0=Not Assessed/NA 4=Minimal Assistance 1=Total Assistance 5=Supervision or Setup 2=Maximal Assistance 6=Modified [place] 3=Moderate Assistance 7=Complete IndependenceSCALE: Activities may be completed with or without assistive devices. 4-Lgtxxpvdkf-guxmcxj completes the activity by him/herself with no assistance from a helper. 5-Set-up or Clean-up Assistance-helper sets up or cleans up; patient completes activity. [place] assists only prior to or following the activity. 4-Supervision or Touching Assistance-helper provides verbal cues and/or touching/steadying and/or contact guard assistance as patient completes activity. Assistance may be provided throughout the activity or intermittently. 3-Partial/Moderate Assistance-helper does LESS THAN HALF the effort. [place] lifts, holds or supports trunk or limbs, but provides less than half the effort. 2-Substantial/Maximal Assistance-helper does MORE THAN HALF the effort. [place] lifts or holds trunk or limbs and provides more than half the effort. 6-Fbgvvwctf-crqtmo does ALL the effort. Patient does none of the effort to complete the activity. Or, the assistance of 2 or more helpers is required for the patient to complete the activity. If activity was not attempted, code reason: 7-Patient Refused. 9-Not Applicable-not attempted and the patient did not perform the activity before the current illness, exacerbation or injury. 10-Not Attempted due to Environmental Limitations-(lack of equipment, weather restraints, etc.). 88-Not Attempted due to Medical Conditions or Safety Concerns. Roll Left to Right (QC): 2 Sit to Lying (QC): 1 Sit to Stand (QC): 1 Chair/Zsn-iz-Qdchw Xfer(QC): 1 Car Transfer (QC): 1 Gait Training Does the Patient Walk?: No and Walking Goal IS indicated Walk 10 feet (QC): 88 Walk 50 ft with 2 Turns(QC): 88 Walk 150 ft (QC): 88 Walking 10ft/uneven surface-QC: 88 Wheelchair Training Does the Pt Use a Wheelchair?: Yes Wheel 50 ft with 2 turns (QC): 3 Wheel 150 ft (QC): 3 Type of Wheelchair: Manual Stair Training 1 Step (curb) (QC): 88 4 Steps (QC): 88 12 Steps (QC): 88 Balance Picking up an Object (QC): 88 ADL-Treatment Eating (QC): 5 Oral Hygiene (QC): 5 (Set up at bed level to brush teeth.) Shower/Bathe Self (QC): 2 (Max assist overall in shower. However, pt. is able to wash different parts with cues and immediate SBA. For example, she is able to wash chest and right forearm. She is able to lean forward and attempts to wash under right arm. She attempts to wash under [place] with cues. OT washes more thoroughly, and washes all other parts.) Upper Body Dressing (QC): 2 (Max assist to don over head dress.) Lower Body Dressing (QC): 2 (Max assist to don shorts at bed level.) On/Off Footwear (QC): 2 Toileting Hygiene (QC): 1 (Max assist of one person to roll pt. and max assist of another to complete carla care.) Toilet Transfer (QC): 1 (Bucket placed under shower chair once pt. on shower chair. Pt. had BM. Dependent for carla cleanse. Pt. also uses bed michaels with max x 2 for positioning and cleanse several times during treatment.) Assessment/Plan Assessment and Plan Assess & Plan/Chief Complaint Assessment: Distal fracture of right femur Closed comminuted fracture of right humerus ABLA (acute blood loss anemia) Morbid obesity ([facility]) Hyponatremia Syncope and collapse Impaired mobility and activities of daily living Acute traumatic pain Sleep disorder CAD (coronary artery disease HTN (hypertension) COPD (chronic obstructive pulmonary disease) ([facility]) At risk for constipation DM (diabetes mellitus) ([facility]) Plan: Aggressive therapy Pain control Supportive care 01/28/2021: Supportive care to continue Check x-ray of leg Continue nonweightbearing status 01/29/2021: Supportive care Monitor bowel function Pain control 01/30/2021: Supportive care Pain control Bowel regimen 01/31/2021: Aggressive therapy Supportive care 02/01/2021: Pain control Pure wick Monitor glucose 02/02/2021: Supportive care [place]eds [place] [facility] due to complete dependence 02/03/2021: Supportive care Needs [place] [facility] Ice to shoulder Pain management 02/04/2021: Pain control Improve transfers Monitor closely 02/05/2021: Bowel regimen Pain control Monitor closely 02/06/21: Monitor pain Fall risk 02/07/21: Behavioral health consult Monitor closely 02/08/2021: Behavioral health consult Celexa added Monitor closely 02/09/2021: Supportive care Needs [place] [facility] since fully dependent 02/10/2021: Discharge planning [facility] for skilled (1) Femur fracture ALCIDES RUIZ DO Feb 10, 2021 12:24
[2021-02-10] MEDS ORDERED: SENN1TAB76 PO (12:45)
[2021-02-10] MEDS ORDERED: ENOX40DI8 SC (12:45)
[2021-02-10] MEDS ORDERED: AMLO-251 PO (12:45)
[2021-02-10] MEDS ORDERED: INSU100V5 SQ (12:45)
[2021-02-10] MEDS ORDERED: OXC5T PO (12:45)
[2021-02-10] MEDS ORDERED: METH-732 PO (12:45)
[2021-02-10] MEDS ORDERED: INSU100I48 SC (12:45)
[2021-02-10] MEDS ORDERED: CITA20TA9 PO (12:45)
[2021-02-10] MEDS ORDERED: POTA10TA6 PO (12:45)
--- NOTE | 2021-02-10 12:46 | Discharge Inst-Skilled Nursing ---
Discharge Inst-Skilled NF Reconcile Patient Problems Problems Reviewed?: Yes Patient Instructions Patient Problems: Right distal femur fracture Goal: independence Consult/Follow Up/Orders Skilled NF Admit to: [facility] Certification (SNF) I certify that SNF services are required to be given on an inpatient basis because of the above named patient's need for longterm care on a continuing basis for the conditions(s) for which he/she was receiving inpatient hospital services prior to his/her transfer to the SNF. Nursing Home Facility Order: Nursing Services, Checking Department Supervisor-Evaluate & Treat, Physical Therapy-Evaluate & Treat Oxygen Delivery Method: Room Air Discharge Diet: ADA Diet Resuscitation Status: Full Code New & Resume Previous Orders New Medications: Amlodipine Besylate (Amlodipine Besylate) 10 Mg Tablet 10 MG PO DAILY for 30 Days, TAB Citalopram Hydrobromide (Citalopram HBr) 20 Mg Tablet 20 MG PO DAILY for 30 Days, TAB Enoxaparin Sodium (Enoxaparin Sodium) 40 Mg/0.4 Ml Syringe 40 MG SC BID@0700,1900 for 60 Days, SYRINGE Insulin Determir (Levemir) 1,000 Units/10 Ml Soln 10 UNIT SQ BID for 30 Days, EA Methocarbamol (Methocarbamol) 750 Mg Tablet 750 MG PO QID PRN for MUSCLE SPASMS, #60 TAB Oxycodone Hcl (Oxyir Tablet) 5 Mg Tab 5-15 MG PO Q4H PRN for PAIN-SEVERE (8-10), #30 TAB Potassium Chloride (Klor-Con 10) 10 Meq Tablet.er 10 MEQ PO DAILY@0700 for 30 Days, TAB Sennosides/Docusate Sodium (Stool Softener-Laxative Tablet) 1 Each Tablet 1 EA PO BID for 30 Days, TAB Continued Medications: Albuterol Sulfate (Proair Hfa) 1 Puff Puff 2 PUFF IH Q4H PRN for SHORTNESS OF BREATH, EA Atorvastatin Calcium (Atorvastatin Calcium) 80 Mg Tablet 80 MG PO DAILY, TAB Budesonide/Formoterol Fumarate (Budesonide-Formoterol 160-4.5) 10.2 Gm Hfa.aer.ad 2 PUFF INH BID, INHALER Clopidogrel Bisulfate (Clopidogrel) 75 Mg Tablet 75 MG PO DAILY, TAB Gabapentin (Gabapentin) 400 Mg Capsule 400 MG PO TID, CAP Insulin Lispro (Insulin Lispro Kwikpen U-100) 100 Unit/1 Ml Insuln.pen 6 UNITS SC AC for 30 Days, UNITS (This prescription has been renewed) Metformin HCl (Metformin HCl ER) 500 Mg Tab.er.24h 500 MG PO DAILY, TAB Discontinued Medications: Fludrocortisone Acetate (Fludrocortisone Acetate) 0.1 Mg Tab 0.1 MG PO TID, TAB Insulin Determir (Levemir) 1,000 Units/10 Ml Soln 10 UNIT SC HS, UNITS Lisinopril (Lisinopril) 20 Mg Tablet 20 MG PO DAILY, TAB Sitagliptin Phosphate (Januvia) 100 Mg Tablet 100 MG PO TID, TAB Venlafaxine HCl (Venlafaxine HCl ER) 150 Mg Cap.er.24h 150 MG PO DAILY, CAP Nini Horton Feb 10, 2021 12:46 NINI HORTON DO Feb 10, 2021 12:46
[2021-02-10 21:48] VITALS: BP 127/62
[2021-02-11 01:35] VITALS: BP 127/62
[2021-02-11] MEDS: KCL 10 MEQ TAB (MICRO K) PO SCH (05:57)
[2021-02-11] MEDS: ENOXAPARIN 40 MG/0.4 ML (LOVENOX) SYR SC SCH ×2 (05:57→18:51)
[2021-02-11] MEDS: inSUlin ASPART (NovoLOG) 1 UNIT/0.01 ML (CHARGE PER UNIT) SC SCH ×8 (06:01→21:23)
[2021-02-11 07:46] VITALS: BP 173/72
[2021-02-11] MEDS: amLODIPine 10 MG (NORVASC) TAB PO SCH (07:46)
[2021-02-11] MEDS: CLOPIDOGREL 75 MG (PLAVIX) TABLET PO SCH (07:46)
[2021-02-11] MEDS: GABAPENTIN 400 MG (NEURONTIN) CAP PO SCH ×3 (07:46→21:21)
[2021-02-11] MEDS: metFORMIN XR 500 MG (GLUCOPHAGE XR) TAB PO SCH ×2 (07:46→21:21)
[2021-02-11] MEDS: RT--FLUTICASONE/SALMETEROL 113-14 (AIRDUO RespiCLICK) IH SCH ×2 (08:10→20:30)
--- NOTE | 2021-02-11 09:18 | PM&R Progress Note ---
Subjective HPI/CC On Admission Date Seen by Provider: Feb 11, 2021 Time Seen by Provider: 10:00 Subjective/Events-last exam 02/11/2021: Pt remains max-assist Has no pain currently Checked meds and labs 02/10/2021: Pt down pretty well residential has been approved by insurance [facility] trying to get approval Max total assist with therapy 02/09/2021: Pt still awaiting placement Psych eval Dr. Harrington very helpful yesterday Using bed michaels Bowels are moving Pain meds are helpful 02/08/2021: Pt doing okay Oxycodone taken with good results Orthopedics will be reached to decide on suture removal Bed michaels is being used and doing pretty well Psych eval ordered Appears to have some struggle with motivation 02/07/21: Patient having depression issues Behavioral health consult is requested No pain other than chronic issues with fractures No issues otherwise Talked about her with [place] and 44 years and other details 02/06/21: Patient doing well Sleeping currently No falls Pain controlled Checked meds and labs 02/05/2021: No significant concerns per nurses Patient feels pretty good Ready to work with therapy today Awaiting nursing facility to accept 02/04/2021: Pt doing pretty well Bowels are moving Pain is pretty well controlled Denies any other significant new problems No falls Moving around a little bit better [place] [facility] [place] recovery 02/03/2021: Patient doing pretty well Ice to right shoulder is helping Lower extremity edema nonpitting type Blood sugar is good at 123 155 Pain management successful Bowels are moving pretty well We will need to go to a [place] [facility] [place] Cheri lift cannot be used due to risk of too much pressure on the hardware in her leg 02/02/2021: Pt doing really well Glucose is 114 Will need a Cheri lift residential placement likely will be required Right shoulder pain noted She is thirsty all the time Pure-wic maintained 02/01/2021: Pt doing pretty well Complaining of right shoulder pain due to surgery Holding laxatives due to loose stools Hgb 8.2 Purewick maintained Unable to do sit to stand may need cheri 01/31/2021: Patient doing really well today Pain is well controlled Change pure wick a couple of times Glucose 220 this morning Bowels moved today 01/30/2021: Patient doing pretty well today Pain is well controlled Using pure wick Bowels moved yesterday Working out with therapy 01/29/2021: Pt doing pretty well Denies any significant new issues Participating in therapy Checked meds and labs Denies any pain 01/28/2021: Pt doing pretty well but had a pop in her right leg when she barely had weight bearing to it X-rays ordered Purewick maintained Check meds and labs Bowels are moving Review of Systems Musculoskeletal: arm pain, leg pain Objective Exam Vital Signs Vital Signs Date Time Temp Pulse Resp B/P (MAP) Pulse Ox O2 Delivery O2 Flow Rate FiO2 02/11/21 21:00 Room Air 02/11/21 20:25 96 02/11/21 20:00 36.4 70 18 126/75 (92) 02/11/21 01:35 21 02/10/21 21:00 0.00 Capillary Refill : General Appearance: No Apparent Distress, WD/WN, Chronically ill HEENT: PERRL/EOMI, Normal ENT Inspection, Pharynx Normal Neck: Full Range of Motion, Normal Inspection, Non Tender, Supple, Carotid Bruit Respiratory: Chest Non Tender, Lungs Clear, Normal Breath Sounds, No Accessory Muscle Use, No Respiratory Distress Cardiovascular: Regular Rate, Rhythm, No Edema, No Gallop, No JVD, No Murmur, Normal Peripheral Pulses Gastrointestinal: Normal Bowel Sounds, No Organomegaly, No Pulsatile Mass, Non Tender, Soft Back: Normal Inspection, No CVA Tenderness, No Vertebral Tenderness Extremity: Normal Capillary Refill, Normal Inspection, Normal Range of Motion (Except right arm and right leg), Non Tender, No Calf Tenderness, No Pedal Edema Neurologic/Psychiatric: Alert, Oriented x3, No Motor/Sensory Deficits, permit specialist II- XII Norm as Tested, Abnormal Gait, Depressed Affect, Motor Weakness (Right arm right leg) Skin: Normal Color, Warm/Dry Lymphatic: No Adenopathy Results/Procedures Lab Patient resulted labs reviewed. FIM Transfers Therapy Code Descriptions/Definitions Functional [place] Measure: 0=Not Assessed/NA 4=Minimal Assistance 1=Total Assistance 5=Supervision or Setup 2=Maximal Assistance 6=Modified [place] 3=Moderate Assistance 7=Complete IndependenceSCALE: Activities may be completed with or without assistive devices. 5-Cywiylkqnz-uhnkvrj completes the activity by him/herself with no assistance from a helper. 5-Set-up or Clean-up Assistance-helper sets up or cleans up; patient completes activity. [place] assists only prior to or following the activity. 4-Supervision or Touching Assistance-helper provides verbal cues and/or touching/steadying and/or contact guard assistance as patient completes activity. Assistance may be provided throughout the activity or intermittently. 3-Partial/Moderate Assistance-helper does LESS THAN HALF the effort. [place] lifts, holds or supports trunk or limbs, but provides less than half the effort. 2-Substantial/Maximal Assistance-helper does MORE THAN HALF the effort. [place] lifts or holds trunk or limbs and provides more than half the effort. 2-Flvndyodv-wrqzxw does ALL the effort. Patient does none of the effort to complete the activity. Or, the assistance of 2 or more helpers is required for the patient to complete the activity. If activity was not attempted, code reason: 7-Patient Refused. 9-Not Applicable-not attempted and the patient did not perform the activity before the current illness, exacerbation or injury. 10-Not Attempted due to Environmental Limitations-(lack of equipment, weather restraints, etc.). 88-Not Attempted due to Medical Conditions or Safety Concerns. Roll Left to Right (QC): 2 Sit to Lying (QC): 1 Sit to Stand (QC): 1 Chair/Vzu-my-Npgtj Xfer(QC): 1 Car Transfer (QC): 1 Gait Training Does the Patient Walk?: No and Walking Goal IS indicated Walk 10 feet (QC): 88 Walk 50 ft with 2 Turns(QC): 88 Walk 150 ft (QC): 88 Walking 10ft/uneven surface-QC: 88 Wheelchair Training Does the Pt Use a Wheelchair?: Yes Wheel 50 ft with 2 turns (QC): 3 Wheel 150 ft (QC): 3 Type of Wheelchair: Manual Stair Training 1 Step (curb) (QC): 88 4 Steps (QC): 88 12 Steps (QC): 88 Balance Picking up an Object (QC): 88 ADL-Treatment Eating (QC): 5 Oral Hygiene (QC): 5 (Set up at bed level to brush teeth.) Shower/Bathe Self (QC): 2 (Max assist overall in shower. However, pt. is able to wash different parts with cues and immediate SBA. For example, she is able to wash chest and right forearm. She is able to lean forward and attempts to wash under right arm. She attempts to wash under [place]annus with cues. OT washes more thoroughly, and washes all other parts.) Upper Body Dressing (QC): 2 (Max assist to don over head dress.) Lower Body Dressing (QC): 2 (Max assist to don shorts at bed level.) On/Off Footwear (QC): 2 Toileting Hygiene (QC): 1 (Max assist of one person to roll pt. and max assist of another to complete carla care.) Toilet Transfer (QC): 1 (Bucket placed under shower chair once pt. on shower chair. Pt. had BM. Dependent for carla cleanse. Pt. also uses bed michaels with max x 2 for positioning and cleanse several times during treatment.) Assessment/Plan Assessment and Plan Assess & Plan/Chief Complaint Assessment: Distal fracture of right femur Closed comminuted fracture of right humerus ABLA (acute blood loss anemia) Morbid obesity ([facility]) Hyponatremia Syncope and collapse Impaired mobility and activities of daily living Acute traumatic pain Sleep disorder CAD (coronary artery disease HTN (hypertension) COPD (chronic obstructive pulmonary disease) ([facility]) At risk for constipation DM (diabetes mellitus) ([facility]) Plan: Aggressive therapy Pain control Supportive care 01/28/2021: Supportive care to continue Check x-ray of leg Continue nonweightbearing status 01/29/2021: Supportive care Monitor bowel function Pain control 01/30/2021: Supportive care Pain control Bowel regimen 01/31/2021: Aggressive therapy Supportive care 02/01/2021: Pain control Pure wick Monitor glucose 02/02/2021: Supportive care [place] [facility] [place] due to complete dependence 02/03/2021: Supportive care Needs [place] [facility] Ice to shoulder Pain management 02/04/2021: Pain control Improve transfers Monitor closely 02/05/2021: Bowel regimen Pain control Monitor closely 02/06/21: Monitor pain Fall risk 02/07/21: Behavioral health consult Monitor closely 02/08/2021: Behavioral health consult Celexa added Monitor closely 02/09/2021: Supportive care Needs [place] [facility] since fully dependent 02/10/2021: Discharge planning [facility] 02/11/2021: Await placement (1) Femur fracture ALCIDES RUIZ DO Feb 11, 2021 09:18
[2021-02-11] MEDS: polyethylene glycoL POWDER 17 GM (MIRALAX) PACK PO SCH ×2 (09:48→21:27)
[2021-02-11] MEDS: DOCUSATE SODIUM 100 MG (COLACE) CAP PO SCH ×2 (09:48→21:21)
[2021-02-11] MEDS: SENNA W/DOCUSATE (SENOKOT S) TABLET PO SCH ×2 (09:49→21:21)
--- NOTE | 2021-02-11 11:02 | Occupational Ther Daily Note ---
OT Current Status-Daily Note Subjective No pain reported. Appearance Pt. in bed. Agrees to work with OT. Mental Status/Objective Patient Orientation: Person, Place, Time, Situation ADL-Treatment Therapy Code Descriptions/Definitions Functional [place] Measure: 0=Not Assessed/NA 4=Minimal Assistance 1=Total Assistance 5=Supervision or Setup 2=Maximal Assistance 6=Modified [place] 3=Moderate Assistance 7=Complete IndependenceSCALE: Activities may be completed with or without assistive devices. 9-Fznexgnjyw-cjctqsr completes the activity by him/herself with no assistance from a helper. 5-Set-up or Clean-up Assistance-helper sets up or cleans up; patient completes activity. [place] assists only prior to or following the activity. 4-Supervision or Touching Assistance-helper provides verbal cues and/or touching/steadying and/or contact guard assistance as patient completes activity. Assistance may be provided throughout the activity or intermittently. 3-Partial/Moderate Assistance-helper does LESS THAN HALF the effort. [place] lifts, holds or supports trunk or limbs, but provides less than half the effort. 2-Substantial/Maximal Assistance-helper does MORE THAN HALF the effort. [place] lifts or holds trunk or limbs and provides more than half the effort. 1-Ycrjezlfd-khjsez does ALL the effort. Patient does none of the effort to complete the activity. Or, the assistance of 2 or more helpers is required for the patient to complete the activity. If activity was not attempted, code reason: 7-Patient Refused. 9-Not Applicable-not attempted and the patient did not perform the activity before the current illness, exacerbation or injury. 10-Not Attempted due to Environmental Limitations-(lack of equipment, weather restraints, etc.). 88-Not Attempted due to Medical Conditions or Safety Concerns. Eating (QC): 6 (Pt. finishing breakfast independently when OT entered room.) Shower/Bathe Self (QC): 3 (Mod assist overall at bed level. Please see note below.) Upper Body Dressing (QC): 3 (Min assist at bed level.) Lower Body Dressing (QC): 2 On/Off Footwear: 2 Toileting Hygiene (QC): 1 Toilet Transfer (QC): 1 (Bed michaels.) Other Treatment Pt. seen this date for OT treatment, and then co-treatment with PT. Pt. seen first for ADL skills treatment. Pt. worked on bathing/dressing self at bed level to improve overall independence with daily skills and tasks. OT provided set up of hot water and washcloths. HOB raised and lowered as pt. needed, and pt. encouraged to lean forward, using core muscles to do as much for herself as she could. Pt. able to bathe chest, right arm, under right arm, and front carla area. Pt. able to bathe upper thighs. OT bathed all other parts. Pt. max assist to roll in bed, and dependent for bed michaels placement and carla cleanse. Donned shirt with min assist with cues to lean forward, and then PT entered room. PT provided further cueing and assist with skilled transfers for rolling side to side and assisting self while OT placed depend. OT donned shorts over feet and pt. assisted self to don over hips. Transferred max x 2 supine-sit and to scoot EOB. Donned right arm sling with max assist. Transferred to wheelchair via slide board with max x 2. Practiced self propulsion in wheelchair, and then practiced standing at parallel bar with left arm and left hand only. Pt. able to stand x 2 with max x 2, and was able to get into upright standing posture with left knee blocked, glutes facilitated. Cues to weight shift to left side. OT facilitated right UE AROM at elbow, wrist, and finger level while PT facilitated LE exercises. Pt. up in chair with PT when OT left treatment session. All needs met. Education OT Patient Education: Correct positioning, Exercise program, Modified ADL techniques, Progress toward Goal/Update tx plan, Purpose of tx/functional activities, Reviewed precautions, Rehab process, Transfer techniques, W/C management Teaching Recipient: Patient Teaching Methods: Demonstration, Discussion Response to Teaching: Verbalize Understanding, Return Demonstration OT Short Term Goals Short Term Goals Time Frame: Feb 10, 2021 Eatin Oral hygiene: 4 Toileting hygiene: 3 Shower/bathe self: 3 Upper body dressin Lower body dressin Putting on/taking off footwear: 3 OT Half-Way Goals Temperature Logging Operator Goals Time Frame: Feb 24, 2021 Eating (QC): 6 Oral Hygiene (QC): 6 Toileting Hygiene (QC): 6 Shower/Bathe Self (QC): 4 Upper Body Dressing (QC): 5 Lower Body Dressing (QC): 5 On/Off Footwear (QC): 5 Additional Goals: 1-Demonstrate ADL Tasks, 2-Verbalize Understanding, 3-ImproveStrength/Brian 1=Demonstrate adherence to instructed precautions during ADL tasks. 2=Patient will verbalize/demonstrate understanding of assistive devices/modifications for ADL. 3=Patient will improve strength/tolerance for activity to enable patient to perform ADL's. OT Education/Plan Problem List/Assessment Assessment: Decreased Activ Tolerance, Decreased UE Strength, Dependent Transfers, Impaired Bed Mobility, Impaired Funct Balance, Impaired I ADL's, Impaired Self-Care Skills, Restricted Funct UE ROM Discharge Recommendations Plan/Recommendations: Continue POC Therapy Discharge Recommendati: 24 Hour Supervision, Post Acute OT Treatment Plan/Plan of Care Treatment,Training & Education: Yes Patient would benefit from OT for education, treatment and training to promote independence in ADL's, mobility, safety and/or upper extremity function for ADL's. Plan of Care: ADL Retraining, Functional Mobility, UE Funct Exercise/Act Treatment Duration: Feb 24, 2021 Frequency: At least 5 of 7 days/Wk (IRF) Estimated Hrs Per Day: 1.5 hours per day Agreement: Yes Rehab Potential: Fair Time/GCodes Start Time: 08:00 Stop Time: 09:30 Total Time Billed (hr/min): 90 Billed Treatment Time 3201-9340 1, ADL x 35minutes [id number] ADL x 10minutes, Ex x 15minutes, FA x 30minutes- Co-treatment with TAL CHAVEZ OT Feb 11, 2021 11:02
--- NOTE | 2021-02-11 11:37 | Physical Therapy Daily Note ---
PT Daily Note-Current Subjective Patient lying supine in bed with OT in the room finishing her bathing upon PT arrival. Patient agreeable to treatment. Mental Status Patient Orientation: Person, Place, Time, Situation Transfers SCALE: Activities may be completed with or without assistive devices. 0-Kwerjuarcd-rgksill completes the activity by him/herself with no assistance from a helper. 5-Set-up or Clean-up Assistance-helper sets up or cleans up; patient completes activity. [place] assists only prior to or following the activity. 4-Supervision or Touching Assistance-helper provides verbal cues and/or touching/steadying and/or contact guard assistance as patient completes activity. Assistance may be provided throughout the activity or intermittently. 3-Partial/Moderate Assistance-helper does LESS THAN HALF the effort. [place] lifts, holds or supports trunk or limbs, but provides less than half the effort. 2-Substantial/Maximal Assistance-helper does MORE THAN HALF the effort. [place] lifts or holds trunk or limbs and provides more than half the effort. 8-Xyqkwmyrw-lbmwvr does ALL the effort. Patient does none of the effort to complete the activity. Or, the assistance of 2 or more helpers is required for the patient to complete the activity. If activity was not attempted, code reason: 7-Patient Refused. 9-Not Applicable-not attempted and the patient did not perform the activity before the current illness, exacerbation or injury. 10-Not Attempted due to Environmental Limitations-(lack of equipment, weather restraints, etc.). 88-Not Attempted due to Medical Conditions or Safety Concerns. Weight Bearing Right Lower Extremity: Right Touch Toe Bearing RUE NWB Exercises Seated Therapy Exercises: Ankle pumps, Long arc quads, Hip flexion, Hamstring Curls, Hip abd/add Seated Reps: 20 Treatments Patient seen initially for co-treatment with OT. Provided further cueing and assist with skilled transfers for rolling side to side and assisting self while OT placed depend. OT donned shorts over feet and pt. assisted self to don over hips. Transferred max x 2 supine-sit and to scoot EOB. Donned right arm sling with max assist. Patient transferred to wheelchair via slide board with max x 2. Patient performed wheelchair mobility in reverse initially x 250 feet as she is able to use her left UE/LE with increased efficiency in the direction. Patient required frequent verbal cues to avoid obstacles and keep path straight. Patient then performed forward propulsion with left UE/LE for 20 feet with min A for propulsion. Patient was transferred via w/c to the therapy gym and performed standing with max A x 2, with PT focusing on balance and PWB RLE, and OT working on posture, weight shifting and use of left UE appropriately to decrease chance of using right UE/LE for balance. Patient then performed UE ROM exercises with OT during rest breaks of PT performing LE strengthening of AROM left LE and AAROM/PROM right LE. Patient in room post treatment with all needs met, nursing notified, call light in reach, all needs met. Nurse requested assistance a few minutes later to transfer patient to bed for use of the bed michaels. Patient required max A x 2 for stand pivot transfer to the bed from the w/c. Patient with nursing upon PT departure. Assessment Current Status: Fair Progress PT Short Term Goals Short Term Goals Time Frame: Feb 03, 2021 Roll Left & Right: 2 Sit to lyin Lying to sitting on side of be: 2 Sit to stand: 2 Chair/imv-lr-adfiu transfer: 2 PT Slide Fastener Chain Assembler Goals Slide Fastener Chain Assembler Goals PT Slide Fastener Chain Assembler Goals Time Frame: Feb 17, 2021 Roll Left & Right (QC): 3 Sit to Lying (QC): 3 Lying-Sitting on Side/Bed(QC): 3 Sit to Stand (QC): 3 Chair/Fxa-ai-Ymksf Xfer(QC): 3 Toilet Transfer (QC): 3 Car Transfer (QC): 3 Does the Patient Walk: No and Walking Goal NOT indicated Walk 10 feet (QC): 88 Walk 50ft with 2 Turns (QC): 88 Walk 150 ft (QC): 88 Walking 10ft on Uneven Surface: 88 1 Step (curb) (QC): 88 4 Steps (QC): 88 12 Steps (QC): 88 Picking up an Object (QC): 88 Wheel 50 feet with 2 turns (QC: 5 Wheel 150 feet: 5 PT Plan Treatment/Plan Treatment Plan: Continue Plan of Care Treatment Plan: Bed Mobility, Education, Functional Activity Brian, Functional Strength, Group Therapy, Gait, Safety, Therapeutic Exercise, Transfers Treatment Duration: Feb 17, 2021 Frequency: At least 5 of 7 days/Wk (IRF) Estimated Hrs Per Day: .25 hour per day Patient and/or Family Agrees t: Yes Safety Risks/Education Patient Education: Transfer Techniques, Reviewed Precautions, Safety Issues Teaching Recipient: Patient Teaching Methods: Demonstration, Discussion Response to Teaching: Verbalize Understanding, Return Demonstration Time/GCodes Time In: 830 Time Out: 930 Total Billed Treatment Time: 60 Total Billed Treatment Visit, Ex, W/C, FA (2) DIALLO VALLES PT Feb 11, 2021 11:37
--- NOTE | 2021-02-11 14:48 | Physical Therapy Daily Note ---
PT Daily Note-Current Subjective Patient lying supine in bed upon PT arrival, states "I didn't think I'd have to get out of bed this afternoon." Mental Status Patient Orientation: Person, Place, Time, Situation Transfers SCALE: Activities may be completed with or without assistive devices. 8-Drukwxuohx-iolghzf completes the activity by him/herself with no assistance from a helper. 5-Set-up or Clean-up Assistance-helper sets up or cleans up; patient completes activity. [place] assists only prior to or following the activity. 4-Supervision or Touching Assistance-helper provides verbal cues and/or touching/steadying and/or contact guard assistance as patient completes activity. Assistance may be provided throughout the activity or intermittently. 3-Partial/Moderate Assistance-helper does LESS THAN HALF the effort. [place] lifts, holds or supports trunk or limbs, but provides less than half the effort. 2-Substantial/Maximal Assistance-helper does MORE THAN HALF the effort. [place] lifts or holds trunk or limbs and provides more than half the effort. 8-Ffgqpouda-bgcywl does ALL the effort. Patient does none of the effort to complete the activity. Or, the assistance of 2 or more helpers is required for the patient to complete the activity. If activity was not attempted, code reason: 7-Patient Refused. 9-Not Applicable-not attempted and the patient did not perform the activity before the current illness, exacerbation or injury. 10-Not Attempted due to Environmental Limitations-(lack of equipment, weather restraints, etc.). 88-Not Attempted due to Medical Conditions or Safety Concerns. Roll Left & Right (QC): 2 Sit to Lying (QC): 2 Lying to Sitting/Side of Bed(Q: 2 Sit to Stand (QC): 2 Chair/Zqy-pv-Zmwwt Xfer(QC): 1 Toilet Transfer (QC): 1 Weight Bearing Right Lower Extremity: Right Touch Toe Bearing RUE NWB Gait Training Does the Patient Walk?: No and Walking Goal IS indicated Exercises Seated Therapy Exercises: Ankle pumps, Long arc quads, Hip flexion, Hamstring Curls, Hip abd/add Seated Reps: 20 Assessment Current Status: Fair Progress Patient tolerated treatment fair. Presents supine in bed sans undergarments or pants upon PT arrival. Patient required max A x 2 for bed mobility and donning of Depends and shorts. Transferred max supine-sit and to scoot EOB. Patient transferred to wheelchair with stand pivot transfer to the w/c. Patient then performed UE ROM exercises with OT during rest breaks of PT performing LE strengthening of AROM left LE and AAROM/PROM right LE. Patient in room post tr eatment with all needs met, nursing notified, call light in reach, all needs met. Nurse requested assistance a few minutes later to transfer patient to bed for use of the bed michaels. Patient required max A x 2 for stand pivot transfer to the bed from the w/c. Patient with nursing upon PT departure. PT Short Term Goals Short Term Goals Time Frame: Feb 03, 2021 Roll Left & Right: 2 Sit to lyin Lying to sitting on side of be: 2 Sit to stand: 2 Chair/jyy-av-uvcmv transfer: 2 PT Electric Wheelchair Repairer Goals Retirement Goals PT Retirement Goals Time Frame: Feb 17, 2021 Roll Left & Right (QC): 3 Sit to Lying (QC): 3 Lying-Sitting on Side/Bed(QC): 3 Sit to Stand (QC): 3 Chair/Nfp-wh-Vsrfr Xfer(QC): 3 Toilet Transfer (QC): 3 Car Transfer (QC): 3 Does the Patient Walk: No and Walking Goal NOT indicated Walk 10 feet (QC): 88 Walk 50ft with 2 Turns (QC): 88 Walk 150 ft (QC): 88 Walking 10ft on Uneven Surface: 88 1 Step (curb) (QC): 88 4 Steps (QC): 88 12 Steps (QC): 88 Picking up an Object (QC): 88 Wheel 50 feet with 2 turns (QC: 5 Wheel 150 feet: 5 PT Plan Treatment/Plan Treatment Plan: Continue Plan of Care Treatment Plan: Bed Mobility, Education, Functional Activity Brian, Functional Strength, Group Therapy, Gait, Safety, Therapeutic Exercise, Transfers Treatment Duration: Feb 17, 2021 Frequency: At least 5 of 7 days/Wk (IRF) Estimated Hrs Per Day: .25 hour per day Patient and/or Family Agrees t: Yes Safety Risks/Education Patient Education: Transfer Techniques, Reviewed Precautions Teaching Recipient: Patient Teaching Methods: Demonstration, Discussion Response to Teaching: Verbalize Understanding Time/GCodes Time In: 1300 Time Out: 1330 Total Billed Treatment Time: 30 Total Billed Treatment Visit, Ex, DIALLO BONILLA PT Feb 11, 2021 14:48
[2021-02-11] MEDS ORDERED: ceFAZolin INJECTION 2,000 MG in WATER (STERILE) FOR INJECTION 10 ML IV ONE (17:45)
[2021-02-11] MEDS ORDERED: metroNIDAZOLE 500MG/100ML IVPB 100 ML IV ONE (17:45)
[2021-02-11 20:00] VITALS: BP 126/75
[2021-02-12] MEDS: inSUlin ASPART (NovoLOG) 1 UNIT/0.01 ML (CHARGE PER UNIT) SC SCH ×7 (05:58→21:59)
[2021-02-12] MEDS: KCL 10 MEQ TAB (MICRO K) PO SCH (06:17)
[2021-02-12] MEDS: ENOXAPARIN 40 MG/0.4 ML (LOVENOX) SYR SC SCH ×2 (06:17→18:30)
[2021-02-12 07:12] VITALS: BP 172/74
--- NOTE | 2021-02-12 07:39 | Occupational Ther Daily Note ---
OT Current Status-Daily Note Subjective Pt alert, lying in bed. Nrsg had just come out of room from cleaning and changing pt. Pt agrees to therapy. Requested to be placed on bedpan. QC's were acquired 02/11/2021 during previous OT session. Mental Status/Objective Patient Orientation: Person, Place, Non-Verbal/Aphasic, Time, Situation ADL-Treatment Co-treatment with PT/OT ([id number]), due to need of skilled assist x 2. Pt. requires 2 clinical therapists due to complicated medical history that requires 2 clinicians for transfers, mobility, and problem solving with ADL skills. PT facilitated mobility and transfers while OT initiated ADL skills. Pt requested to be placed on bedpan. Dependent with bedpan placement, manipulating clothing and hygiene. Pt uses PurWick or bedpan for toileting. Assist x2 for bed mobility and supine <--> EOB. Pt does assist to initiate rolling side to side and using grabbars to assist with staying on designated side. OT donned shorts over feet and pt. assisted self to don over hips. Pt able to bridge hips slight ly to allow shorts to be hiked over hips in supine. Donned right arm sling with max assist. Max A to don footwear. SPT with max A x2, bed<-->w/c. Therapy Code Descriptions/Definitions Functional [place] Measure: 0=Not Assessed/NA 4=Minimal Assistance 1=Total Assistance 5=Supervision or Setup 2=Maximal Assistance 6=Modified [place] 3=Moderate Assistance 7=Complete IndependenceSCALE: Activities may be completed with or without assistive devices. 0-Emtehrzpug-shgsyxo completes the activity by him/herself with no assistance fr om a helper. 5-Set-up or Clean-up Assistance-helper sets up or cleans up; patient completes activity. [place] assists only prior to or following the activity. 4-Supervision or Touching Assistance-helper provides verbal cues and/or touching/steadying and/or contact guard assistance as patient completes activity. Assistance may be provided throughout the activity or intermittently. 3-Partial/Moderate Assistance-helper does LESS THAN HALF the effort. [place] lifts, holds or supports trunk or limbs, but provides less than half the effort. 2-Substantial/Maximal Assistance-helper does MORE THAN HALF the effort. [place] lifts or holds trunk or limbs and provides more than half the effort. 8-Drlnxvobr-emmlzf does ALL the effort. Patient does none of the effort to complete the activity. Or, the assistance of 2 or more helpers is required for the patient to complete the activity. If activity was not attempted, code reason: 7-Patient Refused. 9-Not Applicable-not attempted and the patient did not perform the activity before the current illness, exacerbation or injury. 10-Not Attempted due to Environmental Limitations-(lack of equipment, weather restraints, etc.). 88-Not Attempted due to Medical Conditions or Safety Concerns. Other Treatment Pt. worked on w/c mobility and strengthening by using L hand to propel w/c. Pt is more efficient with propelling w/c backwards using L foot. Pt also working on propelling w/c forward with L LE/UE. Pt able to navigate w/c with minimal verbal cues. Pt then transferred to/from mat table using sliding board, max A x2. Working on core strength by leaning backward past midline then using core to pull forwards. Leaning toward L side to place elbow on mat table then right self with core. Leaning forward with CGA to touch sock/shoe to strengthen core/back. Pt then taken back to room, family present in room. Max A x2 for SPT to bed. Max A x2 for EOB to supine and bed mobility. After session, pt lying in bed with call light/phone in reach. All needs met in room. OT Short Term Goals Short Term Goals Time Frame: Feb 10, 2021 Eatin Oral hygiene: 4 Toileting hygiene: 3 Shower/bathe self: 3 Upper body dressin Lower body dressin Putting on/taking off footwear: 3 OT Lacquer Machine Feeder Goals Long-Term Goals Time Frame: Feb 24, 2021 Eating (QC): 6 Oral Hygiene (QC): 6 Toileting Hygiene (QC): 6 Shower/Bathe Self (QC): 4 Upper Body Dressing (QC): 5 Lower Body Dressing (QC): 5 On/Off Footwear (QC): 5 Additional Goals: 1-Demonstrate ADL Tasks, 2-Verbalize Understanding, 3- ImproveStrength/Brian 1=Demonstrate adherence to instructed precautions during ADL tasks. 2=Patient will verbalize/demonstrate understanding of assistive devices/modifications for ADL. 3=Patient will improve strength/tolerance for activity to enable patient to perform ADL's. OT Education/Plan Problem List/Assessment Assessment: Decreased Activ Tolerance, Decreased UE Strength, Dependent Transfers, Impaired Bed Mobility, Impaired Coordination, Impaired Funct Balance, Impaired I ADL's, Impaired Self-Care Skills, Restricted Funct UE ROM Discharge Recommendations Plan/Recommendations: Continue POC Treatment Plan/Plan of Care Patient would benefit from OT for education, treatment and training to promote independence in ADL's, mobility, safety and/or upper extremity function for ADL's. Plan of Care: ADL Retraining, Functional Mobility, UE Funct Exercise/Act Treatment Duration: Feb 24, 2021 Frequency: At least 5 of 7 days/Wk (IRF) Estimated Hrs Per Day: 1.5 hours per day Agreement: Yes Rehab Potential: Fair Time/GCodes Start Time: 09:30 Stop Time: 11:00 Total Time Billed (hr/min): 90 Billed Treatment Time 1 visit-ADL 3 (45 min) FA 3 (45 min) co-treat with PT [id number] EUGENIE WILLAMS Feb 12, 2021 07:39
[2021-02-12] MEDS: RT--FLUTICASONE/SALMETEROL 113-14 (AIRDUO RespiCLICK) IH SCH ×2 (08:00→19:04)
[2021-02-12] MEDS: GABAPENTIN 400 MG (NEURONTIN) CAP PO SCH ×3 (08:10→21:47)
[2021-02-12] MEDS: metFORMIN XR 500 MG (GLUCOPHAGE XR) TAB PO SCH ×2 (08:10→21:48)
[2021-02-12] MEDS: DOCUSATE SODIUM 100 MG (COLACE) CAP PO SCH ×2 (08:10→21:48)
[2021-02-12] MEDS: CLOPIDOGREL 75 MG (PLAVIX) TABLET PO SCH (08:10)
[2021-02-12] MEDS: SENNA W/DOCUSATE (SENOKOT S) TABLET PO SCH ×2 (08:10→21:48)
[2021-02-12] MEDS: amLODIPine 10 MG (NORVASC) TAB PO SCH (08:11)
[2021-02-12] MEDS: polyethylene glycoL POWDER 17 GM (MIRALAX) PACK PO SCH ×2 (08:12→21:59)
--- NOTE | 2021-02-12 09:20 | PM&R Progress Note ---
Subjective HPI/CC On Admission Date Seen by Provider: Feb 12, 2021 Time Seen by Provider: 12:30 Subjective/Events-last exam 02/12/2021: Pt about the same visiting now Checked meds and labs No falls Pain medication BID scheduled Dropping Levemir to five units BID 02/11/2021: Pt remains max-assist Has no pain currently Checked meds and labs 02/10/2021: Pt down pretty well [facility] has been approved by [facility] trying to get approval Max total assist with therapy 02/09/2021: Pt still awaiting placement Psych eval Dr. Harrington very helpful yesterday Using bed michaels Bowels are moving Pain meds are helpful 02/08/2021: Pt doing okay Oxycodone taken with good results Orthopedics will be reached to decide on suture removal Bed michaels is being used and doing pretty well Psych eval ordered Appears to have some struggle with motivation 02/07/21: Patient having depression issues Behavioral health consult is requested No pain other than chronic issues with fractures No issues otherwise Talked about her with [place] and 44 years and other details 02/06/21: Patient doing well Sleeping currently No falls Pain controlled Checked meds and labs 02/05/2021: No significant concerns per nurses Patient feels pretty good Ready to work with therapy today Awaiting nursing facility to accept 02/04/2021: Pt doing pretty well Bowels are moving Pain is pretty well controlled Denies any other significant new problems No falls Moving around a little bit better Needs mcfp for slow recovery 02/03/2021: Patient doing pretty well Ice to right shoulder is helping Lower extremity edema nonpitting type Blood sugar is good at 123 155 Pain management successful Bowels are moving pretty well We will need to go to a mcfp Cheri lift cannot be used due to risk of too much pressure on the hardware in her leg 02/02/2021: Pt doing really well Glucose is 114 Will need a Cheri lift MCC placement likely will be required Right shoulder pain noted She is thirsty all the time Pure-wic maintained 02/01/2021: Pt doing pretty well Complaining of right shoulder pain due to surgery Holding laxatives due to loose stools Hgb 8.2 Purewick maintained Unable to do sit to stand may need cheri 01/31/2021: Patient doing really well today Pain is well controlled Change pure wick a couple of times Glucose 220 this morning Bowels moved today 01/30/2021: Patient doing pretty well today Pain is well controlled Using pure wick Bowels moved yesterday Working out with therapy 01/29/2021: Pt doing pretty well Denies any significant new issues Participating in therapy Checked meds and labs Denies any pain 01/28/2021: Pt doing pretty well but had a pop in her right leg when she barely had weight bearing to it X-rays ordered Purewick maintained Check meds and labs Bowels are moving Review of Systems Neurological: Weakness, Incoordination Objective Exam Vital Signs Vital Signs Date Time Temp Pulse Resp B/P (MAP) Pulse Ox O2 Delivery O2 Flow Rate FiO2 02/12/21 21:00 Room Air 02/12/21 20:00 36.4 87 20 166/70 (102) 92 02/11/21 01:35 21 02/10/21 21:00 0.00 Capillary Refill : General Appearance: No Apparent Distress, WD/WN, Chronically ill HEENT: PERRL/EOMI, Normal ENT Inspection, Pharynx Normal Neck: Full Range of Motion, Normal Inspection, Non Tender, Supple, Carotid Bruit Respiratory: Chest Non Tender, Lungs Clear, Normal Breath Sounds, No Accessory Muscle Use, No Respiratory Distress Cardiovascular: Regular Rate, Rhythm, No Edema, No Gallop, No JVD, No Murmur, Normal Peripheral Pulses Gastrointestinal: Normal Bowel Sounds, No Organomegaly, No Pulsatile Mass, Non Tender, Soft Back: Normal Inspection, No CVA Tenderness, No Vertebral Tenderness Extremity: Normal Capillary Refill, Normal Inspection, Normal Range of Motion (Except right arm and right leg), Non Tender, No Calf Tenderness, No Pedal Edema Neurologic/Psychiatric: Alert, Oriented x3, No Motor/Sensory Deficits, rail switchman II- XII Norm as Tested, Abnormal Gait, Depressed Affect, Motor Weakness (Right arm right leg) Skin: Normal Color, Warm/Dry Lymphatic: No Adenopathy Results/Procedures Lab Patient resulted labs reviewed. FIM Transfers Therapy Code Descriptions/Definitions Functional [place] Measure: 0=Not Assessed/NA 4=Minimal Assistance 1=Total Assistance 5=Supervision or Setup 2=Maximal Assistance 6=Modified [place] 3=Moderate Assistance 7=Complete IndependenceSCALE: Activities may be completed with or without assistive devices. 1-Wlhjxfahfj-thecaly completes the activity by him/herself with no assistance from a helper. 5-Set-up or Clean-up Assistance-helper sets up or cleans up; patient completes activity. [place] assists only prior to or following the activity. 4-Supervision or Touching Assistance-helper provides verbal cues and/or touching/steadying and/or contact guard assistance as patient completes activity. Assistance may be provided throughout the activity or intermittently. 3-Partial/Moderate Assistance-helper does LESS THAN HALF the effort. [place] lifts, holds or supports trunk or limbs, but provides less than half the effort. 2-Substantial/Maximal Assistance-helper does MORE THAN HALF the effort. [place] lifts or holds trunk or limbs and provides more than half the effort. 4-Imnzumyml-sauvhw does ALL the effort. Patient does none of the effort to complete the activity. Or, the assistance of 2 or more helpers is required for the patient to complete the activity. If activity was not attempted, code reason: 7-Patient Refused. 9-Not Applicable-not attempted and the patient did not perform the activity before the current illness, exacerbation or injury. 10-Not Attempted due to Environmental Limitations-(lack of equipment, weather restraints, etc.). 88-Not Attempted due to Medical Conditions or Safety Concerns. Roll Left to Right (QC): 2 Sit to Lying (QC): 2 Sit to Stand (QC): 2 Chair/Lfk-ml-Qqeol Xfer(QC): 1 Car Transfer (QC): 1 Gait Training Does the Patient Walk?: No and Walking Goal IS indicated Walk 10 feet (QC): 88 Walk 50 ft with 2 Turns(QC): 88 Walk 150 ft (QC): 88 Walking 10ft/uneven surface-QC: 88 Wheelchair Training Does the Pt Use a Wheelchair?: Yes Wheel 50 ft with 2 turns (QC): 3 Wheel 150 ft (QC): 3 Type of Wheelchair: Manual Stair Training 1 Step (curb) (QC): 88 4 Steps (QC): 88 12 Steps (QC): 88 Balance Picking up an Object (QC): 88 ADL-Treatment Eating (QC): 6 (Pt. finishing breakfast independently when OT entered room.) Oral Hygiene (QC): 5 (Set up at bed level to brush teeth.) Shower/Bathe Self (QC): 3 (Mod assist overall at bed level. Please see note below.) Upper Body Dressing (QC): 3 (Min assist at bed level.) Lower Body Dressing (QC): 2 On/Off Footwear (QC): 2 Toileting Hygiene (QC): 1 Toilet Transfer (QC): 1 (Bed michaels.) Assessment/Plan Assessment and Plan Assess & Plan/Chief Complaint Assessment: Distal fracture of right femur Closed comminuted fracture of right humerus ABLA (acute blood loss anemia) Morbid obesity ([facility]) Hyponatremia Syncope and collapse Impaired mobility and activities of daily living Acute traumatic pain Sleep disorder CAD (coronary artery disease HTN (hypertension) COPD (chronic obstructive pulmonary disease) ([facility]) At risk for constipation DM (diabetes mellitus) ([facility]) Plan: Aggressive therapy Pain control Supportive care 01/28/2021: Supportive care to continue Check x-ray of leg Continue nonweightbearing status 01/29/2021: Supportive care Monitor bowel function Pain control 01/30/2021: Supportive care Pain control Bowel regimen 01/31/2021: Aggressive therapy Supportive care 02/01/2021: Pain control Pure wick Monitor glucose 02/02/2021: Supportive care Needs mcfp due to complete dependence 02/03/2021: Supportive care Needs mcfp Ice to shoulder Pain management 02/04/2021: Pain control Improve transfers Monitor closely 02/05/2021: Bowel regimen Pain control Monitor closely 02/06/21: Monitor pain Fall risk 02/07/21: Behavioral health consult Monitor closely 02/08/2021: Behavioral health consult Celexa added Monitor closely 02/09/2021: Supportive care Needs mcfp since fully dependent 02/10/2021: Discharge planning [facility] 02/11/2021: Await placement 02/12/2021: Decrease Amrikir Kathie Jignesh on Monday (1) Femur fracture ALCIDES RUIZ DO Feb 12, 2021 09:20
--- NOTE | 2021-02-12 10:55 | Physical Therapy Daily Note ---
PT Daily Note-Current Subjective Patient in bed pre tx, agrees to PT, has no complaints of pain at rest. Will be co-treating with OT due to poor patient mobility, strength, endurance, complicated weight bearing status, severe pain with activity, coordinate UE and LE during activity, safety and reduce risk of falls. Appearance Patient in bed post tx with nurse call, phone, tray, all needs met. Mental Status Patient Orientation: Person, Place, Situation Transfers SCALE: Activities may be completed with or without assistive devices. 1-Lhwffysbkd-ssuluvh completes the activity by him/herself with no assistance from a helper. 5-Set-up or Clean-up Assistance-helper sets up or cleans up; patient completes activity. [place] assists only prior to or following the activity. 4-Supervision or Touching Assistance-helper provides verbal cues and/or touching/steadying and/or contact guard assistance as patient completes activity. Assistance may be provided throughout the activity or intermittently. 3-Partial/Moderate Assistance-helper does LESS THAN HALF the effort. [place] lifts, holds or supports trunk or limbs, but provides less than half the effort. 2-Substantial/Maximal Assistance-helper does MORE THAN HALF the effort. [place] lifts or holds trunk or limbs and provides more than half the effort. 0-Izsiqbmtl-ncvedp does ALL the effort. Patient does none of the effort to complete the activity. Or, the assistance of 2 or more helpers is required for the patient to complete the activity. If activity was not attempted, code reason: 7-Patient Refused. 9-Not Applicable-not attempted and the patient did not perform the activity before the current illness, exacerbation or injury. 10-Not Attempted due to Environmental Limitations-(lack of equipment, weather restraints, etc.). 88-Not Attempted due to Medical Conditions or Safety Concerns. Roll Left & Right (QC): 2 Sit to Lying (QC): 1 Lying to Sitting/Side of Bed(Q: 1 Sit to Stand (QC): 1 Chair/Igy-dx-Xoznp Xfer(QC): 1 Toilet Transfer (QC): 1 Car Transfer (QC): 88 Patient performs bed mobility with max assist, dependent for supine <-> sit and sit <-> stand and transfers, requires 2 person assist for that. She is not safe to perform a car transfer because she cannot safely do the transfer and maintain her weight bearing status on the right side and would not be able to bend her right leg at the knee enough to get into a car. Patient has also been performing sliding board transfers but that also requires assist of 2 people. Patient was dressed at the beginning of tx after using the bedpan. She had to roll several times for cleaning and getting brief and shorts on. Weight Bearing Right Lower Extremity: Right Touch Toe Bearing RUE NWB Gait Training Walk 10 feet (QC): 88 Walk 50 ft with 2 Turns(QC): 88 Walk 150 ft (QC): 88 Walking 10ft/uneven surface-QC: 88 Wheelchair Training Does the Pt Use a Wheelchair?: Yes Wheel 50 ft with 2 turns (QC): 2 Wheel 150 ft (QC): 2 Type of Wheelchair: Manual Patient can propel a manual WC with max assist. If patient is on a smooth flat surface she can propel the wheelchair herself, backwards using her left foot but needs cues for obstacles and occasional assist to correct her course. Outdoors and sidewalks and ramps she needs max assist. Patient practiced all these surfaces today and ramps. Stair Training 1 Step (curb) (QC): 88 4 Steps (QC): 88 12 Steps (QC): 88 Balance Picking up an Object (QC): 88 Exercises Patient practiced trunk strengthening while sitting on the therapy table, forwards and back leaning to work on abs and back, sideways to the left side to help work on supine -> sit. Treatments PT performed bed mobility and transfers, rolling, WC mobility, trunk strengthening, OT performed dressing, cleaning, assist with transfers and WC mobility, UE positioning and safety during activity. Assessment Current Status: Poor Progress no change in mobility PT Short Term Goals Short Term Goals Time Frame: Feb 03, 2021 Roll Left & Right: 2 Sit to lyin Lying to sitting on side of be: 2 Sit to stand: 2 Chair/byw-wb-evkol transfer: 2 PT Jail Goals Jail Goals PT Jail Goals Time Frame: Feb 17, 2021 Roll Left & Right (QC): 3 Sit to Lying (QC): 3 Lying-Sitting on Side/Bed(QC): 3 Sit to Stand (QC): 3 Chair/Ghg-sz-Yqcwu Xfer(QC): 3 Toilet Transfer (QC): 3 Car Transfer (QC): 3 Does the Patient Walk: No and Walking Goal NOT indicated Walk 10 feet (QC): 88 Walk 50ft with 2 Turns (QC): 88 Walk 150 ft (QC): 88 Walking 10ft on Uneven Surface: 88 1 Step (curb) (QC): 88 4 Steps (QC): 88 12 Steps (QC): 88 Picking up an Object (QC): 88 Wheel 50 feet with 2 turns (QC: 5 Wheel 150 feet: 5 PT Plan Problem List Problem List: Activity Tolerance, Functional Strength, Safety, Balance, Gait, Transfer, Bed Mobility, ROM Treatment/Plan Treatment Plan: Continue Plan of Care Treatment Plan: Bed Mobility, Education, Functional Activity Brian, Functional Strength, Group Therapy, Gait, Safety, Therapeutic Exercise, Transfers Treatment Duration: Feb 17, 2021 Frequency: At least 5 of 7 days/Wk (IRF) Estimated Hrs Per Day: .25 hour per day Patient and/or Family Agrees t: Yes Safety Risks/Education Patient Education: Transfer Techniques, Reviewed Precautions, Correct Positioning, W/C Management, Safety Issues Teaching Recipient: Patient Teaching Methods: Demonstration, Discussion Response to Teaching: Reinforcement Needed Time/GCodes Time In: 0930 Time Out: 1030 Total Billed Treatment Time: 90 Total Billed Treatment 1 visit EX 30' FA 60 co-treated with OT for the whole PIETRO BHANDARI PT Feb 12, 2021 10:55
[2021-02-12 20:00] VITALS: BP 166/70
[2021-02-13] MEDS: ENOXAPARIN 40 MG/0.4 ML (LOVENOX) SYR SC SCH ×2 (06:44→18:04)
[2021-02-13] MEDS: KCL 10 MEQ TAB (MICRO K) PO SCH (06:44)
--- NOTE | 2021-02-13 06:45 | PM&R Progress Note ---
Subjective HPI/CC On Admission Date Seen by Provider: Feb 13, 2021 Time Seen by Provider: 12:30 Subjective/Events-last exam 02/13/2021: Patient doing pretty well Lower extremity edema prompting Lasix 40 mg along with PAT hose Check meds and labs snf on Monday02/12/2021: Pt about the same visiting now Checked meds and labs No falls Pain medication BID scheduled Dropping Levemir to five units BID 02/11/2021: Pt remains max-assist Has no pain currently Checked meds and labs 02/10/2021: Pt down pretty well snf has been approved by insurance [facility] trying to get approval Max total assist with therapy 02/09/2021: Pt still awaiting placement Psych evjin Harrington very helpful yesterday Using bed michaels Bowels are moving Pain meds are helpful 02/08/2021: Pt doing okay Oxycodone taken with good results Orthopedics will be reached to decide on suture removal Bed michaels is being used and doing pretty well Psych eval ordered Appears to have some struggle with motivation 02/07/21: Patient having depression issues Behavioral health consult is requested No pain other than chronic issues with fractures No issues otherwise Talked about her with [place] and 44 years and other details 02/06/21: Patient doing well Sleeping currently No falls Pain controlled Checked meds and labs 02/05/2021: No significant concerns per nurses Patient feels pretty good Ready to work with therapy today Awaiting nursing facility to accept 02/04/2021: Pt doing pretty well Bowels are moving Pain is pretty well controlled Denies any other significant new problems No falls Moving around a little bit better Needs fpc for slow recovery 02/03/2021: Patient doing pretty well Ice to right shoulder is helping Lower extremity edema nonpitting type Blood sugar is good at 123 155 Pain management successful Bowels are moving pretty well We will need to go to a fpc Cheri lift cannot be used due to risk of too much pressure on the hardware in her leg 02/02/2021: Pt doing really well Glucose is 114 Will need a Cheri lift snf placement likely will be required Right shoulder pain noted She is thirsty all the time Pure-wic maintained 02/01/2021: Pt doing pretty well Complaining of right shoulder pain due to surgery Holding laxatives due to loose stools Hgb 8.2 Purewick maintained Unable to do sit to stand may need cheri 01/31/2021: Patient doing really well today Pain is well controlled Change pure wick a couple of times Glucose 220 this morning Bowels moved today 01/30/2021: Patient doing pretty well today Pain is well controlled Using pure wick Bowels moved yesterday Working out with therapy 01/29/2021: Pt doing pretty well Denies any significant new issues Participating in therapy Checked meds and labs Denies any pain 01/28/2021: Pt doing pretty well but had a pop in her right leg when she barely had weight bearing to it X-rays ordered Purewick maintained Check meds and labs Bowels are moving Review of Systems General: Fatigue, Malaise Cardiovascular: Edema Neurological: Weakness Objective Exam Vital Signs Vital Signs Date Time Temp Pulse Resp B/P (MAP) Pulse Ox O2 Delivery O2 Flow Rate FiO2 02/13/21 20:29 93 Room Air 02/13/21 19:51 36.8 79 16 142/80 (100) 02/13/21 06:54 21 02/10/21 21:00 0.00 Capillary Refill : General Appearance: No Apparent Distress, WD/WN, Chronically ill HEENT: PERRL/EOMI, Normal ENT Inspection, Pharynx Normal Neck: Full Range of Motion, Normal Inspection, Non Tender, Supple, Carotid Bruit Respiratory: Chest Non Tender, Lungs Clear, Normal Breath Sounds, No Accessory Muscle Use, No Respiratory Distress Cardiovascular: Regular Rate, Rhythm, No Edema, No Gallop, No JVD, No Murmur, Normal Peripheral Pulses Gastrointestinal: Normal Bowel Sounds, No Organomegaly, No Pulsatile Mass, Non Tender, Soft Back: Normal Inspection, No CVA Tenderness, No Vertebral Tenderness Extremity: Normal Capillary Refill, Normal Inspection, Normal Range of Motion (Except right arm and right leg), Non Tender, No Calf Tenderness, No Pedal Edema Neurologic/Psychiatric: Alert, Oriented x3, No Motor/Sensory Deficits, services advisor II- XII Norm as Tested, Abnormal Gait, Depressed Affect, Motor Weakness (Right arm right leg) Skin: Normal Color, Warm/Dry Lymphatic: No Adenopathy Results/Procedures Lab Patient resulted labs reviewed. FIM Transfers Therapy Code Descriptions/Definitions Functional [place] Measure: 0=Not Assessed/NA 4=Minimal Assistance 1=Total Assistance 5=Supervision or Setup 2=Maximal Assistance 6=Modified [place] 3=Moderate Assistance 7=Complete IndependenceSCALE: Activities may be completed with or without assistive devices. 8-Kqthloiinc-uvolgnz completes the activity by him/herself with no assistance from a helper. 5-Set-up or Clean-up Assistance-helper sets up or cleans up; patient completes activity. [place] assists only prior to or following the activity. 4-Supervision or Touching Assistance-helper provides verbal cues and/or touching/steadying and/or contact guard assistance as patient completes activity. Assistance may be provided throughout the activity or intermittently. 3-Partial/Moderate Assistance-helper does LESS THAN HALF the effort. [place] lifts, holds or supports trunk or limbs, but provides less than half the effort. 2-Substantial/Maximal Assistance-helper does MORE THAN HALF the effort. [place] lifts or holds trunk or limbs and provides more than half the effort. 3-Jvcdggsjj-vrzuox does ALL the effort. Patient does none of the effort to complete the activity. Or, the assistance of 2 or more helpers is required for the patient to complete the activity. If activity was not attempted, code reason: 7-Patient Refused. 9-Not Applicable-not attempted and the patient did not perform the activity before the current illness, exacerbation or injury. 10-Not Attempted due to Environmental Limitations-(lack of equipment, weather restraints, etc.). 88-Not Attempted due to Medical Conditions or Safety Concerns. Roll Left to Right (QC): 2 Sit to Lying (QC): 1 Sit to Stand (QC): 1 Chair/Dtt-kh-Nomtr Xfer(QC): 1 Car Transfer (QC): 88 Gait Training Does the Patient Walk?: No and Walking Goal IS indicated Walk 10 feet (QC): 88 Walk 50 ft with 2 Turns(QC): 88 Walk 150 ft (QC): 88 Walking 10ft/uneven surface-QC: 88 Wheelchair Training Does the Pt Use a Wheelchair?: Yes Wheel 50 ft with 2 turns (QC): 2 Wheel 150 ft (QC): 2 Type of Wheelchair: Manual Stair Training 1 Step (curb) (QC): 88 4 Steps (QC): 88 12 Steps (QC): 88 Balance Picking up an Object (QC): 88 ADL-Treatment Eating (QC): 6 (Pt. finishing breakfast independently when OT entered room.) Oral Hygiene (QC): 5 (Set up at bed level to brush teeth.) Shower/Bathe Self (QC): 3 (Mod assist overall at bed level. Please see note below.) Upper Body Dressing (QC): 3 (Min assist at bed level.) Lower Body Dressing (QC): 2 On/Off Footwear (QC): 2 Toileting Hygiene (QC): 1 Toilet Transfer (QC): 1 (Bed michaels.) Assessment/Plan Assessment and Plan Assess & Plan/Chief Complaint Assessment: Distal fracture of right femur Closed comminuted fracture of right humerus ABLA (acute blood loss anemia) Morbid obesity ([facility]) Hyponatremia Syncope and collapse Impaired mobility and activities of daily living Acute traumatic pain Sleep disorder CAD (coronary artery disease HTN (hypertension) COPD (chronic obstructive pulmonary disease) ([facility]) At risk for constipation DM (diabetes mellitus) ([facility]) Plan: Aggressive therapy Pain control Supportive care 01/28/2021: Supportive care to continue Check x-ray of leg Continue nonweightbearing status 01/29/2021: Supportive care Monitor bowel function Pain control 01/30/2021: Supportive care Pain control Bowel regimen 01/31/2021: Aggressive therapy Supportive care 02/01/2021: Pain control Pure wick Monitor glucose 02/02/2021: Supportive care Needs fpc due to complete dependence 02/03/2021: Supportive care Needs fpc Ice to shoulder Pain management 02/04/2021: Pain control Improve transfers Monitor closely 02/05/2021: Bowel regimen Pain control Monitor closely 02/06/21: Monitor pain Fall risk 02/07/21: Behavioral health consult Monitor closely 02/08/2021: Behavioral health consult Celexa added Monitor closely 02/09/2021: Supportive care Needs fpc since fully dependent 02/10/2021: Discharge planning [facility] for [facility] 02/11/2021: Await placement 02/12/2021: Decrease Kamranemir Kathie Egan on Monday02/13/2021: Lasix 40 mg 1 dose PAT hose (1) Femur fracture ALCIDES RUIZ DO Feb 13, 2021 06:45
[2021-02-13] MEDS: RT--FLUTICASONE/SALMETEROL 113-14 (AIRDUO RespiCLICK) IH SCH ×2 (06:51→20:29)
[2021-02-13] MEDS: inSUlin ASPART (NovoLOG) 1 UNIT/0.01 ML (CHARGE PER UNIT) SC SCH ×7 (06:54→20:10)
[2021-02-13] MEDS: GABAPENTIN 400 MG (NEURONTIN) CAP PO SCH ×3 (08:03→20:14)
[2021-02-13] MEDS: amLODIPine 10 MG (NORVASC) TAB PO SCH (08:04)
[2021-02-13] MEDS: CLOPIDOGREL 75 MG (PLAVIX) TABLET PO SCH (08:04)
[2021-02-13] MEDS: metFORMIN XR 500 MG (GLUCOPHAGE XR) TAB PO SCH ×2 (08:04→20:14)
[2021-02-13] MEDS: SENNA W/DOCUSATE (SENOKOT S) TABLET PO SCH ×2 (08:04→20:14)
[2021-02-13] MEDS: DOCUSATE SODIUM 100 MG (COLACE) CAP PO SCH ×2 (08:04→20:14)
[2021-02-13] MEDS: polyethylene glycoL POWDER 17 GM (MIRALAX) PACK PO SCH ×2 (08:06→19:33)
[2021-02-13 08:07] VITALS: BP 154/80
--- NOTE | 2021-02-13 11:05 | Physical Therapy Daily Note ---
PT Daily Note-Current Subjective Pt is agreeable to treatment. Mental Status Patient Orientation: Person, Place, Time, Situation Attachments: IV Transfers SCALE: Activities may be completed with or without assistive devices. 5-Aoucoicxik-gpasulo completes the activity by him/herself with no assistance from a helper. 5-Set-up or Clean-up Assistance-helper sets up or cleans up; patient completes activity. [place] assists only prior to or following the activity. 4-Supervision or Touching Assistance-helper provides verbal cues and/or touching/steadying and/or contact guard assistance as patient completes activity. Assistance may be provided throughout the activity or intermittently. 3-Partial/Moderate Assistance-helper does LESS THAN HALF the effort. [place] lifts, holds or supports trunk or limbs, but provides less than half the effort. 2-Substantial/Maximal Assistance-helper does MORE THAN HALF the effort. [place] lifts or holds trunk or limbs and provides more than half the effort. 3-Xzfwabqzy-sefamj does ALL the effort. Patient does none of the effort to complete the activity. Or, the assistance of 2 or more helpers is required for the patient to complete the activity. If activity was not attempted, code reason: 7-Patient Refused. 9-Not Applicable-not attempted and the patient did not perform the activity before the current illness, exacerbation or injury. 10-Not Attempted due to Environmental Limitations-(lack of equipment, weather restraints, etc.). 88-Not Attempted due to Medical Conditions or Safety Concerns. Roll Left & Right (QC): 2 Weight Bearing Right Lower Extremity: Right Touch Toe Bearing RUE NWB Exercises Supine Ex: LE Protocol Supine Reps: 20 Treatments Assisted with linen and clothing change due to incontinence with bladder. Pt a ssisted minimally with rolling and positioning her legs. Assessment Current Status: Poor Progress Pt is participating with supine exercises and needed moderate assist for the (R) LE. PT Short Term Goals Short Term Goals Time Frame: Feb 03, 2021 Roll Left & Right: 2 Sit to lyin Lying to sitting on side of be: 2 Sit to stand: 2 Chair/qts-od-afaow transfer: 2 PT Assisted Goals [employer] Goals PT [employer] Teacher Goals Time Frame: Feb 17, 2021 Roll Left & Right (QC): 3 Sit to Lying (QC): 3 Lying-Sitting on Side/Bed(QC): 3 Sit to Stand (QC): 3 Chair/Awe-ym-Ynfhi Xfer(QC): 3 Toilet Transfer (QC): 3 Car Transfer (QC): 3 Does the Patient Walk: No and Walking Goal NOT indicated Walk 10 feet (QC): 88 Walk 50ft with 2 Turns (QC): 88 Walk 150 ft (QC): 88 Walking 10ft on Uneven Surface: 88 1 Step (curb) (QC): 88 4 Steps (QC): 88 12 Steps (QC): 88 Picking up an Object (QC): 88 Wheel 50 feet with 2 turns (QC: 5 Wheel 150 feet: 5 PT Plan Treatment/Plan Treatment Plan: Continue Plan of Care Treatment Plan: Bed Mobility, Education, Functional Activity Brian, Functional Strength, Group Therapy, Gait, Safety, Therapeutic Exercise, Transfers Treatment Duration: Feb 17, 2021 Frequency: At least 5 of 7 days/Wk (IRF) Estimated Hrs Per Day: .25 hour per day Patient and/or Family Agrees t: Yes Time/GCodes Time In: 0825 Time Out: 0840 Total Billed Treatment Time: 15 Total Billed Treatment 1, ex GERMANIA CAMACHO PT Feb 13, 2021 11:05
[2021-02-13] MEDS ORDERED: FUROSEMIDE 40 MG (LASIX) TAB PO NR (12:45)
[2021-02-13 19:51] VITALS: BP 142/80
[2021-02-14] MEDS: inSUlin ASPART (NovoLOG) 1 UNIT/0.01 ML (CHARGE PER UNIT) SC SCH ×7 (05:10→20:33)
[2021-02-14] MEDS: KCL 10 MEQ TAB (MICRO K) PO SCH (06:04)
[2021-02-14] MEDS: ENOXAPARIN 40 MG/0.4 ML (LOVENOX) SYR SC SCH ×2 (06:04→18:03)
[2021-02-14 07:17] VITALS: BP 151/80
[2021-02-14] MEDS: RT--FLUTICASONE/SALMETEROL 113-14 (AIRDUO RespiCLICK) IH SCH ×2 (09:03→19:51)
[2021-02-14] MEDS: CLOPIDOGREL 75 MG (PLAVIX) TABLET PO SCH (09:25)
[2021-02-14] MEDS: metFORMIN XR 500 MG (GLUCOPHAGE XR) TAB PO SCH ×2 (09:25→20:16)
[2021-02-14] MEDS: amLODIPine 10 MG (NORVASC) TAB PO SCH (09:25)
[2021-02-14] MEDS: GABAPENTIN 400 MG (NEURONTIN) CAP PO SCH ×3 (09:25→20:17)
[2021-02-14] MEDS: DOCUSATE SODIUM 100 MG (COLACE) CAP PO SCH ×2 (09:26→20:20)
[2021-02-14] MEDS: SENNA W/DOCUSATE (SENOKOT S) TABLET PO SCH ×2 (09:26→20:21)
[2021-02-14] MEDS: polyethylene glycoL POWDER 17 GM (MIRALAX) PACK PO SCH ×2 (09:26→20:21)
--- NOTE | 2021-02-14 11:23 | PM&R Progress Note ---
Subjective HPI/CC On Admission Date Seen by Provider: Feb 14, 2021 Time Seen by Provider: 12:00 Subjective/Events-last exam 02/14/2021: No major issues skilled nursing at [place] tomorrow 02/13/2021: Patient doing pretty well Lower extremity edema prompting Lasix 40 mg along with PAT hose Check meds and labs skilled nursing on Monday02/12/2021: Pt about the same visiting now Checked meds and labs No falls Pain medication BID scheduled Dropping Levemir to five units BID 02/11/2021: Pt remains max-assist Has no pain currently Checked meds and labs 02/10/2021: Pt down pretty well skilled nursing has been approved by [facility] trying to get approval Max total assist with therapy 02/09/2021: Pt still awaiting placement Psych evjin Harrington very helpful yesterday Using bed michaels Bowels are moving Pain meds are helpful 02/08/2021: Pt doing okay Oxycodone taken with good results Orthopedics will be reached to decide on suture removal Bed michaels is being used and doing pretty well Psych eval ordered Appears to have some struggle with motivation 02/07/21: Patient having depression issues Behavioral health consult is requested No pain other than chronic issues with fractures No issues otherwise Talked about her with [place] and 44 years and other details 02/06/21: Patient doing well Sleeping currently No falls Pain controlled Checked meds and labs 02/05/2021: No significant concerns per nurses Patient feels pretty good Ready to work with therapy today Awaiting nursing facility to accept 02/04/2021: Pt doing pretty well Bowels are moving Pain is pretty well controlled Denies any other significant new problems No falls Moving around a little bit better [place]eds [place] [facility] [place] slow recovery 02/03/2021: Patient doing pretty well Ice to right shoulder is helping Lower extremity edema nonpitting type Blood sugar is good at 123 155 Pain management successful Bowels are moving pretty well We [place] need to go to a [place] [facility] [place] Cheri lift cannot be used due to risk of too much pressure on the hardware in her leg 02/02/2021: Pt doing really well Glucose is 114 Will need a Cheri lift skilled nursing placement likely will be required Right shoulder pain noted She is thirsty all the time Pure-wic maintained 02/01/2021: Pt doing pretty well Complaining of right shoulder pain due to surgery Holding laxatives due to loose stools Hgb 8.2 Purewick maintained Unable to do sit to stand may need cheri 01/31/2021: Patient doing really well today Pain is well controlled Change pure wick a couple of times Glucose 220 this morning Bowels moved today 01/30/2021: Patient doing pretty well today Pain is well controlled Using pure wick Bowels moved yesterday Working out with therapy 01/29/2021: Pt doing pretty well Denies any significant new issues Participating in therapy Checked meds and labs Denies any pain 01/28/2021: Pt doing pretty well but had a pop in her right leg when she barely had weight bearing to it X-rays ordered Purewick maintained Check meds and labs Bowels are moving Review of Systems General: Fatigue Cardiovascular: Edema Objective Exam Vital Signs Vital Signs Date Time Temp Pulse Resp B/P (MAP) Pulse Ox O2 Delivery O2 Flow Rate FiO2 02/14/21 09:03 93 Room Air 02/14/21 07:17 36.7 82 20 151/80 (103) 02/13/21 06:54 21 02/10/21 21:00 0.00 Capillary Refill : General Appearance: No Apparent Distress, WD/WN, Chronically ill HEENT: PERRL/EOMI, Normal ENT Inspection, Pharynx Normal Neck: Full Range of Motion, Normal Inspection, Non Tender, Supple, Carotid Bruit Respiratory: Chest Non Tender, Lungs Clear, Normal Breath Sounds, No Accessory Muscle Use, No Respiratory Distress Cardiovascular: Regular Rate, Rhythm, No Edema, No Gallop, No JVD, No Murmur, Normal Peripheral Pulses Gastrointestinal: Normal Bowel Sounds, No Organomegaly, No Pulsatile Mass, Non Tender, Soft Back: Normal Inspection, No CVA Tenderness, No Vertebral Tenderness Extremity: Normal Capillary Refill, Normal Inspection, Normal Range of Motion (Except right arm and right leg), Non Tender, No Calf Tenderness, No Pedal Edema Neurologic/Psychiatric: Alert, Oriented x3, No Motor/Sensory Deficits, events director II- XII Norm as Tested, Abnormal Gait, Depressed Affect, Motor Weakness (Right arm right leg) Skin: Normal Color, Warm/Dry Lymphatic: No Adenopathy Results/Procedures Lab Patient resulted labs reviewed. FIM Transfers Therapy Code Descriptions/Definitions Functional [place] Measure: 0=Not Assessed/NA 4=Minimal Assistance 1=Total Assistance 5=Supervision or Setup 2=Maximal Assistance 6=Modified [place] 3=Moderate Assistance 7=Complete IndependenceSCALE: Activities may be completed with or without assistive devices. 0-Uzsqeysepk-fdnpbhl completes the activity by him/herself with no assistance from a helper. 5-Set-up or Clean-up Assistance-helper sets up or cleans up; patient completes activity. [place] assists only prior to or following the activity. 4-Supervision or Touching Assistance-helper provides verbal cues and/or touching/steadying and/or contact guard assistance as patient completes activity. Assistance may be provided throughout the activity or intermittently. 3-Partial/Moderate Assistance-helper does LESS THAN HALF the effort. [place] lifts, holds or supports trunk or limbs, but provides less than half the effort. 2-Substantial/Maximal Assistance-helper does MORE THAN HALF the effort. [place] lifts or holds trunk or limbs and provides more than half the effort. 5-Woyubbjvm-cnznuu does ALL the effort. Patient does none of the effort to complete the activity. Or, the assistance of 2 or more helpers is required for the patient to complete the activity. If activity was not attempted, code reason: 7-Patient Refused. 9-Not Applicable-not attempted and the patient did not perform the activity before the current illness, exacerbation or injury. 10-Not Attempted due to Environmental Limitations-(lack of equipment, weather restraints, etc.). 88-Not Attempted due to Medical Conditions or Safety Concerns. Roll Left to Right (QC): 2 Sit to Lying (QC): 1 Sit to Stand (QC): 1 Chair/Imr-vr-Phstu Xfer(QC): 1 Car Transfer (QC): 88 Gait Training Does the Patient Walk?: No and Walking Goal IS indicated Walk 10 feet (QC): 88 Walk 50 ft with 2 Turns(QC): 88 Walk 150 ft (QC): 88 Walking 10ft/uneven surface-QC: 88 Wheelchair Training Does the Pt Use a Wheelchair?: Yes Wheel 50 ft with 2 turns (QC): 2 Wheel 150 ft (QC): 2 Type of Wheelchair: Manual Stair Training 1 Step (curb) (QC): 88 4 Steps (QC): 88 12 Steps (QC): 88 Balance Picking up an Object (QC): 88 ADL-Treatment Eating (QC): 6 (Pt. finishing breakfast independently when OT entered room.) Oral Hygiene (QC): 5 (Set up at bed level to brush teeth.) Shower/Bathe Self (QC): 3 (Mod assist overall at bed level. Please see note below.) Upper Body Dressing (QC): 3 (Min assist at bed level.) Lower Body Dressing (QC): 2 On/Off Footwear (QC): 2 Toileting Hygiene (QC): 1 Toilet Transfer (QC): 1 (Bed michaels.) Assessment/Plan Assessment and Plan Assess & Plan/Chief Complaint Assessment: Distal fracture of right femur Closed comminuted fracture of right humerus ABLA (acute blood loss anemia) Morbid obesity ([facility]) Hyponatremia Syncope and collapse Impaired mobility and activities of daily living Acute traumatic pain Sleep disorder CAD (coronary artery disease HTN (hypertension) COPD (chronic obstructive pulmonary disease) ([facility]) At risk for constipation DM (diabetes mellitus) ([facility]) Plan: Aggressive therapy Pain control Supportive care 01/28/2021: Supportive care to continue Check x-ray of leg Continue nonweightbearing status 01/29/2021: Supportive care Monitor bowel function Pain control 01/30/2021: Supportive care Pain control Bowel regimen 01/31/2021: Aggressive therapy Supportive care 02/01/2021: Pain control Pure wick Monitor glucose 02/02/2021: Supportive care [place] [facility] [place] due to complete dependence 02/03/2021: Supportive care Needs [place] [facility] Ice to shoulder Pain management 02/04/2021: Pain control Improve transfers Monitor closely 02/05/2021: Bowel regimen Pain control Monitor closely 02/06/21: Monitor pain Fall risk 02/07/21: Behavioral health consult Monitor closely 02/08/2021: Behavioral health consult Celexa added Monitor closely 02/09/2021: Supportive care Needs [place] [facility] [place] since fully dependent 02/10/2021: Discharge planning [facility] 02/11/2021: Await placement 02/12/2021: Decrease Levemir Kathie [place] on Monday02/13/2021: Lasix 40 mg 1 dose PAT [place] 02/14/2021: PAT [facility] skilled nursing on Monday (1) Femur fracture ALCIDES RUIZ DO Feb 14, 2021 11:23
[2021-02-14 20:00] VITALS: BP 122/70
[2021-02-15] MEDS: inSUlin ASPART (NovoLOG) 1 UNIT/0.01 ML (CHARGE PER UNIT) SC SCH ×7 (05:11→20:24)
--- NOTE | 2021-02-15 05:21 | Discharge Summary ---
Diagnosis/Chief Complaint Date of Admission Jan 26, 2021 at 21:10 Date of Discharge Discharge Date: Feb 15, 2021 Discharge Summary Discharge Physical Examination Allergies: Coded Allergies: venlafaxine (Verified Allergy, Unknown, 01/26/21) Vitals & I&Os Vital Signs Date Time Temp Pulse Resp B/P (MAP) Pulse Ox O2 Delivery O2 Flow Rate FiO2 02/15/21 21:00 Room Air 02/15/21 20:52 94 02/15/21 20:00 36.4 75 16 130/70 (90) 02/13/21 06:54 21 02/10/21 21:00 0.00 Hospital Course Labs (last 24 hrs) Laboratory Tests 01/26/21 22:21: Glucometer 190H 01/27/21 05:26: Glucometer 84 01/27/21 06:10: White Blood Count 10.4, Red Blood Count 3.65L, Hemoglobin 8.5L, Hematocrit 28L, Mean Corpuscular Volume 78L, Mean Corpuscular Hemoglobin 23L, Mean Corpuscular Hemoglobin Concent 30L, Red Cell Distribution Width 25.4H, Platelet Count 566H, Mean Platelet Volume 9.5, Immature Granulocyte % (Auto) 1, Neutrophils (%) (Auto) 72, Lymphocytes (%) (Auto) 11L, Monocytes (%) (Auto) 11, Eosinophils (%) (Auto) 5, Basophils (%) (Auto) 0, Neutrophils # (Auto) 7.5, Lymphocytes # (Auto) 1.2, Monocytes # (Auto) 1.1H, Eosinophils # (Auto) 0.5H, Basophils # (Auto) 0.0, Immature Granulocyte # (Auto) 0.1, Sodium Level 139, Potassium Level 3.6, Chloride Level 100, Carbon Dioxide Level 27, Anion Gap 12, Blood Urea Nitrogen 13, Creatinine 0.73, Estimat Glomerular Filtration Rate 81, BUN/Creatinine Ratio 18, Glucose Level 76, Calcium Level 8.6, Corrected Calcium 9.7, Total Bilirubin 0.5, Aspartate Amino Transf (AST/SGOT) 30, Alanine Aminotransferase (ALT/SGPT) 20, Alkaline Phosphatase 146H, Total Protein 5.7L, Albumin 2.6L 01/27/21 11:45: Glucometer 169H 01/27/21 16:41: Glucometer 137H 01/27/21 21:13: Glucometer 128H 01/28/21 05:42: Glucometer 134H 01/28/21 11:06: Glucometer 199H 01/28/21 16:05: Glucometer 186H 01/28/21 20:52: Glucometer 176H 01/29/21 05:19: Glucometer 163H 01/29/21 10:46: Glucometer 190H 01/29/21 15:50: Glucometer 137H 01/29/21 20:17: Glucometer 199H 01/30/21 05:53: Glucometer 150H 01/30/21 10:38: Glucometer 216H 01/30/21 16:32: Glucometer 132H 01/30/21 21:16: Glucometer 176H 01/31/21 06:36: Glucometer 163H 01/31/21 10:55: Glucometer 228H 01/31/21 11:16: Glucometer 223H 01/31/21 15:59: Glucometer 195H 01/31/21 21:03: Glucometer 185H 02/01/21 05:25: Glucometer 148H 02/01/21 06:28: White Blood Count 6.9, Red Blood Count 3.47L, Hemoglobin 8.2L, Hematocrit 27L, Mean Corpuscular Volume 78L, Mean Corpuscular Hemoglobin 24L, Mean Corpuscular Hemoglobin Concent 30L, Red Cell Distribution Width 24.7H, Platelet Count 502H, Mean Platelet Volume 9.6, Immature Granulocyte % (Auto) 0, Neutrophils (%) (Auto) 61, Lymphocytes (%) (Auto) 16, Monocytes (%) (Auto) 12, Eosinophils (%) (Auto) 10, Basophils (%) (Auto) 1, Neutrophils # (Auto) 4.2, Lymphocytes # (Auto) 1.1, Monocytes # (Auto) 0.8, Eosinophils # (Auto) 0.7H, Basophils # (Auto) 0.1, Immature Granulocyte # (Auto) 0.0, Sodium Level 134L, Potassium Level 4.1, Chloride Level 99, Carbon Dioxide Level 25, Anion Gap 10, Blood Urea Nitrogen 12, Creatinine 0.81, Estimat Glomerular Filtration Rate 72, BUN/Creatinine Ratio 15, Glucose Level 141H, Calcium Level 8.6, Corrected Calcium 9.7, Total Bilirubin 0.4, Aspartate Amino Transf (AST/SGOT) 18, Alanine Aminotransferase (ALT/SGPT) 22, Alkaline Phosphatase 159H, Total Protein 5.6L, Albumin 2.6L 02/01/21 10:46: Glucometer 198H 02/01/21 16:30: Glucometer 105 02/01/21 20:34: Glucometer 158H 02/02/21 05:17: Glucometer 114H 02/02/21 10:57: Glucometer 222H 02/02/21 16:11: Glucometer 159H 02/02/21 20:41: Glucometer 123H 02/03/21 05:19: Glucometer 155H 02/03/21 11:25: Glucometer 164H 02/03/21 15:43: Glucometer 157H 02/03/21 20:01: Glucometer 107 02/04/21 05:41: Glucometer 180H 02/04/21 11:08: Glucometer 239H 02/04/21 16:45: Glucometer 120H 02/04/21 20:59: Glucometer 220H 02/05/21 05:51: Glucometer 103 02/05/21 10:56: Glucometer 221H 02/05/21 16:38: Glucometer 88 02/05/21 20:05: Glucometer 146H 02/06/21 05:07: Glucometer 110 02/06/21 11:01: Glucometer 226H 02/06/21 15:37: Glucometer 156H 02/06/21 20:08: Glucometer 180H 02/07/21 05:23: Glucometer 96 02/07/21 10:50: Glucometer 201H 02/07/21 15:43: Glucometer 232H 02/07/21 20:02: Glucometer 192H 02/08/21 05:18: White Blood Count 6.2, Red Blood Count 3.51L, Hemoglobin 8.3L, Hematocrit 28L, Mean Corpuscular Volume 80, Mean Corpuscular Hemoglobin 24L, Mean Corpuscular Hemoglobin Concent 30L, Red Cell Distribution Width 23.9H, Platelet Count 350, Mean Platelet Volume 10.0, Immature Granulocyte % (Auto) 0, Neutrophils (%) (Auto) 54, Lymphocytes (%) (Auto) 21, Monocytes (%) (Auto) 13H, Eosinophils (%) (Auto) 11H, Basophils (%) (Auto) 1, Neutrophils # (Auto) 3.3, Lymphocytes # (Auto) 1.3, Monocytes # (Auto) 0.8, Eosinophils # (Auto) 0.7H, Basophils # (Auto) 0.0, Immature Granulocyte # (Auto) 0.0, Sodium Level 135, Potassium Level 3.5L, Chloride Level 101, Carbon Dioxide Level 27, Anion Gap 7, Blood Urea Nitrogen 12, Creatinine 0.74, Estimat Glomerular Filtration Rate 80, BUN/Creatinine Ratio 16, Glucose Level 113H, Calcium Level 8.2L, Corrected Calcium 9.3, Total Bilirubin 0.3, Aspartate Amino Transf (AST/SGOT) 11, Alanine Aminotransferase (ALT/SGPT) 17, Alkaline Phosphatase 132, Total Protein 5.5L, Albumin 2.6L 02/08/21 05:51: Glucometer 103 02/08/21 11:16: Glucometer 160H 02/08/21 17:23: Glucometer 106 02/08/21 20:15: Glucometer 175H 02/09/21 05:10: Glucometer 114H 02/09/21 11:03: Glucometer 206H 02/09/21 16:58: Glucometer 123H 02/09/21 20:17: Glucometer 152H 02/10/21 05:22: Glucometer 122H 02/10/21 12:44: Glucometer 216H 02/10/21 16:49: Glucometer 164H 02/10/21 20:23: Glucometer 150H 02/11/21 05:40: Glucometer 100 02/11/21 10:50: Glucometer 168H 02/11/21 15:28: Glucometer 161H 02/11/21 21:04: Glucometer 140H 02/12/21 05:16: Glucometer 71 02/12/21 05:56: Glucometer 111H 02/12/21 10:50: Glucometer 166H 02/12/21 15:59: Glucometer 113H 02/12/21 21:42: Glucometer 190H 02/13/21 06:42: Glucometer 151H 02/13/21 11:11: Glucometer 154H 02/13/21 15:38: Glucometer 149H 02/13/21 20:06: Glucometer 158H 02/14/21 05:09: Glucometer 109 02/14/21 10:49: Glucometer 231H 02/14/21 15:40: Glucometer 253H 02/14/21 20:31: Glucometer 121H 02/15/21 05:10: Glucometer 132H 02/15/21 05:33: White Blood Count 7.2, Red Blood Count 3.89, Hemoglobin 9.3L, Hematocrit 31L, Mean Corpuscular Volume 79L, Mean Corpuscular Hemoglobin 24L, Mean Corpuscular Hemoglobin Concent 30L, Red Cell Distribution Width 23.7H, Platelet Count 315, Mean Platelet Volume 9.9, Immature Granulocyte % (Auto) 0, Neutrophils (%) (Auto) 56, Lymphocytes (%) (Auto) 20, Monocytes (%) (Auto) 13H, Eosinophils (%) (Auto) 10, Basophils (%) (Auto) 0, Neutrophils # (Auto) 4.0, Lymphocytes # (Auto) 1.5, Monocytes # (Auto) 0.9, Eosinophils # (Auto) 0.7H, Basophils # (Auto) 0.0, Immature Granulocyte # (Auto) 0.0, Sodium Level 133L, Potassium Level 4.3, Chloride Level 97L, Carbon Dioxide Level 27, Anion Gap 9, Blood Urea Nitrogen 13, Creatinine 0.76, Estimat Glomerular Filtration Rate 77, BUN/Creatinine Ratio 17, Glucose Level 134H, Calcium Level 8.6, Corrected Calcium 9.6, Total Bilirubin 0.4, Aspartate Amino Transf (AST/SGOT) 13, Alanine Aminotransferase (ALT/SGPT) 14, Alkaline Phosphatase 131, Total Protein 5.8L, Albumin 2.8L 02/15/21 10:45: Glucometer 272H 02/15/21 15:32: Glucometer 150H 02/15/21 20:02: Glucometer 133H 02/16/21 05:27: Glucometer 109 Pending Labs Laboratory Tests 01/26/21 22:21: Glucometer 190 01/27/21 05:26: Glucometer 84 01/27/21 06:10: White Blood Count 10.4, Red Blood Count 3.65, Hemoglobin 8.5, Hematocrit 28, Mean Corpuscular Volume 78, Mean Corpuscular Hemoglobin 23, Mean Corpuscular Hemoglobin Concent 30, Red Cell Distribution Width 25.4, Platelet Count 566, Mean Platelet Volume 9.5, Immature Granulocyte % (Auto) 1, Neutrophils (%) (Auto) 72, Lymphocytes (%) (Auto) 11, Monocytes (%) (Auto) 11, Eosinophils (%) (Auto) 5, Basophils (%) (Auto) 0, Neutrophils # (Auto) 7.5, Lymphocytes # (Auto) 1.2, Monocytes # (Auto) 1.1, Eosinophils # (Auto) 0.5, Basophils # (Auto) 0.0, Immature Granulocyte # (Auto) 0.1, Sodium Level 139, Potassium Level 3.6, Chloride Level 100, Carbon Dioxide Level 27, Anion Gap 12, Blood Urea Nitrogen 13, Creatinine 0.73, Estimat Glomerular Filtration Rate 81, BUN/Creatinine Ratio 18, Glucose Level 76, Calcium Level 8.6, Corrected Calcium 9.7, Total Bilirubin 0.5, Aspartate Amino Transf (AST/SGOT) 30, Alanine Aminotransferase (ALT/SGPT) 20, Alkaline Phosphatase 146, Total Protein 5.7, Albumin 2.6 01/27/21 11:45: Glucometer 169 01/27/21 16:41: Glucometer 137 01/27/21 21:13: Glucometer 128 01/28/21 05:42: Glucometer 134 01/28/21 11:06: Glucometer 199 01/28/21 16:05: Glucometer 186 01/28/21 20:52: Glucometer 176 01/29/21 05:19: Glucometer 163 01/29/21 10:46: Glucometer 190 01/29/21 15:50: Glucometer 137 01/29/21 20:17: Glucometer 199 01/30/21 05:53: Glucometer 150 01/30/21 10:38: Glucometer 216 01/30/21 16:32: Glucometer 132 01/30/21 21:16: Glucometer 176 01/31/21 06:36: Glucometer 163 01/31/21 10:55: Glucometer 228 01/31/21 11:16: Glucometer 223 01/31/21 15:59: Glucometer 195 01/31/21 21:03: Glucometer 185 02/01/21 05:25: Glucometer 148 02/01/21 06:28: White Blood Count 6.9, Red Blood Count 3.47, Hemoglobin 8.2, Hematocrit 27, Mean Corpuscular Volume 78, Mean Corpuscular Hemoglobin 24, Mean Corpuscular Hemoglobin Concent 30, Red Cell Distribution Width 24.7, Platelet Count 502, Mean Platelet Volume 9.6, Immature Granulocyte % (Auto) 0, Neutrophils (%) (Auto) 61, Lymphocytes (%) (Auto) 16, Monocytes (%) (Auto) 12, Eosinophils (%) (Auto) 10, Basophils (%) (Auto) 1, Neutrophils # (Auto) 4.2, Lymphocytes # (Auto) 1.1, Monocytes # (Auto) 0.8, Eosinophils # (Auto) 0.7, Basophils # (Auto) 0.1, Immature Granulocyte # (Auto) 0.0, Sodium Level 134, Potassium Level 4.1, Chloride Level 99, Carbon Dioxide Level 25, Anion Gap 10, Blood Urea Nitrogen 12, Creatinine 0.81, Estimat Glomerular Filtration Rate 72, BUN/Creatinine Ratio 15, Glucose Level 141, Calcium Level 8.6, Corrected Calcium 9.7, Total Bilirubin 0.4, Aspartate Amino Transf (AST/SGOT) 18, Alanine Aminotransferase (ALT/SGPT) 22, Alkaline Phosphatase 159, Total Protein 5.6, Albumin 2.6 02/01/21 10:46: Glucometer 198 02/01/21 16:30: Glucometer 105 02/01/21 20:34: Glucometer 158 02/02/21 05:17: Glucometer 114 02/02/21 10:57: Glucometer 222 02/02/21 16:11: Glucometer 159 02/02/21 20:41: Glucometer 123 02/03/21 05:19: Glucometer 155 02/03/21 11:25: Glucometer 164 02/03/21 15:43: Glucometer 157 02/03/21 20:01: Glucometer 107 02/04/21 05:41: Glucometer 180 02/04/21 11:08: Glucometer 239 02/04/21 16:45: Glucometer 120 02/04/21 20:59: Glucometer 220 02/05/21 05:51: Glucometer 103 02/05/21 10:56: Glucometer 221 02/05/21 16:38: Glucometer 88 02/05/21 20:05: Glucometer 146 02/06/21 05:07: Glucometer 110 02/06/21 11:01: Glucometer 226 02/06/21 15:37: Glucometer 156 02/06/21 20:08: Glucometer 180 02/07/21 05:23: Glucometer 96 02/07/21 10:50: Glucometer 201 02/07/21 15:43: Glucometer 232 02/07/21 20:02: Glucometer 192 02/08/21 05:18: White Blood Count 6.2, Red Blood Count 3.51, Hemoglobin 8.3, Hematocrit 28, Mean Corpuscular Volume 80, Mean Corpuscular Hemoglobin 24, Mean Corpuscular Hemoglobin Concent 30, Red Cell Distribution Width 23.9, Platelet Count 350, Mean Platelet Volume 10.0, Immature Granulocyte % (Auto) 0, Neutrophils (%) (Auto) 54, Lymphocytes (%) (Auto) 21, Monocytes (%) (Auto) 13, Eosinophils (%) (Auto) 11, Basophils (%) (Auto) 1, Neutrophils # (Auto) 3.3, Lymphocytes # (Auto) 1.3, Monocytes # (Auto) 0.8, Eosinophils # (Auto) 0.7, Basophils # (Auto) 0.0, Immature Granulocyte # (Auto) 0.0, Sodium Level 135, Potassium Level 3.5, Chloride Level 101, Carbon Dioxide Level 27, Anion Gap 7, Blood Urea Nitrogen 12, Creatinine 0.74, Estimat Glomerular Filtration Rate 80, BUN/Creatinine Ratio 16, Glucose Level 113, Calcium Level 8.2, Corrected Calcium 9.3, Total Bilirubin 0.3, Aspartate Amino Transf (AST/SGOT) 11, Alanine Aminotransferase (ALT/SGPT) 17, Alkaline Phosphatase 132, Total Protein 5.5, Albumin 2.6 02/08/21 05:51: Glucometer 103 02/08/21 11:16: Glucometer 160 02/08/21 17:23: Glucometer 106 02/08/21 20:15: Glucometer 175 02/09/21 05:10: Glucometer 114 02/09/21 11:03: Glucometer 206 02/09/21 16:58: Glucometer 123 02/09/21 20:17: Glucometer 152 02/10/21 05:22: Glucometer 122 02/10/21 12:44: Glucometer 216 02/10/21 16:49: Glucometer 164 02/10/21 20:23: Glucometer 150 02/11/21 05:40: Glucometer 100 02/11/21 10:50: Glucometer 168 02/11/21 15:28: Glucometer 161 02/11/21 21:04: Glucometer 140 02/12/21 05:16: Glucometer 71 02/12/21 05:56: Glucometer 111 02/12/21 10:50: Glucometer 166 02/12/21 15:59: Glucometer 113 02/12/21 21:42: Glucometer 190 02/13/21 06:42: Glucometer 151 02/13/21 11:11: Glucometer 154 02/13/21 15:38: Glucometer 149 02/13/21 20:06: Glucometer 158 02/14/21 05:09: Glucometer 109 02/14/21 10:49: Glucometer 231 02/14/21 15:40: Glucometer 253 02/14/21 20:31: Glucometer 121 02/15/21 05:10: Glucometer 132 02/15/21 05:33: White Blood Count 7.2, Red Blood Count 3.89, Hemoglobin 9.3, Hematocrit 31, Mean Corpuscular Volume 79, Mean Corpuscular Hemoglobin 24, Mean Corpuscular Hemoglobin Concent 30, Red Cell Distribution Width 23.7, Platelet Count 315, Mean Platelet Volume 9.9, Immature Granulocyte % (Auto) 0, Neutrophils (%) (Auto) 56, Lymphocytes (%) (Auto) 20, Monocytes (%) (Auto) 13, Eosinophils (%) (Auto) 10, Basophils (%) (Auto) 0, Neutrophils # (Auto) 4.0, Lymphocytes # (Auto) 1.5, Monocytes # (Auto) 0.9, Eosinophils # (Auto) 0.7, Basophils # (Auto) 0.0, Immature Granulocyte # (Auto) 0.0, Sodium Level 133, Potassium Level 4.3, Chloride Level 97, Carbon Dioxide Level 27, Anion Gap 9, Blood Urea Nitrogen 13, Creatinine 0.76, Estimat Glomerular Filtration Rate 77, BUN/Creatinine Ratio 17, Glucose Level 134, Calcium Level 8.6, Corrected Calcium 9.6, Total Bilirubin 0.4, Aspartate Amino Transf (AST/SGOT) 13, Alanine Aminotransferase (ALT/SGPT) 14, Alkaline Phosphatase 131, Total Protein 5.8, Albumin 2.8 02/15/21 10:45: Glucometer 272 02/15/21 15:32: Glucometer 150 02/15/21 20:02: Glucometer 133 02/16/21 05:27: Glucometer 109 Discharge Home Medications: Active Scripts Active Levemir (Insulin Determir) 1,000 Units/10 Ml Soln 10 Unit SQ BID 30 Days Stool Softener-Laxative Tablet (Sennosides/Docusate Sodium) 1 Each Tablet 1 Ea PO BID 30 Days Klor-Con 10 (Potassium Chloride) 10 Meq Tablet.er 10 Meq PO DAILY@0700 30 Days Citalopram HBr (Citalopram Hydrobromide) 20 Mg Tablet 20 Mg PO DAILY 30 Days Oxyir Tablet (Oxycodone HCl) 5 Mg Tab 5-15 Mg PO Q4H PRN Amlodipine Besylate 10 Mg Tablet 10 Mg PO DAILY 30 Days Enoxaparin Sodium 40 Mg/0.4 Ml Syringe 40 Mg SC BID@0700,1900 60 Days Methocarbamol 750 Mg Tablet 750 Mg PO QID PRN Insulin Lispro Kwikpen U-100 (Insulin Lispro) 100 Unit/1 Ml Insuln.pen 6 Units SC AC 30 Days Reported Proair Hfa (Albuterol Sulfate) 1 Puff Puff 2 Puff IH Q4H PRN Atorvastatin Calcium 80 Mg Tablet 80 Mg PO DAILY Metformin HCl ER (Metformin HCl) 500 Mg Tab.er.24h 500 Mg PO DAILY Lisinopril 20 Mg Tablet 20 Mg PO DAILY Levemir (Insulin Determir) 1,000 Units/10 Ml Soln 10 Unit SC HS Venlafaxine HCl ER (Venlafaxine HCl) 150 Mg Cap.er.24h 150 Mg PO DAILY Gabapentin 400 Mg Capsule 400 Mg PO TID Januvia (Sitagliptin Phosphate) 100 Mg Tablet 100 Mg PO TID Budesonide-Formoterol 160-4.5 (Budesonide/Formoterol Fumarate) 10.2 Gm Hfa.aer.ad 2 Puff INH BID Fludrocortisone Acetate 0.1 Mg Tab 0.1 Mg PO TID Clopidogrel (Clopidogrel Bisulfate) 75 Mg Tablet 75 Mg PO DAILY Instructions to patient/family Please see electronic discharge instructions given to patient. Diagnosis/Problems Diagnosis/Problems (1) Femur fracture ALCIDES RUIZ DO Feb 15, 2021 05:21
[2021-02-15 05:52] LABS: BASOPHILS % (AUTO) 0 % (0-10); EOSINOPHILS # (AUTO) 0.7 10^3/uL (0.0-0.3); EOSINOPHILS % (AUTO) 10 % (0-10); HEMATOCRIT 31 % (35-52); HEMOGLOBIN 9.3 g/dL (11.5-16.0); LYMPHOCYTES # (AUTO) 1.5 10^3/uL (1.0-4.0); LYMPHOCYTES % (AUTO) 20 % (12-44); MEAN CORPUSCULAR HEMOGLOBIN 24 pg (25-34); MEAN CORPUSCULAR HGB CONC 30 g/dL (32-36); MEAN CORPUSCULAR VOLUME 79 fL (80-99); MEAN PLATELET VOLUME 9.9 fL (9.0-12.2); MONOCYTES # (AUTO) 0.9 10^3/uL (0.0-1.0); MONOCYTES % (AUTO) 13 % (0-12); NEUTROPHILS % (AUTO) 56 % (42-75); PLATELET COUNT 315 10^3/uL (130-400); WHITE BLOOD COUNT 7.2 10^3/uL (4.3-11.0)
[2021-02-15] MEDS: ENOXAPARIN 40 MG/0.4 ML (LOVENOX) SYR SC SCH ×2 (06:01→18:01)
[2021-02-15] MEDS: KCL 10 MEQ TAB (MICRO K) PO SCH (06:01)
[2021-02-15 06:04] LABS: ALBUMIN 2.8 GM/DL (3.2-4.5)
[2021-02-15 06:05] LABS: POTASSIUM 4.3 MMOL/L (3.6-5.0)
[2021-02-15 06:06] LABS: CALCIUM 8.6 MG/DL (8.5-10.1)
[2021-02-15 06:07] LABS: TOTAL PROTEIN 5.8 GM/DL (6.4-8.2)
[2021-02-15 06:09] LABS: BILIRUBIN,TOTAL 0.4 MG/DL (0.1-1.0)
[2021-02-15 06:11] LABS: CREATININE SERUM 0.76 MG/DL (0.60-1.30)
[2021-02-15 07:50] VITALS: BP 171/72
[2021-02-15] MEDS: CLOPIDOGREL 75 MG (PLAVIX) TABLET PO SCH (08:13)
[2021-02-15] MEDS: SENNA W/DOCUSATE (SENOKOT S) TABLET PO SCH ×2 (08:13→20:23)
[2021-02-15] MEDS: GABAPENTIN 400 MG (NEURONTIN) CAP PO SCH ×3 (08:13→20:23)
[2021-02-15] MEDS: metFORMIN XR 500 MG (GLUCOPHAGE XR) TAB PO SCH ×2 (08:13→20:23)
[2021-02-15] MEDS: DOCUSATE SODIUM 100 MG (COLACE) CAP PO SCH ×2 (08:13→20:23)
[2021-02-15] MEDS: amLODIPine 10 MG (NORVASC) TAB PO SCH (08:13)
[2021-02-15] MEDS: polyethylene glycoL POWDER 17 GM (MIRALAX) PACK PO SCH ×2 (08:15→19:51)
[2021-02-15] MEDS: RT--FLUTICASONE/SALMETEROL 113-14 (AIRDUO RespiCLICK) IH SCH ×2 (08:25→20:51)
--- NOTE | 2021-02-15 09:57 | PM&R Progress Note ---
Subjective HPI/CC On Admission Date Seen by Provider: Feb 15, 2021 Time Seen by Provider: 10:00 Subjective/Events-last exam 02/15/2021: Still awaiting approval for [facility] Pt having no new issues Awaiting placement Pain is an issue as always 02/14/2021: No major issues group home at [place] tomorrow 02/13/2021: Patient doing pretty well Lower extremity edema prompting Lasix 40 mg along with PAT hose Check meds and labs group home on Monday02/12/2021: Pt about the same visiting now Checked meds and labs No falls Pain medication BID scheduled Dropping Levemir to five units BID 02/11/2021: Pt remains max-assist Has no pain currently Checked meds and labs 02/10/2021: Pt down pretty well group home has been approved by insurance [facility] trying to get approval Max total assist with therapy 02/09/2021: Pt still awaiting placement Psych eval Dr. Harrington very helpful yesterday Using bed michaels Bowels are moving Pain meds are helpful 02/08/2021: Pt doing okay Oxycodone taken with good results Orthopedics will be reached to decide on suture removal Bed michaels is being used and doing pretty well Psych eval ordered Appears to have some struggle with motivation 02/07/21: Patient having depression issues Behavioral health consult is requested No pain other than chronic issues with fractures No issues otherwise Talked about her with [place] and 44 years and other details 02/06/21: Patient doing well Sleeping currently No falls Pain controlled Checked meds and labs 02/05/2021: No significant concerns per nurses Patient feels pretty good Ready to work with therapy today Awaiting nursing facility to accept 02/04/2021: Pt doing pretty well Bowels are moving Pain is pretty well controlled Denies any other significant new problems No falls Moving around a little bit better Needs half-way for slow recovery 02/03/2021: Patient doing pretty well Ice to right shoulder is helping Lower extremity edema nonpitting type Blood sugar is good at 123 155 Pain management successful Bowels are moving pretty well We will need to go to a half-way Cheri lift cannot be used due to risk of too much pressure on the hardware in her leg 02/02/2021: Pt doing really well Glucose is 114 Will need a Cheri lift group home placement likely will be required Right shoulder pain noted She is thirsty all the time Pure-wic maintained 02/01/2021: Pt doing pretty well Complaining of right shoulder pain due to surgery Holding laxatives due to loose stools Hgb 8.2 Purewick maintained Unable to do sit to stand may need cheri 01/31/2021: Patient doing really well today Pain is well controlled Change pure wick a couple of times Glucose 220 this morning Bowels moved today 01/30/2021: Patient doing pretty well today Pain is well controlled Using pure wick Bowels moved yesterday Working out with therapy 01/29/2021: Pt doing pretty well Denies any significant new issues Participating in therapy Checked meds and labs Denies any pain 01/28/2021: Pt doing pretty well but had a pop in her right leg when she barely had weight bearing to it X-rays ordered Purewick maintained Check meds and labs Bowels are moving Review of Systems General: Fatigue, Malaise Neurological: Weakness, Incoordination Objective Exam Vital Signs Vital Signs Date Time Temp Pulse Resp B/P (MAP) Pulse Ox O2 Delivery O2 Flow Rate FiO2 02/15/21 21:00 Room Air 02/15/21 20:52 94 02/15/21 20:00 36.4 75 16 130/70 (90) 02/13/21 06:54 21 02/10/21 21:00 0.00 Capillary Refill : General Appearance: No Apparent Distress, WD/WN, Chronically ill HEENT: PERRL/EOMI, Normal ENT Inspection, Pharynx Normal Neck: Full Range of Motion, Normal Inspection, Non Tender, Supple, Carotid Bruit Respiratory: Chest Non Tender, Lungs Clear, Normal Breath Sounds, No Accessory Muscle Use, No Respiratory Distress Cardiovascular: Regular Rate, Rhythm, No Edema, No Gallop, No JVD, No Murmur, Normal Peripheral Pulses Gastrointestinal: Normal Bowel Sounds, No Organomegaly, No Pulsatile Mass, Non Tender, Soft Back: Normal Inspection, No CVA Tenderness, No Vertebral Tenderness Extremity: Normal Capillary Refill, Normal Inspection, Normal Range of Motion (Except right arm and right leg), Non Tender, No Calf Tenderness, No Pedal Edema Neurologic/Psychiatric: Alert, Oriented x3, No Motor/Sensory Deficits, 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 FIM Transfers Therapy Code Descriptions/Definitions Functional [place] Measure: 0=Not Assessed/NA 4=Minimal Assistance 1=Total Assistance 5=Supervision or Setup 2=Maximal Assistance 6=Modified [place] 3=Moderate Assistance 7=Complete IndependenceSCALE: Activities may be completed with or without assistive devices. 7-Zlguusofjo-tkmhctu completes the activity by him/herself with no assistance from a helper. 5-Set-up or Clean-up Assistance-helper sets up or cleans up; patient completes activity. [place] assists only prior to or following the activity. 4-Supervision or Touching Assistance-helper provides verbal cues and/or touching/steadying and/or contact guard assistance as patient completes activity. Assistance may be provided throughout the activity or intermittently. 3-Partial/Moderate Assistance-helper does LESS THAN HALF the effort. [place] lifts, holds or supports trunk or limbs, but provides less than half the effort. 2-Substantial/Maximal Assistance-helper does MORE THAN HALF the effort. [place] lifts or holds trunk or limbs and provides more than half the effort. 6-Hocvqsqeo-lfnhgz does ALL the effort. Patient does none of the effort to complete the activity. Or, the assistance of 2 or more helpers is required for the patient to complete the activity. If activity was not attempted, code reason: 7-Patient Refused. 9-Not Applicable-not attempted and the patient did not perform the activity before the current illness, exacerbation or injury. 10-Not Attempted due to Environmental Limitations-(lack of equipment, weather restraints, etc.). 88-Not Attempted due to Medical Conditions or Safety Concerns. Roll Left to Right (QC): 2 Sit to Lying (QC): 1 Sit to Stand (QC): 1 Chair/Pge-ga-Rqhgi Xfer(QC): 1 Car Transfer (QC): 88 Gait Training Does the Patient Walk?: No and Walking Goal IS indicated Walk 10 feet (QC): 88 Walk 50 ft with 2 Turns(QC): 88 Walk 150 ft (QC): 88 Walking 10ft/uneven surface-QC: 88 Wheelchair Training Does the Pt Use a Wheelchair?: Yes Wheel 50 ft with 2 turns (QC): 2 Wheel 150 ft (QC): 2 Type of Wheelchair: Manual Stair Training 1 Step (curb) (QC): 88 4 Steps (QC): 88 12 Steps (QC): 88 Balance Picking up an Object (QC): 88 ADL-Treatment Eating (QC): 6 (Pt. finishing breakfast independently when OT entered room.) Oral Hygiene (QC): 5 (Set up at bed level to brush teeth.) Shower/Bathe Self (QC): 3 (Mod assist overall at bed level. Please see note below.) Upper Body Dressing (QC): 3 (Min assist at bed level.) Lower Body Dressing (QC): 2 On/Off Footwear (QC): 2 Toileting Hygiene (QC): 1 Toilet Transfer (QC): 1 (Bed michaels.) Assessment/Plan Assessment and Plan Assess & Plan/Chief Complaint Assessment: Distal fracture of right femur Closed comminuted fracture of right humerus ABLA (acute blood loss anemia) Morbid obesity ([facility]) Hyponatremia Syncope and collapse Impaired mobility and activities of daily living Acute traumatic pain Sleep disorder CAD (coronary artery disease HTN (hypertension) COPD (chronic obstructive pulmonary disease) ([facility]) At risk for constipation DM (diabetes mellitus) ([facility]) Plan: Aggressive therapy Pain control Supportive care 01/28/2021: Supportive care to continue Check x-ray of leg Continue nonweightbearing status 01/29/2021: Supportive care Monitor bowel function Pain control 01/30/2021: Supportive care Pain control Bowel regimen 01/31/2021: Aggressive therapy Supportive care 02/01/2021: Pain control Pure wick Monitor glucose 02/02/2021: Supportive care Needs half-way due to complete dependence 02/03/2021: Supportive care Needs half-way Ice to shoulder Pain management 02/04/2021: Pain control Improve transfers Monitor closely 02/05/2021: Bowel regimen Pain control Monitor closely 02/06/21: Monitor pain Fall risk 02/07/21: Behavioral health consult Monitor closely 02/08/2021: Behavioral health consult Celexa added Monitor closely 02/09/2021: Supportive care Needs half-way since fully dependent 02/10/2021: Discharge planning [facility] for [facility] 02/11/2021: Await placement 02/12/2021: Decrease Levemir [facility] on Monday02/13/2021: Lasix 40 mg 1 dose PAT [facility] 02/14/2021: PAT [facility] group home on Monday02/15/2021: [facility] once insurance approves (1) Femur fracture ALCIDES RUIZ DO Feb 15, 2021 09:57
--- NOTE | 2021-02-15 09:58 | Physical Therapy Daily Note ---
PT Daily Note-Current Subjective Patient in bed pre tx, agrees to PT, has 9/10 pain in right arm, nurse notified. Will be co-treating with OT due to poor patient mobility, strength, endurance, complicated weight bearing status, coordinate UE and LE during activity, safety and reduce risk of falls. Appearance Patient in bed post tx with nurse call, phone, tray, all needs met. Mental Status Patient Orientation: Person, Place, Situation Transfers SCALE: Activities may be completed with or without assistive devices. 7-Nhnuruqccn-szdiwtk completes the activity by him/herself with no assistance from a helper. 5-Set-up or Clean-up Assistance-helper sets up or cleans up; patient completes activity. [place] assists only prior to or following the activity. 4-Supervision or Touching Assistance-helper provides verbal cues and/or touching/steadying and/or contact guard assistance as patient completes activity. Assistance may be provided throughout the activity or intermittently. 3-Partial/Moderate Assistance-helper does LESS THAN HALF the effort. [place] lifts, holds or supports trunk or limbs, but provides less than half the effort. 2-Substantial/Maximal Assistance-helper does MORE THAN HALF the effort. [place] lifts or holds trunk or limbs and provides more than half the effort. 6-Ssaedgvkf-ialhyt does ALL the effort. Patient does none of the effort to complete the activity. Or, the assistance of 2 or more helpers is required for the patient to complete the activity. If activity was not attempted, code reason: 7-Patient Refused. 9-Not Applicable-not attempted and the patient did not perform the activity before the current illness, exacerbation or injury. 10-Not Attempted due to Environmental Limitations-(lack of equipment, weather restraints, etc.). 88-Not Attempted due to Medical Conditions or Safety Concerns. Roll Left & Right (QC): 2 Sit to Lying (QC): 2 Lying to Sitting/Side of Bed(Q: 2 Sit to Stand (QC): 1 Chair/Kqi-la-Anneg Xfer(QC): 1 Toilet Transfer (QC): 1 Car Transfer (QC): 88 Patient performs bed mobility and supine <-> sit with max assist, sit <-> stand and transfers with dependence. Patient can use a sliding board for transfers but it takes assist of 2 as do stand pivot transfers. Patient needs cues for hand placement and positioning. 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 In bed, before getting up, patient needs bathed, during bathing she has to roll from side to side for cleaning (max assist) and cleaning up a BM. Patient then sits on the side of the bed and finishes bathing and dressing and then stand pivot to WC. Patient performs a stand pivot using a small step under her left leg in order to keep the right foot dangling because she cannot keep weight off of that leg during standing or transfers. Weight Bearing Right Lower Extremity: Right Touch Toe Bearing RUE NWB Gait Training Walk 10 feet (QC): 88 Walk 50 ft with 2 Turns(QC): 88 Walk 150 ft (QC): 88 Walking 10ft/uneven surface-QC: 88 Wheelchair Training Wheel 50 ft with 2 turns (QC): 3 Wheel 150 ft (QC): 3 Type of Wheelchair: Manual Patient can propel a manual WC 300' with min assist, patient propels backward using her left foot, she has a lot of trouble using her left arm and leg to propel forward, she needs assist around obstacles and through tight spaces Stair Training 1 Step (curb) (QC): 88 4 Steps (QC): 88 12 Steps (QC): 88 Balance Picking up an Object (QC): 88 Exercises Seated Therapy Exercises: Ankle pumps, Long arc quads, Hip flexion Seated Reps: 20 Seated core strengthening and limits of stability training (forward/back/left side), right side not performed due to right arm pain and NWB Treatments PT performed bed mobility and transfers, WC mobility, LE strengthening, core strengthening and limits of stability training, OT performed dressing, bathing, UE positioning and safety during activity, assist with transfers Assessment Current Status: Poor Progress no change in mobility PT Short Term Goals Short Term Goals Time Frame: Feb 03, 2021 Roll Left & Right: 2 Sit to lyin Lying to sitting on side of be: 2 Sit to stand: 2 Chair/yyx-qo-katbr transfer: 2 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 Operator/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 Goals Care Home Goals 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 Operator/Laborer Goals Time Frame: Feb 17, 2021 Roll Left & Right (QC): 3 Sit to Lying (QC): 3 Lying-Sitting on Side/Bed(QC): 3 Sit to Stand (QC): 3 Chair/Mgr-nd-Bnuqa Xfer(QC): 3 Toilet Transfer (QC): 3 Car Transfer (QC): 3 Does the Patient Walk: No and Walking Goal NOT indicated Walk 10 feet (QC): 88 Walk 50ft with 2 Turns (QC): 88 Walk 150 ft (QC): 88 Walking 10ft on Uneven Surface: 88 1 Step (curb) (QC): 88 4 Steps (QC): 88 12 Steps (QC): 88 Picking up an Object (QC): 88 Wheel 50 feet with 2 turns (QC: 5 Wheel 150 feet: 5 PT Plan Problem List Problem List: Activity Tolerance, Functional Strength, Safety, Balance, Gait, Transfer, Bed Mobility, ROM Treatment/Plan Treatment Plan: Continue Plan of Care Treatment Plan: Bed Mobility, Education, Functional Activity Brian, Functional Strength, Group Therapy, Gait, Safety, Therapeutic Exercise, Transfers Treatment Duration: Feb 17, 2021 Frequency: At least 5 of 7 days/Wk (IRF) Estimated Hrs Per Day: .25 hour per day Patient and/or Family Agrees t: Yes Safety Risks/Education Patient Education: Transfer Techniques, Reviewed Precautions, Correct Positioning, W/C Management, Safety Issues Teaching Recipient: Patient Teaching Methods: Demonstration, Discussion Response to Teaching: Reinforcement Needed Time/GCodes Time In: 0830 Time Out: 1000 Total Billed Treatment Time: 90 Total Billed Treatment 1 visit EX 30' FA 60' PIETRO BHANDARI PT Feb 15, 2021 09:58
--- NOTE | 2021-02-15 10:23 | Occupational Ther Daily Note ---
OT Current Status-Daily Note Subjective Pt alert, lying in bed. Pt agrees to therapy. Pt c/o pain after therapy, reported to nrsg. Mental Status/Objective Patient Orientation: Person, Place, Time, Situation Attachments: Other-See Comments (R arm sling) ADL-Treatment Co-treatment with PT ([id number]), skills of 2 clinicians required to decrease fall risk, increase transfers and increase ability of functional tasks PT focusing on bed mobility, w/c mobility and transfer while OT focusing on ADLs, functional mobility and B UE strengthening. Pt. worked on bathing/dressing self at bed level to improve overall independence with daily skills and tasks. OT provided set up with bath pack. HOB raised and lowered as pt. needed, and pt. encouraged to lean forward, using core muscles. Pt. able to bathe chest, right arm, under right arm, front carla area and upper thighs. OT bathed all other parts. Pt. max assist to roll in bed, and dependent to cleanse buttocks. Donned shirt with min assist sitting on EOB. PT provided further cueing and assist with skilled transfers for rolling side to side and assisting self while OT placed depend. Transferred max x 2 supine-sit and to scoot EOB. Donned right arm sling with max assist. Max A x2 to transfer from EOB to w/c. Completed w/c mobility around ARU. Transferred to therapy mat <--> wheelchair via slide board with max x 2. Cues to weight shift to left side. OT facilitated right UE AROM at elbow, wrist, and finger level while PT facilitated LE exercises. Pt lying in bed with call light/phone in reach. All needs met in room. Therapy Code Descriptions/Definitions Functional [place] Measure: 0=Not Assessed/NA 4=Minimal Assistance 1=Total Assistance 5=Supervision or Setup 2=Maximal Assistance 6=Modified [place] 3=Moderate Assistance 7=Complete IndependenceSCALE: Activities may be completed with or without assistive devices. 7-Wbdafphktb-hksvnvf completes the activity by him/herself with no assistance from a helper. 5-Set-up or Clean-up Assistance-helper sets up or cleans up; patient completes activity. [place] assists only prior to or following the activity. 4-Supervision or Touching Assistance-helper provides verbal cues and/or touching/steadying and/or contact guard assistance as patient completes activity. Assistance may be provided throughout the activity or intermittently. 3-Partial/Moderate Assistance-helper does LESS THAN HALF the effort. [place] lifts, holds or supports trunk or limbs, but provides less than half the effort. 2-Substantial/Maximal Assistance-helper does MORE THAN HALF the effort. [place] lifts or holds trunk or limbs and provides more than half the effort. 5-Vravozifm-agnyft does ALL the effort. Patient does none of the effort to complete the activity. Or, the assistance of 2 or more helpers is required for the patient to complete the activity. If activity was not attempted, code reason: 7-Patient Refused. 9-Not Applicable-not attempted and the patient did not perform the activity before the current illness, exacerbation or injury. 10-Not Attempted due to Environmental Limitations-(lack of equipment, weather restraints, etc.). 88-Not Attempted due to Medical Conditions or Safety Concerns. Bathing Location: R Arm, L Upper Leg, R Upper Leg, Chest, Abdomen, Perineal Area Shower/Bathe Self (QC): 3 (Mod A for bed bath) Upper Body Dressing (QC): 3 (Min A) Lower Body Dressing (QC): 1 On/Off Footwear: 2 OT Short Term Goals Short Term Goals Time Frame: Feb 10, 2021 Eatin Oral hygiene: 4 Toileting hygiene: 3 Shower/bathe self: 3 Upper body dressin Lower body dressin Putting on/taking off footwear: 3 OT Care Home Goals Care Home Goals Time Frame: Feb 24, 2021 Eating (QC): 6 Oral Hygiene (QC): 6 Toileting Hygiene (QC): 6 Shower/Bathe Self (QC): 4 Upper Body Dressing (QC): 5 Lower Body Dressing (QC): 5 On/Off Footwear (QC): 5 Additional Goals: 1-Demonstrate ADL Tasks, 2-Verbalize Understanding, 3- ImproveStrength/Brian 1=Demonstrate adherence to instructed precautions during ADL tasks. 2=Patient will verbalize/demonstrate understanding of assistive devices/hafsa fications for ADL. 3=Patient will improve strength/tolerance for activity to enable patient to perform ADL's. OT Education/Plan Problem List/Assessment Assessment: Decreased Activ Tolerance, Decreased UE Strength, Dependent Transfers, Impaired Bed Mobility, Impaired I ADL's, Impaired Self-Care Skills, Restricted Funct UE ROM, Visual-Perceptual Deficit Discharge Recommendations Plan/Recommendations: Continue POC Treatment Plan/Plan of Care Patient would benefit from OT for education, treatment and training to promote independence in ADL's, mobility, safety and/or upper extremity function for ADL's. Plan of Care: ADL Retraining, Functional Mobility, UE Funct Exercise/Act Treatment Duration: Feb 24, 2021 Frequency: At least 5 of 7 days/Wk (IRF) Estimated Hrs Per Day: 1.5 hours per day Agreement: Yes Rehab Potential: Fair Time/GCodes Start Time: 08:30 Stop Time: 10:00 Total Time Billed (hr/min): 90 Billed Treatment Time 1 visit-ADL 3 (45 min) FA 1 (15 min) EX 2 (30 min) co-treat with PT [id number] EUGENIE WILLAMS Feb 15, 2021 10:23
[2021-02-15 20:00] VITALS: BP 130/70
[2021-02-16] MEDS: inSUlin ASPART (NovoLOG) 1 UNIT/0.01 ML (CHARGE PER UNIT) SC SCH ×7 (05:37→20:53)
[2021-02-16] MEDS: KCL 10 MEQ TAB (MICRO K) PO SCH (06:23)
[2021-02-16] MEDS: ENOXAPARIN 40 MG/0.4 ML (LOVENOX) SYR SC SCH ×2 (06:24→18:06)
[2021-02-16] MEDS: RT--FLUTICASONE/SALMETEROL 113-14 (AIRDUO RespiCLICK) IH SCH ×2 (06:45→23:11)
[2021-02-16 07:40] VITALS: BP 171/74
[2021-02-16] MEDS: DOCUSATE SODIUM 100 MG (COLACE) CAP PO SCH ×2 (07:59→21:18)
[2021-02-16] MEDS: SENNA W/DOCUSATE (SENOKOT S) TABLET PO SCH ×2 (07:59→21:18)
[2021-02-16] MEDS: GABAPENTIN 400 MG (NEURONTIN) CAP PO SCH ×3 (07:59→20:54)
[2021-02-16] MEDS: CLOPIDOGREL 75 MG (PLAVIX) TABLET PO SCH (08:00)
[2021-02-16] MEDS: amLODIPine 10 MG (NORVASC) TAB PO SCH (08:00)
[2021-02-16] MEDS: metFORMIN XR 500 MG (GLUCOPHAGE XR) TAB PO SCH ×2 (08:00→20:54)
[2021-02-16] MEDS: polyethylene glycoL POWDER 17 GM (MIRALAX) PACK PO SCH ×2 (08:00→19:50)
--- NOTE | 2021-02-16 08:42 | PM&R Progress Note ---
Subjective HPI/CC On Admission Date Seen by Provider: Feb 16, 2021 Time Seen by Provider: 08:45 Subjective/Events-last exam 02/16/2021: Pt sleeping currently Awaiting placement No major issues 02/15/2021: Still awaiting approval for [facility] Pt having no new issues Awaiting placement Pain is an issue as always 02/14/2021: No major issues correction at [place] tomorrow 02/13/2021: Patient doing pretty well Lower extremity edema prompting Lasix 40 mg along with PAT hose Check meds and labs correction on Monday02/12/2021: Pt about the same visiting now Checked meds and labs No falls Pain medication BID scheduled Dropping Levemir to five units BID 02/11/2021: Pt remains max-assist Has no pain currently Checked meds and labs 02/10/2021: Pt down pretty well correction has been approved by insurance [facility] trying to get approval Max total assist with therapy 02/09/2021: Pt still awaiting placement Psych evjin Harrington very helpful yesterday Using bed michaels Bowels are moving Pain meds are helpful 02/08/2021: Pt doing okay Oxycodone taken with good results Orthopedics will be reached to decide on suture removal Bed michaels is being used and doing pretty well Jose honeycutt ordered Appears to have some struggle with motivation 02/07/21: Patient having depression issues Behavioral health consult is requested No pain other than chronic issues with fractures No issues otherwise Talked about her with [place] and 44 years and other details 02/06/21: Patient doing well Sleeping currently No falls Pain controlled Checked meds and labs 02/05/2021: No significant concerns per nurses Patient feels pretty good Ready to work with therapy today Awaiting nursing facility to accept 02/04/2021: Pt doing pretty well Bowels are moving Pain is pretty well controlled Denies any other significant new problems No falls Moving around a little bit better Needs group home for slow recovery 02/03/2021: Patient doing pretty well Ice to right shoulder is helping Lower extremity edema nonpitting type Blood sugar is good at 123 155 Pain management successful Bowels are moving pretty well We will need to go to a group home Cheri lift cannot be used due to risk of too much pressure on the hardware in her leg 02/02/2021: Pt doing really well Glucose is 114 Will need a Cheri lift correction placement likely will be required Right shoulder pain noted She is thirsty all the time Pure-wic maintained 02/01/2021: Pt doing pretty well Complaining of right shoulder pain due to surgery Holding laxatives due to loose stools Hgb 8.2 Purewick maintained Unable to do sit to stand may need cheri 01/31/2021: Patient doing really well today Pain is well controlled Change pure wick a couple of times Glucose 220 this morning Bowels moved today 01/30/2021: Patient doing pretty well today Pain is well controlled Using pure wick Bowels moved yesterday Working out with therapy 01/29/2021: Pt doing pretty well Denies any significant new issues Participating in therapy Checked meds and labs Denies any pain 01/28/2021: Pt doing pretty well but had a pop in her right leg when she barely had weight bearing to it X-rays ordered Purewick maintained Check meds and labs Bowels are moving Review of Systems Musculoskeletal: leg pain Objective Exam Vital Signs Vital Signs Date Time Temp Pulse Resp B/P (MAP) Pulse Ox O2 Delivery O2 Flow Rate FiO2 02/16/21 20:52 36.6 79 18 141/63 (89) 93 Room Air 02/13/21 06:54 21 Capillary Refill : General Appearance: No Apparent Distress, WD/WN, Chronically ill HEENT: PERRL/EOMI, Normal ENT Inspection, Pharynx Normal Neck: Full Range of Motion, Normal Inspection, Non Tender, Supple, Carotid Bruit Respiratory: Chest Non Tender, Lungs Clear, Normal Breath Sounds, No Accessory Muscle Use, No Respiratory Distress Cardiovascular: Regular Rate, Rhythm, No Edema, No Gallop, No JVD, No Murmur, Normal Peripheral Pulses Gastrointestinal: Normal Bowel Sounds, No Organomegaly, No Pulsatile Mass, Non Tender, Soft Back: Normal Inspection, No CVA Tenderness, No Vertebral Tenderness Extremity: Normal Capillary Refill, Normal Inspection, Normal Range of Motion (Except right arm and right leg), Non Tender, No Calf Tenderness, No Pedal Edema Neurologic/Psychiatric: Alert, Oriented x3, No Motor/Sensory Deficits, guide II- XII Norm as Tested, Abnormal Gait, Depressed Affect, Motor Weakness (Right arm right leg) Skin: Normal Color, Warm/Dry Lymphatic: No Adenopathy Results/Procedures Lab Patient resulted labs reviewed. FIM Transfers Therapy Code Descriptions/Definitions Functional [place] Measure: 0=Not Assessed/NA 4=Minimal Assistance 1=Total Assistance 5=Supervision or Setup 2=Maximal Assistance 6=Modified [place] 3=Moderate Assistance 7=Complete IndependenceSCALE: Activities may be completed with or without assistive devices. 0-Putlxbblwn-bkebicu completes the activity by him/herself with no assistance from a helper. 5-Set-up or Clean-up Assistance-helper sets up or cleans up; patient completes activity. [place] assists only prior to or following the activity. 4-Supervision or Touching Assistance-helper provides verbal cues and/or touching/steadying and/or contact guard assistance as patient completes activity. Assistance may be provided throughout the activity or intermittently. 3-Partial/Moderate Assistance-helper does LESS THAN HALF the effort. [place] lifts, holds or supports trunk or limbs, but provides less than half the effort. 2-Substantial/Maximal Assistance-helper does MORE THAN HALF the effort. [place] lifts or holds trunk or limbs and provides more than half the effort. 6-Zdrxixbeb-uzupqa does ALL the effort. Patient does none of the effort to complete the activity. Or, the assistance of 2 or more helpers is required for the patient to complete the activity. If activity was not attempted, code reason: 7-Patient Refused. 9-Not Applicable-not attempted and the patient did not perform the activity before the current illness, exacerbation or injury. 10-Not Attempted due to Environmental Limitations-(lack of equipment, weather restraints, etc.). 88-Not Attempted due to Medical Conditions or Safety Concerns. Roll Left to Right (QC): 2 Sit to Lying (QC): 2 Sit to Stand (QC): 1 Chair/Kuo-id-Lspvp Xfer(QC): 1 Car Transfer (QC): 88 Gait Training Does the Patient Walk?: No and Walking Goal IS indicated Walk 10 feet (QC): 88 Walk 50 ft with 2 Turns(QC): 88 Walk 150 ft (QC): 88 Walking 10ft/uneven surface-QC: 88 Wheelchair Training Does the Pt Use a Wheelchair?: Yes Wheel 50 ft with 2 turns (QC): 3 Wheel 150 ft (QC): 3 Type of Wheelchair: Manual Stair Training 1 Step (curb) (QC): 88 4 Steps (QC): 88 12 Steps (QC): 88 Balance Picking up an Object (QC): 88 ADL-Treatment Eating (QC): 6 (Pt. finishing breakfast independently when OT entered room.) Oral Hygiene (QC): 5 (Set up at bed level to brush teeth.) Bathing Location: R Arm, L Upper Leg, R Upper Leg, Chest, Abdomen, Perineal Area Shower/Bathe Self (QC): 3 (Mod A for bed bath) Upper Body Dressing (QC): 3 (Min A) Lower Body Dressing (QC): 1 On/Off Footwear (QC): 2 Toileting Hygiene (QC): 1 Toilet Transfer (QC): 1 (Bed michaels.) Assessment/Plan Assessment and Plan Assess & Plan/Chief Complaint Assessment: Distal fracture of right femur Closed comminuted fracture of right humerus ABLA (acute blood loss anemia) Morbid obesity ([facility]) Hyponatremia Syncope and collapse Impaired mobility and activities of daily living Acute traumatic pain Sleep disorder CAD (coronary artery disease HTN (hypertension) COPD (chronic obstructive pulmonary disease) ([facility]) At risk for constipation DM (diabetes mellitus) ([facility]) Plan: Aggressive therapy Pain control Supportive care 01/28/2021: Supportive care to continue Check x-ray of leg Continue nonweightbearing status 01/29/2021: Supportive care Monitor bowel function Pain control 01/30/2021: Supportive care Pain control Bowel regimen 01/31/2021: Aggressive therapy Supportive care 02/01/2021: Pain control Pure wick Monitor glucose 02/02/2021: Supportive care Needs group home due to complete dependence 02/03/2021: Supportive care Needs group home Ice to shoulder Pain management 02/04/2021: Pain control Improve transfers Monitor closely 02/05/2021: Bowel regimen Pain control Monitor closely 02/06/21: Monitor pain Fall risk 02/07/21: Behavioral health consult Monitor closely 02/08/2021: Behavioral health consult Celexa added Monitor closely 02/09/2021: Supportive care Needs group home since fully dependent 02/10/2021: Discharge planning [facility] for [facility] 02/11/2021: Await placement 02/12/2021: Decrease Levemir [place] on Monday02/13/2021: Lasix 40 mg 1 dose PAT [place]ullen 02/14/2021: PAT [place] correction on Monday02/15/2021: [facility] once insurance approves 02/16/2021: Awaiting placement (1) Femur fracture ALCIDES RUIZ DO Feb 16, 2021 08:42
[2021-02-16] MEDS ORDERED: FUROSEMIDE 40 MG (LASIX) TAB PO ONE (08:45)
--- NOTE | 2021-02-16 10:25 | Occupational Ther Daily Note ---
OT Current Status-Daily Note Subjective Pt alert, lying in bed. Pt agrees to therapy. States that her R LE is more sore today, did not request pain pills. Mental Status/Objective Patient Orientation: Person, Place, Time, Situation ADL-Treatment Co-treatment with PT/OT ([id number]), due to need of skilled assist x 2. Pt. requires 2 clinical therapists due to complicated medical history that requires 2 clinicians for transfers, mobility, and problem solving with ADL skills. PT facilitated mobility and transfers while OT initiated ADL skills. Pt incontinent of bowel, requiring assist to cleanse and don new brief. Mod A for bed mobility and supine <--> EOB. Pt does use bed rail to assist with staying on designated side. Max A to don footwear. SPT with max A x2, bed<-->w/c. Pt requested to be placed on bedpan at end of treatment. Dependent with bedpan placement, manipulating clothing and hygiene. Pt uses PurWick or bedpan for toileting. Therapy Code Descriptions/Definitions Functional [place] Measure: 0=Not Assessed/NA 4=Minimal Assistance 1=Total Assistance 5=Supervision or Setup 2=Maximal Assistance 6=Modified [place] 3=Moderate Assistance 7=Complete IndependenceSCALE: Activities may be completed with or without assistive devices. 8-Mmdaylfeeo-mgyiwfx completes the activity by him/herself with no assistance f rom a helper. 5-Set-up or Clean-up Assistance-helper sets up or cleans up; patient completes activity. [place] assists only prior to or following the activity. 4-Supervision or Touching Assistance-helper provides verbal cues and/or touching/steadying and/or contact guard assistance as patient completes activity. Assistance may be provided throughout the activity or intermittently. 3-Partial/Moderate Assistance-helper does LESS THAN HALF the effort. [place] lifts, holds or supports trunk or limbs, but provides less than half the effort. 2-Substantial/Maximal Assistance-helper does MORE THAN HALF the effort. [place] lifts or holds trunk or limbs and provides more than half the effort. 9-Gsuycmaje-hiqsom does ALL the effort. Patient does none of the effort to complete the activity. Or, the assistance of 2 or more helpers is required for the patient to complete the activity. If activity was not attempted, code reason: 7-Patient Refused. 9-Not Applicable-not attempted and the patient did not perform the activity before the current illness, exacerbation or injury. 10-Not Attempted due to Environmental Limitations-(lack of equipment, weather restraints, etc.). 88-Not Attempted due to Medical Conditions or Safety Concerns. Lower Body Dressing (QC): 1 On/Off Footwear: 2 Toileting Hygiene (QC): 1 Toilet Transfer (QC): 1 Other Treatment Pt. worked on w/c mobility and strengthening by using L hand to propel w/c. Pt is more efficient with propelling w/c backwards using L foot. Pt also working on propelling w/c forward with L LE/UE. Pt able to navigate w/c with minimal verbal cues. Max A x2 to transfer to NuStep to work on L UE/LE strengthening. 1# wrist wt applied to L wrist while competing NuStep. Pt fatigued ~5min then taken back to room via w/c. See note above. After therapy, pt lying in bed with call light/phone in reach. All needs met in room. OT Short Term Goals Short Term Goals Time Frame: Feb 10, 2021 Eatin Oral hygiene: 4 Toileting hygiene: 3 Shower/bathe self: 3 Upper body dressin Lower body dressin Putting on/taking off footwear: 3 OT Supervisor Coremaker Goals Supervisor Coremaker Goals Time Frame: Feb 24, 2021 Eating (QC): 6 Oral Hygiene (QC): 6 Toileting Hygiene (QC): 6 Shower/Bathe Self (QC): 4 Upper Body Dressing (QC): 5 Lower Body Dressing (QC): 5 On/Off Footwear (QC): 5 Additional Goals: 1-Demonstrate ADL Tasks, 2-Verbalize Understanding, 3-ImproveStrength/Brian 1=Demonstrate adherence to instructed precautions during ADL tasks. 2=Patient will verbalize/demonstrate understanding of assistive devices/modifications for ADL. 3=Patient will improve strength/tolerance for activity to enable patient to perform ADL's. OT Education/Plan Problem List/Assessment Assessment: Decreased Activ Tolerance, Decreased UE Strength, Dependent Transfers, Impaired Self-Care Skills, Restricted Funct UE ROM Discharge Recommendations Plan/Recommendations: Continue POC Treatment Plan/Plan of Care Patient would benefit from OT for education, treatment and training to promote independence in ADL's, mobility, safety and/or upper extremity function for ADL's. Plan of Care: ADL Retraining, Functional Mobility, UE Funct Exercise/Act Treatment Duration: Feb 24, 2021 Frequency: At least 5 of 7 days/Wk (IRF) Estimated Hrs Per Day: 1.5 hours per day Agreement: Yes Rehab Potential: Fair Time/GCodes Start Time: 09:00 Stop Time: 10:30 Total Time Billed (hr/min): 90 Billed Treatment Time 1 visit-ADL 2 (30 min), FA 3 (50 min) EX 1 (10 min) co-treat with PT [id number] EUGENIE WILLAMS Feb 16, 2021 10:25
--- NOTE | 2021-02-16 10:27 | Physical Therapy Daily Note ---
PT Daily Note-Current Subjective Patient in bed pre tx, agrees to PT, states she has significant pain in her right shoulder. Will be co-treating with OT due to poor patient mobility, strength, endurance, complicated weight bearing status, coordinate UE and LE with activity, safety and reduce risk of falls. Appearance Patient in bed post tx with nurse call, phone, tray, all needs met. Mental Status Patient Orientation: Person, Place, Situation Transfers SCALE: Activities may be completed with or without assistive devices. 3-Kfvbfgcdcs-bgtbsoi completes the activity by him/herself with no assistance from a helper. 5-Set-up or Clean-up Assistance-helper sets up or cleans up; patient completes activity. [place] assists only prior to or following the activity. 4-Supervision or Touching Assistance-helper provides verbal cues and/or touching/steadying and/or contact guard assistance as patient completes activity. Assistance may be provided throughout the activity or intermittently. 3-Partial/Moderate Assistance-helper does LESS THAN HALF the effort. [place] lifts, holds or supports trunk or limbs, but provides less than half the effort. 2-Substantial/Maximal Assistance-helper does MORE THAN HALF the effort. [place] lifts or holds trunk or limbs and provides more than half the effort. 6-Kzwiqichv-qiwhgk does ALL the effort. Patient does none of the effort to complete the activity. Or, the assistance of 2 or more helpers is required for the patient to complete the activity. If activity was not attempted, code reason: 7-Patient Refused. 9-Not Applicable-not attempted and the patient did not perform the activity before the current illness, exacerbation or injury. 10-Not Attempted due to Environmental Limitations-(lack of equipment, weather restraints, etc.). 88-Not Attempted due to Medical Conditions or Safety Concerns. Roll Left & Right (QC): 2 Sit to Lying (QC): 2 Lying to Sitting/Side of Bed(Q: 2 Sit to Stand (QC): 1 Chair/Mgw-de-Gumlf Xfer(QC): 1 Patient has had a small BM in the bed, has to roll from side to side a couple of times for cleaning and putting on new brief. Patient then sits on the side of the bed and stand pivot transfer with assist of 2 to the WC, a small step is used under her left foot in order to keep the right foot off the floor because patient cannot keep weight off of it. After getting back to her room and transferring to her bed, she needs to use the bedpan to have another BM, several rolling to each side to place and take out bedpan and for cleaning. Weight Bearing Right Lower Extremity: Right Touch Toe Bearing RUE NWB Wheelchair Training Does the Pt Use a Wheelchair?: Yes Wheel 50 ft with 2 turns (QC): 3 Wheel 150 ft (QC): 3 Type of Wheelchair: Manual Patient can propel the WC backwards using her left foot and cues for corners or obstacles, in tight spaces she needs assist. Exercises NuStep Minutes: 5 NuStep Workload: 5 (Patient could only tolerate a few minutes, her right arm and leg were not used.) Treatments PT performed rolling, bed mobility, transfers, WC mobility, strengthening, OT performed UE exercise, dressing, cleaning, assist with transfers, UE positioning and safety during activity. Assessment Current Status: Poor Progress no change in mobility PT Short Term Goals Short Term Goals Time Frame: Feb 03, 2021 Roll Left & Right: 2 Sit to lyin Lying to sitting on side of be: 2 Sit to stand: 2 Chair/fys-ey-rtxoi transfer: 2 PT Inside Account Executive Goals Halfway Goals PT Inside Account Executive Goals Time Frame: Feb 17, 2021 Roll Left & Right (QC): 3 Sit to Lying (QC): 3 Lying-Sitting on Side/Bed(QC): 3 Sit to Stand (QC): 3 Chair/Gpt-tj-Ruhfy Xfer(QC): 3 Toilet Transfer (QC): 3 Car Transfer (QC): 3 Does the Patient Walk: No and Walking Goal NOT indicated Walk 10 feet (QC): 88 Walk 50ft with 2 Turns (QC): 88 Walk 150 ft (QC): 88 Walking 10ft on Uneven Surface: 88 1 Step (curb) (QC): 88 4 Steps (QC): 88 12 Steps (QC): 88 Picking up an Object (QC): 88 Wheel 50 feet with 2 turns (QC: 5 Wheel 150 feet: 5 PT Plan Problem List Problem List: Activity Tolerance, Functional Strength, Safety, Balance, Gait, Transfer, Bed Mobility, ROM Treatment/Plan Treatment Plan: Continue Plan of Care Treatment Plan: Bed Mobility, Education, Functional Activity Brian, Functional Strength, Group Therapy, Gait, Safety, Therapeutic Exercise, Transfers Treatment Duration: Feb 17, 2021 Frequency: At least 5 of 7 days/Wk (IRF) Estimated Hrs Per Day: .25 hour per day Patient and/or Family Agrees t: Yes Safety Risks/Education Patient Education: Transfer Techniques, Reviewed Precautions, Correct Positioning, W/C Management, Safety Issues Teaching Recipient: Patient Teaching Methods: Demonstration, Discussion Response to Teaching: Reinforcement Needed Time/GCodes Time In: 0900 Time Out: 1030 Total Billed Treatment Time: 90 Total Billed Treatment 1 visit FA 90' co-treated from [id number] PIETRO BHANDARI PT Feb 16, 2021 10:27
[2021-02-16 12:00] VITALS: BP 142/65
[2021-02-16 20:52] VITALS: BP 141/63
[2021-02-17] MEDS: inSUlin ASPART (NovoLOG) 1 UNIT/0.01 ML (CHARGE PER UNIT) SC SCH ×7 (05:44→20:53)
[2021-02-17] MEDS: ENOXAPARIN 40 MG/0.4 ML (LOVENOX) SYR SC SCH ×2 (06:37→18:14)
[2021-02-17] MEDS: KCL 10 MEQ TAB (MICRO K) PO SCH (06:37)
[2021-02-17] MEDS: GABAPENTIN 400 MG (NEURONTIN) CAP PO SCH ×3 (07:28→19:46)
[2021-02-17] MEDS: CLOPIDOGREL 75 MG (PLAVIX) TABLET PO SCH (07:28)
[2021-02-17] MEDS: metFORMIN XR 500 MG (GLUCOPHAGE XR) TAB PO SCH ×2 (07:29→19:45)
[2021-02-17] MEDS: amLODIPine 10 MG (NORVASC) TAB PO SCH (07:29)
[2021-02-17 07:38] VITALS: BP 172/68
[2021-02-17] MEDS: polyethylene glycoL POWDER 17 GM (MIRALAX) PACK PO SCH ×2 (08:00→19:24)
[2021-02-17] MEDS: DOCUSATE SODIUM 100 MG (COLACE) CAP PO SCH ×2 (08:00→19:24)
[2021-02-17] MEDS: SENNA W/DOCUSATE (SENOKOT S) TABLET PO SCH ×2 (08:00→19:24)
[2021-02-17] MEDS: RT--FLUTICASONE/SALMETEROL 113-14 (AIRDUO RespiCLICK) IH SCH ×2 (08:10→19:39)
--- NOTE | 2021-02-17 09:33 | Occupational Ther Daily Note ---
OT Current Status-Daily Note ADL-Treatment Co-treatment with PT ([id number]), skills of 2 clinicians required to decrease fall risk, increase transfers and increase ability of functional tasks PT focusing on bed mobility, w/c mobility and transfer while OT focusing on ADLs, functional mobility and B UE strengthening. Pt. worked on bathing/dressing self at bed level to improve overall independence with daily skills and tasks. OT provided set up with bath pack. HOB raised and lowered as pt. needed, and pt. encouraged to lean forward, using core muscles to cleanse carla area. OT bathed buttocks, lower body and feet while in supine. Pt. min A to roll in bed then CGA to stay on side, dependent to cleanse buttocks. Transferred max x 2 supine- sit and to scoot EOB. Pt. able to bathe chest, right arm, under right arm, front carla area and upper thighs sitting on EOB. Donned shirt with min assist sitting on EOB. Mod A to don sling on R UE. Completed oral care after supplies gathered for pt sitting on EOB. Max A x2 to transfer from EOB to w/c. Completed w/c mobility around ARU. Pt left in care of PT. All needs met. Therapy Code Descriptions/Definitions Functional [place] Measure: 0=Not Assessed/NA 4=Minimal Assistance 1=Total Assistance 5=Supervision or Setup 2=Maximal Assistance 6=Modified [place] 3=Moderate Assistance 7=Complete IndependenceSCALE: Activities may be completed with or without assistive devices. 4-Dztmswwzzm-uaqwapr completes the activity by him/herself with no assistance from a helper. 5-Set-up or Clean-up Assistance-helper sets up or cleans up; patient completes activity. [place] assists only prior to or following the activity. 4-Supervision or Touching Assistance-helper provides verbal cues and/or touching/steadying and/or contact guard assistance as patient completes activity. Assistance may be provided throughout the activity or intermittently. 3-Partial/Moderate Assistance-helper does LESS THAN HALF the effort. [place] lifts, holds or supports trunk or limbs, but provides less than half the effort. 2-Substantial/Maximal Assistance-helper does MORE THAN HALF the effort. [place] lifts or holds trunk or limbs and provides more than half the effort. 1-Elylhccqw-dlcxvl does ALL the effort. Patient does none of the effort to complete the activity. Or, the assistance of 2 or more helpers is required for the patient to complete the activity. If activity was not attempted, code reason: 7-Patient Refused. 9-Not Applicable-not attempted and the patient did not perform the activity before the current illness, exacerbation or injury. 10-Not Attempted due to Environmental Limitations-(lack of equipment, weather restraints, etc.). 88-Not Attempted due to Medical Conditions or Safety Concerns. Oral Hygiene (QC): 5 Bathing Location: R Arm, L Upper Leg, R Upper Leg, Chest, Abdomen, Perineal Area Upper Body Dressing (QC): 3 (Starting in supine (HOB elevated) then finishing on EOB.) Lower Body Dressing (QC): 1 On/Off Footwear: 2 Toileting Hygiene (QC): 1 OT Short Term Goals Short Term Goals Time Frame: Feb 10, 2021 Eatin Oral hygiene: 4 Toileting hygiene: 3 Shower/bathe self: 3 Upper body dressin Lower body dressin Putting on/taking off footwear: 3 OT Clinical Instructor Goals Intermediate Goals Time Frame: Feb 24, 2021 Eating (QC): 6 Oral Hygiene (QC): 6 Toileting Hygiene (QC): 6 Shower/Bathe Self (QC): 4 Upper Body Dressing (QC): 5 Lower Body Dressing (QC): 5 On/Off Footwear (QC): 5 Additional Goals: 1-Demonstrate ADL Tasks, 2-Verbalize Understanding, 3- ImproveStrength/Brian 1=Demonstrate adherence to instructed precautions during ADL tasks. 2=Patient will verbalize/demonstrate understanding of assistive devices/modifications for ADL. 3=Patient will improve strength/tolerance for activity to enable patient to perform ADL's. OT Education/Plan Problem List/Assessment Assessment: Decreased Activ Tolerance, Decreased UE Strength, Dependent Transfers, Impaired Bed Mobility, Impaired Self-Care Skills, Restricted Funct UE ROM Discharge Recommendations Plan/Recommendations: Continue POC Treatment Plan/Plan of Care Patient would benefit from OT for education, treatment and training to promote independence in ADL's, mobility, safety and/or upper extremity function for ADL's. Plan of Care: ADL Retraining, Functional Mobility, UE Funct Exercise/Act Treatment Duration: Feb 24, 2021 Frequency: At least 5 of 7 days/Wk (IRF) Estimated Hrs Per Day: 1.5 hours per day Agreement: Yes Rehab Potential: Fair Time/GCodes Start Time: 08:30 Stop Time: 09:30 Total Time Billed (hr/min): 60 Billed Treatment Time 1 visit-ADL 3 (40 min) FA 1 (20 min) co-treat with PT [id number], individual [id number] EUGENIE WILLAMS Feb 17, 2021 09:33
--- NOTE | 2021-02-17 09:57 | Physical Therapy Daily Note ---
PT Daily Note-Current Subjective Patient in bed pre tx, agrees to PT, voices no complaints of pain. Will be co- treating with OT due to poor patient mobility, strength, endurance, complicated weight bearing status, coordinate UE and LE with activity, safety and reduce risk of falls. Appearance Patient in bed post tx with nurse call, phone, tray, all needs met. Patient on bedpan, nurse notified. Mental Status Patient Orientation: Person, Place, Situation Transfers SCALE: Activities may be completed with or without assistive devices. 1-Fbcbyvdoiv-lrprhuo completes the activity by him/herself with no assistance from a helper. 5-Set-up or Clean-up Assistance-helper sets up or cleans up; patient completes activity. [place] assists only prior to or following the activity. 4-Supervision or Touching Assistance-helper provides verbal cues and/or touching/steadying and/or contact guard assistance as patient completes activity. Assistance may be provided throughout the activity or intermittently. 3-Partial/Moderate Assistance-helper does LESS THAN HALF the effort. [place] lifts, holds or supports trunk or limbs, but provides less than half the effort. 2-Substantial/Maximal Assistance-helper does MORE THAN HALF the effort. [place] lifts or holds trunk or limbs and provides more than half the effort. 5-Epnbenguo-ewmbpl does ALL the effort. Patient does none of the effort to complete the activity. Or, the assistance of 2 or more helpers is required for the patient to complete the activity. If activity was not attempted, code reason: 7-Patient Refused. 9-Not Applicable-not attempted and the patient did not perform the activity before the current illness, exacerbation or injury. 10-Not Attempted due to Environmental Limitations-(lack of equipment, weather restraints, etc.). 88-Not Attempted due to Medical Conditions or Safety Concerns. Roll Left & Right (QC): 2 Sit to Lying (QC): 2 Lying to Sitting/Side of Bed(Q: 2 Sit to Stand (QC): 1 Chair/Eth-cn-Qjxhf Xfer(QC): 1 Stand pivot to WC (small step used under left foot so right foot can dangle because if it is on the ground she puts too much weight through it. Assist of 2 needed for the stand pivot transfers. Weight Bearing Right Lower Extremity: Right Touch Toe Bearing RUE NWB Wheelchair Training Does the Pt Use a Wheelchair?: Yes Wheel 50 ft with 2 turns (QC): 3 Wheel 150 ft (QC): 3 Type of Wheelchair: Manual 300', uses left foot to propel backwards most of the time, needs min assist in tight spaces or sometimes around corners. Exercises Seated Therapy Exercises: Ankle pumps, Long arc quads, Hip flexion, Hip abd/add (with ball and RTB) Seated Reps: 20 LAQ alternating for 5 min, pre-standing exercise in parallel bars putting weight through left leg and left arm in preparation of standing, no weight on right foot. Treatments PT performed bed mobility and transfers, LE strengthening, WC mobility, OT assists with transfers, UE positioning and safety during activity Assessment Current Status: Poor Progress no change in mobility PT Short Term Goals Short Term Goals Time Frame: Feb 03, 2021 Roll Left & Right: 2 Sit to lyin Lying to sitting on side of be: 2 Sit to stand: 2 Chair/mgf-bc-ihjli transfer: 2 PT Nursing Home Goals Screening Unit Registered Nurse Goals PT Nursing Home Goals Time Frame: Feb 17, 2021 Roll Left & Right (QC): 3 Sit to Lying (QC): 3 Lying-Sitting on Side/Bed(QC): 3 Sit to Stand (QC): 3 Chair/Ihl-wt-Ictpl Xfer(QC): 3 Toilet Transfer (QC): 3 Car Transfer (QC): 3 Does the Patient Walk: No and Walking Goal NOT indicated Walk 10 feet (QC): 88 Walk 50ft with 2 Turns (QC): 88 Walk 150 ft (QC): 88 Walking 10ft on Uneven Surface: 88 1 Step (curb) (QC): 88 4 Steps (QC): 88 12 Steps (QC): 88 Picking up an Object (QC): 88 Wheel 50 feet with 2 turns (QC: 5 Wheel 150 feet: 5 PT Plan Problem List Problem List: Activity Tolerance, Functional Strength, Safety, Balance, Gait, Transfer, Bed Mobility, ROM Treatment/Plan Treatment Plan: Continue Plan of Care Treatment Plan: Bed Mobility, Education, Functional Activity Brian, Functional Strength, Group Therapy, Gait, Safety, Therapeutic Exercise, Transfers Treatment Duration: Feb 17, 2021 Frequency: At least 5 of 7 days/Wk (IRF) Estimated Hrs Per Day: .25 hour per day Patient and/or Family Agrees t: Yes Safety Risks/Education Patient Education: Transfer Techniques, Reviewed Precautions, Correct Positioning, W/C Management, Safety Issues Teaching Recipient: Patient Teaching Methods: Demonstration, Discussion Response to Teaching: Reinforcement Needed Time/GCodes Time In: 899 Time Out: 1000 Total Billed Treatment Time: 60 Total Billed Treatment 1 visit EX 20' FA 40' co-treated with OT from [id number] PIETRO BHANDARI PT Feb 17, 2021 09:57
--- NOTE | 2021-02-17 10:39 | PM&R Progress Note ---
Subjective HPI/CC On Admission Date Seen by Provider: Feb 17, 2021 Time Seen by Provider: 10:45 Subjective/Events-last exam 02/17/2021: Patient doing well No concerns at this current time Discharge plan for tomorrow 02/16/2021: Pt sleeping currently Awaiting placement No major issues 02/15/2021: Still awaiting approval for [facility] Pt having no new issues Awaiting placement Pain is an issue as always 02/14/2021: No major issues long term at [place] tomorrow 02/13/2021: Patient doing pretty well Lower extremity edema prompting Lasix 40 mg along with PAT hose Check meds and labs long term on Monday02/12/2021: Pt about the same visiting now Checked meds and labs No falls Pain medication BID scheduled Dropping Levemir to five units BID 02/11/2021: Pt remains max-assist Has no pain currently Checked meds and labs 02/10/2021: Pt down pretty well long term has been approved by insurance [facility] trying to get approval Max total assist with therapy 02/09/2021: Pt still awaiting placement Psych eval Dr. Harrington very helpful yesterday Using bed michaels Bowels are moving Pain meds are helpful 02/08/2021: Pt doing okay Oxycodone taken with good results Orthopedics will be reached to decide on suture removal Bed michaels is being used and doing pretty well Psych evjin ordered Appears to have some struggle with motivation 02/07/21: Patient having depression issues Behavioral health consult is requested No pain other than chronic issues with fractures No issues otherwise Talked about her with [place] and 44 years and other details 02/06/21: Patient doing well Sleeping currently No falls Pain controlled Checked meds and labs 02/05/2021: No significant concerns per nurses Patient feels pretty good Ready to work with therapy today Awaiting nursing facility to accept 02/04/2021: Pt doing pretty well Bowels are moving Pain is pretty well controlled Denies any other significant new problems No falls Moving around a little bit better Needs prison for slow recovery 02/03/2021: Patient doing pretty well Ice to right shoulder is helping Lower extremity edema nonpitting type Blood sugar is good at 123 155 Pain management successful Bowels are moving pretty well We will need to go to a prison Cheri lift cannot be used due to risk of too much pressure on the hardware in her leg 02/02/2021: Pt doing really well Glucose is 114 Will need a Cheri lift long term placement likely will be required Right shoulder pain noted She is thirsty all the time Pure-wic maintained 02/01/2021: Pt doing pretty well Complaining of right shoulder pain due to surgery Holding laxatives due to loose stools Hgb 8.2 Purewick maintained Unable to do sit to stand may need cheri 01/31/2021: Patient doing really well today Pain is well controlled Change pure wick a couple of times Glucose 220 this morning Bowels moved today 01/30/2021: Patient doing pretty well today Pain is well controlled Using pure wick Bowels moved yesterday Working out with therapy 01/29/2021: Pt doing pretty well Denies any significant new issues Participating in therapy Checked meds and labs Denies any pain 01/28/2021: Pt doing pretty well but had a pop in her right leg when she barely had weight bearing to it X-rays ordered Purewick maintained Check meds and labs Bowels are moving Review of Systems General: Fatigue, Malaise Neurological: Weakness, Incoordination Objective Exam Vital Signs Vital Signs Date Time Temp Pulse Resp B/P (MAP) Pulse Ox O2 Delivery O2 Flow Rate FiO2 02/17/21 20:00 36.6 83 20 162/70 (100) 94 Room Air 02/13/21 06:54 21 Capillary Refill : General Appearance: No Apparent Distress, WD/WN, Chronically ill HEENT: PERRL/EOMI, Normal ENT Inspection, Pharynx Normal Neck: Full Range of Motion, Normal Inspection, Non Tender, Supple, Carotid Bruit Respiratory: Chest Non Tender, Lungs Clear, Normal Breath Sounds, No Accessory Muscle Use, No Respiratory Distress Cardiovascular: Regular Rate, Rhythm, No Edema, No Gallop, No JVD, No Murmur, Normal Peripheral Pulses Gastrointestinal: Normal Bowel Sounds, No Organomegaly, No Pulsatile Mass, Non Tender, Soft Back: Normal Inspection, No CVA Tenderness, No Vertebral Tenderness Extremity: Normal Capillary Refill, Normal Inspection, Normal Range of Motion (Except right arm and right leg), Non Tender, No Calf Tenderness, No Pedal Edema Neurologic/Psychiatric: Alert, Oriented x3, No Motor/Sensory Deficits, supply coordinator II- XII Norm as Tested, Abnormal Gait, Depressed Affect, Motor Weakness (Right arm right leg) Skin: Normal Color, Warm/Dry Lymphatic: No Adenopathy Results/Procedures Lab Patient resulted labs reviewed. FIM Transfers Therapy Code Descriptions/Definitions Functional [place] Measure: 0=Not Assessed/NA 4=Minimal Assistance 1=Total Assistance 5=Supervision or Setup 2=Maximal Assistance 6=Modified [place] 3=Moderate Assistance 7=Complete IndependenceSCALE: Activities may be completed with or without assistive devices. 4-Uztaikllxn-bfurbar completes the activity by him/herself with no assistance from a helper. 5-Set-up or Clean-up Assistance-helper sets up or cleans up; patient completes activity. [place] assists only prior to or following the activity. 4-Supervision or Touching Assistance-helper provides verbal cues and/or touching/steadying and/or contact guard assistance as patient completes activity. Assistance may be provided throughout the activity or intermittently. 3-Partial/Moderate Assistance-helper does LESS THAN HALF the effort. [place] lifts, holds or supports trunk or limbs, but provides less than half the effort. 2-Substantial/Maximal Assistance-helper does MORE THAN HALF the effort. [place] lifts or holds trunk or limbs and provides more than half the effort. 9-Axcaevcwh-fezpuz does ALL the effort. Patient does none of the effort to complete the activity. Or, the assistance of 2 or more helpers is required for the patient to complete the activity. If activity was not attempted, code reason: 7-Patient Refused. 9-Not Applicable-not attempted and the patient did not perform the activity before the current illness, exacerbation or injury. 10-Not Attempted due to Environmental Limitations-(lack of equipment, weather restraints, etc.). 88-Not Attempted due to Medical Conditions or Safety Concerns. Roll Left to Right (QC): 2 Sit to Lying (QC): 2 Sit to Stand (QC): 1 Chair/Qnv-af-Xdzjt Xfer(QC): 1 Car Transfer (QC): 88 Gait Training Does the Patient Walk?: No and Walking Goal IS indicated Walk 10 feet (QC): 88 Walk 50 ft with 2 Turns(QC): 88 Walk 150 ft (QC): 88 Walking 10ft/uneven surface-QC: 88 Wheelchair Training Does the Pt Use a Wheelchair?: Yes Wheel 50 ft with 2 turns (QC): 3 Wheel 150 ft (QC): 3 Type of Wheelchair: Manual Stair Training 1 Step (curb) (QC): 88 4 Steps (QC): 88 12 Steps (QC): 88 Balance Picking up an Object (QC): 88 ADL-Treatment Eating (QC): 6 (Pt. finishing breakfast independently when OT entered room.) Oral Hygiene (QC): 5 Bathing Location: R Arm, L Upper Leg, R Upper Leg, Chest, Abdomen, Perineal Area Shower/Bathe Self (QC): 3 (Mod A for bed bath) Upper Body Dressing (QC): 3 (Starting in supine (HOB elevated) then finishing on EOB.) Lower Body Dressing (QC): 1 On/Off Footwear (QC): 2 Toileting Hygiene (QC): 1 Toilet Transfer (QC): 1 Assessment/Plan Assessment and Plan Assess & Plan/Chief Complaint Assessment: Distal fracture of right femur Closed comminuted fracture of right humerus ABLA (acute blood loss anemia) Morbid obesity ([facility]) Hyponatremia Syncope and collapse Impaired mobility and activities of daily living Acute traumatic pain Sleep disorder CAD (coronary artery disease HTN (hypertension) COPD (chronic obstructive pulmonary disease) ([facility]) At risk for constipation DM (diabetes mellitus) ([facility]) Plan: Aggressive therapy Pain control Supportive care 01/28/2021: Supportive care to continue Check x-ray of leg Continue nonweightbearing status 01/29/2021: Supportive care Monitor bowel function Pain control 01/30/2021: Supportive care Pain control Bowel regimen 01/31/2021: Aggressive therapy Supportive care 02/01/2021: Pain control Pure wick Monitor glucose 02/02/2021: Supportive care Needs prison due to complete dependence 02/03/2021: Supportive care Needs prison Ice to shoulder Pain management 02/04/2021: Pain control Improve transfers Monitor closely 02/05/2021: Bowel regimen Pain control Monitor closely 02/06/21: Monitor pain Fall risk 02/07/21: Behavioral health consult Monitor closely 02/08/2021: Behavioral health consult Celexa added Monitor closely 02/09/2021: Supportive care Needs prison since fully dependent 02/10/2021: Discharge planning [facility] for skilled 02/11/2021: Await placement 02/12/2021: Decrease Kamranemir Kathie Egan on Monday02/13/2021: Lasix 40 mg 1 dose PAT mullen 02/14/2021: PAT mullen long term on Monday02/15/2021: [facility] once insurance approves 02/16/2021: Awaiting placement 02/17/2021: Supportive care Monitor closely (1) Femur fracture ALCIDES RUIZ DO Feb 17, 2021 10:39
--- NOTE | 2021-02-17 12:19 | Discharge Summary ---
Diagnosis/Chief Complaint Date of Admission Jan 26, 2021 at 21:10 Date of Discharge Discharge Date: Feb 17, 2021 Discharge Summary Discharge Physical Examination Allergies: Coded Allergies: venlafaxine (Verified Allergy, Unknown, 01/26/21) Vitals & I&Os Vital Signs Date Time Temp Pulse Resp B/P (MAP) Pulse Ox O2 Delivery O2 Flow Rate FiO2 02/17/21 20:00 36.6 83 20 162/70 (100) 94 Room Air 02/13/21 06:54 21 Hospital Course Labs (last 24 hrs) Laboratory Tests 01/26/21 22:21: Glucometer 190H 01/27/21 05:26: Glucometer 84 01/27/21 06:10: White Blood Count 10.4, Red Blood Count 3.65L, Hemoglobin 8.5L, Hematocrit 28L, Mean Corpuscular Volume 78L, Mean Corpuscular Hemoglobin 23L, Mean Corpuscular Hemoglobin Concent 30L, Red Cell Distribution Width 25.4H, Platelet Count 566H, Mean Platelet Volume 9.5, Immature Granulocyte % (Auto) 1, Neutrophils (%) (Auto) 72, Lymphocytes (%) (Auto) 11L, Monocytes (%) (Auto) 11, Eosinophils (%) (Auto) 5, Basophils (%) (Auto) 0, Neutrophils # (Auto) 7.5, Lymphocytes # (Auto) 1.2, Monocytes # (Auto) 1.1H, Eosinophils # (Auto) 0.5H, Basophils # (Auto) 0.0, Immature Granulocyte # (Auto) 0.1, Sodium Level 139, Potassium Level 3.6, Chloride Level 100, Carbon Dioxide Level 27, Anion Gap 12, Blood Urea Nitrogen 13, Creatinine 0.73, Estimat Glomerular Filtration Rate 81, BUN/Creatinine Ratio 18, Glucose Level 76, Calcium Level 8.6, Corrected Calcium 9.7, Total Bilirubin 0.5, Aspartate Amino Transf (AST/SGOT) 30, Alanine Aminotransferase (ALT/SGPT) 20, Alkaline Phosphatase 146H, Total Protein 5.7L, Albumin 2.6L 01/27/21 11:45: Glucometer 169H 01/27/21 16:41: Glucometer 137H 01/27/21 21:13: Glucometer 128H 01/28/21 05:42: Glucometer 134H 01/28/21 11:06: Glucometer 199H 01/28/21 16:05: Glucometer 186H 01/28/21 20:52: Glucometer 176H 01/29/21 05:19: Glucometer 163H 01/29/21 10:46: Glucometer 190H 01/29/21 15:50: Glucometer 137H 01/29/21 20:17: Glucometer 199H 01/30/21 05:53: Glucometer 150H 01/30/21 10:38: Glucometer 216H 01/30/21 16:32: Glucometer 132H 01/30/21 21:16: Glucometer 176H 01/31/21 06:36: Glucometer 163H 01/31/21 10:55: Glucometer 228H 01/31/21 11:16: Glucometer 223H 01/31/21 15:59: Glucometer 195H 01/31/21 21:03: Glucometer 185H 02/01/21 05:25: Glucometer 148H 02/01/21 06:28: White Blood Count 6.9, Red Blood Count 3.47L, Hemoglobin 8.2L, Hematocrit 27L, Mean Corpuscular Volume 78L, Mean Corpuscular Hemoglobin 24L, Mean Corpuscular Hemoglobin Concent 30L, Red Cell Distribution Width 24.7H, Platelet Count 502H, Mean Platelet Volume 9.6, Immature Granulocyte % (Auto) 0, Neutrophils (%) (Auto) 61, Lymphocytes (%) (Auto) 16, Monocytes (%) (Auto) 12, Eosinophils (%) (Auto) 10, Basophils (%) (Auto) 1, Neutrophils # (Auto) 4.2, Lymphocytes # (Auto) 1.1, Monocytes # (Auto) 0.8, Eosinophils # (Auto) 0.7H, Basophils # (Auto) 0.1, Immature Granulocyte # (Auto) 0.0, Sodium Level 134L, Potassium Level 4.1, Chloride Level 99, Carbon Dioxide Level 25, Anion Gap 10, Blood Urea Nitrogen 12, Creatinine 0.81, Estimat Glomerular Filtration Rate 72, BUN/Creatinine Ratio 15, Glucose Level 141H, Calcium Level 8.6, Corrected Calcium 9.7, Total Bilirubin 0.4, Aspartate Amino Transf (AST/SGOT) 18, Alanine Aminotransferase (ALT/SGPT) 22, Alkaline Phosphatase 159H, Total Protein 5.6L, Albumin 2.6L 02/01/21 10:46: Glucometer 198H 02/01/21 16:30: Glucometer 105 02/01/21 20:34: Glucometer 158H 02/02/21 05:17: Glucometer 114H 02/02/21 10:57: Glucometer 222H 02/02/21 16:11: Glucometer 159H 02/02/21 20:41: Glucometer 123H 02/03/21 05:19: Glucometer 155H 02/03/21 11:25: Glucometer 164H 02/03/21 15:43: Glucometer 157H 02/03/21 20:01: Glucometer 107 02/04/21 05:41: Glucometer 180H 02/04/21 11:08: Glucometer 239H 02/04/21 16:45: Glucometer 120H 02/04/21 20:59: Glucometer 220H 02/05/21 05:51: Glucometer 103 02/05/21 10:56: Glucometer 221H 02/05/21 16:38: Glucometer 88 02/05/21 20:05: Glucometer 146H 02/06/21 05:07: Glucometer 110 02/06/21 11:01: Glucometer 226H 02/06/21 15:37: Glucometer 156H 02/06/21 20:08: Glucometer 180H 02/07/21 05:23: Glucometer 96 02/07/21 10:50: Glucometer 201H 02/07/21 15:43: Glucometer 232H 02/07/21 20:02: Glucometer 192H 02/08/21 05:18: White Blood Count 6.2, Red Blood Count 3.51L, Hemoglobin 8.3L, Hematocrit 28L, Mean Corpuscular Volume 80, Mean Corpuscular Hemoglobin 24L, Mean Corpuscular Hemoglobin Concent 30L, Red Cell Distribution Width 23.9H, Platelet Count 350, [place] Platelet Volume 10.0, Immature Granulocyte % (Auto) 0, Neutrophils (%) (Auto) 54, Lymphocytes (%) (Auto) 21, Monocytes (%) (Auto) 13H, Eosinophils (%) (Auto) 11H, Basophils (%) (Auto) 1, Neutrophils # (Auto) 3.3, Lymphocytes # (Auto) 1.3, Monocytes # (Auto) 0.8, Eosinophils # (Auto) 0.7H, Basophils # (Auto) 0.0, Immature Granulocyte # (Auto) 0.0, Sodium Level 135, Potassium Level 3.5L, Chloride Level 101, Carbon Dioxide Level 27, Anion Gap 7, Blood Urea Nitrogen 12, Creatinine 0.74, Estimat Glomerular Filtration Rate 80, BUN/Creatinine Ratio 16, Glucose Level 113H, Calcium Level 8.2L, Corrected Calcium 9.3, Total Bilirubin 0.3, Aspartate Amino Transf (AST/SGOT) 11, Alanine Aminotransferase (ALT/SGPT) 17, Alkaline Phosphatase 132, Total Protein 5.5L, Albumin 2.6L 02/08/21 05:51: Glucometer 103 02/08/21 11:16: Glucometer 160H 02/08/21 17:23: Glucometer 106 02/08/21 20:15: Glucometer 175H 02/09/21 05:10: Glucometer 114H 02/09/21 11:03: Glucometer 206H 02/09/21 16:58: Glucometer 123H 02/09/21 20:17: Glucometer 152H 02/10/21 05:22: Glucometer 122H 02/10/21 12:44: Glucometer 216H 02/10/21 16:49: Glucometer 164H 02/10/21 20:23: Glucometer 150H 02/11/21 05:40: Glucometer 100 02/11/21 10:50: Glucometer 168H 02/11/21 15:28: Glucometer 161H 02/11/21 21:04: Glucometer 140H 02/12/21 05:16: Glucometer 71 02/12/21 05:56: Glucometer 111H 02/12/21 10:50: Glucometer 166H 02/12/21 15:59: Glucometer 113H 02/12/21 21:42: Glucometer 190H 02/13/21 06:42: Glucometer 151H 02/13/21 11:11: Glucometer 154H 02/13/21 15:38: Glucometer 149H 02/13/21 20:06: Glucometer 158H 02/14/21 05:09: Glucometer 109 02/14/21 10:49: Glucometer 231H 02/14/21 15:40: Glucometer 253H 02/14/21 20:31: Glucometer 121H 02/15/21 05:10: Glucometer 132H 02/15/21 05:33: White Blood Count 7.2, Red Blood Count 3.89, Hemoglobin 9.3L, Hematocrit 31L, Mean Corpuscular Volume 79L, Mean Corpuscular Hemoglobin 24L, Mean Corpuscular Hemoglobin Concent 30L, Red Cell Distribution Width 23.7H, Platelet Count 315, Mean Platelet Volume 9.9, Immature Granulocyte % (Auto) 0, Neutrophils (%) (Auto ) 56, Lymphocytes (%) (Auto) 20, Monocytes (%) (Auto) 13H, Eosinophils (%) (Auto) 10, Basophils (%) (Auto) 0, Neutrophils # (Auto) 4.0, Lymphocytes # (Auto) 1.5, Monocytes # (Auto) 0.9, Eosinophils # (Auto) 0.7H, Basophils # (Auto) 0.0, Immature Granulocyte # (Auto) 0.0, Sodium Level 133L, Potassium Level 4.3, Chloride Level 97L, Carbon Dioxide Level 27, Anion Gap 9, Blood Urea Nitrogen 13, Creatinine 0.76, Estimat Glomerular Filtration Rate 77, BUN/Creatinine Ratio 17, Glucose Level 134H, Calcium Level 8.6, Corrected Calcium 9.6, Total Bilirubin 0.4, Aspartate Amino Transf (AST/SGOT) 13, Alanine Aminotransferase (ALT/SGPT) 14, Alkaline Phosphatase 131, Total Protein 5.8L, Albumin 2.8L 02/15/21 10:45: Glucometer 272H 02/15/21 15:32: Glucometer 150H 02/15/21 20:02: Glucometer 133H 02/16/21 05:27: Glucometer 109 02/16/21 10:50: Glucometer 372H 02/16/21 10:51: Glucometer 342H 02/16/21 15:51: Glucometer 180H 02/16/21 20:36: Glucometer 211H 02/17/21 05:38: Glucometer 128H 02/17/21 11:28: Glucometer 241H 02/17/21 16:48: Glucometer 135H 02/17/21 20:44: Glucometer 209H Pending Labs Laboratory Tests 01/26/21 22:21: Glucometer 190 01/27/21 05:26: Glucometer 84 01/27/21 06:10: White Blood Count 10.4, Red Blood Count 3.65, Hemoglobin 8.5, Hematocrit 28, Mean Corpuscular Volume 78, Mean Corpuscular Hemoglobin 23, Mean Corpuscular Hemoglobin Concent 30, Red Cell Distribution Width 25.4, Platelet Count 566, Mean Platelet Volume 9.5, Immature Granulocyte % (Auto) 1, Neutrophils (%) (Auto) 72, Lymphocytes (%) (Auto) 11, Monocytes (%) (Auto) 11, Eosinophils (%) (Auto) 5, Basophils (%) (Auto) 0, Neutrophils # (Auto) 7.5, Lymphocytes # (Auto) 1.2, Monocytes # (Auto) 1.1, Eosinophils # (Auto) 0.5, Basophils # (Auto) 0.0, Immature Granulocyte # (Auto) 0.1, Sodium Level 139, Potassium Level 3.6, Chloride Level 100, Carbon Dioxide Level 27, Anion Gap 12, Blood Urea Nitrogen 13, Creatinine 0.73, Estimat Glomerular Filtration Rate 81, BUN/Creatinine Ratio 18, Glucose Level 76, Calcium Level 8.6, Corrected Calcium 9.7, Total Bilirubin 0.5, Aspartate Amino Transf (AST/SGOT) 30, Alanine Aminotransferase (ALT/SGPT) 20, Alkaline Phosphatase 146, Total Protein 5.7, Albumin 2.6 01/27/21 11:45: Glucometer 169 01/27/21 16:41: Glucometer 137 01/27/21 21:13: Glucometer 128 01/28/21 05:42: Glucometer 134 01/28/21 11:06: Glucometer 199 01/28/21 16:05: Glucometer 186 01/28/21 20:52: Glucometer 176 01/29/21 05:19: Glucometer 163 01/29/21 10:46: Glucometer 190 01/29/21 15:50: Glucometer 137 01/29/21 20:17: Glucometer 199 01/30/21 05:53: Glucometer 150 01/30/21 10:38: Glucometer 216 01/30/21 16:32: Glucometer 132 01/30/21 21:16: Glucometer 176 01/31/21 06:36: Glucometer 163 01/31/21 10:55: Glucometer 228 01/31/21 11:16: Glucometer 223 01/31/21 15:59: Glucometer 195 01/31/21 21:03: Glucometer 185 02/01/21 05:25: Glucometer 148 02/01/21 06:28: White Blood Count 6.9, Red Blood Count 3.47, Hemoglobin 8.2, Hematocrit 27, Mean Corpuscular Volume 78, Mean Corpuscular Hemoglobin 24, Mean Corpuscular Hemoglobin Concent 30, Red Cell Distribution Width 24.7, Platelet Count 502, Mean Platelet Volume 9.6, Immature Granulocyte % (Auto) 0, Neutrophils (%) (Auto) 61, Lymphocytes (%) (Auto) 16, Monocytes (%) (Auto) 12, Eosinophils (%) (Auto) 10, Basophils (%) (Auto) 1, Neutrophils # (Auto) 4.2, Lymphocytes # (Auto) 1.1, Monocytes # (Auto) 0.8, Eosinophils # (Auto) 0.7, Basophils # (Auto) 0.1, Immature Granulocyte # (Auto) 0.0, Sodium Level 134, Potassium Level 4.1, Chloride Level 99, Carbon Dioxide Level 25, Anion Gap 10, Blood Urea Nitrogen 12, Creatinine 0.81, Estimat Glomerular Filtration Rate 72, BUN/Creatinine Ratio 15, Glucose Level 141, Calcium Level 8.6, Corrected Calcium 9.7, Total Bilirubin 0.4, Aspartate Amino Transf (AST/SGOT) 18, Alanine Aminotransferase (ALT/SGPT) 22, Alkaline Phosphatase 159, Total Protein 5.6, Albumin 2.6 02/01/21 10:46: Glucometer 198 02/01/21 16:30: Glucometer 105 02/01/21 20:34: Glucometer 158 02/02/21 05:17: Glucometer 114 02/02/21 10:57: Glucometer 222 02/02/21 16:11: Glucometer 159 02/02/21 20:41: Glucometer 123 02/03/21 05:19: Glucometer 155 02/03/21 11:25: Glucometer 164 02/03/21 15:43: Glucometer 157 02/03/21 20:01: Glucometer 107 02/04/21 05:41: Glucometer 180 02/04/21 11:08: Glucometer 239 02/04/21 16:45: Glucometer 120 02/04/21 20:59: Glucometer 220 02/05/21 05:51: Glucometer 103 02/05/21 10:56: Glucometer 221 02/05/21 16:38: Glucometer 88 02/05/21 20:05: Glucometer 146 02/06/21 05:07: Glucometer 110 02/06/21 11:01: Glucometer 226 02/06/21 15:37: Glucometer 156 02/06/21 20:08: Glucometer 180 02/07/21 05:23: Glucometer 96 02/07/21 10:50: Glucometer 201 02/07/21 15:43: Glucometer 232 02/07/21 20:02: Glucometer 192 02/08/21 05:18: White Blood Count 6.2, Red Blood Count 3.51, Hemoglobin 8.3, Hematocrit 28, Mean Corpuscular Volume 80, Mean Corpuscular Hemoglobin 24, Mean Corpuscular Hemoglobin Concent 30, Red Cell Distribution Width 23.9, Platelet Count 350, Mean Platelet Volume 10.0, Immature Granulocyte % (Auto) 0, Neutrophils (%) (Auto) 54, Lymphocytes (%) (Auto) 21, Monocytes (%) (Auto) 13, Eosinophils (%) (Auto) 11, Basophils (%) (Auto) 1, Neutrophils # (Auto) 3.3, Lymphocytes # (A uto) 1.3, Monocytes # (Auto) 0.8, Eosinophils # (Auto) 0.7, Basophils # (Auto) 0.0, Immature Granulocyte # (Auto) 0.0, Sodium Level 135, Potassium Level 3.5, Chloride Level 101, Carbon Dioxide Level 27, Anion Gap 7, Blood Urea Nitrogen 12, Creatinine 0.74, Estimat Glomerular Filtration Rate 80, BUN/Creatinine Ratio 16, Glucose Level 113, Calcium Level 8.2, Corrected Calcium 9.3, Total Bilirubin 0.3, Aspartate Amino Transf (AST/SGOT) 11, Alanine Aminotransferase (ALT/SGPT) 17, Alkaline Phosphatase 132, Total Protein 5.5, Albumin 2.6 02/08/21 05:51: Glucometer 103 02/08/21 11:16: Glucometer 160 02/08/21 17:23: Glucometer 106 02/08/21 20:15: Glucometer 175 02/09/21 05:10: Glucometer 114 02/09/21 11:03: Glucometer 206 02/09/21 16:58: Glucometer 123 02/09/21 20:17: Glucometer 152 02/10/21 05:22: Glucometer 122 02/10/21 12:44: Glucometer 216 02/10/21 16:49: Glucometer 164 02/10/21 20:23: Glucometer 150 02/11/21 05:40: Glucometer 100 02/11/21 10:50: Glucometer 168 02/11/21 15:28: Glucometer 161 02/11/21 21:04: Glucometer 140 02/12/21 05:16: Glucometer 71 02/12/21 05:56: Glucometer 111 02/12/21 10:50: Glucometer 166 02/12/21 15:59: Glucometer 113 02/12/21 21:42: Glucometer 190 02/13/21 06:42: Glucometer 151 02/13/21 11:11: Glucometer 154 02/13/21 15:38: Glucometer 149 02/13/21 20:06: Glucometer 158 02/14/21 05:09: Glucometer 109 02/14/21 10:49: Glucometer 231 02/14/21 15:40: Glucometer 253 02/14/21 20:31: Glucometer 121 02/15/21 05:10: Glucometer 132 02/15/21 05:33: White Blood Count 7.2, Red Blood Count 3.89, Hemoglobin 9.3, Hematocrit 31, Mean Corpuscular Volume 79, Mean Corpuscular Hemoglobin 24, Mean Corpuscular Hemoglobin Concent 30, Red Cell Distribution Width 23.7, Platelet Count 315, Mean Platelet Volume 9.9, Immature Granulocyte % (Auto) 0, Neutrophils (%) (Auto) 56, Lymphocytes (%) (Auto) 20, Monocytes (%) (Auto) 13, Eosinophils (%) (Auto) 10, Basophils (%) (Auto) 0, Neutrophils # (Auto) 4.0, Lymphocytes # (Auto) 1.5, Monocytes # (Auto) 0.9, Eosinophils # (Auto) 0.7, Basophils # (Auto) 0.0, Immature Granulocyte # (Auto) 0.0, Sodium Level 133, Potassium Level 4.3, Chloride Level 97, Carbon Dioxide Level 27, Anion Gap 9, Blood Urea Nitrogen 13, Creatinine 0.76, Estimat Glomerular Filtration Rate 77, BUN/Creatinine Ratio 17, Glucose Level 134, Calcium Level 8.6, Corrected Calcium 9.6, Total Bilirubin 0.4, Aspartate Amino Transf (AST/SGOT) 13, Alanine Aminotransferase (ALT/SGPT) 14, Alkaline Phosphatase 131, Total Protein 5.8, Albumin 2.8 02/15/21 10:45: Glucometer 272 02/15/21 15:32: Glucometer 150 02/15/21 20:02: Glucometer 133 02/16/21 05:27: Glucometer 109 02/16/21 10:50: Glucometer 372 02/16/21 10:51: Glucometer 342 02/16/21 15:51: Glucometer 180 02/16/21 20:36: Glucometer 211 02/17/21 05:38: Glucometer 128 02/17/21 11:28: Glucometer 241 02/17/21 16:48: Glucometer 135 02/17/21 20:44: Glucometer 209 Discharge Home Medications: Active Scripts Active Levemir (Insulin Determir) 1,000 Units/10 Ml Soln 10 Unit SQ BID 30 Days Stool Softener-Laxative Tablet (Sennosides/Docusate Sodium) 1 Each Tablet 1 Ea PO BID 30 Days Klor-Con 10 (Potassium Chloride) 10 Meq Tablet.er 10 Meq PO DAILY@0700 30 Days Citalopram HBr (Citalopram Hydrobromide) 20 Mg Tablet 20 Mg PO DAILY 30 Days Oxyir Tablet (Oxycodone HCl) 5 Mg Tab 5-15 Mg PO Q4H PRN Amlodipine Besylate 10 Mg Tablet 10 Mg PO DAILY 30 Days Enoxaparin Sodium 40 Mg/0.4 Ml Syringe 40 Mg SC BID@0700,1900 60 Days Methocarbamol 750 Mg Tablet 750 Mg PO QID PRN Insulin Lispro Kwikpen U-100 (Insulin Lispro) 100 Unit/1 Ml Insuln.pen 6 Units SC AC 30 Days Reported Proair Hfa (Albuterol Sulfate) 1 Puff Puff 2 Puff IH Q4H PRN Atorvastatin Calcium 80 Mg Tablet 80 Mg PO DAILY Metformin HCl ER (Metformin HCl) 500 Mg Tab.er.24h 500 Mg PO DAILY Lisinopril 20 Mg Tablet 20 Mg PO DAILY Levemir (Insulin Determir) 1,000 Units/10 Ml Soln 10 Unit SC HS Venlafaxine HCl ER (Venlafaxine HCl) 150 Mg Cap.er.24h 150 Mg PO DAILY Gabapentin 400 Mg Capsule 400 Mg PO TID Januvia (Sitagliptin Phosphate) 100 Mg Tablet 100 Mg PO TID Budesonide-Formoterol 160-4.5 (Budesonide/Formoterol Fumarate) 10.2 Gm Hfa.aer.ad 2 Puff INH BID Fludrocortisone Acetate 0.1 Mg Tab 0.1 Mg PO TID Clopidogrel (Clopidogrel Bisulfate) 75 Mg Tablet 75 Mg PO DAILY Instructions to patient/family Please see electronic discharge instructions given to patient. Diagnosis/Problems Diagnosis/Problems (1) Femur fracture ALCIDES RUIZ DO Feb 17, 2021 12:19
--- NOTE | 2021-02-17 14:25 | Therapy Group Daily Note ---
Therapy Daily Group Note Patient Education Topic Other List Below (ARU, bed mobility, transfers) Exercises LE Seated Exercise, UE Exercise Session Ratio (pt:therapist): 4:1 Goal of Session: Education on ARU Expectations, Safety with Transfers Goal Met for this Session: Yes Pt Benefit of Group: Contributions to Others, F/U Use of Strategies @Home, Increased Functional Safety, Increased Functional Strength, Improved Cognition, Recognition of Peers, Socialization Other/Notes Pt transported via w/c to [facility] for OT/PT group. Group consisted of introductions (name, place living, favorite restaurant), socialization, B UE/LE seated exercises and education on bed mobility/transfers. Pt introduced self appropriately and actively listened to peers. Pt acknowledged understanding of educational topics by nodding head in affirmation/verbalization. Pt able to complete modified B UE/LE seated exercises without difficulty. After therapy, pt lying in bed with call light/phone in reach. All needs met in room. Start Time: 13:00 Stop Time: 14:10 Total Billed Treatment Time: 70 Total Billed Treatment 1-EUGENIE MATHEW Feb 17, 2021 14:25
[2021-02-17 20:00] VITALS: BP 162/70
--- NOTE | 2021-02-18 05:25 | Discharge Summary ---
Diagnosis/Chief Complaint Date of Admission Jan 26, 2021 at 21:10 Date of Discharge Discharge Date: Feb 17, 2021 Discharge Diagnosis Assessment: Distal fracture of right femur Closed comminuted fracture of right humerus ABLA (acute blood loss anemia) Morbid obesity ([facility]) Hyponatremia Syncope and collapse Impaired mobility and activities of daily living Acute traumatic pain Sleep disorder CAD (coronary artery disease HTN (hypertension) COPD (chronic obstructive pulmonary disease) ([facility]) At risk for constipation DM (diabetes mellitus) ([facility]) Plan: Aggressive therapy Pain control Supportive care 01/28/2021: Supportive care to continue Check x-ray of leg Continue nonweightbearing status 01/29/2021: Supportive care Monitor bowel function Pain control 01/30/2021: Supportive care Pain control Bowel regimen 01/31/2021: Aggressive therapy Supportive care 02/01/2021: Pain control Pure wick Monitor glucose 02/02/2021: Supportive care Needs alf due to complete dependence 02/03/2021: Supportive care Needs alf Ice to shoulder Pain management 02/04/2021: Pain control Improve transfers Monitor closely 02/05/2021: Bowel regimen Pain control Monitor closely 02/06/21: Monitor pain Fall risk 02/07/21: Behavioral health consult Monitor closely 02/08/2021: Behavioral health consult Celexa added Monitor closely 02/09/2021: Supportive care Needs alf since fully dependent 02/10/2021: Discharge planning [facility] for skilled 02/11/2021: Await placement 02/[facility] Lasix 40 mg 1 dose PAT hose 02/14/2021: PAT hose retirement on Monday02/15/2021: [facility] once insurance approves 02/16/2021: Awaiting placement (1) Femur fracture Discharge Summary Discharge Physical Examination Allergies: Coded Allergies: venlafaxine (Verified Allergy, Unknown, 01/26/21) Vitals & I&Os Vital Signs Date Time Temp Pulse Resp B/P (MAP) Pulse Ox O2 Delivery O2 Flow Rate FiO2 02/18/21 09:03 Room Air 02/18/21 07:48 36.6 82 16 177/72 (107) 95 02/13/21 06:54 21 General Appearance: Alert, Oriented X3, Cooperative Respiratory: Clear to Auscultation Cardiovascular: Regular Rate Psych/Mental Status: Mental Status NL Hospital Course Was the Problem List Reviewed?: Yes Hospital course: Pt had a lengthy hospital course for 24 days, she was max-assist with PT and OT. She was unable to be ambulatory due to distal femur fracture, hardware. She stabilized, blood pressure and blood sugar remained stable with multiple medication changed. Pain was well controlled and she was deemed stable for discharge to [facility]. Labs (last 24 hrs) Laboratory Tests 01/26/21 22:21: Glucometer 190H 01/27/21 05:26: Glucometer 84 01/27/21 06:10: White Blood Count 10.4, Red Blood Count 3.65L, Hemoglobin 8.5L, Hematocrit 28L, Mean Corpuscular Volume 78L, Mean Corpuscular Hemoglobin 23L, Mean Corpuscular Hemoglobin Concent 30L, Red Cell Distribution Width 25.4H, Platelet Count 566H, Mean Platelet Volume 9.5, Immature Granulocyte % (Auto) 1, Neutrophils (%) (Auto) 72, Lymphocytes (%) (Auto) 11L, Monocytes (%) (Auto) 11, Eosinophils (%) (Auto) 5, Basophils (%) (Auto) 0, Neutrophils # (Auto) 7.5, Lymphocytes # (Auto) 1.2, Monocytes # (Auto) 1.1H, Eosinophils # (Auto) 0.5H, Basophils # (Auto) 0.0, Immature Granulocyte # (Auto) 0.1, Sodium Level 139, Potassium Level 3.6, Chlor quentin Level 100, Carbon Dioxide Level 27, Anion Gap 12, Blood Urea Nitrogen 13, Creatinine 0.73, Estimat Glomerular Filtration Rate 81, BUN/Creatinine Ratio 18, Glucose Level 76, Calcium Level 8.6, Corrected Calcium 9.7, Total Bilirubin 0.5, Aspartate Amino Transf (AST/SGOT) 30, Alanine Aminotransferase (ALT/SGPT) 20, Alkaline Phosphatase 146H, Total Protein 5.7L, Albumin 2.6L 01/27/21 11:45: Glucometer 169H 01/27/21 16:41: Glucometer 137H 01/27/21 21:13: Glucometer 128H 01/28/21 05:42: Glucometer 134H 01/28/21 11:06: Glucometer 199H 01/28/21 16:05: Glucometer 186H 01/28/21 20:52: Glucometer 176H 01/29/21 05:19: Glucometer 163H 01/29/21 10:46: Glucometer 190H 01/29/21 15:50: Glucometer 137H 01/29/21 20:17: Glucometer 199H 01/30/21 05:53: Glucometer 150H 01/30/21 10:38: Glucometer 216H 01/30/21 16:32: Glucometer 132H 01/30/21 21:16: Glucometer 176H 01/31/21 06:36: Glucometer 163H 01/31/21 10:55: Glucometer 228H 01/31/21 11:16: Glucometer 223H 01/31/21 15:59: Glucometer 195H 01/31/21 21:03: Glucometer 185H 02/01/21 05:25: Glucometer 148H 02/01/21 06:28: White Blood Count 6.9, Red Blood Count 3.47L, Hemoglobin 8.2L, Hematocrit 27L, Mean Corpuscular Volume 78L, Mean Corpuscular Hemoglobin 24L, Mean Corpuscular Hemoglobin Concent 30L, Red Cell Distribution Width 24.7H, Platelet Count 502H, Mean Platelet Volume 9.6, Immature Granulocyte % (Auto) 0, Neutrophils (%) (Auto) 61, Lymphocytes (%) (Auto) 16, Monocytes (%) (Auto) 12, Eosinophils (%) (Auto) 10, Basophils (%) (Auto) 1, Neutrophils # (Auto) 4.2, Lymphocytes # (Auto) 1.1, Monocytes # (Auto) 0.8, Eosinophils # (Auto) 0.7H, Basophils # (Auto) 0.1, Immature Granulocyte # (Auto) 0.0, Sodium Level 134L, Potassium Level 4.1, Chloride Level 99, Carbon Dioxide Level 25, Anion Gap 10, Blood Urea Nitrogen 12, Creatinine 0.81, Estimat Glomerular Filtration Rate 72, BUN/Creatinine Ratio 15, Glucose Level 141H, Calcium Level 8.6, Corrected Calcium 9.7, Total Bilirubin 0.4, Aspartate Amino Transf (AST/SGOT) 18, Alanine Aminotransferase (ALT/SGPT) 22, Alkaline Phosphatase 159H, Total Protein 5.6L, Albumin 2.6L 02/01/21 10:46: Glucometer 198H 02/01/21 16:30: Glucometer 105 02/01/21 20:34: Glucometer 158H 02/02/21 05:17: Glucometer 114H 02/02/21 10:57: Glucometer 222H 02/02/21 16:11: Glucometer 159H 02/02/21 20:41: Glucometer 123H 02/03/21 05:19: Glucometer 155H 02/03/21 11:25: Glucometer 164H 02/03/21 15:43: Glucometer 157H 02/03/21 20:01: Glucometer 107 02/04/21 05:41: Glucometer 180H 02/04/21 11:08: Glucometer 239H 02/04/21 16:45: Glucometer 120H 02/04/21 20:59: Glucometer 220H 02/05/21 05:51: Glucometer 103 02/05/21 10:56: Glucometer 221H 02/05/21 16:38: Glucometer 88 02/05/21 20:05: Glucometer 146H 02/06/21 05:07: Glucometer 110 02/06/21 11:01: Glucometer 226H 02/06/21 15:37: Glucometer 156H 02/06/21 20:08: Glucometer 180H 02/07/21 05:23: Glucometer 96 02/07/21 10:50: Glucometer 201H 02/07/21 15:43: Glucometer 232H 02/07/21 20:02: Glucometer 192H 02/08/21 05:18: White Blood Count 6.2, Red Blood Count 3.51L, Hemoglobin 8.3L, Hematocrit 28L, Mean Corpuscular Volume 80, Mean Corpuscular Hemoglobin 24L, Mean Corpuscular Hemoglobin Concent 30L, Red Cell Distribution Width 23.9H, Platelet Count 350, Mean Platelet Volume 10.0, Immature Granulocyte % (Auto) 0, Neutrophils (%) (Auto) 54, Lymphocytes (%) (Auto) 21, Monocytes (%) (Auto) 13H, Eosinophils (%) (Auto) 11H, Basophils (%) (Auto) 1, Neutrophils # (Auto) 3.3, Lymphocytes # (Auto) 1.3, Monocytes # (Auto) 0.8, Eosinophils # (Auto) 0.7H, Basophils # (Auto) 0.0, Immature Granulocyte # (Auto) 0.0, Sodium Level 135, Potassium Level 3.5L, Chloride Level 101, Carbon Dioxide Level 27, Anion Gap 7, Blood Urea Nitrogen 12, Creatinine 0.74, Estimat Glomerular Filtration Rate 80, BUN/Creatinine Ratio 16, Glucose Level 113H, Calcium Level 8.2L, Corrected Calcium 9.3, Total Bilirubin 0.3, Aspartate Amino Transf (AST/SGOT) 11, Alanine Aminotransferase (ALT/SGPT) 17, Alkaline Phosphatase 132, Total Protein 5.5L, Albumin 2.6L 02/08/21 05:51: Glucometer 103 02/08/21 11:16: Glucometer 160H 02/08/21 17:23: Glucometer 106 02/08/21 20:15: Glucometer 175H 02/09/21 05:10: Glucometer 114H 02/09/21 11:03: Glucometer 206H 02/09/21 16:58: Glucometer 123H 02/09/21 20:17: Glucometer 152H 02/10/21 05:22: Glucometer 122H 02/10/21 12:44: Glucometer 216H 02/10/21 16:49: Glucometer 164H 02/10/21 20:23: Glucometer 150H 02/11/21 05:40: Glucometer 100 02/11/21 10:50: Glucometer 168H 02/11/21 15:28: Glucometer 161H 02/11/21 21:04: Glucometer 140H 02/12/21 05:16: Glucometer 71 02/12/21 05:56: Glucometer 111H 02/12/21 10:50: Glucometer 166H 02/12/21 15:59: Glucometer 113H 02/12/21 21:42: Glucometer 190H 02/13/21 06:42: Glucometer 151H 02/13/21 11:11: Glucometer 154H 02/13/21 15:38: Glucometer 149H 02/13/21 20:06: Glucometer 158H 02/14/21 05:09: Glucometer 109 02/14/21 10:49: Glucometer 231H 02/14/21 15:40: Glucometer 253H 02/14/21 20:31: Glucometer 121H 02/15/21 05:10: Glucometer 132H 02/15/21 05:33: White Blood Count 7.2, Red Blood Count 3.89, Hemoglobin 9.3L, Hematocrit 31L, Mean Corpuscular Volume 79L, Mean Corpuscular Hemoglobin 24L, Mean Corpuscular Hemoglobin Concent 30L, Red Cell Distribution Width 23.7H, Platelet Count 315, Mean Platelet Volume 9.9, Immature Granulocyte % (Auto) 0, Neutrophils (%) (Auto) 56, Lymphocytes (%) (Auto) 20, Monocytes (%) (Auto) 13H, Eosinophils (%) (Auto) 10, Basophils (%) (Auto) 0, Neutrophils # (Auto) 4.0, Lymphocytes # (Auto) 1.5, Monocytes # (Auto) 0.9, Eosinophils # (Auto) 0.7H, Basophils # (Auto) 0.0, Immature Granulocyte # (Auto) 0.0, Sodium Level 133L, Potassium Level 4.3, Chloride Level 97L, Carbon Dioxide Level 27, Anion Gap 9, Blood Urea Nitrogen 13, Creatinine 0.76, Estimat Glomerular Filtration Rate 77, BUN/Creatinine Ratio 17, Glucose Level 134H, Calcium Level 8.6, Corrected Calcium 9.6, Total Bilirubin 0.4, Aspartate Amino Transf (AST/SGOT) 13, Alanine Aminotransferase (ALT/SGPT) 14, Alkaline Phosphatase 131, Total Protein 5.8L, Albumin 2.8L 02/15/21 10:45: Glucometer 272H 02/15/21 15:32: Glucometer 150H 02/15/21 20:02: Glucometer 133H 02/16/21 05:27: Glucometer 109 02/16/21 10:50: Glucometer 372H 02/16/21 10:51: Glucometer 342H 02/16/21 15:51: Glucometer 180H 02/16/21 20:36: Glucometer 211H 02/17/21 05:38: Glucometer 128H 02/17/21 11:28: Glucometer 241H 02/17/21 16:48: Glucometer 135H 02/17/21 20:44: Glucometer 209H 02/18/21 05:30: Glucometer 129H Pending Labs Laboratory Tests 01/26/21 22:21: Glucometer 190 01/27/21 05:26: Glucometer 84 01/27/21 06:10: White Blood Count 10.4, Red Blood Count 3.65, Hemoglobin 8.5, Hematocrit 28, Mean Corpuscular Volume 78, Mean Corpuscular Hemoglobin 23, Mean Corpuscular Hemoglobin Concent 30, Red Cell Distribution Width 25.4, Platelet Count 566, Mean Platelet Volume 9.5, Immature Granulocyte % (Auto) 1, Neutrophils (%) (Auto) 72, Lymphocytes (%) (Auto) 11, Monocytes (%) (Auto) 11, Eosinophils (%) (Auto) 5, Basophils (%) (Auto) 0, Neutrophils # (Auto) 7.5, Lymphocytes # (Auto) 1.2, Monocytes # (Auto) 1.1, Eosinophils # (Auto) 0.5, Basophils # (Auto) 0.0, Immature Granulocyte # (Auto) 0.1, Sodium Level 139, Potassium Level 3.6, Chloride Level 100, Carbon Dioxide Level 27, Anion Gap 12, Blood Urea Nitrogen 13, Creatinine 0.73, Estimat Glomerular Filtration Rate 81, BUN/Creatinine Ratio 18, Glucose Level 76, Calcium Level 8.6, Corrected Calcium 9.7, Total Bilirubin 0.5, Aspartate Amino Transf (AST/SGOT) 30, Alanine Aminotransferase (ALT/SGPT) 20, Alkaline Phosphatase 146, Total Protein 5.7, Albumin 2.6 01/27/21 11:45: Glucometer 169 01/27/21 16:41: Glucometer 137 01/27/21 21:13: Glucometer 128 01/28/21 05:42: Glucometer 134 01/28/21 11:06: Glucometer 199 01/28/21 16:05: Glucometer 186 01/28/21 20:52: Glucometer 176 01/29/21 05:19: Glucometer 163 01/29/21 10:46: Glucometer 190 01/29/21 15:50: Glucometer 137 01/29/21 20:17: Glucometer 199 01/30/21 05:53: Glucometer 150 01/30/21 10:38: Glucometer 216 01/30/21 16:32: Glucometer 132 01/30/21 21:16: Glucometer 176 01/31/21 06:36: Glucometer 163 01/31/21 10:55: Glucometer 228 01/31/21 11:16: Glucometer 223 01/31/21 15:59: Glucometer 195 01/31/21 21:03: Glucometer 185 02/01/21 05:25: Glucometer 148 02/01/21 06:28: White Blood Count 6.9, Red Blood Count 3.47, Hemoglobin 8.2, Hematocrit 27, Mean Corpuscular Volume 78, Mean Corpuscular Hemoglobin 24, Mean Corpuscular Hemoglobin Concent 30, Red Cell Distribution Width 24.7, Platelet Count 502, Mean Platelet Volume 9.6, Immature Granulocyte % (Auto) 0, Neutrophils (%) (Auto) 61, Lymphocytes (%) (Auto) 16, Monocytes (%) (Auto) 12, Eosinophils (%) (Auto) 10, Basophils (%) (Auto) 1, Neutrophils # (Auto) 4.2, Lymphocytes # (Auto) 1.1, Monocytes # (Auto) 0.8, Eosinophils # (Auto) 0.7, Basophils # (Auto) 0.1, Immature Granulocyte # (Auto) 0.0, Sodium Level 134, Potassium Level 4.1, Chloride Level 99, Carbon Dioxide Level 25, Anion Gap 10, Blood Urea Nitrogen 12, Creatinine 0.81, Estimat Glomerular Filtration Rate 72, BUN/Creatinine Ratio 15, Glucose Level 141, Calcium Level 8.6, Corrected Calcium 9.7, Total Bilirubin 0.4, Aspartate Amino Transf (AST/SGOT) 18, Alanine Aminotransferase (ALT/SGPT) 22, Alkaline Phosphatase 159, Total Protein 5.6, Albumin 2.6 02/01/21 10:46: Glucometer 198 02/01/21 16:30: Glucometer 105 02/01/21 20:34: Glucometer 158 02/02/21 05:17: Glucometer 114 02/02/21 10:57: Glucometer 222 02/02/21 16:11: Glucometer 159 02/02/21 20:41: Glucometer 123 02/03/21 05:19: Glucometer 155 02/03/21 11:25: Glucometer 164 02/03/21 15:43: Glucometer 157 02/03/21 20:01: Glucometer 107 02/04/21 05:41: Glucometer 180 02/04/21 11:08: Glucometer 239 02/04/21 16:45: Glucometer 120 02/04/21 20:59: Glucometer 220 02/05/21 05:51: Glucometer 103 02/05/21 10:56: Glucometer 221 02/05/21 16:38: Glucometer 88 02/05/21 20:05: Glucometer 146 02/06/21 05:07: Glucometer 110 02/06/21 11:01: Glucometer 226 02/06/21 15:37: Glucometer 156 02/06/21 20:08: Glucometer 180 02/07/21 05:23: Glucometer 96 02/07/21 10:50: Glucometer 201 02/07/21 15:43: Glucometer 232 02/07/21 20:02: Glucometer 192 02/08/21 05:18: White Blood Count 6.2, Red Blood Count 3.51, Hemoglobin 8.3, Hematocrit 28, Mean Corpuscular Volume 80, Mean Corpuscular Hemoglobin 24, Mean Corpuscular Hemoglobin Concent 30, Red Cell Distribution Width 23.9, Platelet Count 350, Mean Platelet Volume 10.0, Immature Granulocyte % (Auto) 0, Neutrophils (%) (Auto) 54, Lymphocytes (%) (Auto) 21, Monocytes (%) (Auto) 13, Eosinophils (%) (Auto) 11, Basophils (%) (Auto) 1, Neutrophils # (Auto) 3.3, Lymphocytes # (Auto) 1.3, Monocytes # (Auto) 0.8, Eosinophils # (Auto) 0.7, Basophils # (Auto) 0.0, Immature Granulocyte # (Auto) 0.0, Sodium Level 135, Potassium Level 3.5, Chloride Level 101, Carbon Dioxide Level 27, Anion Gap 7, Blood Urea Nitrogen 12, Creatinine 0.74, Estimat Glomerular Filtration Rate 80, BUN/Creatinine Ratio 16, Glucose Level 113, Calcium Level 8.2, Corrected Calcium 9.3, Total Bilirubin 0.3, Aspartate Amino Transf (AST/SGOT) 11, Alanine Aminotransferase (ALT/SGPT) 17, Alkaline Phosphatase 132, Total Protein 5.5, Albumin 2.6 02/08/21 05:51: Glucometer 103 02/08/21 11:16: Glucometer 160 02/08/21 17:23: Glucometer 106 02/08/21 20:15: Glucometer 175 02/09/21 05:10: Glucometer 114 02/09/21 11:03: Glucometer 206 02/09/21 16:58: Glucometer 123 02/09/21 20:17: Glucometer 152 02/10/21 05:22: Glucometer 122 02/10/21 12:44: Glucometer 216 02/10/21 16:49: Glucometer 164 02/10/21 20:23: Glucometer 150 02/11/21 05:40: Glucometer 100 02/11/21 10:50: Glucometer 168 02/11/21 15:28: Glucometer 161 02/11/21 21:04: Glucometer 140 02/12/21 05:16: Glucometer 71 02/12/21 05:56: Glucometer 111 02/12/21 10:50: Glucometer 166 02/12/21 15:59: Glucometer 113 02/12/21 21:42: Glucometer 190 02/13/21 06:42: Glucometer 151 02/13/21 11:11: Glucometer 154 02/13/21 15:38: Glucometer 149 02/13/21 20:06: Glucometer 158 02/14/21 05:09: Glucometer 109 02/14/21 10:49: Glucometer 231 02/14/21 15:40: Glucometer 253 02/14/21 20:31: Glucometer 121 02/15/21 05:10: Glucometer 132 02/15/21 05:33: White Blood Count 7.2, Red Blood Count 3.89, Hemoglobin 9.3, Hematocrit 31, Mean Corpuscular Volume 79, Mean Corpuscular Hemoglobin 24, Mean Corpuscular Hemoglobin Concent 30, Red Cell Distribution Width 23.7, Platelet Count 315, Mean Platelet Volume 9.9, Immature Granulocyte % (Auto) 0, Neutrophils (%) (Auto) 56, Lymphocytes (%) (Auto) 20, Monocytes (%) (Auto) 13, Eosinophils (%) (Auto) 10, Basophils (%) (Auto) 0, Neutrophils # (Auto) 4.0, Lymphocytes # (Auto) 1.5, Monocytes # (Auto) 0.9, Eosinophils # (Auto) 0.7, Basophils # (Auto) 0.0, Immature Granulocyte # (Auto) 0.0, Sodium Level 133, Potassium Level 4.3, Chloride Level 97, Carbon Dioxide Level 27, Anion Gap 9, Blood Urea Nitrogen 13, Creatinine 0.76, Estimat Glomerular Filtration Rate 77, BUN/Creatinine Ratio 17, Glucose Level 134, Calcium Level 8.6, Corrected Calcium 9.6, Total Bilirubin 0.4, Aspartate Amino Transf (AST/SGOT) 13, Alanine Aminotransferase (ALT/SGPT) 14, Alkaline Phosphatase 131, Total Protein 5.8, Albumin 2.8 02/15/21 10:45: Glucometer 272 02/15/21 15:32: Glucometer 150 02/15/21 20:02: Glucometer 133 02/16/21 05:27: Glucometer 109 02/16/21 10:50: Glucometer 372 02/16/21 10:51: Glucometer 342 02/16/21 15:51: Glucometer 180 02/16/21 20:36: Glucometer 211 02/17/21 05:38: Glucometer 128 02/17/21 11:28: Glucometer 241 02/17/21 16:48: Glucometer 135 02/17/21 20:44: Glucometer 209 02/18/21 05:30: Glucometer 129 Discharge Home Medications: Active Scripts Active Levemir (Insulin Determir) 1,000 Units/10 Ml Soln 10 Unit SQ BID 30 Days Stool Softener-Laxative Tablet (Sennosides/Docusate Sodium) 1 Each Tablet 1 Ea PO BID 30 Days Klor-Con 10 (Potassium Chloride) 10 Meq Tablet.er 10 Meq PO DAILY@0700 30 Days Citalopram HBr (Citalopram Hydrobromide) 20 Mg Tablet 20 Mg PO DAILY 30 Days Oxyir Tablet (Oxycodone HCl) 5 Mg Tab 5-15 Mg PO Q4H PRN Amlodipine Besylate 10 Mg Tablet 10 Mg PO DAILY 30 Days Enoxaparin Sodium 40 Mg/0.4 Ml Syringe 40 Mg SC BID@0700,1900 60 Days Methocarbamol 750 Mg Tablet 750 Mg PO QID PRN Insulin Lispro Kwikpen U-100 (Insulin Lispro) 100 Unit/1 Ml Insuln.pen 6 Units SC AC 30 Days Reported Proair Hfa (Albuterol Sulfate) 1 Puff Puff 2 Puff IH Q4H PRN Atorvastatin Calcium 80 Mg Tablet 80 Mg PO DAILY Metformin HCl ER (Metformin HCl) 500 Mg Tab.er.24h 500 Mg PO DAILY Gabapentin 400 Mg Capsule 400 Mg PO TID Budesonide-Formoterol 160-4.5 (Budesonide/Formoterol Fumarate) 10.2 Gm Hfa.aer.ad 2 Puff INH BID Clopidogrel (Clopidogrel Bisulfate) 75 Mg Tablet 75 Mg PO DAILY Instructions to patient/family Please see electronic discharge instructions given to patient. Diagnosis/Problems Diagnosis/Problems (1) Femur fracture ALCIDES RUIZ DO Feb 18, 2021 05:25
[2021-02-18] MEDS: inSUlin ASPART (NovoLOG) 1 UNIT/0.01 ML (CHARGE PER UNIT) SC SCH ×2 (05:33)
[2021-02-18] MEDS: KCL 10 MEQ TAB (MICRO K) PO SCH (06:31)
[2021-02-18] MEDS: ENOXAPARIN 40 MG/0.4 ML (LOVENOX) SYR SC SCH (06:31)
[2021-02-18] MEDS: RT--FLUTICASONE/SALMETEROL 113-14 (AIRDUO RespiCLICK) IH SCH (06:53)
[2021-02-18] MEDS: metFORMIN XR 500 MG (GLUCOPHAGE XR) TAB PO SCH (07:37)
[2021-02-18] MEDS: amLODIPine 10 MG (NORVASC) TAB PO SCH (07:37)
[2021-02-18] MEDS: GABAPENTIN 400 MG (NEURONTIN) CAP PO SCH (07:38)
[2021-02-18] MEDS: CLOPIDOGREL 75 MG (PLAVIX) TABLET PO SCH (07:38)
[2021-02-18 07:48] VITALS: BP 177/72
[2021-02-18] MEDS: polyethylene glycoL POWDER 17 GM (MIRALAX) PACK PO SCH (09:02)
[2021-02-18] MEDS: SENNA W/DOCUSATE (SENOKOT S) TABLET PO SCH (09:02)
[2021-02-18] MEDS: DOCUSATE SODIUM 100 MG (COLACE) CAP PO SCH (09:02)
--- NOTE | 2021-02-18 11:04 | Therapy Team Discharge Summary ---
Therapy Discharge Summary Discharge Recommendations Date of Discharge Feb 18, 2021 at 09:47 Physical Therapy Patient came to rehab following a right femur fx and right humerus fx. Upon evaluation patient performed bed mobility with dependence, supine <-> sit dependent, she cannot stand at this time, dependent with transfers and WC mobility. Patient has been performing bed mobility and transfer training, balance and endurance training, functional strengthening, and education. 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 Now, patient is still dependent for mobility except she can perform bed mobility and supine <-> sit with max assist. Patient has been discharged from this facility today and will be discharged from PT at this time. Occupational Therapy Decreased Activ Tolerance, Decreased UE Strength, Dependent Transfers, Impaired Bed Mobility, Impaired Self-Care Skills, Restricted Funct UE ROM PT Correction Goals Principal Database Developer Goals PT Correction Goals Time Frame: Feb 17, 2021 Roll Left to Right (QC): 3 Sit to Lying (QC): 3 Lying-Sitting on Side/Bed(QC): 3 Sit to Stand (QC): 3 Chair/[id number] Xfer(QC): 3 Car Transfer (QC): 3 Does the Patient Walk: No and Walking Goal NOT indicated Walk 10 feet (QC): 88 Walk 10ft-Uneven Surface(QC): 88 Walk 50ft with 2 Turns (QC): 88 Walk 150 ft (QC): 88 Wheel 50 feet with 2 turns (QC: 5 1 Step (curb) (QC): 88 4 Steps (QC): 88 12 Steps (QC): 88 Picking up an Object (QC): 88 OT Correction Goals Principal Database Developer Goals Time Frame: Feb 24, 2021 Eating (QC): 6 Oral Hygiene (QC): 6 Shower/Bathe Self (QC): 4 Upper Body Dressing (QC): 5 Lower Body Dressing (QC): 5 On/Off Footwear (QC): 5 Toileting Hygiene (QC): 6 Toilet/Commode Transfer (QC): 3 Additional Goals: 1-Demonstrate ADL Tasks, 2-Verbalize Understanding, 3- ImproveStrength/Brian 1=Demonstrate adherence to instructed precautions during ADL tasks. 2=Patient will verbalize/demonstrate understanding of assistive devices /modifications for ADL. 3=Patient will improve strength/tolerance for activity to enable patient to perform ADL's. PIETRO BHANDARI PT Feb 18, 2021 11:04
== END 2021-02-18 09:47 | DRG 560 ==
PROVIDERS: ADMIT Internal Medicine; ATTEND Internal Medicine
DX: S72.401D Unspecified fracture of lower end of right femur, subsequent encounter for closed fracture with routine healing (principal); D62 Acute posthemorrhagic anemia; Z68.41 Body mass index [BMI] 40.0-44.9, adult; E87.1 Hypo-osmolality and hyponatremia; S42.201D Unspecified fracture of upper end of right humerus, subsequent encounter for fracture with routine healing; I25.10 Atherosclerotic heart disease of native coronary artery without angina pectoris; E11.9 Type 2 diabetes mellitus without complications; J44.9 Chronic obstructive pulmonary disease, unspecified; E66.01 Morbid (severe) obesity due to excess calories; I10 Essential (primary) hypertension; R60.0 Localized edema; R19.7 Diarrhea, unspecified; T47.4X5A Adverse effect of other laxatives, initial encounter; G89.11 Acute pain due to trauma; G47.9 Sleep disorder, unspecified; F17.200 Nicotine dependence, unspecified, uncomplicated; E78.00 Pure hypercholesterolemia, unspecified; K21.9 Gastro-esophageal reflux disease without esophagitis; M19.91 Primary osteoarthritis, unspecified site; F32.9 Major depressive disorder, single episode, unspecified; I25.2 Old myocardial infarction; Z79.4 Long term (current) use of insulin; Z88.8 Allergy status to other drugs, medicaments and biological substances; Z95.1 Presence of aortocoronary bypass graft; W19.XXXD Unspecified fall, subsequent encounter
CPT/HCPCS: 36415; 73502; 73552; 80053; 82947; 85025; 94640; 94760